=== PATIENT | male | born 1965 | race American Indian/Alaskan Native ===

== ENCOUNTER → 2023-07-25 | Outpatient (CLI) | payer OTHER ==
[2023-07-25 09:41] LABS: African American GFR (CKD) >90 (>60 ml/min/1.73 sqM); Blood Urea Nitrogen 12 mg/dL (9-20); Non-African American GFR(CKD) >90 (>60 ml/min/1.73 sqM)
--- NOTE | 2023-07-25 12:22 | CT ---
EXAMINATION TYPE: CT angio without and with chest DATE OF EXAM: 07/25/2023 COMPARISON: 02/12/2023 and 09/01/2022 HISTORY: 57-year-old male I 71.20, Follow up for thoracic aortic aneurysm. TECHNIQUE: Contiguous axial scanning of the chest before and after the administration of 100ml mL of Isovue 370. Coronal/sagittal MIP reconstructions performed. 3-D reconstructions generated on a [employer] independent workstation. CT DLP: 784mGycm. Automatic exposure control utilized for a dose reduction. FINDINGS: The heart is normal size without pericardial effusion. LAD and RCA coronary calcifications are presen t. Moderate aortic valvular calcifications. Aortic root mildly aneurysmal 4.1 cm versus 3.9 cm 09/01/2022. Ascending aorta aneurysmal at 5.0 cm, unchanged. Bovine configuration to the aortic arch. Normal caliber descending thoracic aorta. Unchanged prominent right hilar lymph node at 9 mm. 1.0 cm on the left. Otherwise, no thoracic lymph adenopathy by CT size criteria. Diffuse bronchial wall thickening. Hazy dependent atelectasis noted. Some patchy groundglass perihila r bronchovascular and peripherally in the right upper lobe. Calcified granuloma anterior left upper lobe is unchanged. No consolidation or pleural effusion seen. ABDOMEN: Visualized upper abdomen shows a tiny calcified granuloma in the spleen. Bones: Mild to moderate degenerative disc disease midthoracic spine. Normal variant sternal foramen. IMPRESSION: 1. Mild aneurysm aortic root at 4.1 cm versus 3.9 cm, previously. Moderate aortic valvular calcificat ions are redemonstrated. 2. Aneurysm ascending aorta 5.0 cm is unchanged. 3. COPD with mild emphysema. 4. Patchy groundglass throughout the right upper lobe appears fairly similar compared to 02/12/2023. C orrelate to exclude any residual or recurrent infectious/inflammatory infiltrates including the possi bility of COVID pneumonia or PHYSICAL GEOGRAPHER.
== END | disposition home or self-care (01) ==
LOC: RADCTMAIN 08:55
PROVIDERS: ATTEND Thoracic Surgery (Cardiothoracic Vascular Surgery)
DX: I71.20 Thoracic aortic aneurysm, without rupture, unspecified (principal); J44.9 Chronic obstructive pulmonary disease, unspecified; J43.9 Emphysema, unspecified; R91.8 Other nonspecific abnormal finding of lung field
CPT/HCPCS: 82565; 84520; 71275; 36415; Q9967

== ENCOUNTER → 2023-08-13 | Outpatient (CLI) | payer OTHER ==
[2023-08-14 02:00] LABS: HCT 47.6 % (39.6-50.0); HGB 16.1 g/dL (13.0-17.0); MCH 31.8 pg (27.0-32.0); MCHC 33.8 g/dL (32.0-37.0); MCV 93.9 FL (80.0-97.0); Mean Platelet Volume 10.3 FL (9.5-12.2); NRBC Per 100 WBC 0 X 10*3/uL (0.00-0.01); Platelet Count 145 X 10*3/uL (140-440); RBC 5.07 X 10*6/uL (4.40-5.60); RDW 12.4 % (11.5-14.5); WBC 8.18 X 10*3/uL (4.50-10.00)
[2023-08-14 02:37] LABS: Blood Urea Nitrogen 11.6 mg/dL (9.0-27.0); Carbon Dioxide 24.8 mmol/L (21.6-31.8); Chloride 104 mmol/L (96-109); Potassium 4.5 mmol/L (3.5-5.5); Sodium 139 mmol/L (135-145)
== END | disposition home or self-care (01) ==
LOC: LABPAT 12:07
PROVIDERS: ATTEND Internal Medicine
DX: Z01.812 Encounter for preprocedural laboratory examination (principal); R07.9 Chest pain, unspecified; R06.02 Shortness of breath
CPT/HCPCS: 36415; 80051; 82565; 84520; 85027

== ENCOUNTER 2023-08-31 10:15 | Day surgery (SDC) | payer OTHER ==
[~2023-08-31 10:15] MED LIST: ALPRAZolam 0.25 MG TAB PO PRN; ALPRAZolam 0.5 MG TAB PO PRN; ASPIRIN 325 MG TAB PO STA; HEPARIN SODIUM,PORCINE (1 ML) 2,500 UNIT in SODIUM CHLORIDE 0.9% 250 ML IRRIGATION PRN; HEPARIN SODIUM,PORCINE 10,000 UNIT in SODIUM CHLORIDE 0.9% 1,000 ML IRRIGATION PRN; NITROGLYCERIN SL TABS 0.4 MG TAB SUBLINGUAL PRN; SODIUM CHLORIDE 0.9% 1,000 ML in EMPTY BAG 1 BAG IV SCH
[2023-08-31] MEDS ORDERED: SODIUM CHLORIDE 0.9% 1,000 ML IV ONE (10:25)
[2023-08-31 11:20] VITALS: RESP 16; TEMP 97.9
[2023-08-31] MEDS ORDERED: HEPARIN SODIUM 1,000 UN/ML (10ML VL) ONE (11:29)
[2023-08-31] MEDS ORDERED: VERAPAMIL 2.5 MG/ML 2 ML AMP ONE (11:29)
[2023-08-31] MEDS ORDERED: LIDOCAINE 1% INJ 10MG/ML (20 ML MDV) ONE (11:29)
[2023-08-31] MEDS ORDERED: fentaNYL (PF) 50 MCG/ML 2 ML AMP ONE (11:43)
[2023-08-31] MEDS ORDERED: MIDAZOLAM 2 MG/2 ML VIAL IVP ONE (12:06)
[2023-08-31] MEDS ORDERED: LIDOCAINE 1% INJ 10MG/ML (20 ML MDV) SQ ONE (12:08)
[2023-08-31] MEDS ORDERED: fentaNYL (PF) 50 MCG/ML 2 ML AMP IVP ONE (12:08)
[2023-08-31] MEDS ORDERED: VERAPAMIL SYRINGE (5 MG/10 ML) INTRAARTER ONE (12:11)
[2023-08-31] MEDS ORDERED: HEPARIN SODIUM 1,000 UN/ML (10ML VL) IVP ONE ×2 (12:15→12:38)
[2023-08-31] MEDS ORDERED: IOPAMIDOL-370 100ML BTL IVP ONE ×2 (12:32→12:49)
--- NOTE | 2023-08-31 13:27 | P.CARDCATH ---
Description of Procedure: PROCEDURES PERFORMED: Left heart catheterization, bilateral coronary angiography, ultrasound guided arterial access, iFR of the LAD and circumflex INDICATION: Aortic stenosis, aortic root aneurysm CONSENT:I have discussed the risks, benefits and alternative therapies for the above-mentioned procedure and for both sedation/analgesia as well as necessary blood product administration, if indicated, as they pertain to this patient. The patient has indicated understanding and acceptance of the risks and procedures discussed. PROCEDURE: After the risks, benefits and alternatives of the above mentioned procedure explained in detail with the patient, informed consent was obtained. Patient was taken to the catheterization lab and prepped and draped in usual fashion. Ultrasound guidance was used to assess for arterial access. 1% lidocaine was used to anesthetize the right radial artery. A 6-Swedish sheath was placed in the right radial artery using modified Seldinger technique and ultrasound guidance. Left coronary angiography was performed with a 5-Swedish JL 5.0 catheter and right coronary angiography was performed with a 6-Swedish AR2 catheter in various views with some difficulty engaging the AR-2 secondary to aortic root dilation. The decision was made to perform iFR of the LAD and circumflex and heparin was given. A 0.014 pressure wire was advanced into the left main and normalized and then was placed 1 cm distal to the LAD and circumflex lesion. Additionally attempted to place iFR wire down the RCA uriahcristina malhotra had significant issues attempting to keep catheter engaged while exchanging for the 0.014 wire and therefore iFR not performed of the RCA. The right radial sheath was removed and a TR band was placed with hemostasis achieved. The patient tolerated the procedure well. Patient was transported back to the post catheterization holding area in stable condition. Conscious Sedation: Patient was monitored under the direct supervision of myself for conscious sedation using Versed and fentanyl for a total duration of 38 minutes HEMODYNAMICS: Aortic: 139/72 SELECTIVE CORONARY ARTERIOGRAPHY: LEFT MAIN: The left main is a large caliber vessel which bifurcates into the LAD and circumflex. There is no significant stenosis. LEFT ANTERIOR DESCENDING CORONARY ARTERY: LAD is a large caliber vessel which wraps around to the apex. There is a "high diagonal branch "without significant disease. Additionally there is a mid LAD 40-50% stenosis and otherwise mild luminal irregularities. LEFT CIRCUMFLEX CORONARY ARTERY: Left circumflex is a moderate caliber vessel. The circumflex gives off a moderate caliber OM1 branch with a mid OM1 60% stenosis. RIGHT CORONARY ARTERY: The right coronary artery is a large caliber vessel which gives off a PDA and PLV branch and is the dominant vessel. There is a mid RCA 60 to 70% stenosis and a distal RCA 70% stenosis. FINAL IMPRESSION: 1. CAD as described above including mid LAD 40 to 50%, OM1 60%, mid RCA 60 to 70%, distal RCA 70% stenosis 2. iFR normal of LAD and OM1 PLAN: 1. Aggressive risk factor modification per most recent ACC/AHA guidelines. 2. Follow-up with Dr. Beach for further aortic valvular, aortic aneurysm management
[2023-08-31 19:15] VITALS: BP 142/78; PULSE 61
== END 2023-08-31 16:41 | disposition home or self-care (01) ==
LOC: CATHCVL 10:15
PROVIDERS: ATTEND Internal Medicine
DX: I25.10 Atherosclerotic heart disease of native coronary artery without angina pectoris (principal); I10 Essential (primary) hypertension; Z87.891 Personal history of nicotine dependence; Z79.82 Long term (current) use of aspirin; Z79.899 Other long term (current) drug therapy
CPT/HCPCS: 93454; 93799; 76937; 99152; 99153; C1769 ×2; C1894; J2250; J2001; J3010; J1644; Q9967

== ENCOUNTER → 2023-09-10 | Outpatient (CLI) | payer OTHER ==
[2023-09-10 15:42] LABS: ALT 24 U/L (10-49); AST 27 U/L (14-35); Chol/HDL Ratio 4.54 Ratio; LDL Cholesterol,Calculated 95.9 mg/dL (0.0-131.0)
== END | disposition home or self-care (01) ==
LOC: LABWHC1 10:59
PROVIDERS: ATTEND Internal Medicine
DX: E78.2 Mixed hyperlipidemia (principal)
CPT/HCPCS: 36415; 80061; 84450; 84460

== ENCOUNTER → 2023-09-20 | Outpatient (CLI) | payer OTHER ==
[2023-09-20 10:22] LABS: Partial Thromboplastin Time 26.5 sec (22.0-30.0); Prothrombin Time 11.1 sec (10.0-12.5)
--- NOTE | 2023-09-20 11:38 | US ---
EXAMINATION TYPE: US arterial LE single level DATE OF EXAM: 09/20/2023 10:15 AM CLINICAL INDICATION: Male, 58 years old with history of OPEN HEART; Doppler Waveforms: Right: Monophasic Left: Multiphasic Right Brachial Pressure: 106 Left Brachial Pressure: 113 Ankle-Brachial Indices: Right: 0.85 Left: 1.09 IMPRESSION: Ankle-brachial indices with moderate right peripheral vascular disease and normal left ankle-brachial index.
--- NOTE | 2023-09-20 12:42 | XR ---
EXAMINATION TYPE: XR chest 2V DATE OF EXAM: 09/20/2023 COMPARISON: None HISTORY: 58-year-old male preop open heart TECHNIQUE: Frontal and lateral views FINDINGS: Heart is upper limits of normal in size. Aorta and pulmonary vasculature within normal limits. Mild i nterstitial prominence is chronic. High-density nodularity left mid lung probably a calcified granulo ma. IMPRESSION: Borderline heart size. Evidence of prior granulomatous disease. Chronic appearing changes. No definit e acute process.
--- NOTE | 2023-09-20 13:15 | US ---
EXAMINATION TYPE: US carotid duplex BILAT DATE OF EXAM: 09/20/2023 COMPARISON: NONE CLINICAL INDICATION: Male, 58 years old with history of OPEN HEART; open heart TECHNIQUE: Carotid duplex ultrasound examination. Indirect Doppler criteria was utilized. FINDINGS: EXAM MEASUREMENTS: RIGHT: Peak Systolic Velocity (PSV) cm/sec ----- Right CCA: 88.1 ----- Right ICA: 104 ----- Right ECA: 115.7 ICA/CCA ratio: 1.2 RIGHT: End Diastole cm/sec ----- Right CCA: 24.1 ----- Right ICA: 41.6 ----- Right ECA: 24.1 LEFT: Peak Systolic Velocity (PSV) cm/sec ----- Left CCA: 88.1 ----- Left ICA: 105.5 ----- Left ECA: 137.5 ICA/CCA ratio: 1.2 LEFT: End Diastole cm/sec ----- Left CCA: 28.5 ----- Left ICA: 37.2 ----- Left ECA: 24.1 VERTEBRALS (direction of flow): Right Vertebral: Antegrade Left Vertebral: Antegrade Rhythm: Normal ORCHID WORKER NOTES: No significant stenosis seen IMPRESSION: Less than 50% stenosis of the bilateral carotid bifurcations. Criteria for Assigning % of Stenosis / Diameter reduction (Estimation based on the indirect measurements of the internal carotid artery velocities (ICA PSV). 1. Normal (no stenosis)=ICA PSV < 125 cm/s: ratio < 2.0: ICA EDV<40 cm/s. 2. Less than 50% stenosis=ICA PSV < 125 cm/s: ratio < 2.0: ICA EDV<40 cm/s. 3. 50 to 69% stenosis=ICA PSV of 125 to 230 cm/s: ration 2.0 ? 4.0: ICA EDV 40-100 cm/s. 4. Greater than 70% stenosis to near occlusion= ICA PSV > 230 cm/s: ratio > 4.0: ICA EDV > 100 cm/s. 5. Near occlusion= ICA PSV velocities may be low or undetectable: variable ratio and ICA EDV. 6. Total occlusion=unable to detect flow.
--- NOTE | 2023-09-20 13:20 | US ---
EXAMINATION TYPE: Pre-Operative Non-Invasive Evaluation of the hand for Potential Radial Artery Anita gomez, Measurements only DATE OF EXAM: 09/20/2023 10:40 AM CLINICAL INDICATION: Male, 58 years old with history of OPEN HEART; open heart SIDE PERFORMED: Bilateral TECHNIQUE: Radial artery is measured utilizing real time linear array sonography. Dominant hand: Right Duplex Findings: Radial Artery: Color flow seen Measurements in mm, transverse view: Right Radial Proximal: 5.7 x 5.4 mm Mid: 3.4 x 3.5 mm Distal: 3.7 x 3.2 mm Left Radial Proximal: 4.0 x 3.4 mm Mid: 3.4 x 2.9 mm Distal: 3.5 x 2.6 mm IMPRESSION: 1. Bilateral radial measurements listed above. 2. Performing surgeon to determine viability as conduit.
--- NOTE | 2023-09-20 13:20 | US ---
EXAMINATION TYPE: US vein mapping BILAT DATE OF EXAM: 09/20/2023 10:52 AM COMPARISON: NONE CLINICAL INDICATION: Male, 58 years old with history of OPEN HEART; open heart SIDE PERFORMED: Bilateral TECHNIQUE: Lower extremity saphenous vein is examined and measured utilizing real time linear array sonography. Patient History: DUPLEX FINDINGS: Greater Saphenous: Color flow seen Lesser Saphenous: Color flow seen Measurements in mm: Right Greater Saphenous: Groin: 7.4 x 3.9 mm High Thigh: 5.7 x 4.6 mm Mid Thigh: 3.2 x 3.6 mm Above Knee: 3.5 x 3.1 mm Knee: 3.2 x 3.1 mm Below Knee: 3.1 x 2.9 mm Mid Calf: 2.7 x 2.0 mm At Ankle: 3.2 x 1.7 mm Left Greater Saphenous: Groin: 5.3 x 5.0 mm High Thigh: 3.5 x 3.5 mm Mid Thigh: 3.9 x 2.9 mm Above Knee: 3.9 x 3.8 mm Knee: 4.5 x 3.2 mm Below Knee: 3.2 x 3.2 mm Mid Calf: 3.3 x 2.9 mm At Ankle: 3.4 x 2.3 mm IMPRESSION: 1. Bilateral GSV measurements listed above. 2. Performing surgeon to determine viability as conduit.
[2023-09-20 15:31] LABS: Appearance,Urine Clear (Clear); Bilirubin,Urine Negative (Negative); Blood,Urine Negative (Negative); Color,Urine Yellow (Yellow); HGB 15.8 g/dL (13.0-17.0); Ketones,Urine Negative (Negative); MCH 31.3 pg (27.0-32.0); MCHC 32.9 g/dL (32.0-37.0); Mean Platelet Volume 10.9 FL (9.5-12.2); NRBC Per 100 WBC 0 X 10*3/uL (0.00-0.01); Nitrite,Urine Negative (Negative); PH, Urine 6.5; Platelet Count 136 X 10*3/uL (140-440); RBC 5.05 X 10*6/uL (4.40-5.60); RDW 12.6 % (11.5-14.5); Specific Gravity,Urine 1.015 (1.001-1.030); WBC 9.59 X 10*3/uL (4.50-10.00)
[2023-09-20 15:42] LABS: Bacteria,Urine None Seen (None Seen)
[2023-09-20 15:56] LABS: Hepatitis C IgG Antibody Reactive (Non-Reactive)
[2023-09-20 16:01] LABS: Hepatitis A Antibody IgM Nonreactive; Hepatitis B Core IgM Nonreactive; Hepatitis B Surface Antigen Nonreactive
[2023-09-20 16:02] LABS: ALT 21 U/L (10-49); AST 27 U/L (14-35); Albumin/Globulin Ratio 1.38 Ratio (1.60-3.17); Alkaline Phosphatase 100 U/L (41-126); Blood Urea Nitrogen 11.5 mg/dL (9.0-27.0); Calcium 10.3 mg/dL (8.7-10.3); Carbon Dioxide 28.9 mmol/L (21.6-31.8); Chloride 103 mmol/L (96-109); Chol/HDL Ratio 3.71 Ratio; Globulin 2.9 g/dL (1.6-3.3); Glucose 90 mg/dL (70-110); LDL Cholesterol,Calculated 70.3 mg/dL (0.0-131.0); Magnesium 1.7 mg/dL (1.5-2.4); Potassium 4.8 mmol/L (3.5-5.5); Sodium 141 mmol/L (135-145); Total Bilirubin 0.4 mg/dL (0.3-1.2); Total Protein 6.9 g/dL (6.2-8.2)
== END | disposition home or self-care (01) ==
LOC: LABWHC1 08:37
PROVIDERS: ATTEND Thoracic Surgery (Cardiothoracic Vascular Surgery)
DX: Z01.818 Encounter for other preprocedural examination (principal); I73.9 Peripheral vascular disease, unspecified; I35.1 Nonrheumatic aortic (valve) insufficiency; I25.10 Atherosclerotic heart disease of native coronary artery without angina pectoris; I65.23 Occlusion and stenosis of bilateral carotid arteries; R91.8 Other nonspecific abnormal finding of lung field
CPT/HCPCS: 36415; 71046; 80053; 80061; 80074; 81001; 83036; 83735; 84443; 85027; 85610; 85730; 86850; 86900; 86901; 86920; 87070; 87086; 93880; 93922; 93930; 93970; 94150

== ENCOUNTER 2023-09-27 05:44 | Inpatient (IN) | payer OTHER ==
--- NOTE | 2023-09-22 12:13 | P.PN ---
Progress Note - Text Progress Note Date: 09/20/23 5 meter walk test completed: #1 3.68 sec #2 4.0 sec #3 3.65 sec STS risk score calculated and discussed with the patient
[~2023-09-27 05:44] MED LIST changes: -ALPRAZolam 0.25 MG TAB PO PRN; -ALPRAZolam 0.5 MG TAB PO PRN; -ASPIRIN 325 MG TAB PO STA; +CHLORHEXIDINE GLUCONATE 15 ML CUP MUCOUS MEM ONE; +CLEVIDIPINE BUTYRATE 25 MG in EMPTY BAG 1 BAG IV ONE; +HEPARIN SODIUM 1,000 UN/ML (10ML VL) IV ONE; -HEPARIN SODIUM,PORCINE (1 ML) 2,500 UNIT in SODIUM CHLORIDE 0.9% 250 ML IRRIGATION PRN; -HEPARIN SODIUM,PORCINE 10,000 UNIT in SODIUM CHLORIDE 0.9% 1,000 ML IRRIGATION PRN; +MANNITOL 25% 12.5 GM/50 ML VIAL IV ONE; +NITROGLYCERIN SL TABS 0.4 MG TAB SUBLINGUAL ONE; -NITROGLYCERIN SL TABS 0.4 MG TAB SUBLINGUAL PRN; +NITROGLYCERIN-D5W PMX 25 MG/250 ML BTL IV ONE; +PHENYLEPHRINE 10 MG/ML VIAL IV ONE; +PROTAMINE SULFATE 10 MG/ML 25 ML VIAL IV ONE; +SODIUM BICARB 8.4% 50 ML SYR (1 MEQ/ML) IV ONE; -SODIUM CHLORIDE 0.9% 1,000 ML in EMPTY BAG 1 BAG IV SCH
[2023-09-27] MEDS: LACTATED RINGERS 1,000 ML IV ONE (05:57)
[2023-09-27 06:26] LABS: Glucose,Whole Blood 99 mg/dL (70-110)
[2023-09-27] MEDS: ATORVASTATIN 10 MG TAB PO ONE (06:42)
[2023-09-27] MEDS: METOPROLOL TARTRATE 12.5 MG TAB PO ONE (06:43)
[2023-09-27] MEDS ORDERED: CALCIUM CHLORIDE 100 MG/ML 10 ML SYRINGE ONE (07:47)
[2023-09-27] MEDS ORDERED: VECURONIUM 10 MG VIAL IV ONE (07:47)
[2023-09-27] MEDS ORDERED: MIDAZOLAM HCL 10 MG/10 ML VIAL ONE (07:47)
[2023-09-27] MEDS ORDERED: PROTAMINE SULFATE 10 MG/ML 25 ML VIAL IV ONE (07:47)
[2023-09-27] MEDS ORDERED: PHENYLEPHRINE-0.9% NACL SYG 1,000 MCG/10 ML SYRINGE ONE (07:47)
[2023-09-27] MEDS ORDERED: GLYCOPYRROLATE 0.2 MG/ML 2 ML VIAL ONE (07:47)
[2023-09-27] MEDS ORDERED: PROPOFOL 10 MG/ML 20 ML VIAL IV ONE (07:47)
[2023-09-27] MEDS ORDERED: TRANEXAMIC 1,000 MG/100ML-NACL PREMIX BAG ONE (07:47)
[2023-09-27] MEDS ORDERED: HEPARIN SODIUM,PORCINE 10,000 UNIT/ML 1 ML VIAL ONE (07:47)
[2023-09-27] MEDS ORDERED: fentaNYL (PF) 50 MCG/ML 50 ML VIAL ONE (07:47)
[2023-09-27] MEDS: HEPARIN SODIUM,PORCINE (1 ML) 5,000 UNIT in SODIUM CHLORIDE 0.9% 500 ML 500 ML IV ONE (09:13)
[2023-09-27] MEDS: PAPAVERINE 360 MG in SODIUM CHLORIDE 0.9% 90 ML IV ONE (09:13)
[2023-09-27] MEDS: ceFAZolin 1,000 MG in SODIUM CHLORIDE 0.9% IRRIGATIO 1,000 ML IRRIGATION ONE (09:14)
--- NOTE | 2023-09-27 09:29 | P.ANPRN ---
Procedure Note - Anesthesia - Invasive Line Right Central Line Time Out Performed: Yes (0712) Date of Procedure: 09/27/23 Time of Procedure: 07:27 Location of Patient: Phase I Preparation: Sterile Prep, Sterile Dressing Central Line Location: Internal Jugular (right IJ cordis) Ultrasound Used: Yes Purpose - Visualization and Identification of Vasculature: Yes Needle Guage: 18-gauge Angiocath Narrative: Central line placement per sterile protocol utilized. Anesthesia note Procedure: Right internal jugular central venous catheter insertion: 8.5-Yi Cordis Sterile protocol followed. Right neck prepped. Ultrasound used. Lidocaine 1% used. Using ultrasound local anesthetic was instilled site over right Internal Jugular vein. Angiocath was used to gain access via ultrasound. Once free flow non-pulsatile blood flow was confirmed, 12 inch extension tubing was then placed on Angiocath. Once central venous pressure was confirmed, J-wire was then placed through Angiocath. Angiocath was then withdrawn. Local was instilled at J-wire site. Small skin tegan was then made with provided sterile scalpel. 8.5- Yi Cordis was then inserted over the wire while maintaining control of wire at all times. Uneventful insertion with dilation. Free flow nonpulsatile blood flow through Cordis. Hooked up to IV tubing. Secured with suture. Dressings applied. Drapes Removed. Attempts x1.
--- NOTE | 2023-09-27 09:30 | P.ANPRN ---
Procedure Note - Anesthesia - Invasive Line Right [place] Time Out Performed: Yes (0712) Date of Procedure: 09/27/23 Time of Procedure: 07:43 Location of Patient: PreOp Preparation: Sterile Prep, Sterile Dressing Arterial Line Location: Radial [place] Line Location: Internal Jugular (right) Ultrasound Used: No Purpose - Visualization and Identification of Vasculature: No Image Stored and Saved: No Narrative: Central line placement per sterile protocol utilized. Anesthesia note Procedure right [place] catheter placed through right internal jugular central venous catheter Sterile protocol maintained from previous procedure. [place] catheter sterilely placed in sheath and flushed prior to insertion. After advancing 15 cm [place] catheter was then slowly inserted with balloon up. Advanced through CVP, RV to PA waveform. [place] catheter wedged around 52 cm. Balloon down. Catheter withdrawn 5 cm. . No wedge. Proximal and distal sites locked on sheath. Attempts x1. Sterile drapes removed and dressings applied.
--- NOTE | 2023-09-27 09:32 | P.ANPRN ---
Procedure Note - Anesthesia - WM Intraop Pre Bypass WM Intraop - Anesthesia Indication: Ascending aortic aneurysm, Aortic stenosis Date of Procedure: 09/27/23 Pre-operative Diagnosis: Ascending aortic aneurysm, Aortic stenosis Post-operative Diagnosis: Ascending aortic aneurysm, Aortic stenosis Surgeon: Rodri Beach Left Ventricle: wnl Ejection Fraction: Normal Regional Wall Motion Abnormalities: None Left Ventricle Hypertrophy: No Right Ventricle: wnl R. Ventricle Function: Normal Aortic Valve: Bicuspid valve. LVOT 2 cm calculated aortic valve area 0.6 cm measured aortic valve area 1 cm functionally bicuspid valve fusion of the right and noncoronary cusp Anatomy: Other ('s) Aortic Stenosis: Severe Aortic Regurgitation: None Mitral Stenosis: None Mitral Regurgitation: None Tricuspid Stenosis: None Tricuspid Regurgitation: None Pulmonic Stenosis: None Pulmonic Regurgitation: None R. Atrial Dilation: No R. Atrial PFO: No L. Atrial Dilation: No Aortic Dissection: No Aortic Calcification: None Plural Effusion: None
[2023-09-27 10:24] LABS: ABG HCO3 26 mmol/L (21-25); ABG Oxygen Saturation 99.8 % (94-97); ABG PCO2 44 mmHg (35-45); ABG PH 7.38 (7.35-7.45); ABG PO2 264 mmHg (83-108); ABG TCO2 27 mmol/L (19-24); Allen Test Performed? Yes
[2023-09-27 10:37] LABS: Glucose,Whole Blood 108 mg/dL (70-110)
[2023-09-27 11:02] LABS: ABG Base Excess 1.7 mmol/L; ABG HCO3 26 mmol/L (21-25); ABG PCO2 36 mmHg (35-45); ABG PH 7.46 (7.35-7.45); ABG PO2 >400 mmHg (83-108); ABG TCO2 27 mmol/L (19-24); Allen Test Performed? Yes
[2023-09-27 11:09] LABS: Glucose,Whole Blood 97 mg/dL (70-110)
[2023-09-27 11:37] LABS: Glucose,Whole Blood 113 mg/dL (70-110)
[2023-09-27 12:13] LABS: Glucose,Whole Blood 123 mg/dL (70-110)
[2023-09-27 13:23] LABS: ABG Base Excess -0.8 mmol/L; ABG HCO3 24 mmol/L (21-25); ABG Oxygen Saturation 99.8 % (94-97); ABG PCO2 36 mmHg (35-45); ABG PH 7.43 (7.35-7.45); ABG PO2 230 mmHg (83-108); ABG TCO2 25 mmol/L (19-24); Allen Test Performed? Yes
[2023-09-27 13:29] LABS: Glucose,Whole Blood 116 mg/dL (70-110)
--- NOTE | 2023-09-27 13:35 | P.ANPRN ---
Procedure Note - Anesthesia - WM Intraop Post Bypass WM Intraop Post Bypass Procedure Performed: aortic valve replacement, aortic tube graft, CABG Left Ventricle: unchanged Ejection Fraction: Normal Regional Wall Motion Abnormalities: None R. Ventricle Function: Normal Aortic Valve: valve opens well. No regurg. Residual gradient 3.4cm. Tube graft measured 2.9cm. Original aneurysm measured 4.9cm. Mitral Valve: Unchanged Tricuspid: Unchanged Pulmonic: Unchanged Aortic Dissection: No
[2023-09-27] MEDS ORDERED: IPRATROPIUM-ALBUTEROL 3 ML NEB INHALATION PRN (13:57)
[2023-09-27] MEDS ORDERED: AMIODARONE 360 MG in DEXTROSE 5% IN WATER 200 ML IV PRN (13:57)
[2023-09-27] MEDS ORDERED: ONDANSETRON 4 MG/2 ML VIAL IVP PRN (13:57)
[2023-09-27] MEDS ORDERED: DEXTROSE 50% SYRINGE 50 ML IVP PRN ×2 (13:57)
[2023-09-27] MEDS ORDERED: Potassium Replacement Protocol 1 EACH MISC MISCELLANE PRN (13:57)
[2023-09-27] MEDS ORDERED: BENZOCAINE/MENTHOL LOZENG 1 EACH LOZENGE MUCOUS MEM PRN (13:57)
[2023-09-27] MEDS ORDERED: Magnesium Replacement Protocol 1 EACH MISC MISCELLANE PRN (13:57)
[2023-09-27] MEDS ORDERED: AMIODARONE 450 MG in DEXTROSE 5% IN WATER 250 ML IV PRN (13:57)
[2023-09-27] MEDS ORDERED: CALCIUM GLUCONATE IN NACL 2 GM in SALINE 1 100ML.BAG IVPB PRN (13:57)
[2023-09-27] MEDS ORDERED: INSULIN REGULAR 100 UNIT in SODIUM CHLORIDE 0.9% 100 ML IV SCH (13:57)
--- NOTE | 2023-09-27 14:41 | P.OP ---
Date of Procedure: 09/27/23 Preoperative Diagnosis: Congenital bicuspid calcific aortic stenosis, ascending aortic aneurysm, coronary artery disease. Postoperative Diagnosis: Same Procedure(s) Performed: Aortic valve replacement with 27 mm Inspra's bovine pericardial prosthesis, repl acement of ascending aorta with 32 mm tube graft, CABG x 1 with saphenous vein graft to posterior descending coronary artery, endovascular vein harvest, ligation of the left atrial appendage with 40 mm AtriCure clip Implants: 27 mm Inspiris bovine pericardial valve, 32 mm dacryon tube graft, 40 mm AtriCure clip Anesthesia: GETA Surgeon: Rodri Beach Chemical Test Engineer #1: Jhonatan Ascencio Estimated Blood Loss (ml): 450 IV fluids (ml): 1,500 Urine output (ml): 400 Pathology: other (Ascending aorta, aortic valve) Condition: critical Disposition: ICU Indications for Procedure: 58-year-old male with symptomatic aortic stenosis secondary to congenital bicuspid aortic valve also marked ascending aortic dilatation, moderate coronary artery disease with significant RCA lesion. Operative Findings: Ascending aorta was markedly dilated. There was a good neck distally and the sinotubular junction was relatively normal in size. The aortic valve was bicuspid and heavily calcified. There was fusion of the left and right cusp. Annular calcification extended onto the anterior leaflet of the mitral valve. Postop WM demonstrated no evidence of aortic valvular insufficiency or leak. PDA target was very small and diffusely diseased. Saphenous vein was likely small but appropriate for size of the target. Description of Procedure: Patient was brought to the operating room and placed supine on the operating table. General anesthesia was induced. Monitoring lines have been placed in the preop holding area. The anterior torso and bilateral lower extremities were sterilely prepped and draped in standard fashion. Greater saphenous vein was harvested from the left lower extremity from the knee to the ankle. It was good quality vein. Simultaneous sternotomy was performed. Midline pericardiotomy was made. The ascending aorta was dissected out. Once the vein was harvested, the patient was systemically heparinized. Patient was cannulated for cardiopulmonary bypass with a 7 mm soft flow cannula in the proximal arch of the aorta and a two-stage venous cannula through the right atrium into the inferior vena cava. Antegrade and retrograde cardioplegia lines were placed in standard fashion. Patient was placed on cardiopulmonary bypass and stabilized. 40 mm AtriCure clip was placed at the base of the left atrial appendage. Pursestring suture of 4-0 Prolene was placed in the right superior pulmonary vein. The aorta was crossclamped and the very distal ascending aorta and the heart arrested with cold crystalloid antegrade and retrograde cardioplegia. Left atrial vent was placed through the right superior pulmonary vein. The PDA was explored and a soft spot identified fairly proximally where it could be grafted. Was opened here and accepted a 1 mm probe distally. Saphenous vein was anastomosed in end-to-side fashion with running 7-0 Prolene suture. Next the aorta was transected about a centimeter and a half proximal to the cross-clamp at the base of the neck of the aneurysm. The aorta was then transected proximally just above the sinotubular junction. Specimen was passed off the field. Aortic valve was evaluated and excised. The annulus was decalcified. The calcification was continued to decalcified the anterior leaflet of the rosalinda l valve. Circumferential valve sutures of 2-0 Tycron were placed with pledgets on the ventricular side to allow supra annular implantation. Annulus was sized and a 27 mm Inspira's valve was chosen and brought up onto the field. Valve sutures were placed through the sewing ring of the valve and it was seated without difficulty. Sutures were tied and cut and the valve was noted to seat well. Coronary ostia were free. 32 mm dacryon graft was brought onto the field. Proximal anastomosis was constructed with running 4-0 Prolene suture. Strips of Maximiliano felt were used externally to reinforce the anastomosis. On completion of the proximal anastomosis we proceeded to the distal anastomosis after trimming the graft appropriately. This anastomosis was again constructed with 4-0 Prolene suture reinforced with Maximiliano felt. On completion of the distal anastomosis, a 4 mm hole was created in the graft with a eye cautery. Proximal anastomosis was constructed with a running 6-0 Prolene suture. On completion of this anastomosis the bulldog clamp was placed on the vein graft the patient was placed in Trendelenburg and the cross-clamp was removed. The left atrial vent had been turned off and was removed and the pursestring suture tied. After she assuring good hemostasis at the aortic sites, retrograde cardioplegia line was removed and atrial and ventricular pacing wires were placed and the patient was paced. Underlying rhythm was slow sinus bradycardia in the 40s. Heart was de-aired under WM guidance through the apex of the ventricle with an 18-gauge needle. The ascending aorta graft was also de-aired with 18-gauge needle. Meticulous hemostasis was assured and after appropriate period of reperfusion the patient was weaned from cardiopulmonary bypass without the use of inotropic support. Heparin was reversed with protamine and no additional sutures were required. Good hemostasis was obtained. Patient was decannulated in standard fashion and the pump return to the patient. No blood transfusions were required and no inotropic support was required. Patient was hemodynamically stable although still in sinus bradycardia. Atrial pacing was initiated. After assuring good hemostasis, the mediastinum was irrigated with antibiotic solution. The left pleural space was drained with a 32 Azeri chest tube. Mediastinum was drained with 236 Azeri chest tubes. Sternum was closed with 8 sternal wires. Fascia was closed with 0 Ethibond. Subcutaneous and subcuticular layers of the leg and chest were closed with layers of Vicryl suture. Patient was transferred to the ICU in stable condition.
[2023-09-27] MEDS: NITROGLYCERIN-D5W PMX 50 MG in DEXTROSE/WATER 1 250ML.BAG IV SCH (14:48)
[2023-09-27 15:00] LABS: Glucose,Whole Blood 107 mg/dL (70-110)
[2023-09-27 15:10] LABS: Basophils % (A) 0 %; Eosinophils # (A) 0.1 k/uL (0-0.7); Eosinophils % (A) 1 %; HCT 40.6 % (39.0-53.0); HGB 13.7 gm/dL (13.0-17.5); Lymphocytes # (A) 2.3 k/uL (1.0-4.8); Lymphocytes % (A) 19 %; MCH 32.4 pg (25.0-35.0); MCHC 33.8 g/dL (31.0-37.0); MCV 95.8 fL (80.0-100.0); Mean Platelet Volume 8.2; Monocytes # (A) 0.6 k/uL (0-1.0); Monocytes % (A) 5 %; Neutrophils % (A) 74 %; RBC 4.24 m/uL (4.30-5.90); RDW 12.8 % (11.5-15.5); WBC 12.2 k/uL (3.8-10.6)
--- NOTE | 2023-09-27 15:11 | P.CNPUL ---
History of Present Illness Consult date: 09/27/23 Requesting physician: Rodri Beach Reason for consult: other Chief complaint: Status post aortic valve replacement, and single-vessel bypass grafting. History of present illness: Pulmonary/critical care consult dated September 27, 2023. 58-year-old male seen in the ICU today, postop day #0,S/P aortic valve replacement with a bovine pericardial prosthesis, replacement of ascending aorta with 32 mm tube graft, bypass grafting x 1, with saphenous vein graft to the posterior descending coronary artery, and ligation of left atrial appendage. The surgeon was Dr. Beach. The patient is seen in the intensive care unit, room 263. Ventilator settings include volume assist-control, rate 12, tidal volume 550, FiO2 100%, PEEP of 5. Blood gases while in the operating room, show pO2 of 230, pCO2 of 35, pH is 7.42. That was on 60%. Blood gases in the ICU have not yet been done. The patient is currently on nitroglycerin at 5 mcg/min, and propofol at 30 mcg/kg/min. The patient is seen in the intensive care unit, having just got back from the operating room. The patient has a history of a congenital bicuspid calcific aortic valve, with aortic valve stenosis. No new laboratory data as yet. Chest x-ray is pending. ABGs, and hemodynamics are pending. In addition to the congenital bicuspid aortic valve, the patient has a history of hyperlipidemia, coronary disease, and hypertension. Outpatient medications include trazodone, Zestril, metoprolol, Lexapro, vitamin D3, Lipitor, and baby aspirin. Review of Systems REVIEW OF SYSTEMS: CONSTITUTIONAL: [Negative.] NEUROLOGIC: [ Negative.] HEENT: [ Negative.] CARDIAC: Anginal symptoms. PULMONARY: Shortness of breath on exertion. GI: [Negative.] : [Negative.] RHEUMATOLOGIC: [ Negative.] IMMUNOLOGIC: [ Negative.] ENDOCRINE: [Negative. ] DERMATOLOGIC: [Negative.] Past Medical History Past Medical History: Chest Pain / Angina, COPD, Hearing Disorder / Deafness, Hypertension Additional Past Medical History / Comment(s): Hirschsprung's disease, constipation, aortic valve stenosis, SOB, vertigo, ascending aortic aneurysm, bacteremia 3 yrs. ago, hepatitis C-successful treatment, born w/one kidney, deaf right ear, neck, shoulders & back pain, neuropathy feet, blood infection 2019 History of Any Multi-Drug Resistant Organisms: None Reported Past Surgical History: Bowel Resection, Ear Surgery, Heart Catheterization, Orthopedic Surgery Additional Past Surgical History / Comment(s): WM, right inner ear surg/graft,ORIF left ankle, multiple surgeries for Hirschsprung's as a baby Past Anesthesia/Blood Transfusion Reactions: No Reported Reaction Smoking Status: Former smoker - Past Family History Father Family Medical History: Coronary Artery Disease (CAD) Mother Family Medical History: Cancer Medications and Allergies Home Medications Medication Instructions Recorded Confirmed Type Aspirin [Adult Low Dose Aspirin EC] 81 mg PO HS 08/27/23 09/27/23 History Cholecalciferol [Vitamin D3 (125 50,000 units PO Q30D 08/27/23 09/27/23 History Mcg = 5000 Iu)] Escitalopram [Lexapro] 10 mg PO HS 08/27/23 09/27/23 History lisinopriL [Zestril] 5 mg PO HS 08/27/23 09/27/23 History traZODone HCL 100 mg PO HS 08/27/23 09/27/23 History Atorvastatin [Lipitor] 40 mg PO HS 09/20/23 09/27/23 History Metoprolol Succinate (ER) [Toprol 25 mg PO HS 09/20/23 09/27/23 History Xl] Allergies Allergy/AdvReac Type Severity Reaction Status Date / Time No Known Allergies Allergy Verified 09/27/23 06:38 Physical Exam Osteopathic Statement: *. No significant issues noted on an osteopathic structural exam other than those noted in the History and Physical/Consult. Vitals: Vital Signs Temp Pulse Resp BP BP Pulse Ox FiO2 09/27/23 14:50 100 09/27/23 06:00 98 F 76 16 124/66 124/76 100 Intake and Output 09/27/23 09/27/23 09/27/23 06:59 14:59 22:59 Intake Total 100 53 Output Total 850 Balance 100 -797 Intake: IV 100 53 Output: Urine 400 Estimated Blood Loss 450 Other: Weight 92.6 kg No acute distress, sedated on propofol, with an orally placed endotracheal tube. HEENT examination is grossly unremarkable. Mucous membranes are moist. No oral lesions. Neck supple. Full range of motion. No adenopathy thyromegaly or neck vein distention. Cardiovascular examination reveals regular rhythm rate. S1-S2 normal. No S3 or S4. No discernible murmur noted. Heart rate 80 bpm. Heart sounds are distant. Lungs reveal clear breath sounds. Breath sounds are equal bilaterally. No adventitious lung sounds including wheezes rhonchi or crackles. Abdomen soft bowel sounds are heard. No masses or tenderness. Extremities are intact. No cyanosis clubbing or edema. Skin is without rash or lesion. Neurologic examination cannot be assessed as the patient is sedated. Results - Laboratory Findings Abnormal lab findings: Abnormal Labs 09/20/23 09/27/23 09/27/23 08:58 11:36 12:11 POC Glucose (mg/dL) 113 H 123 H Crossmatch See Detail 09/27/23 13:29 POC Glucose (mg/dL) 116 H Crossmatch - Diagnostic Findings Chest x-ray: image reviewed Assessment and Plan Assessment: Postop day #0, status post aortic valve replacement, single-vessel bypass grafting (SVG to PDA), left atrial appendage ligation, and replacement of ascending aorta with 32 mm tube graft. Routine postoperative ventilator management. Congenital calcific bicuspid aortic valve. Coronary artery disease. History of hypertension. History of hyperlipidemia. Plan: Plan dated September 27, 2023. The patient is seen in the intensive care unit. He just arrived out of the operating room. Blood gases, chest x-ray pending. The patient was placed on volume assist-control, rate 12, tidal volume 550, 100% FiO2, PEEP of 5. The patient is on nitroglycerin, at 5 mcg/min, propofol at 30 mcg/kg/min. Blood ga ses done in the operating room show pO2 of 230, pCO2 35, pH is 7.42. That was on 60%. Labs, x-rays, and hemodynamics are pending. We will continue to follow, and make recommendations were appropriate. Time with Patient: Greater than 30
[2023-09-27 15:13] LABS: Ionized Calcium 5.3 mg/dL (4.5-5.3)
[2023-09-27 15:14] LABS: ABG Base Excess -1.6 mmol/L; ABG HCO3 25 mmol/L (21-25); ABG PCO2 49 mmHg (35-45); ABG PH 7.31 (7.35-7.45); ABG PO2 >400 mmHg (83-108); ABG TCO2 26 mmol/L (19-24); Allen Test Performed? Yes
[2023-09-27 15:21] LABS: ALT 18 U/L (4-49); AST 59 U/L (17-59); African American GFR (CKD) >90 (>60 ml/min/1.73 sqM); Albumin 2.9 g/dL (3.5-5.0); Alkaline Phosphatase 71 U/L (38-126); Anion Gap 1 mmol/L; Blood Urea Nitrogen 18 mg/dL (9-20); Calcium 8.7 mg/dL (8.4-10.2); Carbon Dioxide 22 mmol/L (22-30); Chloride 114 mmol/L (98-107); Glucose 107 mg/dL (74-99); Magnesium 3.5 mg/dL (1.6-2.3); Non-African American GFR(CKD) >90 (>60 ml/min/1.73 sqM); Potassium 4.1 mmol/L (3.5-5.1); Sodium 137 mmol/L (137-145); Total Protein 5.3 g/dL (6.3-8.2)
[2023-09-27] MEDS: IPRATROPIUM-ALBUTEROL 3 ML NEB INHALATION SCH ×2 (15:22→19:54)
[2023-09-27 15:23] LABS: INR 1.1 (<1.2); Partial Thromboplastin Time 30.1 sec (22.0-30.0); Prothrombin Time 12.3 sec (10.0-12.5)
--- NOTE | 2023-09-27 15:36 | XR ---
EXAMINATION TYPE: XR chest 1V portable DATE OF EXAM: 09/27/2023 COMPARISON: 09/20/2023 HISTORY: Postop TECHNIQUE: Single frontal view of the chest is obtained. FINDINGS: ET tube approximately 3.8 cm above shantelle. Diffuse interstitial pattern correlate for mild venous congestion with small left effusion and basilar atelectasis. NG tube appears in good position . Mediastinal tube, Lapel-Smitha catheter and left-sided chest tube in good position. Postmedian sternot aydee and post aortic valve replacement surgery with epicardial lead. Tiny granuloma left upper lobe. IMPRESSION: 1. Postoperative change with mild venous congestion and small left pleural effusion.
[2023-09-27] MEDS: ALBUMIN HUMAN 5% 250 ML in EMPTY BAG 1 BAG IVPB PRN (15:42)
[2023-09-27] MEDS: hydrALAZINE HCL 20 MG/ML 1 ML VIAL IVP PRN (15:42)
[2023-09-27] MEDS: LACTATED RINGERS 1,000 ML IV SCH (15:43)
[2023-09-27] MEDS: CALCIUM CHLORIDE 100 MG/ML 10 ML SYRINGE IV ONE (15:46)
[2023-09-27] MEDS: ALBUMIN HUMAN 25% 50 ML IV ONE (15:46)
[2023-09-27] MEDS: ASPIRIN 325 MG TAB PO ONE (15:46)
[2023-09-27] MEDS: ALBUMIN HUMAN 5% 500 ML IVPB ONE (15:46)
[2023-09-27] MEDS: CARDIOPLEGIC SOLN (K+ 16 MEQ/L 1,000 ML with SODIUM BICARB (1 MEQ/ML) 20 ML, LIDOCAINE ... PERFUSION ONE (15:47)
[2023-09-27 15:55] LABS: Large Platelets Present; Platelet Count 97 k/uL (150-450)
[2023-09-27 16:04] LABS: Glucose,Whole Blood 117 mg/dL (70-110)
[2023-09-27] MEDS: HEPARIN SODIUM,PORCINE 5,000 UNIT/ML 1 ML VIAL SQ SCH (16:11)
[2023-09-27] MEDS: DILTIAZEM 125 MG in SODIUM CHLORIDE 0.9% 100 ML IV ONE (16:38)
[2023-09-27] MEDS: MAGNESIUM SULFATE 16.24 MEQ in EMPTY SYRINGE 1 SYR IV ONE (16:38)
[2023-09-27] MEDS: INSULIN REGULAR 100 UNIT in SODIUM CHLORIDE 0.9% 100 ML IV ONE (16:38)
[2023-09-27] MEDS: PROTAMINE SULFATE 250 MG in EMPTY BAG 1 BAG IV ONE (16:39)
[2023-09-27] MEDS: propofoL 1,000 MG/100 ML VIAL IV ONE (16:39)
[2023-09-27] MEDS: PHENYLEPHRINE 40 MG in SODIUM CHLORIDE 0.9% 250 ML IV ONE (16:39)
[2023-09-27] MEDS: NITROGLYCERIN-D5W PMX 50 MG in DEXTROSE/WATER 1 250ML.BAG IV ONE (16:39)
[2023-09-27] MEDS: NOREPINEPHRINE 4 MG in SODIUM CHLORIDE 0.9% 250 ML IV ONE (16:39)
[2023-09-27] MEDS: SODIUM CHLORIDE 0.9% 1,000 ML IV ONE (16:40)
[2023-09-27] MEDS: TRANEXAMIC ACID 2,000 MG in SODIUM CHLORIDE 0.9% 80 ML IV ONE (16:40)
[2023-09-27 17:03] LABS: ABG Base Excess -2.8 mmol/L; ABG HCO3 23 mmol/L (21-25); ABG Oxygen Saturation 99.4 % (94-97); ABG PCO2 44 mmHg (35-45); ABG PH 7.33 (7.35-7.45); ABG PO2 156 mmHg (83-108); ABG TCO2 25 mmol/L (19-24); Allen Test Performed? Yes
[2023-09-27 17:03] LABS: Glucose,Whole Blood 132 mg/dL (70-110)
[2023-09-27] MEDS: ACETAMINOPHEN IV (For NPO) 1,000 MG in EMPTY BAG 1 BAG IVPB SCH (17:15)
[2023-09-27 17:16] LABS: Basophils # (A) 0.1 k/uL (0-0.2); Basophils % (A) 1 %; Eosinophils # (A) 0.1 k/uL (0-0.7); Eosinophils % (A) 0 %; HCT 37.8 % (39.0-53.0); HGB 12.9 gm/dL (13.0-17.5); Lymphocytes # (A) 3.9 k/uL (1.0-4.8); Lymphocytes % (A) 22 %; MCH 32.6 pg (25.0-35.0); MCV 95.9 fL (80.0-100.0); Mean Platelet Volume 8.3; Monocytes # (A) 0.8 k/uL (0-1.0); Monocytes % (A) 5 %; Neutrophils # (A) 13.1 k/uL (1.3-7.7); Neutrophils % (A) 72 %; Platelet Count 109 k/uL (150-450); RBC 3.95 m/uL (4.30-5.90); RDW 12.7 % (11.5-15.5); WBC 18.2 k/uL (3.8-10.6)
[2023-09-27] MEDS: INSULIN REGULAR 100 UNIT in SODIUM CHLORIDE 0.9% 100 ML IV SCH (17:22)
[2023-09-27 17:44] LABS: African American GFR (CKD) >90 (>60 ml/min/1.73 sqM); Anion Gap 5 mmol/L; Blood Urea Nitrogen 18 mg/dL (9-20); Calcium 8.5 mg/dL (8.4-10.2); Carbon Dioxide 21 mmol/L (22-30); Chloride 112 mmol/L (98-107); Glucose 124 mg/dL (74-99); Magnesium 2.9 mg/dL (1.6-2.3); Non-African American GFR(CKD) >90 (>60 ml/min/1.73 sqM); Potassium 4.4 mmol/L (3.5-5.1); Sodium 138 mmol/L (137-145)
[2023-09-27] MEDS: AMIODARONE 360 MG in DEXTROSE 5% IN WATER 200 ML IV ONE (18:19)
[2023-09-27] MEDS: CLEVIDIPINE BUTYRATE 25 MG in EMPTY BAG 1 BAG IV SCH (18:20)
[2023-09-27 18:24] LABS: Glucose,Whole Blood 123 mg/dL (70-110)
[2023-09-27] MEDS ORDERED: MUPIROCIN 2% OINT 22 GM TUBE NASAL ONE (18:45)
[2023-09-27 19:01] LABS: Glucose,Whole Blood 125 mg/dL (70-110)
[2023-09-27 20:14] LABS: Glucose,Whole Blood 127 mg/dL (70-110)
[2023-09-27 20:45] LABS: Basophils % (A) 0 %; Eosinophils % (A) 0 %; HCT 34.7 % (39.0-53.0); HGB 11.8 gm/dL (13.0-17.5); Lymphocytes # (A) 1.5 k/uL (1.0-4.8); Lymphocytes % (A) 9 %; MCH 32.1 pg (25.0-35.0); MCV 94.5 fL (80.0-100.0); Mean Platelet Volume 8.9; Monocytes # (A) 0.9 k/uL (0-1.0); Monocytes % (A) 5 %; Neutrophils # (A) 14.5 k/uL (1.3-7.7); Neutrophils % (A) 85 %; Platelet Count 104 k/uL (150-450); RBC 3.67 m/uL (4.30-5.90); RDW 13.4 % (11.5-15.5); WBC 17.1 k/uL (3.8-10.6)
[2023-09-27 21:00] LABS: Glucose,Whole Blood 128 mg/dL (70-110)
[2023-09-27] MEDS ORDERED: ESCITALOPRAM 10 MG TAB PO SCH (21:00)
[2023-09-27] MEDS: AMIODARONE 450 MG in DEXTROSE 5% IN WATER 250 ML IV SCH (21:35)
[2023-09-27] MEDS: SENNOSIDES-DOCUSATE SODIUM 1 EACH TAB PO SCH (21:41)
[2023-09-27] MEDS: ATORVASTATIN 40 MG TAB PO SCH (21:41)
[2023-09-27 22:08] LABS: Glucose,Whole Blood 132 mg/dL (70-110)
[2023-09-27 23:13] LABS: Glucose,Whole Blood 147 mg/dL (70-110)
[2023-09-28 00:01] LABS: Glucose,Whole Blood 135 mg/dL (70-110)
[2023-09-28] MEDS: DEXMEDETOMIDINE/0.9% NACL(PMX) 400 MCG in EMPTY BAG 1 BAG IV SCH (00:53)
[2023-09-28 01:05] LABS: Glucose,Whole Blood 135 mg/dL (70-110)
[2023-09-28 02:11] LABS: Glucose,Whole Blood 123 mg/dL (70-110)
[2023-09-28 03:12] LABS: Glucose,Whole Blood 127 mg/dL (70-110)
[2023-09-28 04:10] LABS: Glucose,Whole Blood 126 mg/dL (70-110)
[2023-09-28 04:29] LABS: Basophils # (A) 0.1 k/uL (0-0.2); Basophils % (A) 0 %; Eosinophils % (A) 0 %; HCT 32.5 % (39.0-53.0); HGB 11.1 gm/dL (13.0-17.5); Lymphocytes # (A) 3.2 k/uL (1.0-4.8); Lymphocytes % (A) 19 %; MCH 32.4 pg (25.0-35.0); MCHC 34.2 g/dL (31.0-37.0); MCV 94.5 fL (80.0-100.0); Mean Platelet Volume 9.8; Monocytes # (A) 1.1 k/uL (0-1.0); Monocytes % (A) 7 %; Neutrophils # (A) 12.2 k/uL (1.3-7.7); Neutrophils % (A) 72 %; RBC 3.44 m/uL (4.30-5.90); RDW 13.4 % (11.5-15.5); WBC 16.9 k/uL (3.8-10.6)
[2023-09-28 04:52] LABS: Ionized Calcium 4.7 mg/dL (4.5-5.3)
[2023-09-28 05:01] LABS: Glucose,Whole Blood 129 mg/dL (70-110)
[2023-09-28 05:01] LABS: ALT 18 U/L (4-49); AST 78 U/L (17-59); African American GFR (CKD) >90 (>60 ml/min/1.73 sqM); Albumin 3.2 g/dL (3.5-5.0); Alkaline Phosphatase 56 U/L (38-126); Anion Gap 6 mmol/L; Blood Urea Nitrogen 19 mg/dL (9-20); Calcium 8.2 mg/dL (8.4-10.2); Carbon Dioxide 23 mmol/L (22-30); Chloride 109 mmol/L (98-107); Glucose 123 mg/dL (74-99); Magnesium 2.3 mg/dL (1.6-2.3); Non-African American GFR(CKD) >90 (>60 ml/min/1.73 sqM); Potassium 4.3 mmol/L (3.5-5.1); Sodium 138 mmol/L (137-145); Total Bilirubin 0.7 mg/dL (0.2-1.3); Total Protein 5.4 g/dL (6.3-8.2)
[2023-09-28 05:15] LABS: Platelet Count 93 k/uL (150-450)
[2023-09-28 06:04] LABS: Glucose,Whole Blood 130 mg/dL (70-110)
[2023-09-28 06:20] LABS: ABG HCO3 25 mmol/L (21-25); ABG Oxygen Saturation 99.5 % (94-97); ABG PCO2 43 mmHg (35-45); ABG PH 7.37 (7.35-7.45); ABG PO2 154 mmHg (83-108); ABG TCO2 27 mmol/L (19-24); Allen Test Performed? Yes
[2023-09-28 06:58] LABS: Glucose,Whole Blood 130 mg/dL (70-110)
--- NOTE | 2023-09-28 07:16 | P.PN ---
Subjective Progress Note Date: 09/28/23 Principal diagnosis: Congenital bicuspid calcific aortic stenosis, ascending aortic aneurysm, coronary artery disease. Previous medical history of hypertension, hyperlipidemia, previous bacteremia, previous tobacco dependence, remote history of pneumonia, Hirschsprung's disease, hepatitis C, anxiety/depression/bipolar/PTSD, previous heroin use, and family history of premature coronary artery disease POD#1 Aortic valve replacement with 27 mm Inspiris bovine pericardial prost hesis, replacement of ascending aorta with 32 mm tube graft, CABG x 1 with saphenous vein graft to posterior descending coronary artery, endovascular vein harvest, ligation of the left atrial appendage with 40 mm AtriCure clip Postoperative acute blood loss anemia and thrombocytopenia, expected given hemodilution and cardiopulmonary bypass pump The patient was seen and examined laying in bed in the intensive care unit in no acute distress. He remains sedated and intubated due to increased output in his chest mediastinal chest tubes last night which has tapered off this morning. Remains atrially paced at 80 bpm with underlying rhythm sinus in the 60s. Labs, chest x-ray reviewed. Currently on IV amiodarone, propofol, insulin. Right internal jugular North/Cordis, right radial arterial line, mediastinal/left pleural chest tubes all remain. No other new concerns. Objective - Vital Signs Vital signs: Vital Signs Temp 100.0 F H 09/28/23 04:00 Pulse 85 09/28/23 06:00 Resp 20 09/28/23 06:00 BP 95/61 09/28/23 02:00 Pulse Ox 97 09/28/23 06:00 FiO2 40 09/28/23 06:23 Intake & Output 09/27/23 09/27/23 09/28/23 06:59 18:59 06:59 Intake Total 100 1280.260 590.154 Output Total 1505 1258 Balance 100 -224.740 -667.846 Weight 92.6 kg Intake: IV 100 279 278 co/ci 190 170 pressure bag 36 108 Intake, IV Titration 1001.260 312.154 Amount ACETAMINOPHEN IV (For NPO 100 ) 1,000 mg In Empty Bag 1 bag @ 400 mls/hr IVPB Q6HR FATIMAH Rx#:[id number] Albumin Human 5% 250 ml 750 In Empty Bag 1 bag @ 250 mls/hr IVPB Q1HR PRN Rx#: [id number] Dexmedetomidine/0.9% NaCl 2.431 (Pmx) 400 mcg In Empty Bag 1 bag @ Titrate IV . Q0M FATIMAH Rx#:[id number] Lactated Ringers 1,000 ml 200 50 @ 50 mls/hr IV .Q20H FATIMAH Rx#:[id number] Nitroglycerin-D5w Pmx 50 9.775 0 mg In Dextrose/Water 1 250ml.bag @ 5 MCG/MIN 1.5 mls/hr IV .Q24H FATIMAH Rx#: [id number] ceFAZolin 2 gm In Sodium 50 Chloride 0.9% 50 ml @ 100 mls/hr IVPB Q8HR FATIMAH Rx# :[id number] propofoL 1,000 mg In 41.485 109.723 Empty Bag 1 bag @ Titrate IV .Q0M FATIMAH Rx#: [id number] Output: Chest Tube Drainage 485 563 Chest Tube Mediastinal 480 525 Pleural Catheter Left 5 38 Drainage 20 Left Calf 20 Urine 570 675 Estimated Blood Loss 450 Other: Voiding Method Indwelling Catheter Indwelling Catheter ABP, PAP, CO, CI - Last Documented Arterial Blood Pressure 115/65 Pulmonary Artery Pressure 22/14 Cardiac Output 5.7 Cardiac Index 2.7 - Exam CONSTITUTIONAL: Appears comfortable, cooperative, no acute distress, sedated on mechanical ventilation RESPIRATORY: Lungs sounds diminished bilaterally. Respirations even, nonlabored. Currently on assist-control mode, FiO2 40%, PEEP 10, tidal volume 550, respiratory rate 16. 9.0 ET tube present, 23 at the lip CARDIOVASCULAR: S1, S2 present. Regular rate and rhythm, atrially paced on telemetry. Sternum stable. Palpable peripheral pulses bilaterally. No edema present. No calf pain or tenderness noted. Heart hugger in place with patient demonstrating appropriate use. Antiembolism stockings, SCDs present. GASTROINTESTINAL: Abdomen soft, nontender, nondistended. Hypoactive bowel sounds present 4 quadrants. OG tube present with minimal drainage GENITOURINARY: Alvarado present draining clear, yellow urine. Output overnight 60 -80 mL per hour INTEGUMENTARY: Skin is warm and dry with evidence of good perfusion. Anterior chest incision well approximated and covered with dry intact dressing. Left lower extremity EVH site well approximated without redness, GASTON drain present with minimal drainage NEUROLOGIC: Cranial nerves II through XII intact MUSKULOSKELETAL: Currently sedated on mechanical ventilation, does move all ex tremities when sedation lightened INVASIVE LINES AND TUBES: Mediastinal/left pleural chest tubes present and connected to wall suction, no air leaks present. Mediastinal tube with 205 mL serosanguineous drainage overnight, 1020 mL since surgery. Left pleural chest tube with 30 mL serosanguineous drainage since surgery. A/V epicardial pacemaker wires present, connected to generator, AAI mode at 80 bpm. Right internal jugular North/Cordis, right radial arterial line present. Last CO/CI 5.7/2.7, PA , CVP 9. - Allied health notes Allied health notes reviewed: nursing - Labs CBC & Chem 7: 09/28/23 04:18 09/28/23 04:18 Labs: Abnormal Lab Results - Last 24 Hours (Table) 09/20/23 09/27/23 09/27/23 Range/Units 08:58 08:45 08:45 WBC (3.8-10.6) k/uL RBC (4.30-5.90) m/uL Hgb (13.0-17.5) gm/dL Hct (39.0-53.0) % Plt Count (150-450) k/uL Neutrophils # (1.3-7.7) k/uL Monocytes # (0-1.0) k/uL APTT (22.0-30.0) sec ABG pH 7.46 H (7.35-7.45) ABG pCO2 (35-45) mmHg ABG pO2 264 H >400 H (83-108) mmHg ABG HCO3 26 H 26 H (21-25) mmol/L ABG Total CO2 27 H 27 H (19-24) mmol/L ABG O2 Saturation 99.8 H 100.0 H (94-97) % Chloride (98-107) mmol/L Carbon Dioxide (22-30) mmol/L Glucose (74-99) mg/dL POC Glucose (mg/dL) (70-110) mg/dL Calcium (8.4-10.2) mg/dL Magnesium (1.6-2.3) mg/dL AST (17-59) U/L Total Protein (6.3-8.2) g/dL Albumin (3.5-5.0) g/dL Crossmatch See Detail 09/27/23 09/27/23 09/27/23 Range/Units 08:45 11:36 12:11 WBC (3.8-10.6) k/uL RBC (4.30-5.90) m/uL Hgb (13.0-17.5) gm/dL Hct (39.0-53.0) % Plt Count (150-450) k/uL Neutrophils # (1.3-7.7) k/uL Monocytes # (0-1.0) k/uL APTT (22.0-30.0) sec ABG pH (7.35-7.45) ABG pCO2 (35-45) mmHg ABG pO2 230 H (83-108) mmHg ABG HCO3 (21-25) mmol/L ABG Total CO2 25 H (19-24) mmol/L ABG O2 Saturation 99.8 H (94-97) % Chloride (98-107) mmol/L Carbon Dioxide (22-30) mmol/L Glucose (74-99) mg/dL POC Glucose (mg/dL) 113 H 123 H (70-110) mg/dL Calcium (8.4-10.2) mg/dL Magnesium (1.6-2.3) mg/dL AST (17-59) U/L Total Protein (6.3-8.2) g/dL Albumin (3.5-5.0) g/dL Crossmatch 09/27/23 09/27/23 09/27/23 Range/Units 13:29 13:57 13:57 WBC 12.2 H (3.8-10.6) k/uL RBC 4.24 L (4.30-5.90) m/uL Hgb (13.0-17.5) gm/dL Hct (39.0-53.0) % Plt Count 97 L (150-450) k/uL Neutrophils # 9.0 H (1.3-7.7) k/uL Monocytes # (0-1.0) k/uL APTT 30.1 H (22.0-30.0) sec ABG pH (7.35-7.45) ABG pCO2 (35-45) mmHg ABG pO2 (83-108) mmHg ABG HCO3 (21-25) mmol/L ABG Total CO2 (19-24) mmol/L ABG O2 Saturation (94-97) % Chloride (98-107) mmol/L Carbon Dioxide (22-30) mmol/L Glucose (74-99) mg/dL POC Glucose (mg/dL) 116 H (70-110) mg/dL Calcium (8.4-10.2) mg/dL Magnesium (1.6-2.3) mg/dL AST (17-59) U/L Total Protein (6.3-8.2) g/dL Albumin (3.5-5.0) g/dL Crossmatch 09/27/23 09/27/23 09/27/23 Range/Units 13:57 15:12 16:03 WBC (3.8-10.6) k/uL RBC (4.30-5.90) m/uL Hgb (13.0-17.5) gm/dL Hct (39.0-53.0) % Plt Count (150-450) k/uL Neutrophils # (1.3-7.7) k/uL Monocytes # (0-1.0) k/uL APTT (22.0-30.0) sec ABG pH 7.31 L (7.35-7.45) ABG pCO2 49 H (35-45) mmHg ABG pO2 >400 H (83-108) mmHg ABG HCO3 (21-25) mmol/L ABG Total CO2 26 H (19-24) mmol/L ABG O2 Saturation 100.0 H (94-97) % Chloride 114 H (98-107) mmol/L Carbon Dioxide (22-30) mmol/L Glucose 107 H (74-99) mg/dL POC Glucose (mg/dL) 117 H (70-110) mg/dL Calcium (8.4-10.2) mg/dL Magnesium 3.5 H (1.6-2.3) mg/dL AST (17-59) U/L Total Protein 5.3 L (6.3-8.2) g/dL Albumin 2.9 L (3.5-5.0) g/dL Crossmatch 09/27/23 09/27/23 09/27/23 Range/Units 17:01 17:02 17:02 WBC 18.2 H (3.8-10.6) k/uL RBC 3.95 L (4.30-5.90) m/uL Hgb 12.9 L (13.0-17.5) gm/dL Hct 37.8 L (39.0-53.0) % Plt Count 109 L (150-450) k/uL Neutrophils # 13.1 H (1.3-7.7) k/uL Monocytes # (0-1.0) k/uL APTT (22.0-30.0) sec ABG pH 7.33 L (7.35-7.45) ABG pCO2 (35-45) mmHg ABG pO2 156 H (83-108) mmHg ABG HCO3 (21-25) mmol/L ABG Total CO2 25 H (19-24) mmol/L ABG O2 Saturation 99.4 H (94-97) % Chloride 112 H (98-107) mmol/L Carbon Dioxide 21 L (22-30) mmol/L Glucose 124 H (74-99) mg/dL POC Glucose (mg/dL) (70-110) mg/dL Calcium (8.4-10.2) mg/dL Magnesium 2.9 H (1.6-2.3) mg/dL AST (17-59) U/L Total Protein (6.3-8.2) g/dL Albumin (3.5-5.0) g/dL Crossmatch 09/27/23 09/27/23 09/27/23 Range/Units 17:02 18:22 18:59 WBC (3.8-10.6) k/uL RBC (4.30-5.90) m/uL Hgb (13.0-17.5) gm/dL Hct (39.0-53.0) % Plt Count (150-450) k/uL Neutrophils # (1.3-7.7) k/uL Monocytes # (0-1.0) k/uL APTT (22.0-30.0) sec ABG pH (7.35-7.45) ABG pCO2 (35-45) mmHg ABG pO2 (83-108) mmHg ABG HCO3 (21-25) mmol/L ABG Total CO2 (19-24) mmol/L ABG O2 Saturation (94-97) % Chloride (98-107) mmol/L Carbon Dioxide (22-30) mmol/L Glucose (74-99) mg/dL POC Glucose (mg/dL) 132 H 123 H 125 H (70-110) mg/dL Calcium (8.4-10.2) mg/dL Magnesium (1.6-2.3) mg/dL AST (17-59) U/L Total Protein (6.3-8.2) g/dL Albumin (3.5-5.0) g/dL Crossmatch 09/27/23 09/27/23 09/27/23 Range/Units 20:05 20:15 20:58 WBC 17.1 H (3.8-10.6) k/uL RBC 3.67 L (4.30-5.90) m/uL Hgb 11.8 L (13.0-17.5) gm/dL Hct 34.7 L (39.0-53.0) % Plt Count 104 L (150-450) k/uL Neutrophils # 14.5 H (1.3-7.7) k/uL Monocytes # (0-1.0) k/uL APTT (22.0-30.0) sec ABG pH (7.35-7.45) ABG pCO2 (35-45) mmHg ABG pO2 (83-108) mmHg ABG HCO3 (21-25) mmol/L ABG Total CO2 (19-24) mmol/L ABG O2 Saturation (94-97) % Chloride (98-107) mmol/L Carbon Dioxide (22-30) mmol/L Glucose (74-99) mg/dL POC Glucose (mg/dL) 127 H 128 H (70-110) mg/dL Calcium (8.4-10.2) mg/dL Magnesium (1.6-2.3) mg/dL AST (17-59) U/L Total Protein (6.3-8.2) g/dL Albumin (3.5-5.0) g/dL Crossmatch 09/27/23 09/27/23 09/27/23 Range/Units 22:07 23:10 23:59 WBC (3.8-10.6) k/uL RBC (4.30-5.90) m/uL Hgb (13.0-17.5) gm/dL Hct (39.0-53.0) % Plt Count (150-450) k/uL Neutrophils # (1.3-7.7) k/uL Monocytes # (0-1.0) k/uL APTT (22.0-30.0) sec ABG pH (7.35-7.45) ABG pCO2 (35-45) mmHg ABG pO2 (83-108) mmHg ABG HCO3 (21-25) mmol/L ABG Total CO2 (19-24) mmol/L ABG O2 Saturation (94-97) % Chloride (98-107) mmol/L Carbon Dioxide (22-30) mmol/L Glucose (74-99) mg/dL POC Glucose (mg/dL) 132 H 147 H 135 H (70-110) mg/dL Calcium (8.4-10.2) mg/dL Magnesium (1.6-2.3) mg/dL AST (17-59) U/L Total Protein (6.3-8.2) g/dL Albumin (3.5-5.0) g/dL Crossmatch 09/28/23 09/28/23 09/28/23 Range/Units 01:03 02:08 03:09 WBC (3.8-10.6) k/uL RBC (4.30-5.90) m/uL Hgb (13.0-17.5) gm/dL Hct (39.0-53.0) % Plt Count (150-450) k/uL Neutrophils # (1.3-7.7) k/uL Monocytes # (0-1.0) k/uL APTT (22.0-30.0) sec ABG pH (7.35-7.45) ABG pCO2 (35-45) mmHg ABG pO2 (83-108) mmHg ABG HCO3 (21-25) mmol/L ABG Total CO2 (19-24) mmol/L ABG O2 Saturation (94-97) % Chloride (98-107) mmol/L Carbon Dioxide (22-30) mmol/L Glucose (74-99) mg/dL POC Glucose (mg/dL) 135 H 123 H 127 H (70-110) mg/dL Calcium (8.4-10.2) mg/dL Magnesium (1.6-2.3) mg/dL AST (17-59) U/L Total Protein (6.3-8.2) g/dL Albumin (3.5-5.0) g/dL Crossmatch 09/28/23 09/28/23 09/28/23 Range/Units 04:09 04:18 04:18 WBC 16.9 H (3.8-10.6) k/uL RBC 3.44 L (4.30-5.90) m/uL Hgb 11.1 L (13.0-17.5) gm/dL Hct 32.5 L (39.0-53.0) % Plt Count 93 L (150-450) k/uL Neutrophils # 12.2 H (1.3-7.7) k/uL Monocytes # 1.1 H (0-1.0) k/uL APTT (22.0-30.0) sec ABG pH (7.35-7.45) ABG pCO2 (35-45) mmHg ABG pO2 (83-108) mmHg ABG HCO3 (21-25) mmol/L ABG Total CO2 (19-24) mmol/L ABG O2 Saturation (94-97) % Chloride 109 H (98-107) mmol/L Carbon Dioxide (22-30) mmol/L Glucose 123 H (74-99) mg/dL POC Glucose (mg/dL) 126 H (70-110) mg/dL Calcium 8.2 L (8.4-10.2) mg/dL Magnesium (1.6-2.3) mg/dL AST 78 H (17-59) U/L Total Protein 5.4 L (6.3-8.2) g/dL Albumin 3.2 L (3.5-5.0) g/dL Crossmatch 09/28/23 09/28/23 09/28/23 Range/Units 04:59 06:04 06:18 WBC (3.8-10.6) k/uL RBC (4.30-5.90) m/uL Hgb (13.0-17.5) gm/dL Hct (39.0-53.0) % Plt Count (150-450) k/uL Neutrophils # (1.3-7.7) k/uL Monocytes # (0-1.0) k/uL APTT (22.0-30.0) sec ABG pH (7.35-7.45) ABG pCO2 (35-45) mmHg ABG pO2 154 H (83-108) mmHg ABG HCO3 (21-25) mmol/L ABG Total CO2 27 H (19-24) mmol/L ABG O2 Saturation 99.5 H (94-97) % Chloride (98-107) mmol/L Carbon Dioxide (22-30) mmol/L Glucose (74-99) mg/dL POC Glucose (mg/dL) 129 H 130 H (70-110) mg/dL Calcium (8.4-10.2) mg/dL Magnesium (1.6-2.3) mg/dL AST (17-59) U/L Total Protein (6.3-8.2) g/dL Albumin (3.5-5.0) g/dL Crossmatch - Imaging and Cardiology Chest x-ray: image reviewed Assessment and Plan Assessment: Congenital bicuspid calcific aortic stenosis, status post bioprosthetic aortic valve replacement Ascending aortic aneurysm, status post replacement of ascending aorta Coronary artery disease, status post single-vessel CABG Hypertension Hyperlipidemia, treated, cholesterol 140, LDL 70 Previous bacteremia 3 years ago Previous tobacco dependence, quit 5 years ago, preoperative FEV1 88% of pr edicted Remote history of pneumonia Hirschsprung's disease Hepatitis C, treated Anxiety/depression/bipolar/PTSD Previous heroin use, last use 10 years ago Family history of premature coronary artery disease Postoperative acute blood loss anemia and thrombocytopenia, expected Plan: Continue to maximize medical therapy with low dose aspirin, statin, Plavix. Will hold beta-subhash until patient is extubated to determine if underlying rhythm will tolerate Continue amiodarone for A-fib/PVC prophylaxis, will transition to oral. Patient has not had any afib at this point Wean from mechanical ventilation as tolerated, management per pulmonology Once extubated encourage incentive spirometry use 10 times every hour while awake Once extubated will increase activity as tolerated, PT/OT/cardiac rehab consulted Will monitor daily labs and x-rays. Electrolyte replacement per protocol GI/DVT prophylaxis Pain control per current medication regimen Insulin management per internal medicine. Patient should remain on IV insulin for 48 hours, then may transition to subcutaneous. Patient is not diabetic with A1c 5.4%, but does need tight blood sugar control to prevent infection and promote healing Will discontinue North today. Connect Cordis to continuous CVP monitoring Continue chest tubes, monitor for output Continue Alvarado catheter for another 24 hours, continue to record strict accurate intake and output Daily weights Encourage continued smoking and heroin cessation Will discontinue GASTON drain More recommendations to follow as patient progresses
[2023-09-28 08:10] LABS: Glucose,Whole Blood 131 mg/dL (70-110)
--- NOTE | 2023-09-28 08:48 | XR ---
EXAMINATION TYPE: XR chest 1V portable DATE OF EXAM: 09/28/2023 Comparison: 09/27/2023 Clinical History: 58-year-old male Post Operative Cardiac Surgery Findings: ET tube tip at the level of the medial clavicular heads. NG tube is in place. Right IJ Paulding-Smitha cath eter tip in the main pulmonary outflow tract. Mediastinal drains are noted. Left sided chest tube. No appreciable pneumothorax. Median sternotomy wires and prosthetic aortic valve. Heart borderline in s ize with interstitial prominence. No pleural effusion. Impression: Median sternotomy with prosthetic aortic valve. Left-sided chest tube without pneumothorax. Similar m ild pulmonary vascular congestion.
[2023-09-28] MEDS: AMIODARONE 200 MG TAB PO SCH (08:57)
[2023-09-28] MEDS: ASPIRIN 81 MG PO SCH (08:57)
[2023-09-28] MEDS: CLOPIDOGREL 75 MG TAB PO SCH (08:57)
[2023-09-28] MEDS ORDERED: ASPIRIN 325 MG TAB PO SCH (09:00)
--- NOTE | 2023-09-28 09:00 | P.CRDCN ---
History of Present Illness Consult date: 09/28/23 History of present illness: The patient is a 58-year-old male who follows in the office with Dr. Ham who is currently admitted to the hospital after undergoing aortic valve replacement, replacement of ascending aorta, and CABG x 1 with saphenous vein graft to posterior descending coronary artery. No complications intraoperatively. Patient remains intubated in the ICU as he had increased output from his chest tubes. At the time of my examination the patient was resting comfortably, sedated on the ventilator. He is currently off of all vasopressors. REVIEW OF SYSTEMS: Unable to obtain PHYSICAL EXAMINATION: This is a 58-year-old male in no apparent distress at the time of my examination. Currently sedated on ventilator. HEENT: Head is atraumatic, normocephalic. Pupils are equal, round. There is no jugular venous distention. No carotid bruit is heard. CHEST EXAMINATION: Lungs are clear to auscultation. No chest wall tenderness is noted on palpation or with deep breathing. HEART EXAMINATION: Heart regular rate and rhythm. S1, S2 heard. No murmurs, gallops or rub. ABDOMEN: Soft, nontender. Bowel sounds are heard. No organomegaly noted. EXTREMITIES: 2+ peripheral pulses with no evidence of peripheral edema and no calf tenderness noted. NEUROLOGIC EXAMINATION: Patient is responsive to physical stimuli. TELEMETRY: Atrial paced rhythm. Underlying rhythm sinus in the 60s. LAB DATA: WBC 16.9, hemoglobin 11.9, hematocrit 32.5, platelet 93, sodium 138, potassium 4.3, BUN 19, creatinine 0.90, calcium 8.2 magnesium 2.3 AST 18, ALT 56 FINAL ASSESSMENT AND PLAN: Congenital bicuspid calcific aortic stenosis, status post bioprosthetic aortic valve replacement Ascending aortic aneurysm, status post replacement Coronary artery disease, status post single-vessel CABG Hypertension Hyperlipidemia PLAN: Continue supportive treatment Aggressive pulmonary hygiene once extubated Further recommendations to be based upon clinical course I am dictating on behalf of Dr Aiden Ross's history/physical and assessment/plan. Past Medical History Past Medical History: Chest Pain / Angina, COPD, Hearing Disorder / Deafness, Hypertension Additional Past Medical History / Comment(s): Hirschsprung's disease, constipation, aortic valve stenosis, SOB, vertigo, ascending aortic aneurysm, bacteremia 3 yrs. ago, hepatitis C-successful treatment, born w/one kidney, deaf right ear, neck, shoulders & back pain, neuropathy feet, blood infection 2019 History of Any Multi-Drug Resistant Organisms: None Reported Past Surgical History: Bowel Resection, Ear Surgery, Heart Catheterization, Orthopedic Surgery Additional Past Surgical History / Comment(s): WM, right inner ear surg/graft,ORIF left ankle, multiple surgeries for Hirschsprung's as a baby Past Anesthesia/Blood Transfusion Reactions: No Reported Reaction Smoking Status: Former smoker - Past Family History Father Family Medical History: Coronary Artery Disease (CAD) Mother Family Medical History: Cancer Medications and Allergies Home Medications Medication Instructions Recorded Confirmed Type Aspirin [Adult Low Dose Aspirin EC] 81 mg PO HS 08/27/23 09/27/23 History Cholecalciferol [Vitamin D3 (125 50,000 units PO Q30D 08/27/23 09/27/23 History Mcg = 5000 Iu)] Escitalopram [Lexapro] 10 mg PO HS 08/27/23 09/27/23 History lisinopriL [Zestril] 5 mg PO HS 08/27/23 09/27/23 History traZODone HCL 100 mg PO HS 08/27/23 09/27/23 History Atorvastatin [Lipitor] 40 mg PO HS 09/20/23 09/27/23 History Metoprolol Succinate (ER) [Toprol 25 mg PO HS 09/20/23 09/27/23 History Xl] Allergies Allergy/AdvReac Type Severity Reaction Status Date / Time No Known Allergies Allergy Verified 09/27/23 06:38 Physical Exam Vitals: Vital Signs Temp Pulse Resp BP Pulse Ox FiO2 09/28/23 08:30 80 29 H 98 09/28/23 08:15 80 24 95 09/28/23 08:05 80 09/28/23 08:00 100.6 F H 80 16 96 09/28/23 07:53 80 09/28/23 07:47 40 09/28/23 07:45 80 17 97 09/28/23 07:30 80 18 96 09/28/23 07:15 80 19 96 09/28/23 07:00 80 16 96 40 09/28/23 06:45 80 19 96 09/28/23 06:30 80 17 97 09/28/23 06:23 40 09/28/23 06:15 85 18 96 09/28/23 06:00 85 20 97 50 02 05:45 85 18 97 02 05:30 85 17 97 02 05:15 85 17 97 09/28/23 05:00 85 20 97 02 04:45 85 17 97 09/28/23 04:30 85 19 97 02 04:15 85 20 98 02 04:00 100.0 F H 85 18 98 50 09/28/23 03:45 85 17 97 02 03:32 50 09/28/23 03:30 85 18 97 02 03:15 85 17 97 09/28/23 03:00 85 18 98 50 09/28/23 02:45 85 18 98 09/28/23 02:30 85 16 98 02 02:15 85 18 98 09/28/23 02:00 85 17 98 50 09/28/23 01:45 85 17 95/61 97 09/28/23 01:30 85 20 98 09/28/23 01:15 85 17 98 09/28/23 01:00 85 18 98 09/28/23 00:45 85 17 97 09/28/23 00:30 19 97 09/28/23 00:15 85 17 98 09/28/23 00:08 85 17 98 02 00:00 100.0 F H 89 17 98 50 09/27/23 23:45 85 18 98 0224 23:30 85 19 98 0224 23:28 50 0224 23:15 85 17 98 0224 23:14 50 0224 23:10 50 0224 23:00 85 18 98 0224 22:45 86 18 98 0222/24 22:30 85 19 98 0222/24 22:15 85 16 98 02/24 22:00 85 19 98 0222/24 21:45 85 18 98 0222/24 21:30 84 19 98 02/24 21:15 85 16 98 0222/24 21:00 87 17 98 0222/24 20:45 85 18 98 0222/24 20:30 85 17 98 0222/24 20:15 85 16 98 02/22/24 20:02 85 09/27/23 20:00 100.4 F H 93 16 99 50 09/27/23 19:57 50 09/27/23 19:56 86 09/27/23 19:45 85 17 98 09/27/23 19:30 85 17 97 09/27/23 19:15 85 17 97 09/27/23 19:00 99.9 F H 85 16 98 50 09/27/23 18:45 85 17 97 50 09/27/23 18:30 85 17 97 50 09/27/23 18:15 85 17 97 50 09/27/23 18:00 99.7 F H 86 16 97 50 09/27/23 17:45 85 16 98 50 09/27/23 17:30 85 17 99 50 09/27/23 17:15 79 18 99 50 09/27/23 17:00 77 18 99 50 09/27/23 16:45 80 16 100 50 09/27/23 16:30 80 18 99 50 09/27/23 16:15 82 19 99 50 09/27/23 16:00 81 18 99 50 09/27/23 15:53 50 09/27/23 15:45 70 17 99 50 09/27/23 15:40 73 09/27/23 15:30 68 16 99 50 09/27/23 15:26 50 09/27/23 15:23 76 09/27/23 15:15 84 12 99 100 09/27/23 15:00 97.7 F 59 L 12 100 100 09/27/23 14:50 97.5 F L 80 12 99 100 Intake and Output 09/27/23 09/28/23 09/28/23 22:59 06:59 14:59 Intake Total 1451.775 374.639 119.792 Output Total 1202 801 85 Balance 249.775 -426.361 34.792 Intake: IV 342 171 49 Lactated Ringers 1,000 ml 40 @ 20 mls/hr IV .Q24H [facility] Rx#:[id number] co/ci 270 90 pressure bag 72 81 9 Intake, IV Titration 1109.775 203.639 70.792 Amount ACETAMINOPHEN IV (For NPO 100 ) 1,000 mg In Empty Bag 1 bag @ 400 mls/hr IVPB Q6HR [facility] Rx#:[id number] Albumin Human 5% 250 ml 750 In Empty Bag 1 bag @ 250 mls/hr IVPB Q1HR PRN Rx#: [id number] Dexmedetomidine/0.9% NaCl 2.431 (Pmx) 400 mcg In Empty Bag 1 bag @ Titrate IV . Q0M [facility] Rx#:[id number] Lactated Ringers 1,000 ml 250 @ 20 mls/hr IV .Q24H [facility] Rx#:[id number] Nitroglycerin-D5w Pmx 50 9.775 mg In Dextrose/Water 1 250ml.bag @ 5 MCG/MIN 1.5 mls/hr IV .Q24H [facility] Rx#: [id number] ceFAZolin 2 gm In Sodium 50 Chloride 0.9% 50 ml @ 100 mls/hr IVPB Q8HR [facility] Rx# :[id number] propofoL 1,000 mg In 100.000 51.208 70.792 Empty Bag 1 bag @ Titrate IV .Q0M [facility] Rx#: [id number] Output: Chest Tube Drainage 812 261 25 Chest Tube Mediastinal 800 230 20 Pleural Catheter Left 12 31 5 Drainage 20 10 Left Calf 20 10 Urine 390 520 50 Other: Voiding Method Indwelling Catheter Indwelling Catheter Weight 95.1 kg 92.6 kg ABP, PAP, CO, CI - Last 8 Hours Arterial Blood Pressure 120/58 Arterial Blood Pressure 125/59 Arterial Blood Pressure 114/59 Arterial Blood Pressure 104/53 Arterial Blood Pressure 108/55 Arterial Blood Pressure 113/59 Arterial Blood Pressure 116/60 Arterial Blood Pressure 118/61 Arterial Blood Pressure 116/58 Arterial Blood Pressure 110/74 Arterial Blood Pressure 115/65 Arterial Blood Pressure 122/61 Arterial Blood Pressure 115/56 Arterial Blood Pressure 104/54 Arterial Blood Pressure 121/61 Arterial Blood Pressure 123/60 Arterial Blood Pressure 112/54 Arterial Blood Pressure 127/63 Arterial Blood Pressure 120/61 Arterial Blood Pressure 111/57 Arterial Blood Pressure 111/59 Arterial Blood Pressure 104/55 Arterial Blood Pressure 116/59 Arterial Blood Pressure 122/63 Arterial Blood Pressure 116/60 Arterial Blood Pressure 108/58 Arterial Blood Pressure 98/55 Arterial Blood Pressure 95/57 Arterial Blood Pressure 111/60 Arterial Blood Pressure 96/56 Arterial Blood Pressure 97/54 Pulmonary Artery Pressure 26/14 Pulmonary Artery Pressure 31/16 Pulmonary Artery Pressure 33/11 Pulmonary Artery Pressure 28/18 Pulmonary Artery Pressure 28/18 Pulmonary Artery Pressure 27/17 Pulmonary Artery Pressure 27/17 Pulmonary Artery Pressure 26/17 Pulmonary Artery Pressure 27/18 Pulmonary Artery Pressure 23/14 Pulmonary Artery Pressure 22/14 Pulmonary Artery Pressure 25/15 Pulmonary Artery Pressure 23/14 Pulmonary Artery Pressure 23/14 Pulmonary Artery Pressure 25/15 Pulmonary Artery Pressure 24/15 Pulmonary Artery Pressure 24/15 Pulmonary Artery Pressure 26/15 Pulmonary Artery Pressure 25/16 Pulmonary Artery Pressure 25/15 Pulmonary Artery Pressure 24/14 Pulmonary Artery Pressure 22/15 Pulmonary Artery Pressure 25/16 Pulmonary Artery Pressure 26/18 Pulmonary Artery Pressure 26/18 Pulmonary Artery Pressure 27/18 Pulmonary Artery Pressure 24/16 Pulmonary Artery Pressure 23/15 Pulmonary Artery Pressure 29/16 Pulmonary Artery Pressure 24/15 Pulmonary Artery Pressure 23/15 Cardiac Output 5.5 Cardiac Output 5.7 Cardiac Output 5.7 Cardiac Output 5.7 Cardiac Output 5.7 Cardiac Output 5.7 Cardiac Output 5.7 Cardiac Output 5.5 Cardiac Output 4.4 Cardiac Index 2.6 Cardiac Index 2.7 Cardiac Index 2.7 Cardiac Index 2.7 Cardiac Index 2.7 Cardiac Index 2.7 Cardiac Index 2.7 Cardiac Index 2.7 Cardiac Index 2.6 Cardiac Index 2.1 Results 09/28/23 04:18 09/28/23 04:18 Cardiac Enzymes 09/27/23 09/28/23 Range/Units 13:57 04:18 AST 59 78 H (17-59) U/L Coagulation 09/27/23 Range/Units 13:57 PT 12.3 (10.0-12.5) sec APTT 30.1 H (22.0-30.0) sec CBC 09/27/23 09/27/23 09/27/23 Range/Units 13:57 17:02 20:15 WBC 12.2 H 18.2 H 17.1 H (3.8-10.6) k/uL RBC 4.24 L 3.95 L 3.67 L (4.30-5.90) m/uL Hgb 13.7 12.9 L 11.8 L (13.0-17.5) gm/dL Hct 40.6 37.8 L 34.7 L (39.0-53.0) % Plt Count 97 L 109 L 104 L (150-450) k/uL 09/28/23 Range/Units 04:18 WBC 16.9 H (3.8-10.6) k/uL RBC 3.44 L (4.30-5.90) m/uL Hgb 11.1 L (13.0-17.5) gm/dL Hct 32.5 L (39.0-53.0) % Plt Count 93 L (150-450) k/uL Comprehensive Metabolic Panel 09/27/23 09/27/23 09/28/23 Range/Units 13:57 17:02 04:18 Sodium 137 138 138 (137-145) mmol/L Potassium 4.1 4.4 4.3 (3.5-5.1) mmol/L Chloride 114 H 112 H 109 H (98-107) mmol/L Carbon Dioxide 22 21 L 23 (22-30) mmol/L BUN 18 18 19 (9-20) mg/dL Creatinine 0.82 0.88 0.90 (0.66-1.25) mg/dL Glucose 107 H 124 H 123 H (74-99) mg/dL Calcium 8.7 8.5 8.2 L (8.4-10.2) mg/dL AST 59 78 H (17-59) U/L ALT 18 18 (4-49) U/L Alkaline Phosphatase 71 56 (38-126) U/L Total Protein 5.3 L 5.4 L (6.3-8.2) g/dL Albumin 2.9 L 3.2 L (3.5-5.0) g/dL Current Medications Generic Name Dose Route Start Last Admin Trade Name Freq PRN Reason Stop Dose Admin Acetaminophen 650 mg 09/28/23 08:31 Acetaminophen Tab 325 Mg Tab PO Q4HR PRN Fever and/ or Pain Albuterol/Ipratropium 3 ml 09/27/23 13:57 Ipratropium-Albuterol 3 Ml Neb INHALATION RT-Q2H PRN Shortness Of Breath Or Wheezing Albuterol/Ipratropium 3 ml 09/27/23 20:00 09/28/23 07:47 Ipratropium-Albuterol 3 Ml Neb INHALATION 3 ml RT-QID [facility] Administration Amiodarone HCl 400 mg 09/28/23 09:00 Amiodarone 200 Mg Tab PO BID [facility] Aspirin 81 mg 09/28/23 09:00 Aspirin 81 Mg PO DAILY [facility] Atorvastatin Calcium 40 mg 09/27/23 21:00 09/27/23 21:41 Atorvastatin 40 Mg Tab PO 40 mg HS [facility] Administration Benzocaine/Menthol 1 each 09/27/23 13:57 Benzocaine/Menthol Lozeng 1 Each Lozenge MUCOUS MEM Q2H PRN Sore Throat Bisacodyl 10 mg 09/28/23 09:00 Bisacodyl 10 Mg Supp RECTAL DAILY PRN Constipation Clopidogrel Bisulfate 75 mg 09/28/23 09:00 Clopidogrel 75 Mg Tab PO DAILY [facility] Dextrose/Water 25 ml 09/27/23 13:57 Dextrose 50% Syringe 50 Ml IVP PER PROTOCOL PRN Hypoglycemia Protocol Dextrose/Water 50 ml 09/27/23 13:57 Dextrose 50% Syringe 50 Ml IVP PER PROTOCOL PRN Hypoglycemia Protocol Ergocalciferol 1,250 mcg 10/22/23 09:00 Ergocalciferol 1,250 Mcg (50,000 Iu) Capsule PO Q30D [facility] Heparin Sodium (Porcine) 5,000 unit 09/29/23 08:00 Heparin Sodium,Porcine 5,000 Unit/Ml 1 Ml Vial SQ Q8HR [facility] Hydralazine HCl 10 mg 09/27/23 13:57 09/27/23 15:42 Hydralazine Hcl 20 Mg/Ml 1 Ml Vial IVP 10 mg Q1H PRN Administration Blood Pressure - High Clevidipine 25 mg/ IV Solution 50 mls @ 2 mls/hr 09/27/23 13:57 09/27/23 18:20 IV Not Given .Q24H [facility] Protocol 1 MG/HR Amiodarone HCl 150 mg/ 103 mls @ 618 mls/hr 09/27/23 13:57 Dextrose/Water IV .Q10M PRN A.FIB/FLUTTER Protocol Albumin Human 250 ml/ IV 250 mls @ 250 mls/hr 09/27/23 13:57 09/28/23 01:41 Solution IVPB 09/29/23 13:58 250 mls/hr Q1HR PRN Administration For Volume Protocol Lactated Ringer's 1,000 mls @ 20 mls/hr 09/27/23 13:57 09/27/23 15:43 Lactated Ringers IV 50 mls/hr .Q24H [facility] Administration Calcium Gluconate/Sodium 100 mls @ 100 mls/hr 09/27/23 13:57 Chloride 2 gm/ IV Solution IVPB 10/04/23 13:58 ONCE PRN Ionized Calcium less than 4.4 Propofol 1,000 mg/ IV Solution 100 mls @ 0 mls/hr 09/27/23 13:57 09/28/23 08:30 IV 20 mcg/kg/min .Q0M [facility] 11.112 mls/hr Titration Protocol Titrate Amiodarone HCl 450 mg/ 250 mls @ 16.667 mls/hr 09/27/23 21:15 09/27/23 21:35 Dextrose/Water IV 09/28/23 15:14 Not Given .Q15H [facility] Protocol 0.5 MG/MIN Insulin Human Regular 100 unit 101 mls @ 0 mls/hr 09/27/23 17:15 09/27/23 17:22 / Sodium Chloride IV 1 unit/hr .Q0M [facility] 1.01 mls/hr Administration Protocol Per Protocol Ketorolac Tromethamine 15 mg 09/28/23 12:00 Ketorolac 15 Mg/Ml 1 Ml Vial IVP 10/03/23 08:31 Q6HR [facility] Magnesium Hydroxide 2,400 mg 09/28/23 09:00 Magnesium Hydroxide 2,400 Mg/30 Ml Cup PO BID PRN Constipation Metoclopramide HCl 10 mg 09/27/23 13:57 Metoclopramide 5 Mg/Ml 2 Ml Vial IVP Q4H PRN Nausea And Vomiting Metoprolol Tartrate 12.5 mg 09/28/23 09:00 Metoprolol Tartrate 12.5 Mg Tab PO BID [facility] Miscellaneous Information 1 each 09/27/23 13:57 Magnesium Replacement Protocol 1 Each Misc MISCELLANE DAILY PRN Per Protocol Protocol Miscellaneous Information 1 each 09/27/23 13:57 Potassium Replacement Protocol 1 Each Misc MISCELLANE DAILY PRN Per Protocol Protocol Ondansetron HCl 4 mg 09/27/23 13:57 Ondansetron 4 Mg/2 Ml Vial IVP Q6HR PRN Nausea And Vomiting Oxycodone HCl 10 mg 09/27/23 13:57 09/28/23 02:58 Oxycodone Hcl 5 Mg Tab PO 10 mg Q4HR PRN Administration Severe Pain (Scale 7 to 10) Oxycodone HCl 5 mg 09/27/23 13:57 Oxycodone Hcl 5 Mg Tab PO Q4HR PRN Moderate Pain (Scale 4 to 6) Pantoprazole Sodium 40 mg 09/28/23 09:00 Pantoprazole 40 Mg/10 Ml Vial IVP DAILY [facility] Senna/Docusate Sodium 2 each 09/27/23 21:00 09/27/23 21:41 Sennosides-Docusate Sodium 1 Each Tab PO 2 each HS [facility] Administration Sodium Chloride 10 ml 09/27/23 21:00 09/27/23 21:41 Sodium Chloride 0.9% Flush 10 Ml Syringe IV 10 ml BID [facility] Administration Intake and Output 09/27/23 09/28/23 09/28/23 22:59 06:59 14:59 Intake Total 1451.775 374.639 119.792 Output Total 1202 801 85 Balance 249.775 -426.361 34.792 Intake: IV 342 171 49 Lactated Ringers 1,000 ml 40 @ 20 mls/hr IV .Q24H [facility] Rx#:[id number] co/ci 270 90 pressure bag 72 81 9 Intake, IV Titration 1109.775 203.639 70.792 Amount ACETAMINOPHEN IV (For NPO 100 ) 1,000 mg In Empty Bag 1 bag @ 400 mls/hr IVPB Q6HR [facility] Rx#:[id number] Albumin Human 5% 250 ml 750 In Empty Bag 1 bag @ 250 mls/hr IVPB Q1HR PRN Rx#: [id number] Dexmedetomidine/0.9% NaCl 2.431 (Pmx) 400 mcg In Empty Bag 1 bag @ Titrate IV . Q0M [facility] Rx#:[id number] Lactated Ringers 1,000 ml 250 @ 20 mls/hr IV .Q24H [facility] Rx#:[id number] Nitroglycerin-D5w Pmx 50 9.775 mg In Dextrose/Water 1 250ml.bag @ 5 MCG/MIN 1.5 mls/hr IV .Q24H [facility] Rx#: [id number] ceFAZolin 2 gm In Sodium 50 Chloride 0.9% 50 ml @ 100 mls/hr IVPB Q8HR [facility] Rx# :[id number] propofoL 1,000 mg In 100.000 51.208 70.792 Empty Bag 1 bag @ Titrate IV .Q0M [facility] Rx#: [id number] Output: Chest Tube Drainage 812 261 25 Chest Tube Mediastinal 800 230 20 Pleural Catheter Left 12 31 5 Drainage 20 10 Left Calf 20 10 Urine 390 520 50 Other: Voiding Method Indwelling Catheter Indwelling Catheter Weight 95.1 kg 92.6 kg Patient Weight 09/29/23 06:59 Weight 92.6 kg 09/28/23 04:18 09/28/23 04:18
[2023-09-28] MEDS: PANTOPRAZOLE 40 MG/10 ML VIAL IVP SCH (09:09)
[2023-09-28 09:27] LABS: ABG Base Excess -0.3 mmol/L; ABG HCO3 25 mmol/L (21-25); ABG Oxygen Saturation 99.4 % (94-97); ABG PCO2 41 mmHg (35-45); ABG PH 7.39 (7.35-7.45); ABG PO2 137 mmHg (83-108); ABG TCO2 26 mmol/L (19-24); Allen Test Performed? Yes
[2023-09-28 09:28] LABS: Glucose,Whole Blood 141 mg/dL (70-110)
[2023-09-28] MEDS: KETOROLAC 15 MG/ML 1 ML VIAL IVP SCH (10:05)
[2023-09-28 10:16] LABS: Glucose,Whole Blood 134 mg/dL (70-110)
--- NOTE | 2023-09-28 10:51 | P.PN ---
Subjective Progress Note Date: 09/28/23 Principal diagnosis: Status post single-vessel bypass, and aortic valve replacement. Pulmonary/critical care consult dated September 27, 2023. 58-year-old male seen in the ICU today, postop day #0,S/P aortic valve replacement with a bovine pericardial prosthesis, replacement of ascending aorta with 32 mm tube graft, bypass grafting x 1, with saphenous vein graft to the posterior descending coronary artery, and ligation of left atrial appendage. The surgeon was Dr. Beach. The patient is seen in the intensive care unit, room 263. Ventilator settings include volume assist-control, rate 12, tidal volume 550, FiO2 100%, PEEP of 5. Blood gases while in the operating room, show pO2 of 230, pCO2 of 35, pH is 7.42. That was on 60%. Blood gases in the ICU have not yet been done. The patient is currently on nitroglycerin at 5 mcg/min, and propofol at 30 mcg/kg/min. The patient is seen in the intensive care unit, having just got back from the operating room. The patient has a history of a congenital bicuspid calcific aortic valve, with aortic valve stenosis. No new laboratory data as yet. Chest x-ray is pending. ABGs, and hemodynamics are pending. In addition to the congenital bicuspid aortic valve, the patient has a history of hyperlipidemia, coronary disease, and hypertension. Outpatient medications include trazodone, Zestril, metoprolol, Lexapro, vitamin D3, Lipitor, and baby aspirin. Progress note dated September 28, 2023. The patient is seen today, room 263. The patient is switched over to pressure support and CPAP, at 5 cm of water each. His ventilator settings include volume assist-control, rate 16, tidal volume 550, 40%, PEEP of 10. Blood gases showed a pO2 154, pCO2 of 43, and pH of 7.37. The patient is on amiodarone at 0.5 mg/min, insulin at 1 unit an hour, lactated Ringer's at 50 cc an hour. Today is postoperative day #1. Labs today include a white count of 16.9, hemoglobin 11.1, hematocrit 32.5, and a platelet count of 93,000. Sodium 138, potassium 4.3, chlorides 109, CO2 23, BUN 19, creatinine 0.9. Calcium is 8.2. Albumin 3.2. Chest x-ray shows some postoperative changes. Left-sided chest tube without pneumothorax. Objective - Vital Signs Vital signs: Vital Signs Temp 100.6 F H 09/28/23 08:00 Pulse 80 09/28/23 10:15 Resp 39 H 09/28/23 10:15 BP 138/77 09/28/23 10:15 Pulse Ox 97 09/28/23 10:15 FiO2 40 09/28/23 09:09 Intake & Output 09/27/23 09/28/23 09/28/23 18:59 06:59 18:59 Intake Total 1280.260 599.154 238.018 Output Total 1505 1348 275 Balance -224.740 -748.846 -36.982 Weight 95.1 kg 92.6 kg Intake: IV 279 287 147 Lactated Ringers 1,000 ml 120 @ 20 mls/hr IV .Q24H FATIM[facility] Rx#:[id number] co/ci 190 170 pressure bag 36 117 27 Intake, IV Titration 1001.260 312.154 91.018 Amount ACETAMINOPHEN IV (For NPO 100 ) 1,000 mg In Empty Bag 1 bag @ 400 mls/hr IVPB Q6HR FATIMAH Rx#:[id number] Albumin Human 5% 250 ml 750 In Empty Bag 1 bag @ 250 mls/hr IVPB Q1HR PRN Rx#: [id number] Dexmedetomidine/0.9% NaCl 2.431 (Pmx) 400 mcg In Empty Bag 1 bag @ Titrate IV . Q0M FATIMAH Rx#:[id number] Insulin Regular 100 unit 17.448 In Sodium Chloride 0.9% 100 ml @ Per Protocol IV .Q0M FATIMAH Rx#:[id number] Lactated Ringers 1,000 ml 200 50 @ 20 mls/hr IV .Q24H [facility]IMAH Rx#:[id number] Nitroglycerin-D5w Pmx 50 9.775 0 mg In Dextrose/Water 1 250ml.bag @ 5 MCG/MIN 1.5 mls/hr IV .Q24H FATIM[facility] Rx#: [id number] ceFAZolin 2 gm In Sodium 50 Chloride 0.9% 50 ml @ 100 mls/hr IVPB Q8HR FATIM[facility] Rx# :[id number] propofoL 1,000 mg In 41.485 109.723 73.570 Empty Bag 1 bag @ Titrate IV .Q0M [facility] Rx#: [id number] Output: Chest Tube Drainage 485 588 70 Chest Tube Mediastinal 480 550 60 Pleural Catheter Left 5 38 10 Drainage 20 10 Left Calf 20 10 Urine 570 740 195 Estimated Blood Loss 450 Other: Voiding Method Indwelling Catheter Indwelling Catheter Indwelling Catheter ABP, PAP, CO, CI - Last Documented Arterial Blood Pressure 209/114 Pulmonary Artery Pressure 28/13 Cardiac Output 5.2 Cardiac Index 2.4 - Exam No acute distress, off of propofol, for a spontaneous breathing trial, with an orally placed endotracheal tube. HEENT examination is grossly unremarkable. Mucous membranes are moist. No oral lesions. Neck supple. Full range of motion. No adenopathy thyromegaly or neck vein distention. Cardiovascular examination reveals regular rhythm rate. S1-S2 normal. No S3 or S4. No discernible murmur noted. Heart rate 80 bpm. Heart sounds are distant. Lungs reveal clear breath sounds. Breath sounds are equal bilaterally. No adventitious lung sounds including wheezes rhonchi or crackles. Saturations are 97%. Abdomen is soft without bowel sounds. No masses or tenderness. Extremities are intact. No cyanosis clubbing or edema. Skin is without rash or lesion. Neurologic examination is brief but nonfocal. - Labs CBC & Chem 7: 09/28/23 04:18 09/28/23 04:18 Labs: Abnormal Lab Results - Last 24 Hours (Table) 09/20/23 09/27/23 09/27/23 Range/Units 08:58 08:45 08:45 WBC (3.8-10.6) k/uL RBC (4.30-5.90) m/uL Hgb (13.0-17.5) gm/dL Hct (39.0-53.0) % Plt Count (150-450) k/uL Neutrophils # (1.3-7.7) k/uL Monocytes # (0-1.0) k/uL APTT (22.0-30.0) sec ABG pH 7.46 H (7.35-7.45) ABG pCO2 (35-45) mmHg ABG pO2 264 H >400 H (83-108) mmHg ABG HCO3 26 H 26 H (21-25) mmol/L ABG Total CO2 27 H 27 H (19-24) mmol/L ABG O2 Saturation 99.8 H 100.0 H (94-97) % Chloride (98-107) mmol/L Carbon Dioxide (22-30) mmol/L Glucose (74-99) mg/dL POC Glucose (mg/dL) (70-110) mg/dL Calcium (8.4-10.2) mg/dL Magnesium (1.6-2.3) mg/dL AST (17-59) U/L Total Protein (6.3-8.2) g/dL Albumin (3.5-5.0) g/dL Crossmatch See Detail 09/27/23 09/27/23 09/27/23 Range/Units 08:45 11:36 12:11 WBC (3.8-10.6) k/uL RBC (4.30-5.90) m/uL Hgb (13.0-17.5) gm/dL Hct (39.0-53.0) % Plt Count (150-450) k/uL Neutrophils # (1.3-7.7) k/uL Monocytes # (0-1.0) k/uL APTT (22.0-30.0) sec ABG pH (7.35-7.45) ABG pCO2 (35-45) mmHg ABG pO2 230 H (83-108) mmHg ABG HCO3 (21-25) mmol/L ABG Total CO2 25 H (19-24) mmol/L ABG O2 Saturation 99.8 H (94-97) % Chloride (98-107) mmol/L Carbon Dioxide (22-30) mmol/L Glucose (74-99) mg/dL POC Glucose (mg/dL) 113 H 123 H (70-110) mg/dL Calcium (8.4-10.2) mg/dL Magnesium (1.6-2.3) mg/dL AST (17-59) U/L Total Protein (6.3-8.2) g/dL Albumin (3.5-5.0) g/dL Crossmatch 09/27/23 09/27/23 09/27/23 Range/Units 13:29 13:57 13:57 WBC 12.2 H (3.8-10.6) k/uL RBC 4.24 L (4.30-5.90) m/uL Hgb (13.0-17.5) gm/dL Hct (39.0-53.0) % Plt Count 97 L (150-450) k/uL Neutrophils # 9.0 H (1.3-7.7) k/uL Monocytes # (0-1.0) k/uL APTT 30.1 H (22.0-30.0) sec ABG pH (7.35-7.45) ABG pCO2 (35-45) mmHg ABG pO2 (83-108) mmHg ABG HCO3 (21-25) mmol/L ABG Total CO2 (19-24) mmol/L ABG O2 Saturation (94-97) % Chloride (98-107) mmol/L Carbon Dioxide (22-30) mmol/L Glucose (74-99) mg/dL POC Glucose (mg/dL) 116 H (70-110) mg/dL Calcium (8.4-10.2) mg/dL Magnesium (1.6-2.3) mg/dL AST (17-59) U/L Total Protein (6.3-8.2) g/dL Albumin (3.5-5.0) g/dL Crossmatch 09/27/23 09/27/23 09/27/23 Range/Units 13:57 15:12 16:03 WBC (3.8-10.6) k/uL RBC (4.30-5.90) m/uL Hgb (13.0-17.5) gm/dL Hct (39.0-53.0) % Plt Count (150-450) k/uL Neutrophils # (1.3-7.7) k/uL Monocytes # (0-1.0) k/uL APTT (22.0-30.0) sec ABG pH 7.31 L (7.35-7.45) ABG pCO2 49 H (35-45) mmHg ABG pO2 >400 H (83-108) mmHg ABG HCO3 (21-25) mmol/L ABG Total CO2 26 H (19-24) mmol/L ABG O2 Saturation 100.0 H (94-97) % Chloride 114 H (98-107) mmol/L Carbon Dioxide (22-30) mmol/L Glucose 107 H (74-99) mg/dL POC Glucose (mg/dL) 117 H (70-110) mg/dL Calcium (8.4-10.2) mg/dL Magnesium 3.5 H (1.6-2.3) mg/dL AST (17-59) U/L Total Protein 5.3 L (6.3-8.2) g/dL Albumin 2.9 L (3.5-5.0) g/dL Crossmatch 09/27/23 09/27/23 09/27/23 Range/Units 17:01 17:02 17:02 WBC 18.2 H (3.8-10.6) k/uL RBC 3.95 L (4.30-5.90) m/uL Hgb 12.9 L (13.0-17.5) gm/dL Hct 37.8 L (39.0-53.0) % Plt Count 109 L (150-450) k/uL Neutrophils # 13.1 H (1.3-7.7) k/uL Monocytes # (0-1.0) k/uL APTT (22.0-30.0) sec ABG pH 7.33 L (7.35-7.45) ABG pCO2 (35-45) mmHg ABG pO2 156 H (83-108) mmHg ABG HCO3 (21-25) mmol/L ABG Total CO2 25 H (19-24) mmol/L ABG O2 Saturation 99.4 H (94-97) % Chloride 112 H (98-107) mmol/L Carbon Dioxide 21 L (22-30) mmol/L Glucose 124 H (74-99) mg/dL POC Glucose (mg/dL) (70-110) mg/dL Calcium (8.4-10.2) mg/dL Magnesium 2.9 H (1.6-2.3) mg/dL AST (17-59) U/L Total Protein (6.3-8.2) g/dL Albumin (3.5-5.0) g/dL Crossmatch 09/27/23 09/27/23 09/27/23 Range/Units 17:02 18:22 18:59 WBC (3.8-10.6) k/uL RBC (4.30-5.90) m/uL Hgb (13.0-17.5) gm/dL Hct (39.0-53.0) % Plt Count (150-450) k/uL Neutrophils # (1.3-7.7) k/uL Monocytes # (0-1.0) k/uL APTT (22.0-30.0) sec ABG pH (7.35-7.45) ABG pCO2 (35-45) mmHg ABG pO2 (83-108) mmHg ABG HCO3 (21-25) mmol/L ABG Total CO2 (19-24) mmol/L ABG O2 Saturation (94-97) % Chloride (98-107) mmol/L Carbon Dioxide (22-30) mmol/L Glucose (74-99) mg/dL POC Glucose (mg/dL) 132 H 123 H 125 H (70-110) mg/dL Calcium (8.4-10.2) mg/dL Magnesium (1.6-2.3) mg/dL AST (17-59) U/L Total Protein (6.3-8.2) g/dL Albumin (3.5-5.0) g/dL Crossmatch 09/27/23 09/27/23 09/27/23 Range/Units 20:05 20:15 20:58 WBC 17.1 H (3.8-10.6) k/uL RBC 3.67 L (4.30-5.90) m/uL Hgb 11.8 L (13.0-17.5) gm/dL Hct 34.7 L (39.0-53.0) % Plt Count 104 L (150-450) k/uL Neutrophils # 14.5 H (1.3-7.7) k/uL Monocytes # (0-1.0) k/uL APTT (22.0-30.0) sec ABG pH (7.35-7.45) ABG pCO2 (35-45) mmHg ABG pO2 (83-108) mmHg ABG HCO3 (21-25) mmol/L ABG Total CO2 (19-24) mmol/L ABG O2 Saturation (94-97) % Chloride (98-107) mmol/L Carbon Dioxide (22-30) mmol/L Glucose (74-99) mg/dL POC Glucose (mg/dL) 127 H 128 H (70-110) mg/dL Calcium (8.4-10.2) mg/dL Magnesium (1.6-2.3) mg/dL AST (17-59) U/L Total Protein (6.3-8.2) g/dL Albumin (3.5-5.0) g/dL Crossmatch 09/27/23 09/27/23 09/27/23 Range/Units 22:07 23:10 23:59 WBC (3.8-10.6) k/uL RBC (4.30-5.90) m/uL Hgb (13.0-17.5) gm/dL Hct (39.0-53.0) % Plt Count (150-450) k/uL Neutrophils # (1.3-7.7) k/uL Monocytes # (0-1.0) k/uL APTT (22.0-30.0) sec ABG pH (7.35-7.45) ABG pCO2 (35-45) mmHg ABG pO2 (83-108) mmHg ABG HCO3 (21-25) mmol/L ABG Total CO2 (19-24) mmol/L ABG O2 Saturation (94-97) % Chloride (98-107) mmol/L Carbon Dioxide (22-30) mmol/L Glucose (74-99) mg/dL POC Glucose (mg/dL) 132 H 147 H 135 H (70-110) mg/dL Calcium (8.4-10.2) mg/dL Magnesium (1.6-2.3) mg/dL AST (17-59) U/L Total Protein (6.3-8.2) g/dL Albumin (3.5-5.0) g/dL Crossmatch 09/28/23 09/28/23 09/28/23 Range/Units 01:03 02:08 03:09 WBC (3.8-10.6) k/uL RBC (4.30-5.90) m/uL Hgb (13.0-17.5) gm/dL Hct (39.0-53.0) % Plt Count (150-450) k/uL Neutrophils # (1.3-7.7) k/uL Monocytes # (0-1.0) k/uL APTT (22.0-30.0) sec ABG pH (7.35-7.45) ABG pCO2 (35-45) mmHg ABG pO2 (83-108) mmHg ABG HCO3 (21-25) mmol/L ABG Total CO2 (19-24) mmol/L ABG O2 Saturation (94-97) % Chloride (98-107) mmol/L Carbon Dioxide (22-30) mmol/L Glucose (74-99) mg/dL POC Glucose (mg/dL) 135 H 123 H 127 H (70-110) mg/dL Calcium (8.4-10.2) mg/dL Magnesium (1.6-2.3) mg/dL AST (17-59) U/L Total Protein (6.3-8.2) g/dL Albumin (3.5-5.0) g/dL Crossmatch 09/28/23 09/28/23 09/28/23 Range/Units 04:09 04:18 04:18 WBC 16.9 H (3.8-10.6) k/uL RBC 3.44 L (4.30-5.90) m/uL Hgb 11.1 L (13.0-17.5) gm/dL Hct 32.5 L (39.0-53.0) % Plt Count 93 L (150-450) k/uL Neutrophils # 12.2 H (1.3-7.7) k/uL Monocytes # 1.1 H (0-1.0) k/uL APTT (22.0-30.0) sec ABG pH (7.35-7.45) ABG pCO2 (35-45) mmHg ABG pO2 (83-108) mmHg ABG HCO3 (21-25) mmol/L ABG Total CO2 (19-24) mmol/L ABG O2 Saturation (94-97) % Chloride 109 H (98-107) mmol/L Carbon Dioxide (22-30) mmol/L Glucose 123 H (74-99) mg/dL POC Glucose (mg/dL) 126 H (70-110) mg/dL Calcium 8.2 L (8.4-10.2) mg/dL Magnesium (1.6-2.3) mg/dL AST 78 H (17-59) U/L Total Protein 5.4 L (6.3-8.2) g/dL Albumin 3.2 L (3.5-5.0) g/dL Crossmatch 09/28/23 09/28/23 09/28/23 Range/Units 04:59 06:04 06:18 WBC (3.8-10.6) k/uL RBC (4.30-5.90) m/uL Hgb (13.0-17.5) gm/dL Hct (39.0-53.0) % Plt Count (150-450) k/uL Neutrophils # (1.3-7.7) k/uL Monocytes # (0-1.0) k/uL APTT (22.0-30.0) sec ABG pH (7.35-7.45) ABG pCO2 (35-45) mmHg ABG pO2 154 H (83-108) mmHg ABG HCO3 (21-25) mmol/L ABG Total CO2 27 H (19-24) mmol/L ABG O2 Saturation 99.5 H (94-97) % Chloride (98-107) mmol/L Carbon Dioxide (22-30) mmol/L Glucose (74-99) mg/dL POC Glucose (mg/dL) 129 H 130 H (70-110) mg/dL Calcium (8.4-10.2) mg/dL Magnesium (1.6-2.3) mg/dL AST (17-59) U/L Total Protein (6.3-8.2) g/dL Albumin (3.5-5.0) g/dL Crossmatch 09/28/23 09/28/23 09/28/23 Range/Units 06:56 08:07 09:23 WBC (3.8-10.6) k/uL RBC (4.30-5.90) m/uL Hgb (13.0-17.5) gm/dL Hct (39.0-53.0) % Plt Count (150-450) k/uL Neutrophils # (1.3-7.7) k/uL Monocytes # (0-1.0) k/uL APTT (22.0-30.0) sec ABG pH (7.35-7.45) ABG pCO2 (35-45) mmHg ABG pO2 137 H (83-108) mmHg ABG HCO3 (21-25) mmol/L ABG Total CO2 26 H (19-24) mmol/L ABG O2 Saturation 99.4 H (94-97) % Chloride (98-107) mmol/L Carbon Dioxide (22-30) mmol/L Glucose (74-99) mg/dL POC Glucose (mg/dL) 130 H 131 H (70-110) mg/dL Calcium (8.4-10.2) mg/dL Magnesium (1.6-2.3) mg/dL AST (17-59) U/L Total Protein (6.3-8.2) g/dL Albumin (3.5-5.0) g/dL Crossmatch 09/28/23 09/28/23 Range/Units 09:26 10:14 WBC (3.8-10.6) k/uL RBC (4.30-5.90) m/uL Hgb (13.0-17.5) gm/dL Hct (39.0-53.0) % Plt Count (150-450) k/uL Neutrophils # (1.3-7.7) k/uL Monocytes # (0-1.0) k/uL APTT (22.0-30.0) sec ABG pH (7.35-7.45) ABG pCO2 (35-45) mmHg ABG pO2 (83-108) mmHg ABG HCO3 (21-25) mmol/L ABG Total CO2 (19-24) mmol/L ABG O2 Saturation (94-97) % Chloride (98-107) mmol/L Carbon Dioxide (22-30) mmol/L Glucose (74-99) mg/dL POC Glucose (mg/dL) 141 H 134 H (70-110) mg/dL Calcium (8.4-10.2) mg/dL Magnesium (1.6-2.3) mg/dL AST (17-59) U/L Total Protein (6.3-8.2) g/dL Albumin (3.5-5.0) g/dL Crossmatch Assessment and Plan Assessment: Postop day #1, status post aortic valve replacement, single-vessel bypass grafting (SVG to PDA), left atrial appendage ligation, and replacement of ascending aorta with 32 mm tube graft. Routine postoperative ventilator management, S/P extubation, September 28, 2023. Congenital calcific bicuspid aortic valve. Coronary artery disease. History of hypertension. History of hyperlipidemia. Plan: Plan dated September 27, 2023. The patient is seen in the intensive care unit. He just arrived out of the operating room. Blood gases, chest x-ray pending. The patient was placed on volume assist-control, rate 12, tidal volume 550, 100% FiO2, PEEP of 5. The patient is on nitroglycerin, at 5 mcg/min, propofol at 30 mcg/kg/min. Blood gases done in the operating room show pO2 of 230, pCO2 35, pH is 7.42. That was on 60%. Labs, x-rays, and hemodynamics are pending. We will continue to follow, and make recommendations were appropriate. Plan dated September 28, 2023. The patient had some excess bleeding last night, and for that reason, the PEEP was increased from 5 to 10. The surgeon did not want the patient extubated yesterday, but today, his weaning parameters are excellent, his gas exchange is excellent, and his chest x-ray looks pretty stable. For that reason, we will proceed with weaning trial, with pressure support of 5 and CPAP of 5. Labs, x- rays, medications are all reviewed. The patient continues on amiodarone 0.5 mg/min, and insulin at 1 unit an hour. The patient is getting lactated Ringer's at 50 cc an hour. Today is postoperative day #1. Gas exchange is excellent. Time with Patient: Greater than 30
[2023-09-28 11:08] LABS: Glucose,Whole Blood 137 mg/dL (70-110)
[2023-09-28 12:07] LABS: Glucose,Whole Blood 160 mg/dL (70-110)
[2023-09-28 13:07] LABS: Glucose,Whole Blood 265 mg/dL (70-110)
[2023-09-28 14:11] LABS: Glucose,Whole Blood 180 mg/dL (70-110)
[2023-09-28 14:16] LABS: ABG PCO2 46 mmHg (35-45); ABG PH 7.37 (7.35-7.45); ABG PO2 344 mmHg (83-108); Allen Test Performed? Yes
[2023-09-28 14:17] LABS: ABG Base Excess 1.1 mmol/L; ABG Glucose Whole Blood 102 mg/dL (75-99); ABG HCO3 27 mmol/L (21-25); ABG Lactic Acid Whole Blood 0.6 mmol/L (0.5-1.6); ABG Oxygen Saturation 99.4 % (94-97); ABG Potassium Whole Blood 3.9 mmol/L (3.4-4.5); ABG Sodium Whole Blood 141 mmol/L (135-146)
[2023-09-28 14:18] LABS: ABG Hematocrit 43 % (34.0-46.0); ABG Ionized Calcium 4.9 mg/dL (4.5-5.3)
[2023-09-28 14:20] LABS: Allen Test Performed? Yes
[2023-09-28 14:21] LABS: ABG HCO3 26 mmol/L (21-25); ABG PCO2 44 mmHg (35-45); ABG PH 7.38 (7.35-7.45); ABG PO2 264 mmHg (83-108); ABG TCO2 27 mmol/L (19-24)
[2023-09-28 14:22] LABS: ABG Hematocrit 44 % (34.0-46.0); ABG Ionized Calcium 4.8 mg/dL (4.5-5.3); ABG Oxygen Saturation 99.8 % (94-97)
[2023-09-28 14:24] LABS: Allen Test Performed? Yes
[2023-09-28 14:24] LABS: Allen Test Performed? Yes
[2023-09-28 14:26] LABS: ABG Base Excess 1.7 mmol/L; ABG HCO3 26 mmol/L (21-25); ABG Hematocrit 38 % (34.0-46.0); ABG PCO2 36 mmHg (35-45); ABG PH 7.46 (7.35-7.45); ABG PO2 >400 mmHg (83-108); ABG TCO2 27 mmol/L (19-24)
[2023-09-28 14:27] LABS: Allen Test Performed? Yes
[2023-09-28 14:27] LABS: ABG Ionized Calcium 4.4 mg/dL (4.5-5.3)
[2023-09-28 14:27] LABS: Allen Test Performed? Yes
[2023-09-28 14:28] LABS: ABG Base Excess 1.6 mmol/L; ABG HCO3 25 mmol/L (21-25); ABG PCO2 37 mmHg (35-45); ABG PH 7.45 (7.35-7.45); ABG PO2 >420 mmHg (83-108); ABG TCO2 23 mmol/L (19-24)
[2023-09-28 14:29] LABS: ABG Hematocrit 37 % (34.0-46.0); ABG Ionized Calcium 4.6 mg/dL (4.5-5.3); ABG Oxygen Saturation 99.4 % (94-97)
[2023-09-28 14:31] LABS: ABG HCO3 24 mmol/L (21-25); ABG PCO2 41 mmHg (35-45); ABG PH 7.38 (7.35-7.45); ABG PO2 >420 mmHg (83-108)
[2023-09-28 14:32] LABS: ABG Base Excess -0.8 mmol/L; ABG Hematocrit 40 % (34.0-46.0); ABG Oxygen Saturation 99.4 % (94-97)
[2023-09-28 14:33] LABS: ABG Ionized Calcium 4.6 mg/dL (4.5-5.3)
[2023-09-28 14:34] LABS: ABG Base Excess -0.8 mmol/L; ABG HCO3 24 mmol/L (21-25); ABG Hematocrit 40 % (34.0-46.0); ABG Ionized Calcium 4.9 mg/dL (4.5-5.3); ABG Oxygen Saturation 99.8 % (94-97); ABG PCO2 36 mmHg (35-45); ABG PH 7.43 (7.35-7.45); ABG PO2 230 mmHg (83-108); ABG TCO2 25 mmol/L (19-24)
[2023-09-28 15:26] LABS: Glucose,Whole Blood 105 mg/dL (70-110)
[2023-09-28] MEDS: METOPROLOL TARTRATE 12.5 MG TAB PO SCH (16:04)
[2023-09-28] MEDS: fentaNYL (PF) 50 MCG/ML 2 ML AMP IVP ONE (16:04)
[2023-09-28 16:12] LABS: Glucose,Whole Blood 121 mg/dL (70-110)
[2023-09-28 17:10] LABS: Glucose,Whole Blood 40 mg/dL (70-110)
[2023-09-28 17:10] LABS: Glucose,Whole Blood 148 mg/dL (70-110)
[2023-09-28 18:11] LABS: Glucose,Whole Blood 190 mg/dL (70-110)
[2023-09-28 19:06] LABS: Glucose,Whole Blood 162 mg/dL (70-110)
[2023-09-28 19:59] LABS: Glucose,Whole Blood 123 mg/dL (70-110)
--- NOTE | 2023-09-28 20:46 | CONS ---
CONSULTATION CHIEF COMPLAINT: Bicuspid aortic valve with ascending aortic aneurysm with a history of hypertension and COPD. HISTORY OF PRESENT ILLNESS: This gentleman is in for an elective cardiac surgery procedure involving aortic valve replacement and ascending aortic resection. He has had cardiac issues in the past. He has had other issues with plantar pain in the feet, right hip pain, and apparently has a history of bipolar depression and PTSD. REVIEW OF SYSTEMS: Not obtainable at this time. Past medical history, family history, personal and social histories reveal he is not allergic to any medication. MEDICATIONS: He has been on, 1. Vitamin D3. 2. Lexapro. 3. Trazodone. 4. Lisinopril. 5. Aspirin. He does not smoke at this time. PHYSICAL EXAMINATION: VITAL SIGNS: Blood pressure 132/86, pulse 76 and regular, respirations 16, and he is afebrile. GENERAL: He appeared to be well developed and in no acute distress. SKIN: Color is normal and skin is warm and dry. LYMPHATICS: Lymph nodes are not enlarged. HEENT: Head, ears, eyes, nose, mouth and throat were normal. Neck veins not distended. CHEST: Clear. CARDIAC: Demonstrated an aortic stenosis murmur at the right sternal border. ABDOMEN: Soft, nontender. EXTREMITIES: Normal. NEUROLOGICAL: He is intact. DIAGNOSES: He is admitted to the hospital with diagnoses: 1. Bicuspid aortic valve. 2. Ascending aortic dilatation. 3. History of hypertension. 4. History of bipolar depression. 5. PTSD. Our recommendation none at this time. MMODL / IJN: [id number] /
[2023-09-28] MEDS: ACETAMINOPHEN TAB 325 MG TAB PO PRN (21:38)
[2023-09-28 21:46] LABS: Glucose,Whole Blood 128 mg/dL (70-110)
[2023-09-28 23:54] LABS: Glucose,Whole Blood 121 mg/dL (70-110)
[2023-09-29 00:44] LABS: African American GFR (CKD) 85 (>60 ml/min/1.73 sqM); Anion Gap 3 mmol/L; Blood Urea Nitrogen 20 mg/dL (9-20); Calcium 8.1 mg/dL (8.4-10.2); Carbon Dioxide 24 mmol/L (22-30); Chloride 101 mmol/L (98-107); Glucose 109 mg/dL (74-99); Non-African American GFR(CKD) 73 (>60 ml/min/1.73 sqM); Potassium 4.2 mmol/L (3.5-5.1); Sodium 128 mmol/L (137-145)
[2023-09-29] MEDS: DEXTROSE 5% IN WATER 100 ML with AMIODARONE 150 MG IV PRN (01:32)
[2023-09-29] MEDS: AMIODARONE 360 MG in DEXTROSE 5% IN WATER 200 ML IV ONE (01:32)
[2023-09-29 01:54] LABS: Glucose,Whole Blood 141 mg/dL (70-110)
--- NOTE | 2023-09-29 02:39 | PN ---
PROGRESS NOTE DATE OF SERVICE: 09/28/2023 CHIEF COMPLAINT: Status post aortic valve replacement, resection of ascending aortic aneurysm. HISTORY OF PRESENT ILLNESS: This gentleman is currently being attended to by the nursing staff. He is intubated. Vital signs are normal at this time. Breath sounds are heard bilaterally. IMPRESSION: Status post aortic valve replacement with resection of ascending aorta and management of posterior descending coronary artery. PLAN: Continue at this time to follow with Cardiology, Pulmonology, and Cardiac Surgery. MMODL / IJN: [id number] /
[2023-09-29 04:19] LABS: Glucose,Whole Blood 125 mg/dL (70-110)
[2023-09-29 04:32] LABS: Basophils # (A) 0.1 k/uL (0-0.2); Basophils % (A) 0 %; Eosinophils % (A) 0 %; HCT 28.9 % (39.0-53.0); HGB 10.2 gm/dL (13.0-17.5); Lymphocytes # (A) 4.5 k/uL (1.0-4.8); Lymphocytes % (A) 27 %; MCH 33.1 pg (25.0-35.0); MCHC 35.4 g/dL (31.0-37.0); MCV 93.4 fL (80.0-100.0); Mean Platelet Volume 10.3; Monocytes % (A) 6 %; Neutrophils # (A) 10.7 k/uL (1.3-7.7); Neutrophils % (A) 64 %; RBC 3.09 m/uL (4.30-5.90); RDW 13.3 % (11.5-15.5); WBC 16.6 k/uL (3.8-10.6)
[2023-09-29 04:37] LABS: Platelet Count 68 k/uL (150-450)
[2023-09-29 04:38] LABS: Ionized Calcium 4.7 mg/dL (4.5-5.3)
[2023-09-29 04:49] LABS: ALT 18 U/L (4-49); AST 77 U/L (17-59); African American GFR (CKD) 83 (>60 ml/min/1.73 sqM); Alkaline Phosphatase 56 U/L (38-126); Anion Gap 3 mmol/L; Blood Urea Nitrogen 20 mg/dL (9-20); Calcium 8.3 mg/dL (8.4-10.2); Carbon Dioxide 23 mmol/L (22-30); Chloride 103 mmol/L (98-107); Glucose 112 mg/dL (74-99); Non-African American GFR(CKD) 72 (>60 ml/min/1.73 sqM); Potassium 4.5 mmol/L (3.5-5.1); Sodium 129 mmol/L (137-145); Total Bilirubin 1.5 mg/dL (0.2-1.3); Total Protein 5.3 g/dL (6.3-8.2)
[2023-09-29 06:00] LABS: Glucose,Whole Blood 136 mg/dL (70-110)
--- NOTE | 2023-09-29 06:36 | XR ---
EXAM: XR chest 1V portable CLINICAL INDICATION:Male, 58 years old with history of Post Operative Cardiac Surgery; [facility] COMPARISON: 09/28/2023 and before TECHNIQUE: Chest single view. FINDINGS: Lines/tubes/devices: Mediastinal drain remains in place on the right, a previous left-sided drain jeanette ears removed. Unchanged tube seen with its tip projected over the left heart inferomedially, could be mediastinal drain or within the pleural space. Left chest tube terminates in stable position towards the left lung apex. The previous NG tube and ET tube appear removed. The right IJ [place] catheter has been removed wit h vascular sheath remaining at the base of the right neck. Left atrial occlusion device, prosthetic heart valve likely aortic, multiple sternotomy wires again n oted. Multiple EKG leads over the field of view, can interfere with interpretation. Cardiomediastinum: CM silhouette appears enlarged. At least mild cardiomegaly appears present. Vasculature: Increased pulmonary vascular congestion and interstitial opacities compared to prior. Lungs/pleura: Increased basilar pleural/parenchymal opacities. No visualized sizable pneumothorax. Lung volumes sli ghtly diminished from prior. Bones/soft tissues: Osseous structures appear grossly stable. Regional soft tissues appear unremarkable. IMPRESSION: 1. Postop cardiac surgery with multiple lines and tubes in place, as described above. 2. Lung volumes are slightly diminished. Increased bibasilar pleural/parenchymal opacities suggestin g small effusions with atelectasis or airspace disease. 3. Slightly increased pulmonary vascular congestion and interstitial prominence compared to prior.
[2023-09-29] MEDS: PANTOPRAZOLE 40 MG TABLET PO SCH (06:50)
[2023-09-29] MEDS: AMIODARONE 450 MG in DEXTROSE 5% IN WATER 250 ML IV SCH (07:04)
[2023-09-29] MEDS: fentaNYL (PF) 50 MCG/ML 2 ML AMP IVP PRN (07:07)
--- NOTE | 2023-09-29 07:14 | P.PN ---
Subjective Progress Note Date: 09/29/23 Principal diagnosis: Congenital bicuspid calcific aortic stenosis, ascending aortic aneurysm, coronary artery disease. Previous medical history of hypertension, hyperlipidemia, previous bacteremia, previous tobacco dependence, remote history of pneumonia, Hirschsprung's disease, hepatitis C, anxiety/depression/bipolar/PTSD, previous heroin use, and family history of premature coronary artery disease POD#2 Aortic valve replacement with 27 mm Inspiris bovine pericardial prost hesis, replacement of ascending aorta with 32 mm tube graft, CABG x 1 with saphenous vein graft to posterior descending coronary artery, endovascular vein harvest, ligation of the left atrial appendage with 40 mm AtriCure clip Postoperative acute blood loss anemia and thrombocytopenia, expected given hemodilution and cardiopulmonary bypass pump Paroxysmal atrial fibrillation, a known common occurrence after open heart surgery and not a complication, treated with amiodarone, currently sinus The patient was seen and examined this morning sitting up in recliner in the intensive care unit in no significant distress although he does complain of postsurgical pain with deep inspiration and coughing. He was successfully extubated yesterday at 9:35. Currently in sinus rhythm and hemodynamically stable although blood pressure is a little soft. He did have rapid atrial fibrillation last night, IV amiodarone was restarted by Dr. Ascencio. Currently on 2 L nasal cannula with oxygen saturation in the mid 90s. Chest x-ray, labs reviewed. Patient does have some atelectasis and vascular congestion on chest x-ray which is normal postoperative. Platelet count 68,000, heparin and Toradol stopped, HIT panel ordered. Right internal jugular Cordis, right radial arterial line, mediastinal/left pleural chest tubes all remain. Patient did ambulate in the hallway yesterday with staff, tolerated well. No other new concerns. Objective - Vital Signs Vital signs: Vital Signs Temp 98.0 F 09/29/23 04:00 Pulse 81 09/29/23 06:00 Resp 20 09/29/23 06:00 BP 105/78 09/29/23 06:00 Pulse Ox 92 L 09/29/23 06:00 FiO2 40 09/28/23 09:09 Intake & Output 09/28/23 09/29/23 09/29/23 18:59 06:59 18:59 Intake Total 626.926 715.288 Output Total 730 944 Balance -103.074 -228.712 Weight 92.6 kg 94.7 kg Intake: IV 515 442 Lactated Ringers 1,000 ml 440 370 @ 20 mls/hr IV .Q24H FATMIAH Rx#:[id number] pressure bag 75 72 Intake, IV Titration 111.926 23.288 Amount Insulin Regular 100 unit 38.356 23.288 In Sodium Chloride 0.9% 100 ml @ Per Protocol IV .Q0M FATIMAH Rx#:[id number] propofoL 1,000 mg In 73.570 Empty Bag 1 bag @ Titrate IV .Q0M FATIMAH Rx#: [id number] Oral 250 Output: Chest Tube Drainage 235 349 Chest Tube Mediastinal 130 180 Pleural Catheter Left 105 169 Drainage 10 Left Calf 10 Urine 485 595 Other: Voiding Method Indwelling Catheter Indwelling Catheter ABP, PAP, CO, CI - Last Documented Arterial Blood Pressure 114/58 Pulmonary Artery Pressure 22/11 Cardiac Output 5.2 Cardiac Index 2.4 - Exam CONSTITUTIONAL: Appears somewhat comfortable, cooperative, no acute distress RESPIRATORY: Lungs sounds diminished bilaterally. Respirations even, nonlabored. Currently on 2 L nasal cannula with oxygen saturation 95%. Able to achieve 750 mL on incentive spirometry. Weak cough. CARDIOVASCULAR: S1, S2 present. Regular rate and rhythm, sinus rhythm on telemetry. Sternum stable. Palpable peripheral pulses bilaterally. Trace bilateral lower extremity edema present. No calf pain or tenderness noted. Heart hugger in place with patient demonstrating appropriate use. Antiembolism stockings, SCDs present. GASTROINTESTINAL: Abdomen soft, nontender, nondistended. Hypoactive bowel sounds present 4 quadrants. Tolerating clear liquids. Denies flatus GENITOURINARY: Alvarado present draining clear, yellow urine. Output overnight 40-75 mL per hour, 1080 mL in the last 24 hours INTEGUMENTARY: Skin is warm and dry with evidence of good perfusion. Anterior chest incision well approximated and covered with dry intact dressing. Left lower extremity EVH site well approximated without redness or drainage. NEUROLOGIC: Cranial nerves II through XII intact MUSKULOSKELETAL: Able to move all extremities, strength equal bilaterally, gait normal PSYCHIATRIC: Alert and oriented to person place and time, appropriate affect, intact judgment and insight INVASIVE LINES AND TUBES: Mediastinal/left pleural chest tubes present and connected to wall suction, no air leaks present. Mediastinal tube with 110 mL serosanguineous drainage overnight, 300 mL in the last 24 hours. Left pleural chest tube with 110 mL serosanguineous drainage overnight, 350 mL in the last 24 hours. A/V epicardial pacemaker wires present, grounded. Right internal jugular cordis, right radial arterial line present. Last CVP 13. - Allied health notes Allied health notes reviewed: nursing - Labs CBC & Chem 7: 09/29/23 04:15 09/29/23 04:15 Labs: Abnormal Lab Results - Last 24 Hours (Table) 09/27/23 09/27/23 09/27/23 Range/Units 08:40 10:24 11:02 WBC (3.8-10.6) k/uL RBC (4.30-5.90) m/uL Hgb (13.0-17.5) gm/dL Hct (39.0-53.0) % Plt Count (150-450) k/uL Neutrophils # (1.3-7.7) k/uL ABG pH 7.46 H (7.35-7.45) ABG pCO2 46 H (35-45) mmHg ABG pO2 344 H 264 H >400 H (83-108) mmHg ABG HCO3 27 H 26 H 26 H (21-25) mmol/L ABG Total CO2 27 H 27 H (19-24) mmol/L ABG O2 Saturation 99.4 H 99.8 H 100.0 H (94-97) % ABG Ionized Calcium 4.4 L (4.5-5.3) mg/dL ABG Glucose 102 H (75-99) mg/dL Hemoglobin 12.4 L (13.0-17.5) gm/dL Sodium (137-145) mmol/L Glucose (74-99) mg/dL POC Glucose (mg/dL) (70-110) mg/dL Calcium (8.4-10.2) mg/dL Total Bilirubin (0.2-1.3) mg/dL AST (17-59) U/L Total Protein (6.3-8.2) g/dL Albumin (3.5-5.0) g/dL Arterial Blood Glucose 102 H (75-99) mg/dL 09/27/23 09/27/23 09/27/23 Range/Units 11:30 12:11 13:23 WBC (3.8-10.6) k/uL RBC (4.30-5.90) m/uL Hgb (13.0-17.5) gm/dL Hct (39.0-53.0) % Plt Count (150-450) k/uL Neutrophils # (1.3-7.7) k/uL ABG pH (7.35-7.45) ABG pCO2 (35-45) mmHg ABG pO2 >420 H >420 H 230 H (83-108) mmHg ABG HCO3 (21-25) mmol/L ABG Total CO2 25 H (19-24) mmol/L ABG O2 Saturation 99.4 H 99.4 H 99.8 H (94-97) % ABG Ionized Calcium (4.5-5.3) mg/dL ABG Glucose (75-99) mg/dL Hemoglobin 12.2 L (13.0-17.5) gm/dL Sodium (137-145) mmol/L Glucose (74-99) mg/dL POC Glucose (mg/dL) (70-110) mg/dL Calcium (8.4-10.2) mg/dL Total Bilirubin (0.2-1.3) mg/dL AST (17-59) U/L Total Protein (6.3-8.2) g/dL Albumin (3.5-5.0) g/dL Arterial Blood Glucose (75-99) mg/dL 09/28/23 09/28/23 09/28/23 Range/Units 08:07 09:23 09:26 WBC (3.8-10.6) k/uL RBC (4.30-5.90) m/uL Hgb (13.0-17.5) gm/dL Hct (39.0-53.0) % Plt Count (150-450) k/uL Neutrophils # (1.3-7.7) k/uL ABG pH (7.35-7.45) ABG pCO2 (35-45) mmHg ABG pO2 137 H (83-108) mmHg ABG HCO3 (21-25) mmol/L ABG Total CO2 26 H (19-24) mmol/L ABG O2 Saturation 99.4 H (94-97) % ABG Ionized Calcium (4.5-5.3) mg/dL ABG Glucose (75-99) mg/dL Hemoglobin (13.0-17.5) gm/dL Sodium (137-145) mmol/L Glucose (74-99) mg/dL POC Glucose (mg/dL) 131 H 141 H (70-110) mg/dL Calcium (8.4-10.2) mg/dL Total Bilirubin (0.2-1.3) mg/dL AST (17-59) U/L Total Protein (6.3-8.2) g/dL Albumin (3.5-5.0) g/dL Arterial Blood Glucose (75-99) mg/dL 09/28/23 09/28/23 09/28/23 Range/Units 10:14 11:06 12:05 WBC (3.8-10.6) k/uL RBC (4.30-5.90) m/uL Hgb (13.0-17.5) gm/dL Hct (39.0-53.0) % Plt Count (150-450) k/uL Neutrophils # (1.3-7.7) k/uL ABG pH (7.35-7.45) ABG pCO2 (35-45) mmHg ABG pO2 (83-108) mmHg ABG HCO3 (21-25) mmol/L ABG Total CO2 (19-24) mmol/L ABG O2 Saturation (94-97) % ABG Ionized Calcium (4.5-5.3) mg/dL ABG Glucose (75-99) mg/dL Hemoglobin (13.0-17.5) gm/dL Sodium (137-145) mmol/L Glucose (74-99) mg/dL POC Glucose (mg/dL) 134 H 137 H 160 H (70-110) mg/dL Calcium (8.4-10.2) mg/dL Total Bilirubin (0.2-1.3) mg/dL AST (17-59) U/L Total Protein (6.3-8.2) g/dL Albumin (3.5-5.0) g/dL Arterial Blood Glucose (75-99) mg/dL 09/28/23 09/28/23 09/28/23 Range/Units 13:06 14:09 16:11 WBC (3.8-10.6) k/uL RBC (4.30-5.90) m/uL Hgb (13.0-17.5) gm/dL Hct (39.0-53.0) % Plt Count (150-450) k/uL Neutrophils # (1.3-7.7) k/uL ABG pH (7.35-7.45) ABG pCO2 (35-45) mmHg ABG pO2 (83-108) mmHg ABG HCO3 (21-25) mmol/L ABG Total CO2 (19-24) mmol/L ABG O2 Saturation (94-97) % ABG Ionized Calcium (4.5-5.3) mg/dL ABG Glucose (75-99) mg/dL Hemoglobin (13.0-17.5) gm/dL Sodium (137-145) mmol/L Glucose (74-99) mg/dL POC Glucose (mg/dL) 265 H 180 H 121 H (70-110) mg/dL Calcium (8.4-10.2) mg/dL Total Bilirubin (0.2-1.3) mg/dL AST (17-59) U/L Total Protein (6.3-8.2) g/dL Albumin (3.5-5.0) g/dL Arterial Blood Glucose (75-99) mg/dL 09/28/23 09/28/23 09/28/23 Range/Units 17:06 17:08 18:09 WBC (3.8-10.6) k/uL RBC (4.30-5.90) m/uL Hgb (13.0-17.5) gm/dL Hct (39.0-53.0) % Plt Count (150-450) k/uL Neutrophils # (1.3-7.7) k/uL ABG pH (7.35-7.45) ABG pCO2 (35-45) mmHg ABG pO2 (83-108) mmHg ABG HCO3 (21-25) mmol/L ABG Total CO2 (19-24) mmol/L ABG O2 Saturation (94-97) % ABG Ionized Calcium (4.5-5.3) mg/dL ABG Glucose (75-99) mg/dL Hemoglobin (13.0-17.5) gm/dL Sodium (137-145) mmol/L Glucose (74-99) mg/dL POC Glucose (mg/dL) 40 L 148 H 190 H (70-110) mg/dL Calcium (8.4-10.2) mg/dL Total Bilirubin (0.2-1.3) mg/dL AST (17-59) U/L Total Protein (6.3-8.2) g/dL Albumin (3.5-5.0) g/dL Arterial Blood Glucose (75-99) mg/dL 09/28/23 09/28/23 09/28/23 Range/Units 19:05 19:57 21:45 WBC (3.8-10.6) k/uL RBC (4.30-5.90) m/uL Hgb (13.0-17.5) gm/dL Hct (39.0-53.0) % Plt Count (150-450) k/uL Neutrophils # (1.3-7.7) k/uL ABG pH (7.35-7.45) ABG pCO2 (35-45) mmHg ABG pO2 (83-108) mmHg ABG HCO3 (21-25) mmol/L ABG Total CO2 (19-24) mmol/L ABG O2 Saturation (94-97) % ABG Ionized Calcium (4.5-5.3) mg/dL ABG Glucose (75-99) mg/dL Hemoglobin (13.0-17.5) gm/dL Sodium (137-145) mmol/L Glucose (74-99) mg/dL POC Glucose (mg/dL) 162 H 123 H 128 H (70-110) mg/dL Calcium (8.4-10.2) mg/dL Total Bilirubin (0.2-1.3) mg/dL AST (17-59) U/L Total Protein (6.3-8.2) g/dL Albumin (3.5-5.0) g/dL Arterial Blood Glucose (75-99) mg/dL 09/28/23 09/29/23 09/29/23 Range/Units 23:51 00:25 01:53 WBC (3.8-10.6) k/uL RBC (4.30-5.90) m/uL Hgb (13.0-17.5) gm/dL Hct (39.0-53.0) % Plt Count (150-450) k/uL Neutrophils # (1.3-7.7) k/uL ABG pH (7.35-7.45) ABG pCO2 (35-45) mmHg ABG pO2 (83-108) mmHg ABG HCO3 (21-25) mmol/L ABG Total CO2 (19-24) mmol/L ABG O2 Saturation (94-97) % ABG Ionized Calcium (4.5-5.3) mg/dL ABG Glucose (75-99) mg/dL Hemoglobin (13.0-17.5) gm/dL Sodium 128 L (137-145) mmol/L Glucose 109 H (74-99) mg/dL POC Glucose (mg/dL) 121 H 141 H (70-110) mg/dL Calcium 8.1 L (8.4-10.2) mg/dL Total Bilirubin (0.2-1.3) mg/dL AST (17-59) U/L Total Protein (6.3-8.2) g/dL Albumin (3.5-5.0) g/dL Arterial Blood Glucose (75-99) mg/dL 09/29/23 09/29/23 09/29/23 Range/Units 04:15 04:15 04:18 WBC 16.6 H (3.8-10.6) k/uL RBC 3.09 L (4.30-5.90) m/uL Hgb 10.2 L (13.0-17.5) gm/dL Hct 28.9 L (39.0-53.0) % Plt Count 68 L (150-450) k/uL Neutrophils # 10.7 H (1.3-7.7) k/uL ABG pH (7.35-7.45) ABG pCO2 (35-45) mmHg ABG pO2 (83-108) mmHg ABG HCO3 (21-25) mmol/L ABG Total CO2 (19-24) mmol/L ABG O2 Saturation (94-97) % ABG Ionized Calcium (4.5-5.3) mg/dL ABG Glucose (75-99) mg/dL Hemoglobin (13.0-17.5) gm/dL Sodium 129 L (137-145) mmol/L Glucose 112 H (74-99) mg/dL POC Glucose (mg/dL) 125 H (70-110) mg/dL Calcium 8.3 L (8.4-10.2) mg/dL Total Bilirubin 1.5 H (0.2-1.3) mg/dL AST 77 H (17-59) U/L Total Protein 5.3 L (6.3-8.2) g/dL Albumin 3.0 L (3.5-5.0) g/dL Arterial Blood Glucose (75-99) mg/dL 09/29/23 Range/Units 05:58 WBC (3.8-10.6) k/uL RBC (4.30-5.90) m/uL Hgb (13.0-17.5) gm/dL Hct (39.0-53.0) % Plt Count (150-450) k/uL Neutrophils # (1.3-7.7) k/uL ABG pH (7.35-7.45) ABG pCO2 (35-45) mmHg ABG pO2 (83-108) mmHg ABG HCO3 (21-25) mmol/L ABG Total CO2 (19-24) mmol/L ABG O2 Saturation (94-97) % ABG Ionized Calcium (4.5-5.3) mg/dL ABG Glucose (75-99) mg/dL Hemoglobin (13.0-17.5) gm/dL Sodium (137-145) mmol/L Glucose (74-99) mg/dL POC Glucose (mg/dL) 136 H (70-110) mg/dL Calcium (8.4-10.2) mg/dL Total Bilirubin (0.2-1.3) mg/dL AST (17-59) U/L Total Protein (6.3-8.2) g/dL Albumin (3.5-5.0) g/dL Arterial Blood Glucose (75-99) mg/dL - Imaging and Cardiology Chest x-ray: report reviewed, image reviewed Assessment and Plan Assessment: Congenital bicuspid calcific aortic stenosis, status post bioprosthetic aortic valve replacement Ascending aortic aneurysm, status post replacement of ascending aorta Coronary artery disease, status post single-vessel CABG Hypertension Hyperlipidemia, treated, cholesterol 140, LDL 70 Previous bacteremia 3 years ago Previous tobacco dependence, quit 5 years ago, preoperative FEV1 88% of predic meena Remote history of pneumonia Hirschsprung's disease Hepatitis C, treated Anxiety/depression/bipolar/PTSD Previous heroin use, last use 10 years ago Family history of premature coronary artery disease Postoperative acute blood loss anemia and thrombocytopenia, expected Paroxysmal atrial fibrillation, status post ligation of the left atrial appendage, currently sinus Plan: Continue to maximize medical therapy with low dose aspirin, statin, Plavix, beta-subhash. Will increase beta-subhash therapy as tolerated IV amiodarone restarted, continue for A-fib/PVC prophylaxis, will transition back to oral tomorrow Wean O2 as tolerated. Encourage incentive spirometry use 10 times every hour while awake, bronchodilators per pulmonology Increase activity as tolerated, PT/OT/cardiac rehab consulted Will monitor daily labs and x-rays. Electrolyte replacement per protocol. HIT panel sent GI/DVT prophylaxis, subcutaneous heparin discontinued, Arixtra ordered Pain control per current medication regimen. Toradol stopped. IV fentanyl added for breakthrough pain Insulin management per internal medicine. Patient is not diabetic with A1c 5.4%, but does need tight blood sugar control to prevent infection and promote healing Continue Cordis to continuous CVP monitoring Continue chest tubes, monitor for output Continue Alvarado catheter for another 24 hours, continue to record strict accurate intake and output Daily weights Encourage continued smoking and heroin cessation More recommendations to follow as patient progresses
[2023-09-29] MEDS ORDERED: HEPARIN SODIUM,PORCINE 5,000 UNIT/ML 1 ML VIAL SQ SCH (08:00)
[2023-09-29 08:15] LABS: Glucose,Whole Blood 171 mg/dL (70-110)
[2023-09-29] MEDS: MAGNESIUM HYDROXIDE 2,400 MG/30 ML CUP PO PRN (08:24)
[2023-09-29] MEDS: METOPROLOL TARTRATE 25 MG TAB PO SCH (08:25)
[2023-09-29] MEDS: FONDAPARINUX 2.5 MG/0.5 ML SYRINGE SQ SCH (08:27)
[2023-09-29 10:20] LABS: Glucose,Whole Blood 164 mg/dL (70-110)
--- NOTE | 2023-09-29 10:51 | P.PN ---
Subjective Progress Note Date: 09/29/23 Principal diagnosis: Status post single-vessel bypass, and aortic valve replacement. Pulmonary/critical care consult dated September 27, 2023. 58-year-old male seen in the ICU today, postop day #0,S/P aortic valve replacement with a bovine pericardial prosthesis, replacement of ascending aorta with 32 mm tube graft, bypass grafting x 1, with saphenous vein graft to the posterior descending coronary artery, and ligation of left atrial appendage. The surgeon was Dr. Beach. The patient is seen in the intensive care unit, room 263. Ventilator settings include volume assist-control, rate 12, tidal volume 550, FiO2 100%, PEEP of 5. Blood gases while in the operating room, show pO2 of 230, pCO2 of 35, pH is 7.42. That was on 60%. Blood gases in the ICU have not yet been done. The patient is currently on nitroglycerin at 5 mcg/min, and propofol at 30 mcg/kg/min. The patient is seen in the intensive care unit, having just got back from the operating room. The patient has a history of a congenital bicuspid calcific aortic valve, with aortic valve stenosis. No new laboratory data as yet. Chest x-ray is pending. ABGs, and hemodynamics are pending. In addition to the congenital bicuspid aortic valve, the patient has a history of hyperlipidemia, coronary disease, and hypertension. Outpatient medications include trazodone, Zestril, metoprolol, Lexapro, vitamin D3, Lipitor, and baby aspirin. Progress note dated September 28, 2023. The patient is seen today, room 263. The patient is switched over to pressure support and CPAP, at 5 cm of water each. His ventilator settings include volume assist-control, rate 16, tidal volume 550, 40%, PEEP of 10. Blood gases showed a pO2 154, pCO2 of 43, and pH of 7.37. The patient is on amiodarone at 0.5 mg/min, insulin at 1 unit an hour, lactated Ringer's at 50 cc an hour. Today is postoperative day #1. Labs today include a white count of 16.9, hemoglobin 11.1, hematocrit 32.5, and a platelet count of 93,000. Sodium 138, potassium 4.3, chlorides 109, CO2 23, BUN 19, creatinine 0.9. Calcium is 8.2. Albumin 3.2. Chest x-ray shows some postoperative changes. Left-sided chest tube without pneumothorax. Progress note dated September 29, 2023. The patient is postop day #1. He is doing well. He is seen today in room 263. He is on 2 L of oxygen by nasal cannula. He is getting insulin at 3 units an hour and lactated Ringer's at 30 cc an hour. He is also getting amiodarone at 0.5 mg/min. White count of 16.6, hemoglobin 10.2, hematocrit 28.9, platelet count was 68,000. Sodium 129, potassium 4.5, chlorides 103, CO2 23, BUN 20, creatinine 1.12. Albumin is 3. Chest x-ray shows slightly diminished lung volumes, with some basilar atelectasis. Objective - Vital Signs Vital signs: Vital Signs Temp 98.0 F 09/29/23 04:00 Pulse 76 09/29/23 08:24 Resp 26 H 09/29/23 07:15 BP 122/67 09/29/23 07:00 Pulse Ox 97 09/29/23 08:11 FiO2 40 09/28/23 09:09 Intake & Output 09/28/23 09/29/23 09/29/23 18:59 06:59 18:59 Intake Total 626.926 715.288 43.878 Output Total 730 944 30 Balance -103.074 -228.712 13.878 Weight 92.6 kg 94.7 kg Intake: IV 515 442 36 Lactated Ringers 1,000 ml 440 370 30 @ 20 mls/hr IV .Q24H FATIMAH Rx#:[id number] pressure bag 75 72 6 Intake, IV Titration 111.926 23.288 7.878 Amount Insulin Regular 100 unit 38.356 23.288 7.878 In Sodium Chloride 0.9% 100 ml @ Per Protocol IV .Q0M FATIMAH Rx#:[id number] propofoL 1,000 mg In 73.570 Empty Bag 1 bag @ Titrate IV .Q0M FATIMAH Rx#: [id number] Oral 250 Output: Chest Tube Drainage 235 349 Chest Tube Mediastinal 130 180 Pleural Catheter Left 105 169 Drainage 10 Left Calf 10 Urine 485 595 30 Other: Voiding Method Indwelling Catheter Indwelling Catheter ABP, PAP, CO, CI - Last Documented Arterial Blood Pressure 105/62 Pulmonary Artery Pressure 22/11 Cardiac Output 5.2 Cardiac Index 2.4 - Exam No acute distress, extubated, currently on nasal O2 at 2 L. HEENT examination is grossly unremarkable. Mucous membranes are moist. No oral lesions. Neck supple. Full range of motion. No adenopathy thyromegaly or neck vein distention. Cardiovascular examination reveals regular rhythm rate. S1-S2 normal. No S3 or S4. No discernible murmur noted. Heart rate 76 bpm. Heart sounds are distant. Lungs reveal clear breath sounds. Breath sounds are equal bilaterally. No adventitious lung sounds including wheezes rhonchi or crackles. Saturations are 97%. Abdomen is soft without bowel sounds. No masses or tenderness. Extremities are intact. No cyanosis clubbing or edema. Skin is without rash or lesion. Neurologic examination is brief but nonfocal. - Labs CBC & Chem 7: 09/29/23 04:15 09/29/23 04:15 Labs: Abnormal Lab Results - Last 24 Hours (Table) 09/27/23 09/27/23 09/27/23 Range/Units 08:40 10:24 11:02 WBC (3.8-10.6) k/uL RBC (4.30-5.90) m/uL Hgb (13.0-17.5) gm/dL Hct (39.0-53.0) % Plt Count (150-450) k/uL Neutrophils # (1.3-7.7) k/uL ABG pH 7.46 H (7.35-7.45) ABG pCO2 46 H (35-45) mmHg ABG pO2 344 H 264 H >400 H (83-108) mmHg ABG HCO3 27 H 26 H 26 H (21-25) mmol/L ABG Total CO2 27 H 27 H (19-24) mmol/L ABG O2 Saturation 99.4 H 99.8 H 100.0 H (94-97) % ABG Ionized Calcium 4.4 L (4.5-5.3) mg/dL ABG Glucose 102 H (75-99) mg/dL Hemoglobin 12.4 L (13.0-17.5) gm/dL Sodium (137-145) mmol/L Glucose (74-99) mg/dL POC Glucose (mg/dL) (70-110) mg/dL Calcium (8.4-10.2) mg/dL Total Bilirubin (0.2-1.3) mg/dL AST (17-59) U/L Total Protein (6.3-8.2) g/dL Albumin (3.5-5.0) g/dL Arterial Blood Glucose 102 H (75-99) mg/dL 09/27/23 09/27/23 09/27/23 Range/Units 11:30 12:11 13:23 WBC (3.8-10.6) k/uL RBC (4.30-5.90) m/uL Hgb (13.0-17.5) gm/dL Hct (39.0-53.0) % Plt Count (150-450) k/uL Neutrophils # (1.3-7.7) k/uL ABG pH (7.35-7.45) ABG pCO2 (35-45) mmHg ABG pO2 >420 H >420 H 230 H (83-108) mmHg ABG HCO3 (21-25) mmol/L ABG Total CO2 25 H (19-24) mmol/L ABG O2 Saturation 99.4 H 99.4 H 99.8 H (94-97) % ABG Ionized Calcium (4.5-5.3) mg/dL ABG Glucose (75-99) mg/dL Hemoglobin 12.2 L (13.0-17.5) gm/dL Sodium (137-145) mmol/L Glucose (74-99) mg/dL POC Glucose (mg/dL) (70-110) mg/dL Calcium (8.4-10.2) mg/dL Total Bilirubin (0.2-1.3) mg/dL AST (17-59) U/L Total Protein (6.3-8.2) g/dL Albumin (3.5-5.0) g/dL Arterial Blood Glucose (75-99) mg/dL 09/28/23 09/28/23 09/28/23 Range/Units 11:06 12:05 13:06 WBC (3.8-10.6) k/uL RBC (4.30-5.90) m/uL Hgb (13.0-17.5) gm/dL Hct (39.0-53.0) % Plt Count (150-450) k/uL Neutrophils # (1.3-7.7) k/uL ABG pH (7.35-7.45) ABG pCO2 (35-45) mmHg ABG pO2 (83-108) mmHg ABG HCO3 (21-25) mmol/L ABG Total CO2 (19-24) mmol/L ABG O2 Saturation (94-97) % ABG Ionized Calcium (4.5-5.3) mg/dL ABG Glucose (75-99) mg/dL Hemoglobin (13.0-17.5) gm/dL Sodium (137-145) mmol/L Glucose (74-99) mg/dL POC Glucose (mg/dL) 137 H 160 H 265 H (70-110) mg/dL Calcium (8.4-10.2) mg/dL Total Bilirubin (0.2-1.3) mg/dL AST (17-59) U/L Total Protein (6.3-8.2) g/dL Albumin (3.5-5.0) g/dL Arterial Blood Glucose (75-99) mg/dL 09/28/23 09/28/23 09/28/23 Range/Units 14:09 16:11 17:06 WBC (3.8-10.6) k/uL RBC (4.30-5.90) m/uL Hgb (13.0-17.5) gm/dL Hct (39.0-53.0) % Plt Count (150-450) k/uL Neutrophils # (1.3-7.7) k/uL ABG pH (7.35-7.45) ABG pCO2 (35-45) mmHg ABG pO2 (83-108) mmHg ABG HCO3 (21-25) mmol/L ABG Total CO2 (19-24) mmol/L ABG O2 Saturation (94-97) % ABG Ionized Calcium (4.5-5.3) mg/dL ABG Glucose (75-99) mg/dL Hemoglobin (13.0-17.5) gm/dL Sodium (137-145) mmol/L Glucose (74-99) mg/dL POC Glucose (mg/dL) 180 H 121 H 40 L (70-110) mg/dL Calcium (8.4-10.2) mg/dL Total Bilirubin (0.2-1.3) mg/dL AST (17-59) U/L Total Protein (6.3-8.2) g/dL Albumin (3.5-5.0) g/dL Arterial Blood Glucose (75-99) mg/dL 09/28/23 09/28/23 09/28/23 Range/Units 17:08 18:09 19:05 WBC (3.8-10.6) k/uL RBC (4.30-5.90) m/uL Hgb (13.0-17.5) gm/dL Hct (39.0-53.0) % Plt Count (150-450) k/uL Neutrophils # (1.3-7.7) k/uL ABG pH (7.35-7.45) ABG pCO2 (35-45) mmHg ABG pO2 (83-108) mmHg ABG HCO3 (21-25) mmol/L ABG Total CO2 (19-24) mmol/L ABG O2 Saturation (94-97) % ABG Ionized Calcium (4.5-5.3) mg/dL ABG Glucose (75-99) mg/dL Hemoglobin (13.0-17.5) gm/dL Sodium (137-145) mmol/L Glucose (74-99) mg/dL POC Glucose (mg/dL) 148 H 190 H 162 H (70-110) mg/dL Calcium (8.4-10.2) mg/dL Total Bilirubin (0.2-1.3) mg/dL AST (17-59) U/L Total Protein (6.3-8.2) g/dL Albumin (3.5-5.0) g/dL Arterial Blood Glucose (75-99) mg/dL 09/28/23 09/28/23 09/28/23 Range/Units 19:57 21:45 23:51 WBC (3.8-10.6) k/uL RBC (4.30-5.90) m/uL Hgb (13.0-17.5) gm/dL Hct (39.0-53.0) % Plt Count (150-450) k/uL Neutrophils # (1.3-7.7) k/uL ABG pH (7.35-7.45) ABG pCO2 (35-45) mmHg ABG pO2 (83-108) mmHg ABG HCO3 (21-25) mmol/L ABG Total CO2 (19-24) mmol/L ABG O2 Saturation (94-97) % ABG Ionized Calcium (4.5-5.3) mg/dL ABG Glucose (75-99) mg/dL Hemoglobin (13.0-17.5) gm/dL Sodium (137-145) mmol/L Glucose (74-99) mg/dL POC Glucose (mg/dL) 123 H 128 H 121 H (70-110) mg/dL Calcium (8.4-10.2) mg/dL Total Bilirubin (0.2-1.3) mg/dL AST (17-59) U/L Total Protein (6.3-8.2) g/dL Albumin (3.5-5.0) g/dL Arterial Blood Glucose (75-99) mg/dL 09/29/23 09/29/23 09/29/23 Range/Units 00:25 01:53 04:15 WBC 16.6 H (3.8-10.6) k/uL RBC 3.09 L (4.30-5.90) m/uL Hgb 10.2 L (13.0-17.5) gm/dL Hct 28.9 L (39.0-53.0) % Plt Count 68 L (150-450) k/uL Neutrophils # 10.7 H (1.3-7.7) k/uL ABG pH (7.35-7.45) ABG pCO2 (35-45) mmHg ABG pO2 (83-108) mmHg ABG HCO3 (21-25) mmol/L ABG Total CO2 (19-24) mmol/L ABG O2 Saturation (94-97) % ABG Ionized Calcium (4.5-5.3) mg/dL ABG Glucose (75-99) mg/dL Hemoglobin (13.0-17.5) gm/dL Sodium 128 L (137-145) mmol/L Glucose 109 H (74-99) mg/dL POC Glucose (mg/dL) 141 H (70-110) mg/dL Calcium 8.1 L (8.4-10.2) mg/dL Total Bilirubin (0.2-1.3) mg/dL AST (17-59) U/L Total Protein (6.3-8.2) g/dL Albumin (3.5-5.0) g/dL Arterial Blood Glucose (75-99) mg/dL 09/29/23 09/29/23 09/29/23 Range/Units 04:15 04:18 05:58 WBC (3.8-10.6) k/uL RBC (4.30-5.90) m/uL Hgb (13.0-17.5) gm/dL Hct (39.0-53.0) % Plt Count (150-450) k/uL Neutrophils # (1.3-7.7) k/uL ABG pH (7.35-7.45) ABG pCO2 (35-45) mmHg ABG pO2 (83-108) mmHg ABG HCO3 (21-25) mmol/L ABG Total CO2 (19-24) mmol/L ABG O2 Saturation (94-97) % ABG Ionized Calcium (4.5-5.3) mg/dL ABG Glucose (75-99) mg/dL Hemoglobin (13.0-17.5) gm/dL Sodium 129 L (137-145) mmol/L Glucose 112 H (74-99) mg/dL POC Glucose (mg/dL) 125 H 136 H (70-110) mg/dL Calcium 8.3 L (8.4-10.2) mg/dL Total Bilirubin 1.5 H (0.2-1.3) mg/dL AST 77 H (17-59) U/L Total Protein 5.3 L (6.3-8.2) g/dL Albumin 3.0 L (3.5-5.0) g/dL Arterial Blood Glucose (75-99) mg/dL 09/29/23 09/29/23 Range/Units 08:14 10:19 WBC (3.8-10.6) k/uL RBC (4.30-5.90) m/uL Hgb (13.0-17.5) gm/dL Hct (39.0-53.0) % Plt Count (150-450) k/uL Neutrophils # (1.3-7.7) k/uL ABG pH (7.35-7.45) ABG pCO2 (35-45) mmHg ABG pO2 (83-108) mmHg ABG HCO3 (21-25) mmol/L ABG Total CO2 (19-24) mmol/L ABG O2 Saturation (94-97) % ABG Ionized Calcium (4.5-5.3) mg/dL ABG Glucose (75-99) mg/dL Hemoglobin (13.0-17.5) gm/dL Sodium (137-145) mmol/L Glucose (74-99) mg/dL POC Glucose (mg/dL) 171 H 164 H (70-110) mg/dL Calcium (8.4-10.2) mg/dL Total Bilirubin (0.2-1.3) mg/dL AST (17-59) U/L Total Protein (6.3-8.2) g/dL Albumin (3.5-5.0) g/dL Arterial Blood Glucose (75-99) mg/dL Assessment and Plan Assessment: Postop day #2, status post aortic valve replacement, single-vessel bypass grafting (SVG to PDA), left atrial appendage ligation, and replacement of ascending aorta with 32 mm tube graft. Routine postoperative ventilator management, S/P extubation, September 28, 2023. Postoperative atrial fibrillation, currently on amiodarone. Congenital calcific bicuspid aortic valve. Coronary artery disease. History of hypertension. History of hyperlipidemia. Plan: Plan dated September 27, 2023. The patient is seen in the intensive care unit. He just arrived out of the operating room. Blood gases, chest x-ray pending. The patient was placed on volume assist-control, rate 12, tidal volume 550, 100% FiO2, PEEP of 5. The patient is on nitroglycerin, at 5 mcg/min, propofol at 30 mcg/kg/min. Blood gases done in the operating room show pO2 of 230, pCO2 35, pH is 7.42. That was on 60%. Labs, x-rays, and hemodynamics are pending. We will continue to follow, and make recommendations were appropriate. Plan dated September 28, 2023. The patient had some excess bleeding last night, and for that reason, the PEEP was increased from 5 to 10. The surgeon did not want the patient extubated yesterday, but today, his weaning parameters are excellent, his gas exchange is excellent, and his chest x-ray looks pretty stable. For that reason, we will proceed with weaning trial, with pressure support of 5 and CPAP of 5. Labs, x- rays, medications are all reviewed. The patient continues on amiodarone 0.5 mg/min, and insulin at 1 unit an hour. The patient is getting lactated Ringer's at 50 cc an hour. Today is postoperative day #1. Gas exchange is excellent. Plan dated September 29, 2023. The patient appears to be doing relatively well. The patient is on 2 L. He continues on amiodarone for atrial fibrillation. He is also on insulin drip at 3 units an hour. Today is postop day #2. The patient is currently on 2 L. Saturations are excellent. Labs, x-rays, and medications reviewed. Will continue to follow the patient, make recommendations along the way. Prognosis is guarded. Time with Patient: Greater than 30
[2023-09-29 11:51] LABS: Glucose,Whole Blood 148 mg/dL (70-110)
[2023-09-29] MEDS: INSULIN ASPART (NovoLOG) 100 UNIT/ML VIAL SQ SCH (11:55)
--- NOTE | 2023-09-29 12:51 | PN ---
PROGRESS NOTE DATE OF SERVICE: 09/29/2023 CHIEF COMPLAINT: Status post aortic valve replacement and resection of ascending aortic aneurysm. HISTORY OF PRESENT ILLNESS: This gentleman doing well. He is off the ventilator. He is awake, alert, and oriented. He is having some discomfort, but no shortness of breath. PHYSICAL EXAMINATION: VITAL SIGNS: Normal and he is in sinus rhythm. LUNGS: Breath sounds are heard bilaterally. He still has tubes in place. IMPRESSION: Status post aortic valve resection and replacement for bicuspid valve as well as a section of dilated ascending aorta. PLAN: No change in his management from my perspective except that he will be moved over to sliding scale of insulin. MMODL / IJN: [id number] /
--- NOTE | 2023-09-29 13:11 | P.PN ---
Subjective Progress Note Date: 09/29/23 The patient is a 58-year-old male who follows in the office with Dr. Ham. He underwent aortic valve replacement, replacement of ascending aorta and CABG x 1 with SVG to posterior descending coronary artery. The patient was successfully extubated yesterday and is currently on nasal cannula. He did d evelop A-fib with RVR overnight and was started on amiodarone. He did convert back to sinus mechanism. Patient was interviewed and examined sitting comfortably in the recliner chair. He states he did have 5 out of 10 pain when ambulating. He denies any current chest discomfort or difficulty breathing. GENERAL: Well-appearing, well-nourished and in no acute distress. NECK: Supple without JVD or thyromegaly. LUNGS: Breath sounds diminished to auscultation bilaterally. Respiration equal and unlabored. No wheezes, rales or rhonchi. HEART: Regular rate and rhythm without murmurs, rubs or gallops. S1 and S2 heard. Sternal dressing clean dry and intact. EXTREMITIES: Normal range of motion, no edema. No clubbing or cyanosis. No right lower extremity peripheral pulse. +2 on the left. TELEMETRY: A-fib with RVR overnight. Currently in sinus rhythm with heart rate in 70s LABS: WBC 16.6, hemoglobin 10.2, hematocrit 28.9, platelet 68, sodium 129, potassium 4.5, BUN 20, creatinine 1.12, magnesium 2.3, AST 77, ALT 18 IMPRESSION: Congenital bicuspid calcific aortic stenosis, status post bioprosthetic aortic valve replacement Ascending aortic aneurysm, status post replacement Coronary artery disease, status post single-vessel CABG Hypertension Hyperlipidemia PLAN: Continue supportive treatment Maximize beta-subhash as tolerated Further recommendations to be based upon clinical course I am dictating on behalf of Dr Aiden Ross's history/physical and assessment/plan. Objective - Vital Signs Vital signs: Vital Signs Temp 98.1 F 09/29/23 12:00 Pulse 75 09/29/23 12:12 Resp 36 H 09/29/23 12:00 BP 104/61 09/29/23 11:45 Pulse Ox 93 L 09/29/23 12:00 FiO2 40 09/29/23 12:00 Intake & Output 09/28/23 09/29/23 09/29/23 18:59 06:59 18:59 Intake Total 626.926 715.288 223.878 Output Total 730 944 315 Balance -103.074 -228.712 -91.122 Weight 92.6 kg 94.7 kg Intake: IV 515 442 216 Lactated Ringers 1,000 ml 440 370 180 @ 20 mls/hr IV .Q24H FATIMAH Rx#:[id number] pressure bag 75 72 36 Intake, IV Titration 111.926 23.288 7.878 Amount Insulin Regular 100 unit 38.356 23.288 7.878 In Sodium Chloride 0.9% 100 ml @ Per Protocol IV .Q0M FATIM[facility] Rx#:[id number] propofoL 1,000 mg In 73.570 Empty Bag 1 bag @ Titrate IV .Q0M FATIMAH Rx#: [id number] Oral 250 Output: Chest Tube Drainage 235 349 Chest Tube Mediastinal 130 180 Pleural Catheter Left 105 169 Drainage 10 Left Calf 10 Urine 485 595 315 Other: Voiding Method Indwelling Catheter Indwelling Catheter Indwelling Catheter ABP, PAP, CO, CI - Last Documented Arterial Blood Pressure 81/68 Pulmonary Artery Pressure 22 Cardiac Output 5.2 Cardiac Index 2.4 - Labs CBC & Chem 7: 09/29/23 04:15 09/29/23 04:15 Labs: Abnormal Lab Results - Last 24 Hours (Table) 09/27/23 09/27/23 09/27/23 Range/Units 08:40 10:24 11:02 WBC (3.8-10.6) k/uL RBC (4.30-5.90) m/uL Hgb (13.0-17.5) gm/dL Hct (39.0-53.0) % Plt Count (150-450) k/uL Neutrophils # (1.3-7.7) k/uL ABG pH 7.46 H (7.35-7.45) ABG pCO2 46 H (35-45) mmHg ABG pO2 344 H 264 H >400 H (83-108) mmHg ABG HCO3 27 H 26 H 26 H (21-25) mmol/L ABG Total CO2 27 H 27 H (19-24) mmol/L ABG O2 Saturation 99.4 H 99.8 H 100.0 H (94-97) % ABG Ionized Calcium 4.4 L (4.5-5.3) mg/dL ABG Glucose 102 H (75-99) mg/dL Hemoglobin 12.4 L (13.0-17.5) gm/dL Sodium (137-145) mmol/L Glucose (74-99) mg/dL POC Glucose (mg/dL) (70-110) mg/dL Calcium (8.4-10.2) mg/dL Total Bilirubin (0.2-1.3) mg/dL AST (17-59) U/L Total Protein (6.3-8.2) g/dL Albumin (3.5-5.0) g/dL Arterial Blood Glucose 102 H (75-99) mg/dL 09/27/23 09/27/23 09/27/23 Range/Units 11:30 12:11 13:23 WBC (3.8-10.6) k/uL RBC (4.30-5.90) m/uL Hgb (13.0-17.5) gm/dL Hct (39.0-53.0) % Plt Count (150-450) k/uL Neutrophils # (1.3-7.7) k/uL ABG pH (7.35-7.45) ABG pCO2 (35-45) mmHg ABG pO2 >420 H >420 H 230 H (83-108) mmHg ABG HCO3 (21-25) mmol/L ABG Total CO2 25 H (19-24) mmol/L ABG O2 Saturation 99.4 H 99.4 H 99.8 H (94-97) % ABG Ionized Calcium (4.5-5.3) mg/dL ABG Glucose (75-99) mg/dL Hemoglobin 12.2 L (13.0-17.5) gm/dL Sodium (137-145) mmol/L Glucose (74-99) mg/dL POC Glucose (mg/dL) (70-110) mg/dL Calcium (8.4-10.2) mg/dL Total Bilirubin (0.2-1.3) mg/dL AST (17-59) U/L Total Protein (6.3-8.2) g/dL Albumin (3.5-5.0) g/dL Arterial Blood Glucose (75-99) mg/dL 09/28/23 09/28/23 09/28/23 Range/Units 13:06 14:09 16:11 WBC (3.8-10.6) k/uL RBC (4.30-5.90) m/uL Hgb (13.0-17.5) gm/dL Hct (39.0-53.0) % Plt Count (150-450) k/uL Neutrophils # (1.3-7.7) k/uL ABG pH (7.35-7.45) ABG pCO2 (35-45) mmHg ABG pO2 (83-108) mmHg ABG HCO3 (21-25) mmol/L ABG Total CO2 (19-24) mmol/L ABG O2 Saturation (94-97) % ABG Ionized Calcium (4.5-5.3) mg/dL ABG Glucose (75-99) mg/dL Hemoglobin (13.0-17.5) gm/dL Sodium (137-145) mmol/L Glucose (74-99) mg/dL POC Glucose (mg/dL) 265 H 180 H 121 H (70-110) mg/dL Calcium (8.4-10.2) mg/dL Total Bilirubin (0.2-1.3) mg/dL AST (17-59) U/L Total Protein (6.3-8.2) g/dL Albumin (3.5-5.0) g/dL Arterial Blood Glucose (75-99) mg/dL 09/28/23 09/28/23 09/28/23 Range/Units 17:06 17:08 18:09 WBC (3.8-10.6) k/uL RBC (4.30-5.90) m/uL Hgb (13.0-17.5) gm/dL Hct (39.0-53.0) % Plt Count (150-450) k/uL Neutrophils # (1.3-7.7) k/uL ABG pH (7.35-7.45) ABG pCO2 (35-45) mmHg ABG pO2 (83-108) mmHg ABG HCO3 (21-25) mmol/L ABG Total CO2 (19-24) mmol/L ABG O2 Saturation (94-97) % ABG Ionized Calcium (4.5-5.3) mg/dL ABG Glucose (75-99) mg/dL Hemoglobin (13.0-17.5) gm/dL Sodium (137-145) mmol/L Glucose (74-99) mg/dL POC Glucose (mg/dL) 40 L 148 H 190 H (70-110) mg/dL Calcium (8.4-10.2) mg/dL Total Bilirubin (0.2-1.3) mg/dL AST (17-59) U/L Total Protein (6.3-8.2) g/dL Albumin (3.5-5.0) g/dL Arterial Blood Glucose (75-99) mg/dL 09/28/23 09/28/23 09/28/23 Range/Units 19:05 19:57 21:45 WBC (3.8-10.6) k/uL RBC (4.30-5.90) m/uL Hgb (13.0-17.5) gm/dL Hct (39.0-53.0) % Plt Count (150-450) k/uL Neutrophils # (1.3-7.7) k/uL ABG pH (7.35-7.45) ABG pCO2 (35-45) mmHg ABG pO2 (83-108) mmHg ABG HCO3 (21-25) mmol/L ABG Total CO2 (19-24) mmol/L ABG O2 Saturation (94-97) % ABG Ionized Calcium (4.5-5.3) mg/dL ABG Glucose (75-99) mg/dL Hemoglobin (13.0-17.5) gm/dL Sodium (137-145) mmol/L Glucose (74-99) mg/dL POC Glucose (mg/dL) 162 H 123 H 128 H (70-110) mg/dL Calcium (8.4-10.2) mg/dL Total Bilirubin (0.2-1.3) mg/dL AST (17-59) U/L Total Protein (6.3-8.2) g/dL Albumin (3.5-5.0) g/dL Arterial Blood Glucose (75-99) mg/dL 09/28/23 09/29/23 09/29/23 Range/Units 23:51 00:25 01:53 WBC (3.8-10.6) k/uL RBC (4.30-5.90) m/uL Hgb (13.0-17.5) gm/dL Hct (39.0-53.0) % Plt Count (150-450) k/uL Neutrophils # (1.3-7.7) k/uL ABG pH (7.35-7.45) ABG pCO2 (35-45) mmHg ABG pO2 (83-108) mmHg ABG HCO3 (21-25) mmol/L ABG Total CO2 (19-24) mmol/L ABG O2 Saturation (94-97) % ABG Ionized Calcium (4.5-5.3) mg/dL ABG Glucose (75-99) mg/dL Hemoglobin (13.0-17.5) gm/dL Sodium 128 L (137-145) mmol/L Glucose 109 H (74-99) mg/dL POC Glucose (mg/dL) 121 H 141 H (70-110) mg/dL Calcium 8.1 L (8.4-10.2) mg/dL Total Bilirubin (0.2-1.3) mg/dL AST (17-59) U/L Total Protein (6.3-8.2) g/dL Albumin (3.5-5.0) g/dL Arterial Blood Glucose (75-99) mg/dL 09/29/23 09/29/23 09/29/23 Range/Units 04:15 04:15 04:18 WBC 16.6 H (3.8-10.6) k/uL RBC 3.09 L (4.30-5.90) m/uL Hgb 10.2 L (13.0-17.5) gm/dL Hct 28.9 L (39.0-53.0) % Plt Count 68 L (150-450) k/uL Neutrophils # 10.7 H (1.3-7.7) k/uL ABG pH (7.35-7.45) ABG pCO2 (35-45) mmHg ABG pO2 (83-108) mmHg ABG HCO3 (21-25) mmol/L ABG Total CO2 (19-24) mmol/L ABG O2 Saturation (94-97) % ABG Ionized Calcium (4.5-5.3) mg/dL ABG Glucose (75-99) mg/dL Hemoglobin (13.0-17.5) gm/dL Sodium 129 L (137-145) mmol/L Glucose 112 H (74-99) mg/dL POC Glucose (mg/dL) 125 H (70-110) mg/dL Calcium 8.3 L (8.4-10.2) mg/dL Total Bilirubin 1.5 H (0.2-1.3) mg/dL AST 77 H (17-59) U/L Total Protein 5.3 L (6.3-8.2) g/dL Albumin 3.0 L (3.5-5.0) g/dL Arterial Blood Glucose (75-99) mg/dL 09/29/23 09/29/23 09/29/23 Range/Units 05:58 08:14 10:19 WBC (3.8-10.6) k/uL RBC (4.30-5.90) m/uL Hgb (13.0-17.5) gm/dL Hct (39.0-53.0) % Plt Count (150-450) k/uL Neutrophils # (1.3-7.7) k/uL ABG pH (7.35-7.45) ABG pCO2 (35-45) mmHg ABG pO2 (83-108) mmHg ABG HCO3 (21-25) mmol/L ABG Total CO2 (19-24) mmol/L ABG O2 Saturation (94-97) % ABG Ionized Calcium (4.5-5.3) mg/dL ABG Glucose (75-99) mg/dL Hemoglobin (13.0-17.5) gm/dL Sodium (137-145) mmol/L Glucose (74-99) mg/dL POC Glucose (mg/dL) 136 H 171 H 164 H (70-110) mg/dL Calcium (8.4-10.2) mg/dL Total Bilirubin (0.2-1.3) mg/dL AST (17-59) U/L Total Protein (6.3-8.2) g/dL Albumin (3.5-5.0) g/dL Arterial Blood Glucose (75-99) mg/dL 09/29/23 Range/Units 11:50 WBC (3.8-10.6) k/uL RBC (4.30-5.90) m/uL Hgb (13.0-17.5) gm/dL Hct (39.0-53.0) % Plt Count (150-450) k/uL Neutrophils # (1.3-7.7) k/uL ABG pH (7.35-7.45) ABG pCO2 (35-45) mmHg ABG pO2 (83-108) mmHg ABG HCO3 (21-25) mmol/L ABG Total CO2 (19-24) mmol/L ABG O2 Saturation (94-97) % ABG Ionized Calcium (4.5-5.3) mg/dL ABG Glucose (75-99) mg/dL Hemoglobin (13.0-17.5) gm/dL Sodium (137-145) mmol/L Glucose (74-99) mg/dL POC Glucose (mg/dL) 148 H (70-110) mg/dL Calcium (8.4-10.2) mg/dL Total Bilirubin (0.2-1.3) mg/dL AST (17-59) U/L Total Protein (6.3-8.2) g/dL Albumin (3.5-5.0) g/dL Arterial Blood Glucose (75-99) mg/dL
[2023-09-29] MEDS: bisacodyL 10 MG SUPP RECTAL PRN (14:22)
[2023-09-29 17:35] LABS: Glucose,Whole Blood 144 mg/dL (70-110)
--- NOTE | 2023-09-29 19:30 | XR ---
EXAMINATION TYPE: XR chest 1V portable DATE OF EXAM: 09/29/2023 7:09 PM CLINICAL INDICATION:Male, 58 years old with history of chest tube; COMPARISON: Chest radiographs from 09/29/2023 TECHNIQUE: XR chest 1V portable Frontal view of the chest. FINDINGS: Lungs/Pleura: Low lung volumes are present. There is no evidence of pleural effusion, focal consolida tion, or pneumothorax. Pulmonary vascularity: Pulmonary vascular congestion. Heart/mediastinum: Cardiomediastinal silhouette is enlarged and stable. Left atrial appendage occlusi on device is present. Musculoskeletal: No acute osseous pathology. Midline sternotomy wires are noted. Other findings: None Lines/Tubes: Bilateral thoracotomy tubes are present without evidence of pneumothorax. Drainage tubes with tips projecting over the mediastinum. There is a [place] catheter sheath remains. IMPRESSION: Postsurgical changes with cardiomegaly and mild pulmonary vascular congestion versus low lung volumes and atelectasis.
[2023-09-29 20:40] LABS: Glucose,Whole Blood 160 mg/dL (70-110)
[2023-09-30] MEDS: METOCLOPRAMIDE 5 MG/ML 2 ML VIAL IVP PRN (02:47)
[2023-09-30 05:21] LABS: Basophils % (A) 0 %; Eosinophils # (A) 0.1 k/uL (0-0.7); Eosinophils % (A) 1 %; HCT 31.4 % (39.0-53.0); HGB 10.4 gm/dL (13.0-17.5); Lymphocytes # (A) 1.5 k/uL (1.0-4.8); Lymphocytes % (A) 7 %; MCH 31.8 pg (25.0-35.0); MCHC 33.2 g/dL (31.0-37.0); MCV 95.6 fL (80.0-100.0); Mean Platelet Volume 9.1; Monocytes # (A) 1.1 k/uL (0-1.0); Monocytes % (A) 5 %; Neutrophils # (A) 19.6 k/uL (1.3-7.7); Neutrophils % (A) 86 %; RBC 3.28 m/uL (4.30-5.90); RDW 13.2 % (11.5-15.5); WBC 22.7 k/uL (3.8-10.6)
[2023-09-30 05:24] LABS: Platelet Count 141 k/uL (150-450)
[2023-09-30 05:28] LABS: ALT 29 U/L (4-49); AST 97 U/L (17-59); African American GFR (CKD) 44 (>60 ml/min/1.73 sqM); Albumin 3.5 g/dL (3.5-5.0); Alkaline Phosphatase 64 U/L (38-126); Anion Gap 11 mmol/L; Blood Urea Nitrogen 39 mg/dL (9-20); Calcium 8.2 mg/dL (8.4-10.2); Carbon Dioxide 19 mmol/L (22-30); Chloride 96 mmol/L (98-107); Glucose 164 mg/dL (74-99); Magnesium 2.5 mg/dL (1.6-2.3); Non-African American GFR(CKD) 38 (>60 ml/min/1.73 sqM); Sodium 126 mmol/L (137-145); Total Bilirubin 1.3 mg/dL (0.2-1.3)
[2023-09-30 06:15] LABS: Glucose,Whole Blood 173 mg/dL (70-110)
--- NOTE | 2023-09-30 06:58 | XR ---
EXAM: XR chest 1V portable CLINICAL INDICATION:Male, 58 years old with history of post cardiac surgery; [facility] COMPARISON: 09/29/2023 7:01 PM and before TECHNIQUE: Chest single view. FINDINGS: Lines/tubes/devices: Stable right IJ vascular sheath, right mediastinal drain, tube with its tip at t he inferomedial aspect of the left lung which could be mediastinal or pleural drain, and left thoraco stomy tube. EKG leads and other extrinsic structures overlie the chest. Prosthetic aortic valve and left atrial occlusion device again noted. Cardiomediastinum: Cardiac silhouette appears enlarged and stable. Stable mediastinal silhouette. Vasculature: Similar to slightly increased mild central vascular congestion. Lungs/pleura: Low lung volumes again noted with bibasilar opacities, slightly increased. Mild blunting of the costo phrenic angles. No sizable pneumothorax. Bones/soft tissues: Bony thorax appears grossly unchanged as seen. Regional soft tissues appear unremarkable. Sternotomy wires redemonstrated. Other: Similar gaseous distention of bowel in the left upper quadrant. IMPRESSION: 1. Cardiomegaly and postoperative changes, with multiple lines/tubes in place as above. 2. Mild pulmonary vascular congestion. 3. Low lung volumes with slightly increased bibasilar opacities, likely atelectasis with possible sm all pleural effusions especially on the right.
--- NOTE | 2023-09-30 07:18 | P.PN ---
Subjective Progress Note Date: 09/30/23 Principal diagnosis: Congenital bicuspid calcific aortic stenosis, ascending aortic aneurysm, coronary artery disease. Previous medical history of hypertension, hyperlipidemia, previous bacteremia, previous tobacco dependence, remote history of pneumonia, Hirschsprung's disease with chronic constipation, hepatitis C, anxiety/depression/bipolar/PTSD, previous heroin use, and family history of premature coronary artery disease POD#3 Aortic valve replacement with 27 mm Inspiris bovine pericardial prosthesis, replacement of ascending aorta with 32 mm tube graft, CABG x 1 with saphenous vein graft to posterior descending coronary artery, endovascular vein harvest, ligation of the left atrial appendage with 40 mm AtriCure clip Postoperative acute blood loss anemia and thrombocytopenia, expected given hemodilution and cardiopulmonary bypass pump Paroxysmal atrial fibrillation, a known common occurrence after open heart surgery and not a complication, treated with amiodarone, currently sinus ZHEN, likely due to toradol and borderline blood pressures Leukocytosis, likely reactive The patient was seen and examined this morning sitting up in recliner in the intensive care unit in no significant distress although he does complain of postsurgical pain with deep inspiration and coughing. Still constipated, states he normally has a bowel movement every 3-5 days, last bowel movement was 3 days before surgery. Currently in sinus rhythm and hemodynamically stable. Currently on 2 L nasal cannula with oxygen saturation in the mid 90s. Chest x-ray, labs reviewed. WBC elevated, likely reactive but will obtain procalcitonin. Kidney function worse today, likely from toradol (which was stopped yesterday) and reglan as well as borderline blood pressures yesterday. Right internal jugular Cordis, mediastinal/left pleural chest tubes remain. Patient did ambulate in the hallway yesterday 3 times with staff, tolerated well. No other new concerns. Objective - Vital Signs Vital signs: Vital Signs Temp 98 F 09/30/23 04:00 Pulse 75 09/30/23 07:00 Resp 35 H 09/30/23 07:00 BP 98/57 09/30/23 07:00 Pulse Ox 93 L 09/30/23 07:00 FiO2 40 09/28/23 09:09 Intake & Output 09/29/23 09/30/23 09/30/23 18:59 06:59 18:59 Intake Total 1619.878 562.838 Output Total 525 505 Balance 1094.878 57.838 Weight 93.3 kg Intake: IV 432 322 Lactated Ringers 1,000 ml 360 250 @ 20 mls/hr IV .Q24H [facility] Rx#:[id number] pressure bag 72 72 Intake, IV Titration 7.878 240.838 Amount Amiodarone 450 mg In 240.838 Dextrose 5% in Water 250 ml @ 0.5 MG/MIN 16.667 mls/hr IV .Q15H [facility] Rx#: [id number] Insulin Regular 100 unit 7.878 In Sodium Chloride 0.9% 100 ml @ Per Protocol IV .Q0M [facility] Rx#:[id number] Oral 1180 Output: Chest Tube Drainage 160 Chest Tube Mediastinal 40 Pleural Catheter Left 120 Urine 525 345 Other: Voiding Method Indwelling Catheter Indwelling Catheter ABP, PAP, CO, CI - Last Documented Arterial Blood Pressure 78/53 Pulmonary Artery Pressure 22/11 Cardiac Output 5.2 Cardiac Index 2.4 - Exam CONSTITUTIONAL: Appears somewhat comfortable, cooperative, no acute distress RESPIRATORY: Lungs sounds diminished bilaterally. Respirations even, nonlabored. Currently on 2 L nasal cannula with oxygen saturation 93%. Able to achieve 750 mL on incentive spirometry. Weak cough. CARDIOVASCULAR: S1, S2 present. Regular rate and rhythm, sinus rhythm on telemetry. Sternum stable. Palpable peripheral pulses bilaterally. Trace bilateral lower extremity edema present. No calf pain or tenderness noted. Heart hugger in place with patient demonstrating appropriate use. Antiembolism stockings, SCDs present. GASTROINTESTINAL: Abdomen soft, slightly tender to palpation, nondistended. Hypoactive bowel sounds present 4 quadrants. Tolerating clear liquids. Denies flatus GENITOURINARY: Alvarado present draining clear, yellow urine. Output overnight 15-50 mL per hour, 870 mL in the last 24 hours INTEGUMENTARY: Skin is warm and dry with evidence of good perfusion. Anterior chest incision well approximated and covered with dry intact dressing. Left lower extremity EVH site well approximated without redness or drainage. NEUROLOGIC: Cranial nerves II through XII intact MUSKULOSKELETAL: Able to move all extremities, strength equal bilaterally, gait normal PSYCHIATRIC: Alert and oriented to person place and time, appropriate affect, intact judgment and insight INVASIVE LINES AND TUBES: Mediastinal/left pleural chest tubes present and connected to wall suction, no air leaks present. Mediastinal tube with 40 mL serosanguineous drainage overnight, 150 mL in the last 24 hours. Left pleural chest tube with 120 mL serosanguineous drainage overnight, 350 mL in the last 24 hours. A/V epicardial pacemaker wires present, grounded. Right internal jugular cordis, right radial arterial line present. Last CVP 17. - Allied health notes Allied health notes reviewed: nursing - Labs CBC & Chem 7: 09/30/23 05:07 09/30/23 05:07 Labs: Abnormal Lab Results - Last 24 Hours (Table) 09/29/23 09/29/23 09/29/23 Range/Units 08:14 10:19 11:50 WBC (3.8-10.6) k/uL RBC (4.30-5.90) m/uL Hgb (13.0-17.5) gm/dL Hct (39.0-53.0) % Plt Count (150-450) k/uL Neutrophils # (1.3-7.7) k/uL Monocytes # (0-1.0) k/uL Sodium (137-145) mmol/L Chloride (98-107) mmol/L Carbon Dioxide (22-30) mmol/L BUN (9-20) mg/dL Creatinine (0.66-1.25) mg/dL Glucose (74-99) mg/dL POC Glucose (mg/dL) 171 H 164 H 148 H (70-110) mg/dL Calcium (8.4-10.2) mg/dL Magnesium (1.6-2.3) mg/dL AST (17-59) U/L Total Protein (6.3-8.2) g/dL 09/29/23 09/29/23 09/30/23 Range/Units 17:34 20:38 05:07 WBC 22.7 H (3.8-10.6) k/uL RBC 3.28 L (4.30-5.90) m/uL Hgb 10.4 L (13.0-17.5) gm/dL Hct 31.4 L (39.0-53.0) % Plt Count 141 L D (150-450) k/uL Neutrophils # 19.6 H (1.3-7.7) k/uL Monocytes # 1.1 H (0-1.0) k/uL Sodium (137-145) mmol/L Chloride (98-107) mmol/L Carbon Dioxide (22-30) mmol/L BUN (9-20) mg/dL Creatinine (0.66-1.25) mg/dL Glucose (74-99) mg/dL POC Glucose (mg/dL) 144 H 160 H (70-110) mg/dL Calcium (8.4-10.2) mg/dL Magnesium (1.6-2.3) mg/dL AST (17-59) U/L Total Protein (6.3-8.2) g/dL 09/30/23 09/30/23 Range/Units 05:07 06:14 WBC (3.8-10.6) k/uL RBC (4.30-5.90) m/uL Hgb (13.0-17.5) gm/dL Hct (39.0-53.0) % Plt Count (150-450) k/uL Neutrophils # (1.3-7.7) k/uL Monocytes # (0-1.0) k/uL Sodium 126 L (137-145) mmol/L Chloride 96 L (98-107) mmol/L Carbon Dioxide 19 L (22-30) mmol/L BUN 39 H (9-20) mg/dL Creatinine 1.90 H (0.66-1.25) mg/dL Glucose 164 H (74-99) mg/dL POC Glucose (mg/dL) 173 H (70-110) mg/dL Calcium 8.2 L (8.4-10.2) mg/dL Magnesium 2.5 H (1.6-2.3) mg/dL AST 97 H (17-59) U/L Total Protein 6.0 L (6.3-8.2) g/dL - Imaging and Cardiology Chest x-ray: report reviewed, image reviewed Assessment and Plan Assessment: Congenital bicuspid calcific aortic stenosis, status post bioprosthetic aortic valve replacement Ascending aortic aneurysm, status post replacement of ascending aorta Coronary artery disease, status post single-vessel CABG Hypertension Hyperlipidemia, treated, cholesterol 140, LDL 70 Previous bacteremia 3 years ago Previous tobacco dependence, quit 5 years ago, preoperative FEV1 88% of predicted Remote history of pneumonia Hirschsprung's disease with chronic constipation Hepatitis C, treated Anxiety/depression/bipolar/PTSD Previous heroin use, last use 10 years ago Family history of premature coronary artery disease Postoperative acute blood loss anemia and thrombocytopenia, expected Paroxysmal atrial fibrillation, status post ligation of the left atrial appendage, currently sinus HZEN Leukocytosis Plan: Continue to maximize medical therapy with low dose aspirin, statin, Plavix, beta-subhash. Will increase beta-subhash therapy as tolerated Continue amiodarone for A-fib prophylaxis, will transition back to oral today Wean O2 as tolerated. Encourage incentive spirometry use 10 times every hour while awake, bronchodilators per pulmonology Increase activity as tolerated, PT/OT/cardiac rehab consulted Will monitor daily labs and x-rays. Electrolyte replacement per protocol. HIT panel sent, procalcitonin ordered GI/DVT prophylaxis, subcutaneous heparin discontinued, Arixtra ordered Pain control per current medication regimen. Toradol stopped. IV fentanyl added for breakthrough pain Insulin management per internal medicine. Patient is not diabetic with A1c 5.4%, but does need tight blood sugar control to prevent infection and promote healing Discontinue Cordis Will discontinue epicardial pacer wires, patient to remain on bedrest for 1 hour post wire removal Will discontinue mediastinal chest tube, continue left pleural chest tube for another 24 hours, monitor for output Discontinue Alvarado catheter, may bladder scan and straight cath for >300 mL residual Continue to record strict accurate intake and output Daily weights Will obtain flat plate of the abdomen Daily suppositories until bowel movement, will give enema if no flatus by noon Probiotics ordered Diet changed back to clear liquids Encourage continued smoking and heroin cessation More recommendations to follow as patient progresses
[2023-09-30] MEDS: AMIODARONE 200 MG TAB PO SCH (08:01)
[2023-09-30] MEDS: SENNOSIDES-DOCUSATE SODIUM 1 EACH TAB PO SCH (08:01)
[2023-09-30] MEDS: LACTOBACILLUS ACIDOPHILUS/PECT 1 EACH CAPSULE PO SCH (08:01)
[2023-09-30] MEDS: bisacodyL 10 MG SUPP RECTAL SCH (08:02)
--- NOTE | 2023-09-30 09:15 | XR ---
EXAMINATION TYPE: XR KUB portable DATE OF EXAM: 09/30/2023 8:38 AM CLINICAL INDICATION:Male, 58 years old with history of flat plate; abnormal x-ray COMPARISON: Chest x-ray 09/30/2023 5:12 AM and before TECHNIQUE: Supine radiographic view/s of the abdomen/pelvis obtained. FINDINGS: Partially seen large-bore catheters extending up into the chest, likely thoracostomy tubes. Additiona l tube seen extending from the right upper quadrant towards the medial left lung base, could be media stinal drain or additional chest tube. Sternotomy wires. Monitor leads and other extraneous densities over the field of view. Catheter over the low central pelvis likely relates to Alvarado. Bibasilar pleural/parenchymal opacities partially redemonstrated in the chest. There is a moderate to large amount of stool seen in the colon, mostly on the right and distally on t he left extending to the rectal level. Moderately gas distended viscus extending towards the left upp er quadrant, likely colon. Otherwise no gas distended small bowel loops are seen. No evidence of pneu moperitoneum on this limited supine study. No acute osseous pathology evident. Mild degenerative changes with mild levocurvature of the lumbar s pine. No pathologic calcifications can be seen. IMPRESSION: Nonspecific bowel gas pattern, likely related to constipation and fecal stasis. If concern persists, consider follow-up radiographs and/or CT.
--- NOTE | 2023-09-30 10:39 | P.PN ---
Subjective Progress Note Date: 09/30/23 Principal diagnosis: Status post single-vessel bypass, and aortic valve replacement. Pulmonary/critical care consult dated September 27, 2023. 58-year-old male seen in the ICU today, postop day #0,S/P aortic valve replacement with a bovine pericardial prosthesis, replacement of ascending aorta with 32 mm tube graft, bypass grafting x 1, with saphenous vein graft to the posterior descending coronary artery, and ligation of left atrial appendage. The surgeon was Dr. Beach. The patient is seen in the intensive care unit, room 263. Ventilator settings include volume assist-control, rate 12, tidal volume 550, FiO2 100%, PEEP of 5. Blood gases while in the operating room, show pO2 of 230, pCO2 of 35, pH is 7.42. That was on 60%. Blood gases in the ICU have not yet been done. The patient is currently on nitroglycerin at 5 mcg/min, and propofol at 30 mcg/kg/min. The patient is seen in the intensive care unit, having just got back from the operating room. The patient has a history of a congenital bicuspid calcific aortic valve, with aortic valve stenosis. No new laboratory data as yet. Chest x-ray is pending. ABGs, and hemodynamics are pending. In addition to the congenital bicuspid aortic valve, the patient has a history of hyperlipidemia, coronary disease, and hypertension. Outpatient medications include trazodone, Zestril, metoprolol, Lexapro, vitamin D3, Lipitor, and baby aspirin. Progress note dated September 28, 2023. The patient is seen today, room 263. The patient is switched over to pressure support and CPAP, at 5 cm of water each. His ventilator settings include volume assist-control, rate 16, tidal volume 550, 40%, PEEP of 10. Blood gases showed a pO2 154, pCO2 of 43, and pH of 7.37. The patient is on amiodarone at 0.5 mg/min, insulin at 1 unit an hour, lactated Ringer's at 50 cc an hour. Today is postoperative day #1. Labs today include a white count of 16.9, hemoglobin 11.1, hematocrit 32.5, and a platelet count of 93,000. Sodium 138, potassium 4.3, chlorides 109, CO2 23, BUN 19, creatinine 0.9. Calcium is 8.2. Albumin 3.2. Chest x-ray shows some postoperative changes. Left-sided chest tube without pneumothorax. Progress note dated September 29, 2023. The patient is postop day #1. He is doing well. He is seen today in room 263. He is on 2 L of oxygen by nasal cannula. He is getting insulin at 3 units an hour and lactated Ringer's at 30 cc an hour. He is also getting amiodarone at 0.5 mg/min. White count of 16.6, hemoglobin 10.2, hematocrit 28.9, platelet count was 68,000. Sodium 129, potassium 4.5, chlorides 103, CO2 23, BUN 20, creatinine 1.12. Albumin is 3. Chest x-ray shows slightly diminished lung volumes, with some basilar atelectasis. Progress note dated September 30, 2023. 58-year-old patient who is postop day #3, status post bypass surgery, and aortic valve replacement. Currently, the patient is doing relatively well. He is on 3 L. No IV fluids. Current labs include a white count 22.7, hemoglobin 10.4, hematocrit 31.4, and a platelet count of 141,000. Sodium 126, potassium 5, chloride 76, CO2 19, anion gap 11, BUN 39, creatinine 1.90. Calcium is 8.2. Magnesium 2.5. Glucose 173. Chest x-ray is consistent with mild pulmonary vascular congestion. Objective - Vital Signs Vital signs: Vital Signs Temp 98 F 09/30/23 04:00 Pulse 74 09/30/23 08:13 Resp 35 H 09/30/23 07:00 BP 98/57 09/30/23 07:00 Pulse Ox 94 L 09/30/23 08:04 FiO2 40 09/28/23 09:09 Intake & Output 09/29/23 09/30/23 09/30/23 18:59 06:59 18:59 Intake Total 1619.878 562.838 Output Total 525 505 Balance 1094.878 57.838 Weight 93.3 kg Intake: IV 432 322 Lactated Ringers 1,000 ml 360 250 @ 20 mls/hr IV .Q24H [facility] Rx#:[id number] pressure bag 72 72 Intake, IV Titration 7.878 240.838 Amount Amiodarone 450 mg In 240.838 Dextrose 5% in Water 250 ml @ 0.5 MG/MIN 16.667 mls/hr IV .Q15H [facility] Rx#: [id number] Insulin Regular 100 unit 7.878 In Sodium Chloride 0.9% 100 ml @ Per Protocol IV .Q0M [facility] Rx#:[id number] Oral 1180 Output: Chest Tube Drainage 160 Chest Tube Mediastinal 40 Pleural Catheter Left 120 Urine 525 345 Other: Voiding Method Indwelling Catheter Indwelling Catheter ABP, PAP, CO, CI - Last Documented Arterial Blood Pressure 78/53 Pulmonary Artery Pressure 22/11 Cardiac Output 5.2 Cardiac Index 2.4 - Exam No acute distress, extubated, currently on nasal O2 at 3 L. HEENT examination is grossly unremarkable. Mucous membranes are moist. No oral lesions. Neck supple. Full range of motion. No adenopathy thyromegaly or neck vein d istention. Cardiovascular examination reveals regular rhythm rate. S1-S2 normal. No S3 or S4. No discernible murmur noted. Heart rate 74 bpm. Heart sounds are distant. Lungs reveal clear breath sounds. Breath sounds are equal bilaterally. No adventitious lung sounds including wheezes rhonchi or crackles. Saturations are 94 %. Abdomen is soft without bowel sounds. No masses or tenderness. Extremities are intact. No cyanosis clubbing or edema. Skin is without rash or lesion. Neurologic examination is brief but nonfocal. - Labs CBC & Chem 7: 09/30/23 05:07 09/30/23 05:07 Labs: Abnormal Lab Results - Last 24 Hours (Table) 09/29/23 09/29/23 09/29/23 Range/Units 11:50 17:34 20:38 WBC (3.8-10.6) k/uL RBC (4.30-5.90) m/uL Hgb (13.0-17.5) gm/dL Hct (39.0-53.0) % Plt Count (150-450) k/uL Neutrophils # (1.3-7.7) k/uL Monocytes # (0-1.0) k/uL Sodium (137-145) mmol/L Chloride (98-107) mmol/L Carbon Dioxide (22-30) mmol/L BUN (9-20) mg/dL Creatinine (0.66-1.25) mg/dL Glucose (74-99) mg/dL POC Glucose (mg/dL) 148 H 144 H 160 H (70-110) mg/dL Calcium (8.4-10.2) mg/dL Magnesium (1.6-2.3) mg/dL AST (17-59) U/L Total Protein (6.3-8.2) g/dL 09/30/23 09/30/23 09/30/23 Range/Units 05:07 05:07 06:14 WBC 22.7 H (3.8-10.6) k/uL RBC 3.28 L (4.30-5.90) m/uL Hgb 10.4 L (13.0-17.5) gm/dL Hct 31.4 L (39.0-53.0) % Plt Count 141 L D (150-450) k/uL Neutrophils # 19.6 H (1.3-7.7) k/uL Monocytes # 1.1 H (0-1.0) k/uL Sodium 126 L (137-145) mmol/L Chloride 96 L (98-107) mmol/L Carbon Dioxide 19 L (22-30) mmol/L BUN 39 H (9-20) mg/dL Creatinine 1.90 H (0.66-1.25) mg/dL Glucose 164 H (74-99) mg/dL POC Glucose (mg/dL) 173 H (70-110) mg/dL Calcium 8.2 L (8.4-10.2) mg/dL Magnesium 2.5 H (1.6-2.3) mg/dL AST 97 H (17-59) U/L Total Protein 6.0 L (6.3-8.2) g/dL Assessment and Plan Assessment: Postop day #3, status post aortic valve replacement, single-vessel bypass grafting (SVG to PDA), left atrial appendage ligation, and replacement of ascending aorta with 32 mm tube graft. Routine postoperative ventilator management, S/P extubation, September 28, 2023. Postoperative atrial fibrillation, currently on amiodarone. Congenital calcific bicuspid aortic valve. Coronary artery disease. History of hypertension. History of hyperlipidemia. Plan: Plan dated September 27, 2023. The patient is seen in the intensive care unit. He just arrived out of the operating room. Blood gases, chest x-ray pending. The patient was placed on volume assist-control, rate 12, tidal volume 550, 100% FiO2, PEEP of 5. The patient is on nitroglycerin, at 5 mcg/min, propofol at 30 mcg/kg/min. Blood gases done in the operating room show pO2 of 230, pCO2 35, pH is 7.42. That was on 60%. Labs, x-rays, and hemodynamics are pending. We will continue to follow, and make recommendations were appropriate. Plan dated September 28, 2023. The patient had some excess bleeding last night, and for that reason, the PEEP was increased from 5 to 10. The surgeon did not want the patient extubated yesterday, but today, his weaning parameters are excellent, his gas exchange is excellent, and his chest x-ray looks pretty stable. For that reason, we will proceed with weaning trial, with pressure support of 5 and CPAP of 5. Labs, x- rays, medications are all reviewed. The patient continues on amiodarone 0.5 mg/min, and insulin at 1 unit an hour. The patient is getting lactated Ringer's at 50 cc an hour. Today is postoperative day #1. Gas exchange is excellent. Plan dated September 29, 2023. The patient appears to be doing relatively well. The patient is on 2 L. He continues on amiodarone for atrial fibrillation. He is also on insulin drip at 3 units an hour. Today is postop day #2. The patient is currently on 2 L. Saturations are excellent. Labs, x-rays, and medications reviewed. Will continue to follow the patient, make recommendations along the way. Prognosis is guarded. Plan dated September 30, 2023. The patient appears to be doing relatively well. The patient is on 3 L of oxygen. The patient's not receiving any IV fluids. Today's postop day #3. The patient is having some mild abdominal discomfort. Labs, x-rays, and medications are reviewed. The patient's overall prognosis remains guarded. We encourage him to continue with the incentive spirometer, every hour while awake. We also recommend deep breathing, coughing, and clearing of secretions. Additional recommendations and suggestions are forthcoming. Time with Patient: Less than 30
[2023-09-30 11:29] LABS: Glucose,Whole Blood 125 mg/dL (70-110)
--- NOTE | 2023-09-30 11:41 | CT ---
EXAMINATION TYPE: CT abdomen pelvis wo con CT DLP: 1709.1 mGycm, Automated exposure control for dose reduction was used. DATE OF EXAM: 09/30/2023 11:10 AM COMPARISON: 07/25/2023 CLINICAL INDICATION:Male, 58 years old with history of fecal impaction vs bowel obstruction; R/O Low bowel obstruction. Rectal contrast given. 60cc Isovue 300 mixed with 1500cc water, full 1500cc admini stered and drained. TECHNIQUE: Axial CT abdomen pelvis wo con;Sagittal and coronal reformats were created on a separate workstation. Contrast used: mL of , (none if empty) Oral contrast used: without Oral Contrast (none if empty) FINDINGS: LOWER CHEST: Left thoracotomy tube with trace left pneumothorax. Left atrial appendage occlusion sonali ce present. Aortic valve leaflet changes. Small right and trace left pleural effusions. Heart is mild ly enlarged for size. Airspace opacities in left lung base are present with bronchovascular crowding. ABDOMEN LIVER: Unremarkable GALLBLADDER AND BILE DUCTS: Unremarkable. PANCREAS: Unremarkable. SPLEEN: Unremarkable. ADRENAL GLANDS: Unremarkable. KIDNEYS AND URETERS: The right kidney is not visualized may be surgically absent.. No evidence of hyd ronephrosis or renal calculus. The ureters are unremarkable. PELVIS BLADDER: Alvarado catheter in place. REPRODUCTIVE: Unremarkable. ABDOMEN & PELVIS STOMACH AND BOWEL: Rectal catheter in place with higher density extending fluid surrounding some scat tered feces. Large amount stool in the right colon present.. No evidence of bowel obstruction. PERITONEUM/RETROPERITONEUM: No evidence of pneumoperitoneum or free fluid. VASCULATURE: No evidence of aortic aneurysm. MUSCULOSKELETAL: No acute osseous abnormalities LYMPH NODES: No gross evidence for lymphadenopathy. SOFT TISSUE/ABDOMINAL WALL: Unremarkable IMPRESSION: 1. Rectal catheter in place with fluid extending throughout the left colon. Scattered feces identifi ed within this fluid. Large stool burden within the right colon. 2. Left thoracotomy tube with trace pneumothorax. 3. Small right and trace left pleural effusions consolidation changes in the left lung base could re present superimposed infection versus atelectasis.
--- NOTE | 2023-09-30 12:09 | P.PN ---
Subjective Progress Note Date: 09/30/23 The patient is a 58-year-old male who follows in the office with Dr. Ham. He underwent aortic valve replacement, replacement of ascending aorta and CABG x 1 with SVG to posterior descending coronary artery. Postoperatively the patient did have episodes of A-fib with RVR and converted back to sinus mechanism with amiodarone. He has transitioned off of all IV medications and has been up ambulating to the recliner chair. The patient has developed some abdominal discomfort. Patient was interviewed and examined sitting comfortably in bed. Mildly labored breathing. He denies any current chest discomfort or difficulty breathing. GENERAL: Well-appearing, well-nourished and in no acute distress. Shallow breathing NECK: Supple without JVD or thyromegaly. LUNGS: Breath sounds diminished to auscultation bilaterally. Respiration equal and mildly labored. No wheezes, rales or rhonchi. HEART: Regular rate and rhythm without murmurs, rubs or gallops. S1 and S2 heard. Sternal dressing clean dry and intact. EXTREMITIES: Normal range of motion, no edema. No clubbing or cyanosis. No right lower extremity peripheral pulse. +2 on the left. TELEMETRY: Sinus mechanism in the 70s IMPRESSION: Congenital bicuspid calcific aortic stenosis, status post bioprosthetic aortic valve replacement Ascending aortic aneurysm, status post replacement Coronary artery disease, status post single-vessel CABG Hypertension Hyperlipidemia Acute kidney injury, creat 1.9 Worsening hyponatremia PLAN: Continue supportive treatment Further recommendations to be based upon clinical course I am dictating on behalf of Dr Aiden Ross's history/physical and assessment/plan. Objective - Vital Signs Vital signs: Vital Signs Temp 98.0 F 09/30/23 08:00 Pulse 71 09/30/23 11:33 Resp 18 09/30/23 11:00 BP 98/62 09/30/23 11:00 Pulse Ox 93 L 09/30/23 11:00 FiO2 40 09/28/23 09:09 Intake & Output 09/29/23 09/30/23 09/30/23 18:59 06:59 18:59 Intake Total 1619.878 562.838 173 Output Total 525 505 160 Balance 1094.878 57.838 13 Weight 93.3 kg Intake: IV 432 322 23 Lactated Ringers 1,000 ml 360 250 20 @ 20 mls/hr IV .Q24H [facility] Rx#:[id number] pressure bag 72 72 3 Intake, IV Titration 7.878 240.838 Amount Amiodarone 450 mg In 240.838 Dextrose 5% in Water 250 ml @ 0.5 MG/MIN 16.667 mls/hr IV .Q15H [facility] Rx#: [id number] Insulin Regular 100 unit 7.878 In Sodium Chloride 0.9% 100 ml @ Per Protocol IV .Q0M [facility] Rx#:[id number] Oral 1180 150 Output: Chest Tube Drainage 160 50 Chest Tube Mediastinal 40 Pleural Catheter Left 120 50 Urine 525 345 110 Other: Voiding Method Indwelling Catheter Indwelling Catheter ABP, PAP, CO, CI - Last Documented Arterial Blood Pressure 78/53 Pulmonary Artery Pressure 22/11 Cardiac Output 5.2 Cardiac Index 2.4 - Labs CBC & Chem 7: 09/30/23 05:07 09/30/23 05:07 Labs: Abnormal Lab Results - Last 24 Hours (Table) 09/29/23 09/29/23 09/30/23 Range/Units 17:34 20:38 05:07 WBC 22.7 H (3.8-10.6) k/uL RBC 3.28 L (4.30-5.90) m/uL Hgb 10.4 L (13.0-17.5) gm/dL Hct 31.4 L (39.0-53.0) % Plt Count 141 L D (150-450) k/uL Neutrophils # 19.6 H (1.3-7.7) k/uL Monocytes # 1.1 H (0-1.0) k/uL Sodium (137-145) mmol/L Chloride (98-107) mmol/L Carbon Dioxide (22-30) mmol/L BUN (9-20) mg/dL Creatinine (0.66-1.25) mg/dL Glucose (74-99) mg/dL POC Glucose (mg/dL) 144 H 160 H (70-110) mg/dL Calcium (8.4-10.2) mg/dL Magnesium (1.6-2.3) mg/dL AST (17-59) U/L Total Protein (6.3-8.2) g/dL 09/30/23 09/30/23 09/30/23 Range/Units 05:07 06:14 11:28 WBC (3.8-10.6) k/uL RBC (4.30-5.90) m/uL Hgb (13.0-17.5) gm/dL Hct (39.0-53.0) % Plt Count (150-450) k/uL Neutrophils # (1.3-7.7) k/uL Monocytes # (0-1.0) k/uL Sodium 126 L (137-145) mmol/L Chloride 96 L (98-107) mmol/L Carbon Dioxide 19 L (22-30) mmol/L BUN 39 H (9-20) mg/dL Creatinine 1.90 H (0.66-1.25) mg/dL Glucose 164 H (74-99) mg/dL POC Glucose (mg/dL) 173 H 125 H (70-110) mg/dL Calcium 8.2 L (8.4-10.2) mg/dL Magnesium 2.5 H (1.6-2.3) mg/dL AST 97 H (17-59) U/L Total Protein 6.0 L (6.3-8.2) g/dL
[2023-09-30] MEDS: SODIUM CHLORIDE 0.9% 500 ML 500 ML IV ONE (12:53)
[2023-09-30] MEDS: HYDROcodone/APAP 10-325MG 1 EACH TAB PO PRN (12:53)
--- NOTE | 2023-09-30 13:50 | P.GSCN ---
History of Present Illness Consult date: 09/30/23 History of present illness: Patient is status post arctic valvular replacement. He has baseline history of Hirschsprung's disease. When he gets constipated he will do his own saline enemas. Reports taking laxatives to address his intermittent Hirschsprung's disease. Recommend soapsuds enemas or saline enemas which ever is available. Additionally recommend bowel regimen with lactulose. Concurrent cathartics including enemas advised to treat overall stool and fecal retention. Care plan reviewed with patient who agreed with management. CT of the abdomen pelvis reviewed confirming moderate stool retention. Past Medical History Past Medical History: Chest Pain / Angina, COPD, Hearing Disorder / Deafness, Hypertension Additional Past Medical History / Comment(s): Hirschsprung's disease, const ipation, aortic valve stenosis, SOB, vertigo, ascending aortic aneurysm, bacteremia 3 yrs. ago, hepatitis C-successful treatment, born w/one kidney, deaf right ear, neck, shoulders & back pain, neuropathy feet, blood infection 2019 History of Any Multi-Drug Resistant Organisms: None Reported Past Surgical History: Bowel Resection, Ear Surgery, Heart Catheterization, Orthopedic Surgery Additional Past Surgical History / Comment(s): WM, right inner ear surg/graft,ORIF left ankle, multiple surgeries for Hirschsprung's as a baby Past Anesthesia/Blood Transfusion Reactions: No Reported Reaction Smoking Status: Former smoker - Past Family History Father Family Medical History: Coronary Artery Disease (CAD) Mother Family Medical History: Cancer Medications and Allergies Home Medications Medication Instructions Recorded Confirmed Type Aspirin [Adult Low Dose Aspirin EC] 81 mg PO HS 08/27/23 09/27/23 History Cholecalciferol [Vitamin D3 (125 50,000 units PO Q30D 08/27/23 09/27/23 History Mcg = 5000 Iu)] Escitalopram [Lexapro] 10 mg PO HS 08/27/23 09/27/23 History lisinopriL [Zestril] 5 mg PO HS 08/27/23 09/27/23 History traZODone HCL 100 mg PO HS 08/27/23 09/27/23 History Atorvastatin [Lipitor] 40 mg PO HS 09/20/23 09/27/23 History Metoprolol Succinate (ER) [Toprol 25 mg PO HS 09/20/23 09/27/23 History Xl] Allergies Allergy/AdvReac Type Severity Reaction Status Date / Time No Known Allergies Allergy Verified 09/27/23 06:38 Surgical - Exam Vital Signs Temp Pulse Resp BP Pulse Ox 98 F 76 16 124/76 100 09/27/23 06:00 09/27/23 06:00 09/27/23 06:00 09/27/23 06:00 09/27/23 06:00 Results - Labs 09/30/23 05:07 09/30/23 05:07 Abnormal Lab Results - Last 24 Hours (Table) 09/29/23 09/29/23 09/30/23 Range/Units 17:34 20:38 05:07 WBC 22.7 H (3.8-10.6) k/uL RBC 3.28 L (4.30-5.90) m/uL Hgb 10.4 L (13.0-17.5) gm/dL Hct 31.4 L (39.0-53.0) % Plt Count 141 L D (150-450) k/uL Neutrophils # 19.6 H (1.3-7.7) k/uL Monocytes # 1.1 H (0-1.0) k/uL Sodium (137-145) mmol/L Chloride (98-107) mmol/L Carbon Dioxide (22-30) mmol/L BUN (9-20) mg/dL Creatinine (0.66-1.25) mg/dL Glucose (74-99) mg/dL POC Glucose (mg/dL) 144 H 160 H (70-110) mg/dL Plasma Lactic Acid Kelby (0.7-2.0) mmol/L Calcium (8.4-10.2) mg/dL Magnesium (1.6-2.3) mg/dL AST (17-59) U/L Total Protein (6.3-8.2) g/dL Procalcitonin (0.02-0.09) ng/mL 09/30/23 09/30/23 09/30/23 Range/Units 05:07 05:07 06:14 WBC (3.8-10.6) k/uL RBC (4.30-5.90) m/uL Hgb (13.0-17.5) gm/dL Hct (39.0-53.0) % Plt Count (150-450) k/uL Neutrophils # (1.3-7.7) k/uL Monocytes # (0-1.0) k/uL Sodium 126 L (137-145) mmol/L Chloride 96 L (98-107) mmol/L Carbon Dioxide 19 L (22-30) mmol/L BUN 39 H (9-20) mg/dL Creatinine 1.90 H (0.66-1.25) mg/dL Glucose 164 H (74-99) mg/dL POC Glucose (mg/dL) 173 H (70-110) mg/dL Plasma Lactic Acid Kelby (0.7-2.0) mmol/L Calcium 8.2 L (8.4-10.2) mg/dL Magnesium 2.5 H (1.6-2.3) mg/dL AST 97 H (17-59) U/L Total Protein 6.0 L (6.3-8.2) g/dL Procalcitonin 2.18 H (0.02-0.09) ng/mL 09/30/23 09/30/23 Range/Units 11:28 11:43 WBC (3.8-10.6) k/uL RBC (4.30-5.90) m/uL Hgb (13.0-17.5) gm/dL Hct (39.0-53.0) % Plt Count (150-450) k/uL Neutrophils # (1.3-7.7) k/uL Monocytes # (0-1.0) k/uL Sodium (137-145) mmol/L Chloride (98-107) mmol/L Carbon Dioxide (22-30) mmol/L BUN (9-20) mg/dL Creatinine (0.66-1.25) mg/dL Glucose (74-99) mg/dL POC Glucose (mg/dL) 125 H (70-110) mg/dL Plasma Lactic Acid Kelby 2.8 H* (0.7-2.0) mmol/L Calcium (8.4-10.2) mg/dL Magnesium (1.6-2.3) mg/dL AST (17-59) U/L Total Protein (6.3-8.2) g/dL Procalcitonin (0.02-0.09) ng/mL Diabetes panel 09/30/23 Range/Units 05:07 Sodium 126 L (137-145) mmol/L Potassium 5.0 (3.5-5.1) mmol/L Chloride 96 L (98-107) mmol/L Carbon Dioxide 19 L (22-30) mmol/L BUN 39 H (9-20) mg/dL Creatinine 1.90 H (0.66-1.25) mg/dL Glucose 164 H (74-99) mg/dL Calcium 8.2 L (8.4-10.2) mg/dL AST 97 H (17-59) U/L ALT 29 (4-49) U/L Alkaline Phosphatase 64 (38-126) U/L Total Protein 6.0 L (6.3-8.2) g/dL Albumin 3.5 (3.5-5.0) g/dL Calcium panel 09/30/23 Range/Units 05:07 Calcium 8.2 L (8.4-10.2) mg/dL Albumin 3.5 (3.5-5.0) g/dL Pituitary panel 09/30/23 Range/Units 05:07 Sodium 126 L (137-145) mmol/L Potassium 5.0 (3.5-5.1) mmol/L Chloride 96 L (98-107) mmol/L Carbon Dioxide 19 L (22-30) mmol/L BUN 39 H (9-20) mg/dL Creatinine 1.90 H (0.66-1.25) mg/dL Glucose 164 H (74-99) mg/dL Calcium 8.2 L (8.4-10.2) mg/dL Adrenal panel 09/30/23 Range/Units 05:07 Sodium 126 L (137-145) mmol/L Potassium 5.0 (3.5-5.1) mmol/L Chloride 96 L (98-107) mmol/L Carbon Dioxide 19 L (22-30) mmol/L BUN 39 H (9-20) mg/dL Creatinine 1.90 H (0.66-1.25) mg/dL Glucose 164 H (74-99) mg/dL Calcium 8.2 L (8.4-10.2) mg/dL Total Bilirubin 1.3 (0.2-1.3) mg/dL AST 97 H (17-59) U/L ALT 29 (4-49) U/L Alkaline Phosphatase 64 (38-126) U/L Total Protein 6.0 L (6.3-8.2) g/dL Albumin 3.5 (3.5-5.0) g/dL
[2023-09-30] MEDS: LACTULOSE 20 GM/30 ML CUP PO SCH (16:02)
[2023-09-30 16:09] LABS: Glucose,Whole Blood 172 mg/dL (70-110)
[2023-09-30 17:51] LABS: Basophils % (A) 0 %; Eosinophils % (A) 0 %; HCT 28.4 % (39.0-53.0); HGB 9.7 gm/dL (13.0-17.5); Lymphocytes # (A) 1.6 k/uL (1.0-4.8); Lymphocytes % (A) 9 %; MCH 32.5 pg (25.0-35.0); MCHC 34.3 g/dL (31.0-37.0); MCV 94.6 fL (80.0-100.0); Mean Platelet Volume 9.5; Monocytes # (A) 1.1 k/uL (0-1.0); Monocytes % (A) 6 %; Neutrophils # (A) 14.9 k/uL (1.3-7.7); Neutrophils % (A) 83 %; Platelet Count 122 k/uL (150-450); RDW 13.7 % (11.5-15.5)
[2023-09-30] MEDS: D5-0.45% NACL WITH KCL 20MEQ/L 1,000 ML IV SCH (17:54)
[2023-09-30 20:46] LABS: Glucose,Whole Blood 131 mg/dL (70-110)
[2023-10-01 02:22] LABS: HCT 29.1 % (39.0-53.0); HGB 9.9 gm/dL (13.0-17.5); MCH 32.3 pg (25.0-35.0); MCV 95.1 fL (80.0-100.0); Mean Platelet Volume 9.5; Platelet Count 134 k/uL (150-450); RBC 3.06 m/uL (4.30-5.90); RDW 13.3 % (11.5-15.5); WBC 22.5 k/uL (3.8-10.6)
[2023-10-01 02:30] LABS: ALT 34 U/L (4-49); AST 89 U/L (17-59); African American GFR (CKD) 31 (>60 ml/min/1.73 sqM); Albumin 3.1 g/dL (3.5-5.0); Alkaline Phosphatase 70 U/L (38-126); Anion Gap 10 mmol/L; Blood Urea Nitrogen 57 mg/dL (9-20); Calcium 8.3 mg/dL (8.4-10.2); Carbon Dioxide 19 mmol/L (22-30); Chloride 95 mmol/L (98-107); Glucose 141 mg/dL (74-99); Magnesium 3.1 mg/dL (1.6-2.3); Non-African American GFR(CKD) 27 (>60 ml/min/1.73 sqM); Potassium 4.6 mmol/L (3.5-5.1); Sodium 124 mmol/L (137-145); Total Bilirubin 1.4 mg/dL (0.2-1.3); Total Protein 5.6 g/dL (6.3-8.2)
[2023-10-01 07:04] LABS: Glucose,Whole Blood 153 mg/dL (70-110)
[2023-10-01] MEDS: SODIUM CHLORIDE 0.9% 1,000 ML IV SCH (07:07)
--- NOTE | 2023-10-01 07:10 | P.PN ---
Subjective Progress Note Date: 10/01/23 Principal diagnosis: Congenital bicuspid calcific aortic stenosis, ascending aortic aneurysm, coronary artery disease. Previous medical history of hypertension, hyperlipidemia, previous bacteremia, previous tobacco dependence, remote history of pneumonia, Hirschsprung's disease with chronic constipation, hepatitis C, anxiety/depression/bipolar/PTSD, previous heroin use, and family history of premature coronary artery disease POD#4 Aortic valve replacement with 27 mm Inspiris bovine pericardial prosthesis, replacement of ascending aorta with 32 mm tube graft, CABG x 1 with saphenous vein graft to posterior descending coronary artery, endovascular vein harvest, ligation of the left atrial appendage with 40 mm AtriCure clip Postoperative acute blood loss anemia and thrombocytopenia, expected given hemodilution and cardiopulmonary bypass pump Paroxysmal atrial fibrillation, a known common occurrence after open heart surgery and not a complication, treated with amiodarone, currently sinus ZHEN, hyponatremia, lactic acidosis Leukocytosis, likely reactive The patient was seen and examined this morning sitting up in recliner in the intensive care unit. Complains of postsurgical pain, denies shortness of breath although not taking deep breaths due to pain. Still constipated, states he normally has a bowel movement every 3-5 days. Patient had a flatplate of the abdomen followed by an abdominal CT yesterday demonstrating large stool burden in the right colon without evidence of bowel obstruction. He was seen by general surgery who recommended lactulose, continue with daily suppositories. As of this morning the patient has had some liquid stool and positive flatus. Currently in sinus rhythm and hemodynamically stable. Currently on 4 L nasal cannula with oxygen saturation in the mid 90s. Chest x-ray, labs reviewed. WBC elevated, procalcitonin elevated, lactic acid elevated although trending down with initiation of IV fluids. Kidney function worse today, hyponatremia present, will obtain nephrology consult, switch IV fluids to 0.9 normal saline. Left pleural chest tubes remain. Patient has ambulated in the hallway with staff. No other new concerns. Objective - Vital Signs Vital signs: Vital Signs Temp 98.1 F 10/01/23 04:00 Pulse 84 10/01/23 06:00 Resp 36 H 10/01/23 06:00 BP 128/69 10/01/23 06:00 Pulse Ox 96 10/01/23 06:00 FiO2 40 09/28/23 09:09 Intake & Output 09/30/23 09/30/23 10/01/23 06:59 18:59 06:59 Intake Total 562.838 898 825 Output Total 505 520 595 Balance 57.838 378 230 Weight 93.3 kg Intake: IV 322 598 825 D5-0.45% NaCl with KCl 75 825 20Meq/l 1,000 ml @ 75 mls /hr IV .[id number] [facility] Rx#: [id number] Lactated Ringers 1,000 ml 250 20 @ 20 mls/hr IV .Q24H [facility] Rx#:[id number] Sodium Chloride 0.9% 500 500 ml 500 ml @ 999 mls/hr IV .Q31M [facility] Rx#:[id number] pressure bag 72 3 Intake, IV Titration 240.838 Amount Amiodarone 450 mg In 240.838 Dextrose 5% in Water 250 ml @ 0.5 MG/MIN 16.667 mls/hr IV .Q15H [facility] Rx#: [id number] Oral 300 Output: Chest Tube Drainage 160 50 110 Chest Tube Mediastinal 40 Pleural Catheter Left 120 50 110 Urine 345 470 485 Other: Voiding Method Indwelling Catheter Indwelling Catheter Indwelling Catheter # Bowel Movements 1 1 ABP, PAP, CO, CI - Last Documented Arterial Blood Pressure 78/53 Pulmonary Artery Pressure 22/11 Cardiac Output 5.2 Cardiac Index 2.4 - Exam CONSTITUTIONAL: Appears somewhat comfortable, cooperative, no acute distress RESPIRATORY: Lungs sounds diminished bilaterally. Respirations even, nonlabored. Currently on 4 L nasal cannula with oxygen saturation 96%. Able to achieve 750 mL on incentive spirometry. Weak cough. CARDIOVASCULAR: S1, S2 present. Regular rate and rhythm, sinus rhythm on telemetry. Sternum stable. Palpable peripheral pulses bilaterally. Trace bilateral lower extremity edema present. No calf pain or tenderness noted. Heart hugger in place with patient demonstrating appropriate use. Antiembolism stockings, SCDs present. GASTROINTESTINAL: Abdomen soft, slightly tender to palpation, nondistended. Hypoactive bowel sounds present 4 quadrants. N.p.o. but tolerating ice chips. Positive flatus, positive loose stool GENITOURINARY: Alvarado present draining clear, yellow urine. Output overnight 20-40 mL per hour, 955 mL in the last 24 hours INTEGUMENTARY: Skin is warm and dry with evidence of good perfusion. Anterior chest incision well approximated and covered with dry intact dressing. Left lower extremity EVH site well approximated without redness or drainage. NEUROLOGIC: Cranial nerves II through XII intact MUSKULOSKELETAL: Able to move all extremities, strength equal bilaterally, gait normal PSYCHIATRIC: Alert and oriented to person place and time, appropriate affect, intact judgment and insight INVASIVE LINES AND TUBES: Left pleural chest tube present and connected to wall suction, no air leaks present, 60 mL serosanguineous drainage overnight, 200 mL in the last 24 hours - Allied health notes Allied health notes reviewed: nursing - Labs CBC & Chem 7: 10/01/23 02:04 10/01/23 02:04 Labs: Abnormal Lab Results - Last 24 Hours (Table) 09/30/23 09/30/23 09/30/23 Range/Units 05:07 11:28 11:43 WBC (3.8-10.6) k/uL RBC (4.30-5.90) m/uL Hgb (13.0-17.5) gm/dL Hct (39.0-53.0) % Plt Count (150-450) k/uL Neutrophils # (1.3-7.7) k/uL Monocytes # (0-1.0) k/uL Sodium (137-145) mmol/L Chloride (98-107) mmol/L Carbon Dioxide (22-30) mmol/L BUN (9-20) mg/dL Creatinine (0.66-1.25) mg/dL Glucose (74-99) mg/dL POC Glucose (mg/dL) 125 H (70-110) mg/dL Plasma Lactic Acid Kelby 2.8 H* (0.7-2.0) mmol/L Calcium (8.4-10.2) mg/dL Magnesium (1.6-2.3) mg/dL Total Bilirubin (0.2-1.3) mg/dL AST (17-59) U/L Total Protein (6.3-8.2) g/dL Albumin (3.5-5.0) g/dL Procalcitonin 2.18 H (0.02-0.09) ng/mL 09/30/23 09/30/23 09/30/23 Range/Units 15:54 16:06 17:10 WBC 18.0 H (3.8-10.6) k/uL RBC 3.00 L (4.30-5.90) m/uL Hgb 9.7 L (13.0-17.5) gm/dL Hct 28.4 L (39.0-53.0) % Plt Count 122 L (150-450) k/uL Neutrophils # 14.9 H (1.3-7.7) k/uL Monocytes # 1.1 H (0-1.0) k/uL Sodium (137-145) mmol/L Chloride (98-107) mmol/L Carbon Dioxide (22-30) mmol/L BUN (9-20) mg/dL Creatinine (0.66-1.25) mg/dL Glucose (74-99) mg/dL POC Glucose (mg/dL) 172 H (70-110) mg/dL Plasma Lactic Acid Kelby 4.0 H* (0.7-2.0) mmol/L Calcium (8.4-10.2) mg/dL Magnesium (1.6-2.3) mg/dL Total Bilirubin (0.2-1.3) mg/dL AST (17-59) U/L Total Protein (6.3-8.2) g/dL Albumin (3.5-5.0) g/dL Procalcitonin (0.02-0.09) ng/mL 09/30/23 09/30/23 10/01/23 Range/Units 18:27 20:45 02:04 WBC 22.5 H (3.8-10.6) k/uL RBC 3.06 L (4.30-5.90) m/uL Hgb 9.9 L (13.0-17.5) gm/dL Hct 29.1 L (39.0-53.0) % Plt Count 134 L (150-450) k/uL Neutrophils # (1.3-7.7) k/uL Monocytes # (0-1.0) k/uL Sodium (137-145) mmol/L Chloride (98-107) mmol/L Carbon Dioxide (22-30) mmol/L BUN (9-20) mg/dL Creatinine (0.66-1.25) mg/dL Glucose (74-99) mg/dL POC Glucose (mg/dL) 131 H (70-110) mg/dL Plasma Lactic Acid Kelby 5.0 H* (0.7-2.0) mmol/L Calcium (8.4-10.2) mg/dL Magnesium (1.6-2.3) mg/dL Total Bilirubin (0.2-1.3) mg/dL AST (17-59) U/L Total Protein (6.3-8.2) g/dL Albumin (3.5-5.0) g/dL Procalcitonin (0.02-0.09) ng/mL 10/01/23 10/01/23 Range/Units 02:04 02:04 WBC (3.8-10.6) k/uL RBC (4.30-5.90) m/uL Hgb (13.0-17.5) gm/dL Hct (39.0-53.0) % Plt Count (150-450) k/uL Neutrophils # (1.3-7.7) k/uL Monocytes # (0-1.0) k/uL Sodium 124 L (137-145) mmol/L Chloride 95 L (98-107) mmol/L Carbon Dioxide 19 L (22-30) mmol/L BUN 57 H (9-20) mg/dL Creatinine 2.53 H (0.66-1.25) mg/dL Glucose 141 H (74-99) mg/dL POC Glucose (mg/dL) (70-110) mg/dL Plasma Lactic Acid Kelby 2.8 H* (0.7-2.0) mmol/L Calcium 8.3 L (8.4-10.2) mg/dL Magnesium 3.1 H (1.6-2.3) mg/dL Total Bilirubin 1.4 H (0.2-1.3) mg/dL AST 89 H (17-59) U/L Total Protein 5.6 L (6.3-8.2) g/dL Albumin 3.1 L (3.5-5.0) g/dL Procalcitonin (0.02-0.09) ng/mL - Imaging and Cardiology Chest x-ray: image reviewed Assessment and Plan Assessment: Congenital bicuspid calcific aortic stenosis, status post bioprosthetic aortic valve replacement Ascending aortic aneurysm, status post replacement of ascending aorta Coronary artery disease, status post single-vessel CABG Hypertension Hyperlipidemia, treated, cholesterol 140, LDL 70 Previous bacteremia 3 years ago Previous tobacco dependence, quit 5 years ago, preoperative FEV1 88% of predicted Remote history of pneumonia Hirschsprung's disease with chronic constipation Hepatitis C, treated Anxiety/depression/bipolar/PTSD Previous heroin use, last use 10 years ago Family history of premature coronary artery disease Postoperative acute blood loss anemia and thrombocytopenia, expected Paroxysmal atrial fibrillation, status post ligation of the left atrial appendage, currently sinus ZHEN, hyponatremia, lactic acidosis Leukocytosis Plan: Continue to maximize medical therapy with low dose aspirin, statin, Plavix, beta-subhash. Will increase beta-subhash therapy as tolerated Continue amiodarone for A-fib prophylaxis, will taper weekly Wean O2 as tolerated. Encourage incentive spirometry use 10 times every hour while awake, bronchodilators per pulmonology Increase activity as tolerated, PT/OT/cardiac rehab consulted Will monitor daily labs and x-rays. Electrolyte replacement per protocol GI/DVT prophylaxis Pain control per current medication regimen. Toradol stopped Insulin management per internal medicine. Patient is not diabetic with A1c 5.4%, but does need tight blood sugar control to prevent infection and promote healing Will discontinue left pleural chest tube Continue to record strict accurate intake and output Daily weights Daily suppositories, lactulose per general surgery. Obtain stool sample for C. difficile Will consult nephrology Encourage continued smoking and heroin cessation More recommendations to follow as patient progresses
--- NOTE | 2023-10-01 07:50 | P.PN ---
Subjective Progress Note Date: 10/01/23 Principal diagnosis: Valvular heart disease The patient is a 58-year-old gentleman who underwent an aortic valve replacement using a bioprosthetic valve along with aortic root replacement and also single- vessel bypass with SVG to PDA. Also he does have hypertension and dyslipidemia and chronic kidney disease and also solitary kidney. October [id number] The patient was seen and evaluated this morning. Hemodynamically he is stable. He has been maintaining normal sinus mechanism. He is on oral anticoagulation. He underwent left atrial appendage ligation during the surgery. His creatinine has gone. He is not hypotensive. He is not on any nephrotoxic medications jeanette arently nephrology consult was placed for further clarification and evaluated the etiology of the renal failure. Beside that he is on beta subhash and he is also on aspirin and Plavix and statin. He does have chronic gastrointestinal disease/on disease. Currently surgeries on the case. The examination is remarkable for regular rhythm with diminished breathing sounds bilaterally and no edema was noted. Assessment Status post open heart surgery as described above 1 the patient atrial fibrillation currently he is maintaining normal sinus mechanism Acute renal failure of unknown etiology History of colon disease Plan Continue the current medical regimen Avoid any hypotension Continue tapering down the dose of amiodarone Follow-up with a nephrology consult Follow-up with the patient Objective - Vital Signs Vital signs: Vital Signs Temp 98.1 F 10/01/23 04:00 Pulse 80 10/01/23 07:00 Resp 13 10/01/23 07:00 BP 120/64 10/01/23 07:00 Pulse Ox 97 10/01/23 07:00 FiO2 40 09/28/23 09:09 Intake & Output 09/30/23 10/01/23 10/01/23 18:59 06:59 18:59 Intake Total 898 900 75 Output Total 520 695 100 Balance 378 205 -25 Weight 98.2 kg Intake: IV 598 900 75 D5-0.45% NaCl with KCl 75 900 75 20Meq/l 1,000 ml @ 75 mls /hr IV .[id number] [facility] Rx#: [id number] Lactated Ringers 1,000 ml 20 @ 20 mls/hr IV .Q24H [facility] Rx#:[id number] Sodium Chloride 0.9% 500 500 ml 500 ml @ 999 mls/hr IV .Q31M [facility] Rx#:[id number] pressure bag 3 Oral 300 Output: Chest Tube Drainage 50 110 Pleural Catheter Left 50 110 Urine 470 585 100 Other: Voiding Method Indwelling Catheter Indwelling Catheter # Bowel Movements 1 1 1 ABP, PAP, CO, CI - Last Documented Arterial Blood Pressure 78/53 Pulmonary Artery Pressure 22/11 Cardiac Output 5.2 Cardiac Index 2.4 - Labs CBC & Chem 7: 10/01/23 02:04 10/01/23 02:04 Labs: Abnormal Lab Results - Last 24 Hours (Table) 09/30/23 09/30/23 09/30/23 Range/Units 05:07 11:28 11:43 WBC (3.8-10.6) k/uL RBC (4.30-5.90) m/uL Hgb (13.0-17.5) gm/dL Hct (39.0-53.0) % Plt Count (150-450) k/uL Neutrophils # (1.3-7.7) k/uL Monocytes # (0-1.0) k/uL Sodium (137-145) mmol/L Chloride (98-107) mmol/L Carbon Dioxide (22-30) mmol/L BUN (9-20) mg/dL Creatinine (0.66-1.25) mg/dL Glucose (74-99) mg/dL POC Glucose (mg/dL) 125 H (70-110) mg/dL Plasma Lactic Acid Kelby 2.8 H* (0.7-2.0) mmol/L Calcium (8.4-10.2) mg/dL Magnesium (1.6-2.3) mg/dL Total Bilirubin (0.2-1.3) mg/dL AST (17-59) U/L Total Protein (6.3-8.2) g/dL Albumin (3.5-5.0) g/dL Procalcitonin 2.18 H (0.02-0.09) ng/mL 09/30/23 09/30/23 09/30/23 Range/Units 15:54 16:06 17:10 WBC 18.0 H (3.8-10.6) k/uL RBC 3.00 L (4.30-5.90) m/uL Hgb 9.7 L (13.0-17.5) gm/dL Hct 28.4 L (39.0-53.0) % Plt Count 122 L (150-450) k/uL Neutrophils # 14.9 H (1.3-7.7) k/uL Monocytes # 1.1 H (0-1.0) k/uL Sodium (137-145) mmol/L Chloride (98-107) mmol/L Carbon Dioxide (22-30) mmol/L BUN (9-20) mg/dL Creatinine (0.66-1.25) mg/dL Glucose (74-99) mg/dL POC Glucose (mg/dL) 172 H (70-110) mg/dL Plasma Lactic Acid Kelby 4.0 H* (0.7-2.0) mmol/L Calcium (8.4-10.2) mg/dL Magnesium (1.6-2.3) mg/dL Total Bilirubin (0.2-1.3) mg/dL AST (17-59) U/L Total Protein (6.3-8.2) g/dL Albumin (3.5-5.0) g/dL Procalcitonin (0.02-0.09) ng/mL 09/30/23 09/30/23 10/01/23 Range/Units 18:27 20:45 02:04 WBC 22.5 H (3.8-10.6) k/uL RBC 3.06 L (4.30-5.90) m/uL Hgb 9.9 L (13.0-17.5) gm/dL Hct 29.1 L (39.0-53.0) % Plt Count 134 L (150-450) k/uL Neutrophils # (1.3-7.7) k/uL Monocytes # (0-1.0) k/uL Sodium (137-145) mmol/L Chloride (98-107) mmol/L Carbon Dioxide (22-30) mmol/L BUN (9-20) mg/dL Creatinine (0.66-1.25) mg/dL Glucose (74-99) mg/dL POC Glucose (mg/dL) 131 H (70-110) mg/dL Plasma Lactic Acid Kelby 5.0 H* (0.7-2.0) mmol/L Calcium (8.4-10.2) mg/dL Magnesium (1.6-2.3) mg/dL Total Bilirubin (0.2-1.3) mg/dL AST (17-59) U/L Total Protein (6.3-8.2) g/dL Albumin (3.5-5.0) g/dL Procalcitonin (0.02-0.09) ng/mL 10/01/23 10/01/23 10/01/23 Range/Units 02:04 02:04 07:03 WBC (3.8-10.6) k/uL RBC (4.30-5.90) m/uL Hgb (13.0-17.5) gm/dL Hct (39.0-53.0) % Plt Count (150-450) k/uL Neutrophils # (1.3-7.7) k/uL Monocytes # (0-1.0) k/uL Sodium 124 L (137-145) mmol/L Chloride 95 L (98-107) mmol/L Carbon Dioxide 19 L (22-30) mmol/L BUN 57 H (9-20) mg/dL Creatinine 2.53 H (0.66-1.25) mg/dL Glucose 141 H (74-99) mg/dL POC Glucose (mg/dL) 153 H (70-110) mg/dL Plasma Lactic Acid Kelby 2.8 H* (0.7-2.0) mmol/L Calcium 8.3 L (8.4-10.2) mg/dL Magnesium 3.1 H (1.6-2.3) mg/dL Total Bilirubin 1.4 H (0.2-1.3) mg/dL AST 89 H (17-59) U/L Total Protein 5.6 L (6.3-8.2) g/dL Albumin 3.1 L (3.5-5.0) g/dL Procalcitonin (0.02-0.09) ng/mL
--- NOTE | 2023-10-01 08:10 | PN ---
PROGRESS NOTE DATE OF SERVICE: 09/30/2023 CHIEF COMPLAINT: Status post aortic valve replacement. HISTORY OF PRESENT ILLNESS: This gentleman is doing well. He is awake and alert. He has no shortness of breath, chills, fever, or cognitive issues. PHYSICAL EXAMINATION: LUNGS: Breath sounds are heard bilaterally. CARDIAC: Normal. IMPRESSION: Status post aortic valve replacement with resection of the ascending aorta. PLAN: No change in program from my perspective. MMODL / IJN: [id number] /
--- NOTE | 2023-10-01 08:29 | XR ---
EXAMINATION TYPE: XR chest 1V portable DATE OF EXAM: 10/01/2023 COMPARISON: 09/30/2023 INDICATION: Postcardiac surgery TECHNIQUE: Single frontal view of the chest is obtained. FINDINGS: The heart size is borderline in size, stable. Sternotomy wires from cardiac valve surgery are evident .. The pulmonary vasculature is normal. There is a left-sided chest tube. No pneumothorax is evident. Mild infiltrate is at the left base. Correlate for atelectasis or pneumonia. IMPRESSION: 1. Mild increasing left basilar infiltrate. Correlate for atelectasis or pneumonia. 2. Left-sided chest tube. No pneumothorax evident.
--- NOTE | 2023-10-01 09:29 | P.PN ---
Subjective Progress Note Date: 10/01/23 58-year-old male seen in the ICU today, postop day #0,S/P aortic valve replacement with a bovine pericardial prosthesis, replacement of ascending aorta with 32 mm tube graft, bypass grafting x 1, with saphenous vein graft to the posterior descending coronary artery, and ligation of left atrial appendage. The surgeon was Dr. Beach. The patient is seen in the intensive care unit, room 263. Ventilator settings include volume assist-control, rate 12, tidal volume 550, FiO2 100%, PEEP of 5. Blood gases while in the operating room, show pO2 of 230, pCO2 of 35, pH is 7.42. That was on 60%. Blood gases in the ICU have not yet been done. The patient is currently on nitroglycerin at 5 mcg/min, and propofol at 30 mcg/kg/min. The patient is seen in the intensive care unit, having just got back from the operating room. The patient has a history of a congenital bicuspid calcific aortic valve, with aortic valve stenosis. No new laboratory data as yet. Chest x-ray is pending. ABGs, and hemodynamics are pending. In addition to the congenital bicuspid aortic valve, the patient has a history of hyperlipidemia, coronary disease, and hypertension. Outpatient medications include trazodone, Zestril, metoprolol, Lexapro, vitamin D3, Lipitor, and baby aspirin. Progress note dated September 28, 2023. The patient is seen today, room 263. The patient is switched over to pressure support and CPAP, at 5 cm of water each. His ventilator settings include volume assist-control, rate 16, tidal volume 550, 40%, PEEP of 10. Blood gases showed a pO2 154, pCO2 of 43, and pH of 7.37. The patient is on amiodarone at 0.5 mg/min, insulin at 1 unit an hour, lactated Ringer's at 50 cc an hour. Today is postoperative day #1. Labs today include a white count of 16.9, hemoglobin 11.1, hematocrit 32.5, and a platelet count of 93,000. Sodium 138, potassium 4.3, chlorides 109, CO2 23, BUN 19, creatinine 0.9. Calcium is 8.2. Albumin 3.2. Chest x-ray shows some postoperative changes. Left-sided chest tube without pneumothorax. Progress note dated September 29, 2023. The patient is postop day #1. He is doing well. He is seen today in room 263. He is on 2 L of oxygen by nasal cannula. He is getting insulin at 3 units an hour and lactated Ringer's at 30 cc an hour. He is also getting amiodarone at 0.5 mg/min. White count of 16.6, hemoglobin 10.2, hematocrit 28.9, platelet count was 68,000. Sodium 129, potassium 4.5, chlorides 103, CO2 23, BUN 20, creatinine 1.12. Albumin is 3. Chest x-ray shows slightly diminished lung volumes, with some basilar atelectasis. Progress note dated September 30, 2023. 58-year-old patient who is postop day #3, status post bypass surgery, and aortic valve replacement. Currently, the patient is doing relatively well. He is on 3 L. No IV fluids. Current labs include a white count 22.7, hemoglobin 10.4, hematocrit 31.4, and a platelet count of 141,000. Sodium 126, potassium 5, chloride 76, CO2 19, anion gap 11, BUN 39, creatinine 1.90. Calcium is 8.2. Magnesium 2.5. Glucose 173. Chest x-ray is consistent with mild pulmonary vascular congestion. On today's evaluation of 10/01/2023, the patient is postop day #4. The patient underwent a replacement of the ascending aorta with bypass x 1 and aortic valve replacement. He was successfully weaned off the mechanical ventilator and he was extubated. One of his chest tubes are currently out. He did however develop an acute kidney injury. His creatinine is currently up to 2.53 with a BUN of 57 and sodium levels of 124. Nephrology has been involved in his case. Potassium level is at 4.6. Most recent white cell count is at 22.5 with a hemoglobin of 9.9. Chest x-ray from today shows a left-sided chest tube which was not removed. There is also gastric distention and some bowel distention and the patient is known to have Hirschsprung's disease. The patient otherwise is awake and alert. Is currently on oxygen at 2 L with a pulse ox of 97%. He is using the incentive spirometer. Neurologically awake and alert and there is no focal neurological deficit at this point in time. In terms of his A-fib, the patient continues to be on amiodarone. He has been maintained in normal sinus rhythm. He is also on oral anticoagulation. He is also on beta-blockers and the patient is on metoprolol 25 mg twice a day and amiodarone 400 mg twice a day. He is also on Lipitor 40 mg p.o. daily. He remains on aspirin and Plavix. The nonsteroidal anti-inflammatory medications has been discontinued. His surgical wound is dry and clean and intact at this point Objective - Vital Signs Vital signs: Vital Signs Temp 98.1 F 10/01/23 04:00 Pulse 81 10/01/23 09:00 Resp 21 10/01/23 09:00 BP 119/69 10/01/23 09:00 Pulse Ox 98 10/01/23 09:00 FiO2 40 09/28/23 09:09 Intake & Output 09/30/23 10/01/23 10/01/23 18:59 06:59 18:59 Intake Total 898 900 225 Output Total 520 695 140 Balance 378 205 85 Weight 98.2 kg Intake: IV 598 900 75 D5-0.45% NaCl with KCl 75 900 75 20Meq/l 1,000 ml @ 75 mls /hr IV .[id number] [facility] Rx#: [id number] Lactated Ringers 1,000 ml 20 @ 20 mls/hr IV .Q24H [facility] Rx#:[id number] Sodium Chloride 0.9% 500 500 ml 500 ml @ 999 mls/hr IV .Q31M [facility] Rx#:[id number] pressure bag 3 Intake, IV Titration 150 Amount Sodium Chloride 0.9% 1, 150 000 ml @ 75 mls/hr IV . [id number] [facility] Rx#:[id number] Oral 300 Output: Chest Tube Drainage 50 110 Pleural Catheter Left 50 110 Urine 470 585 140 Other: Voiding Method Indwelling Catheter Indwelling Catheter # Bowel Movements 1 1 1 ABP, PAP, CO, CI - Last Documented Arterial Blood Pressure 78/53 Pulmonary Artery Pressure 22/11 Cardiac Output 5.2 Cardiac Index 2.4 - Exam CONSTITUTIONAL: Appears somewhat comfortable, cooperative, no acute distress RESPIRATORY: Lungs sounds diminished bilaterally. Respirations even, nonlabored. Currently on 4 L nasal cannula with oxygen saturation 96%. Able to achieve 750 mL on incentive spirometry. Weak cough. CARDIOVASCULAR: S1, S2 present. Regular rate and rhythm, sinus rhythm on telemetry. Sternum stable. Palpable peripheral pulses bilaterally. Trace bilateral lower extremity edema present. No calf pain or tenderness noted. Heart hugger in place with patient demonstrating appropriate use. Antiembolism stockings, SCDs present. GASTROINTESTINAL: Abdomen soft, slightly tender to palpation, nondistended. Hypoactive bowel sounds present 4 quadrants. N.p.o. but tolerating ice chips. Positive flatus, positive loose stool GENITOURINARY: Alvarado present draining clear, yellow urine. Output overnight 20-40 mL per hour, 955 mL in the last 24 hours INTEGUMENTARY: Skin is warm and dry with evidence of good perfusion. Anterior chest incision well approximated and covered with dry intact dressing. Left lower extremity EVH site well approximated without redness or drainage. NEUROLOGIC: Cranial nerves II through XII intact MUSKULOSKELETAL: Able to move all extremities, strength equal bilaterally, gait normal PSYCHIATRIC: Alert and oriented to person place and time, appropriate affect, intact judgment and insight INVASIVE LINES AND TUBES: Left pleural chest tube present and connected to wall suction, no air leaks present, 60 mL serosanguineous drainage overnight, 200 mL in the last 24 hours - Labs CBC & Chem 7: 10/01/23 02:04 10/01/23 02:04 Labs: Abnormal Lab Results - Last 24 Hours (Table) 09/30/23 09/30/23 09/30/23 Range/Units 05:07 11:28 11:43 WBC (3.8-10.6) k/uL RBC (4.30-5.90) m/uL Hgb (13.0-17.5) gm/dL Hct (39.0-53.0) % Plt Count (150-450) k/uL Neutrophils # (1.3-7.7) k/uL Monocytes # (0-1.0) k/uL Sodium (137-145) mmol/L Chloride (98-107) mmol/L Carbon Dioxide (22-30) mmol/L BUN (9-20) mg/dL Creatinine (0.66-1.25) mg/dL Glucose (74-99) mg/dL POC Glucose (mg/dL) 125 H (70-110) mg/dL Plasma Lactic Acid Kelby 2.8 H* (0.7-2.0) mmol/L Calcium (8.4-10.2) mg/dL Magnesium (1.6-2.3) mg/dL Total Bilirubin (0.2-1.3) mg/dL AST (17-59) U/L Total Protein (6.3-8.2) g/dL Albumin (3.5-5.0) g/dL Procalcitonin 2.18 H (0.02-0.09) ng/mL 09/30/23 09/30/23 09/30/23 Range/Units 15:54 16:06 17:10 WBC 18.0 H (3.8-10.6) k/uL RBC 3.00 L (4.30-5.90) m/uL Hgb 9.7 L (13.0-17.5) gm/dL Hct 28.4 L (39.0-53.0) % Plt Count 122 L (150-450) k/uL Neutrophils # 14.9 H (1.3-7.7) k/uL Monocytes # 1.1 H (0-1.0) k/uL Sodium (137-145) mmol/L Chloride (98-107) mmol/L Carbon Dioxide (22-30) mmol/L BUN (9-20) mg/dL Creatinine (0.66-1.25) mg/dL Glucose (74-99) mg/dL POC Glucose (mg/dL) 172 H (70-110) mg/dL Plasma Lactic Acid Kelby 4.0 H* (0.7-2.0) mmol/L Calcium (8.4-10.2) mg/dL Magnesium (1.6-2.3) mg/dL Total Bilirubin (0.2-1.3) mg/dL AST (17-59) U/L Total Protein (6.3-8.2) g/dL Albumin (3.5-5.0) g/dL Procalcitonin (0.02-0.09) ng/mL 09/30/23 09/30/23 10/01/23 Range/Units 18:27 20:45 02:04 WBC 22.5 H (3.8-10.6) k/uL RBC 3.06 L (4.30-5.90) m/uL Hgb 9.9 L (13.0-17.5) gm/dL Hct 29.1 L (39.0-53.0) % Plt Count 134 L (150-450) k/uL Neutrophils # (1.3-7.7) k/uL Monocytes # (0-1.0) k/uL Sodium (137-145) mmol/L Chloride (98-107) mmol/L Carbon Dioxide (22-30) mmol/L BUN (9-20) mg/dL Creatinine (0.66-1.25) mg/dL Glucose (74-99) mg/dL POC Glucose (mg/dL) 131 H (70-110) mg/dL Plasma Lactic Acid Kelby 5.0 H* (0.7-2.0) mmol/L Calcium (8.4-10.2) mg/dL Magnesium (1.6-2.3) mg/dL Total Bilirubin (0.2-1.3) mg/dL AST (17-59) U/L Total Protein (6.3-8.2) g/dL Albumin (3.5-5.0) g/dL Procalcitonin (0.02-0.09) ng/mL 10/01/23 10/01/23 10/01/23 Range/Units 02:04 02:04 07:03 WBC (3.8-10.6) k/uL RBC (4.30-5.90) m/uL Hgb (13.0-17.5) gm/dL Hct (39.0-53.0) % Plt Count (150-450) k/uL Neutrophils # (1.3-7.7) k/uL Monocytes # (0-1.0) k/uL Sodium 124 L (137-145) mmol/L Chloride 95 L (98-107) mmol/L Carbon Dioxide 19 L (22-30) mmol/L BUN 57 H (9-20) mg/dL Creatinine 2.53 H (0.66-1.25) mg/dL Glucose 141 H (74-99) mg/dL POC Glucose (mg/dL) 153 H (70-110) mg/dL Plasma Lactic Acid Kelby 2.8 H* (0.7-2.0) mmol/L Calcium 8.3 L (8.4-10.2) mg/dL Magnesium 3.1 H (1.6-2.3) mg/dL Total Bilirubin 1.4 H (0.2-1.3) mg/dL AST 89 H (17-59) U/L Total Protein 5.6 L (6.3-8.2) g/dL Albumin 3.1 L (3.5-5.0) g/dL Procalcitonin (0.02-0.09) ng/mL Assessment and Plan Plan: Postop day #4, status post aortic valve replacement, single-vessel bypass grafting (SVG to PDA), left atrial appendage ligation, and replacement of ascending aorta with 32 mm tube graft. The patient is hemodynamically stable and all of the chest tubes have been removed and the patient is ambulating and using the incentive spirometer. Routine postoperative ventilator management, S/P extubation, September 28, 2023. Patient is currently on 2 L of oxygen by nasal cannula. Postoperative atrial fibrillation, currently on amiodarone. The current rhythm is sinus and the patient is currently on oral amiodarone and beta-blockers. He is also on anticoagulation. He is currently on amiodarone 400 mg p.o. twice a day, metoprolol 25 mg twice a day and the patient is also on Arixtra 2.5 mg p.o. daily. He now that he Acute kidney injury, creatinine is on the rise and nephrology on the case Acute hyponatremia Acute leukocytosis History of Hirschsprung's disease with ongoing issues with constipation and bowel dysfunction. CAT scan of the abdomen and pelvis that was done on 09/30/2023 showed rectal catheter in place extending to the left colon. Scattered fecal material within the fluid in the ascending left colon. Large stool burden in the right colon. Congenital calcific bicuspid aortic valve. Coronary artery disease. History of hypertension. History of hyperlipidemia. Postoperative anemia, expected outcome of surgery. Plan Overall pulmonary status is stable. The patient is currently on 2 L of oxygen by nasal cannula All of the chest was ever removed Cardiac rhythm is sinus and the patient will be kept on a combination of amiodarone 400 mg twice a day and metoprolol and the patient is also on Arixtra 2.5 mg p.o. daily Continue Plavix and aspirin Monitor renal function and avoid any nephrotoxic agents including nonsteroidal anti-inflammatory medication and the patient was taken off the Toradol Monitor renal function and keep the Alvarado catheter in place Quality Assurance Supervisor on the case and will apply some fluid restriction regarding his hyponatremia In terms of his bowel movement activity, the patient is on Senokot and lactulose 30 g 3 times daily Continue Lipitor Increase mobility and ambulation Will continue to follow
--- NOTE | 2023-10-01 09:47 | P.NPCON ---
History of Present Illness - Reason for Consult acute renal failure - History of Present Illness Reason for consultation: Acute kidney injury History of present illness: Patient is a 58-year-old male seen in renal consultation for acute kidney injury. Patient's creatinine on admission on September 27, 2023 was 0.82 and is up to 2.53 today. Sodium level was 137 on admission and is down to 124 today. Patient has history of congenital bicuspid calcific aortic stenosis and underwent CABG x 1 with aortic valve replacement on September 27, 2023. Patient was receiving Toradol for pain which has now been discontinued. He has been receiving half-normal saline for maintenance fluids. Patient's magnesium level is also been high and up to 3.1 this morning. He has been receiving milk of magnesia for constipation. Patient denies history of diabetes. Denies history of hematuria or dysuria. Denies history of prior coronary stents. Currently has a Alvarado catheter. He did go into A-fib with RVR after surgery and received amiodarone bolus. Currently on oral amiodarone. Denies chest pain or shortness of breath. Hemodynamically stable. On nasal cannula. 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 Patient also has congenital solitary kidney. Vital signs are stable. General: No acute distress. HEENT: Head exam is unremarkable. On nasal cannula. LUNGS: No audible rhonchi or wheezes. HEART: Rate and Rhythm are regular. ABDOMEN: Nontender. Distention noted. EXTREMITITES: Trace edema. Past Medical History Past Medical History: Chest Pain / Angina, COPD, Hearing Disorder / Deafness, Hypertension Additional Past Medical History / Comment(s): Hirschsprung's disease, constipation, aortic valve stenosis, SOB, vertigo, ascending aortic aneurysm, bacteremia 3 yrs. ago, hepatitis C-successful treatment, born w/one kidney, deaf right ear, neck, shoulders & back pain, neuropathy feet, blood infection 2019 History of Any Multi-Drug Resistant Organisms: None Reported Past Surgical History: Bowel Resection, Ear Surgery, Heart Catheterization, Orthopedic Surgery Additional Past Surgical History / Comment(s): WM, right inner ear surg/graft,ORIF left ankle, multiple surgeries for Hirschsprung's as a baby Past Anesthesia/Blood Transfusion Reactions: No Reported Reaction Smoking Status: Former smoker - Past Family History Father Family Medical History: Coronary Artery Disease (CAD) Mother Family Medical History: Cancer Medications and Allergies Home Medications Medication Instructions Recorded Confirmed Type Aspirin [Adult Low Dose Aspirin EC] 81 mg PO HS 08/27/23 09/27/23 History Cholecalciferol [Vitamin D3 (125 50,000 units PO Q30D 08/27/23 09/27/23 History Mcg = 5000 Iu)] Escitalopram [Lexapro] 10 mg PO HS 08/27/23 09/27/23 History lisinopriL [Zestril] 5 mg PO HS 08/27/23 09/27/23 History traZODone HCL 100 mg PO HS 08/27/23 09/27/23 History Atorvastatin [Lipitor] 40 mg PO HS 09/20/23 09/27/23 History Metoprolol Succinate (ER) [Toprol 25 mg PO HS 09/20/23 09/27/23 History Xl] Allergies Allergy/AdvReac Type Severity Reaction Status Date / Time No Known Allergies Allergy Verified 09/27/23 06:38 Physical Exam Vitals: Vital Signs Temp Pulse Resp BP Pulse Ox 10/01/23 09:00 81 21 119/69 98 10/01/23 08:31 80 10/01/23 08:20 80 97 10/01/23 08:00 79 22 110/56 96 10/01/23 07:00 80 13 120/64 97 10/01/23 06:00 84 36 H 128/69 96 10/01/23 05:00 78 26 H 120/64 97 10/01/23 04:00 98.1 F 80 35 H 116/61 96 10/01/23 03:00 77 18 123/71 94 L 10/01/23 02:00 72 21 103/69 74 L 10/01/23 01:00 77 20 107/71 98 10/01/23 00:00 98.4 F 92 26 H 112/64 94 L 09/30/23 23:00 86 30 H 123/63 93 L 09/30/23 22:00 83 16 127/66 97 09/30/23 21:00 82 29 H 129/72 99 09/30/23 20:00 80 25 H 122/63 97 09/30/23 19:00 73 19 103/54 97 09/30/23 18:00 75 27 H 95 09/30/23 17:00 72 22 101/57 86 L 09/30/23 16:00 77 20 94 L 09/30/23 15:00 82 16 113/54 95 09/30/23 14:00 80 28 H 115/59 94 L 09/30/23 13:00 77 25 H 124/60 94 L 09/30/23 12:00 98 F 80 22 111/67 94 L 09/30/23 11:33 71 09/30/23 11:26 71 09/30/23 11:00 71 18 98/62 93 L 09/30/23 10:00 74 20 98/62 94 L Intake and Output 09/30/23 10/01/23 10/01/23 22:59 06:59 14:59 Intake Total 375 600 225 Output Total 360 475 290 Balance 15 125 -65 Intake: IV 375 600 75 D5-0.45% NaCl with KCl 375 600 75 20Meq/l 1,000 ml @ 75 mls /hr IV .[id number] [facility] Rx#: [id number] Intake, IV Titration 150 Amount Sodium Chloride 0.9% 1, 150 000 ml @ 75 mls/hr IV . [id number] [facility] Rx#:[id number] Output: Chest Tube Drainage 50 60 Pleural Catheter Left 50 60 Urine 310 415 290 Other: Voiding Method Indwelling Catheter Indwelling Catheter # Bowel Movements 1 1 Weight 98.2 kg ABP, PAP, CO, CI - Last 8 Hours Cardiac Output 5.2 Cardiac Output 5.2 Cardiac Output 5.2 Cardiac Output 5.2 Cardiac Output 5.2 Cardiac Index 2.4 Cardiac Index 2.4 Cardiac Index 2.4 Cardiac Index 2.4 Cardiac Index 2.4 Results - Lab Results Most recent lab results ABG pH 7.39 (7.35-7.45) 09/28/23 09:23 ABG pCO2 41 mmHg (35-45) 09/28/23 09:23 ABG pO2 137 mmHg (83-108) H 09/28/23 09:23 ABG HCO3 25 mmol/L (21-25) 09/28/23 09:23 ABG O2 Saturation 99.4 % (94-97) H 09/28/23 09:23 Calcium 8.3 mg/dL (8.4-10.2) L 10/01/23 02:04 Magnesium 3.1 mg/dL (1.6-2.3) H 10/01/23 02:04 10/01/23 02:04 10/01/23 02:04 Assessment and Plan Plan: Assessment: 1. Acute kidney injury secondary to ATN secondary to NSAIDs, hemodynamic instability. Creatinine 2.53 today. Baseline creatinine 0.8-0.9. No hydronephrosis noted on CT scan. Right kidney not seen. 2. Status post CABG and aortic valve replacement on September 27, 2023. 3. Hyponatremia secondary to acute kidney injury and hypotonic fluid infusion. 4. Metabolic acidosis secondary to acute kidney injury, lactic acidosis and IV fluids. 5. Hypermagnesemia secondary to magnesium supplementation. 6. Congenital solitary left kidney. 7. History of Hirschsprung's disease. Plan: IV fluids changed from half-normal saline to normal saline. Maintain fluid restriction. Encouraged oral intake. Avoid nephrotoxins, including nonsteroidals. Continue to monitor renal function and urine output. Add oral bicarb. Thank you for the consultation. I will continue to follow the patient with you during his hospital stay.
[2023-10-01] MEDS: SODIUM BICARBONATE TAB 650 MG TAB PO SCH (10:38)
[2023-10-01 11:53] LABS: Glucose,Whole Blood 126 mg/dL (70-110)
--- NOTE | 2023-10-01 13:29 | P.PN ---
Subjective Progress Note Date: 10/01/23 CHIEF COMPLAINT: Status post aortic valve replacement HISTORY OF PRESENT ILLNESS: Surgical service is following in regards to patient's constipation. He did receive soapsuds enemas and lactulose yesterday. He has had bowel movement and flatus. He reports that he feels his abdomen is slightly softer. Denies any nausea or vomiting. Patient currently NPO. WBC 22.5 Hgb 9.9 platelets 134 sodium 124 creatinine 2.53 PHYSICAL EXAM: VITAL SIGNS: Reviewed GENERAL: Well-developed in no acute distress. HEENT: No sclera icterus. Extraocular movements grossly intact. Moist buccal mucosa. Head is atraumatic, normocephalic. Hears conversational speech. No nasal drainage. NECK: Supple without lymphadenopathy. CHEST: Non-labored respirations and equal bilateral excursions. CARDIOVASCULAR: Palpable 2+ radial pulses. ABDOMEN: Soft. Mildly distended. MUSCULOSKELETAL: No clubbing or cyanosis. NEUROLOGIC: No focal or lateralizing signs. Cranial nerves II through XII grossly intact. PSYCH: Appropriate affect. Alert and oriented to person, place and time. SKIN: Well perfused. Good skin turgor. ASSESSMENT: 1. Constipation 2. Aortic valve replacement 3. Hirschsprung's disease 4. Hyponatremia 5. Acute kidney injury PLAN: -Agree with follow-up abdominal x-ray -advance diet to clears -Continue lactulose -Repeat soap jerrica enema Physician Field Technical Support Consultant note has been reviewed by physician. Signing provider agrees with the documented findings, assessment, and plan of care. Objective - Vital Signs Vital signs: Vital Signs Temp 97.9 F 10/01/23 12:00 Pulse 75 10/01/23 12:00 Resp 26 H 10/01/23 12:00 BP 102/55 10/01/23 12:00 Pulse Ox 98 10/01/23 12:00 FiO2 40 09/28/23 09:09 Intake & Output 09/30/23 10/01/23 10/01/23 18:59 06:59 18:59 Intake Total 898 900 450 Output Total 520 695 615 Balance 378 205 -165 Weight 98.2 kg 98.2 kg Intake: IV 598 900 75 D5-0.45% NaCl with KCl 75 900 75 20Meq/l 1,000 ml @ 75 mls /hr IV .[id number] [facility] Rx#: [id number] Lactated Ringers 1,000 ml 20 @ 20 mls/hr IV .Q24H [facility] Rx#:[id number] Sodium Chloride 0.9% 500 500 ml 500 ml @ 999 mls/hr IV .Q31M ONE Rx#:[id number] pressure bag 3 Intake, IV Titration 375 Amount Sodium Chloride 0.9% 1, 375 000 ml @ 75 mls/hr IV . [id number] [facility] Rx#:[id number] Oral 300 Output: Chest Tube Drainage 50 110 Pleural Catheter Left 50 110 Urine 470 585 615 Other: Voiding Method Indwelling Catheter Indwelling Catheter # Bowel Movements 1 1 1 ABP, PAP, CO, CI - Last Documented Arterial Blood Pressure 78/53 Pulmonary Artery Pressure 22/11 Cardiac Output 5.2 Cardiac Index 2.4 - Labs CBC & Chem 7: 10/01/23 02:04 10/01/23 02:04 Labs: Abnormal Lab Results - Last 24 Hours (Table) 09/30/23 09/30/23 09/30/23 Range/Units 15:54 16:06 17:10 WBC 18.0 H (3.8-10.6) k/uL RBC 3.00 L (4.30-5.90) m/uL Hgb 9.7 L (13.0-17.5) gm/dL Hct 28.4 L (39.0-53.0) % Plt Count 122 L (150-450) k/uL Neutrophils # 14.9 H (1.3-7.7) k/uL Monocytes # 1.1 H (0-1.0) k/uL Sodium (137-145) mmol/L Chloride (98-107) mmol/L Carbon Dioxide (22-30) mmol/L BUN (9-20) mg/dL Creatinine (0.66-1.25) mg/dL Glucose (74-99) mg/dL POC Glucose (mg/dL) 172 H (70-110) mg/dL Plasma Lactic Acid Kelby 4.0 H* (0.7-2.0) mmol/L Calcium (8.4-10.2) mg/dL Magnesium (1.6-2.3) mg/dL Total Bilirubin (0.2-1.3) mg/dL AST (17-59) U/L Total Protein (6.3-8.2) g/dL Albumin (3.5-5.0) g/dL 09/30/23 09/30/23 10/01/23 Range/Units 18:27 20:45 02:04 WBC 22.5 H (3.8-10.6) k/uL RBC 3.06 L (4.30-5.90) m/uL Hgb 9.9 L (13.0-17.5) gm/dL Hct 29.1 L (39.0-53.0) % Plt Count 134 L (150-450) k/uL Neutrophils # (1.3-7.7) k/uL Monocytes # (0-1.0) k/uL Sodium (137-145) mmol/L Chloride (98-107) mmol/L Carbon Dioxide (22-30) mmol/L BUN (9-20) mg/dL Creatinine (0.66-1.25) mg/dL Glucose (74-99) mg/dL POC Glucose (mg/dL) 131 H (70-110) mg/dL Plasma Lactic Acid Kelby 5.0 H* (0.7-2.0) mmol/L Calcium (8.4-10.2) mg/dL Magnesium (1.6-2.3) mg/dL Total Bilirubin (0.2-1.3) mg/dL AST (17-59) U/L Total Protein (6.3-8.2) g/dL Albumin (3.5-5.0) g/dL 10/01/23 10/01/23 10/01/23 Range/Units 02:04 02:04 07:03 WBC (3.8-10.6) k/uL RBC (4.30-5.90) m/uL Hgb (13.0-17.5) gm/dL Hct (39.0-53.0) % Plt Count (150-450) k/uL Neutrophils # (1.3-7.7) k/uL Monocytes # (0-1.0) k/uL Sodium 124 L (137-145) mmol/L Chloride 95 L (98-107) mmol/L Carbon Dioxide 19 L (22-30) mmol/L BUN 57 H (9-20) mg/dL Creatinine 2.53 H (0.66-1.25) mg/dL Glucose 141 H (74-99) mg/dL POC Glucose (mg/dL) 153 H (70-110) mg/dL Plasma Lactic Acid Kelby 2.8 H* (0.7-2.0) mmol/L Calcium 8.3 L (8.4-10.2) mg/dL Magnesium 3.1 H (1.6-2.3) mg/dL Total Bilirubin 1.4 H (0.2-1.3) mg/dL AST 89 H (17-59) U/L Total Protein 5.6 L (6.3-8.2) g/dL Albumin 3.1 L (3.5-5.0) g/dL 10/01/23 Range/Units 11:52 WBC (3.8-10.6) k/uL RBC (4.30-5.90) m/uL Hgb (13.0-17.5) gm/dL Hct (39.0-53.0) % Plt Count (150-450) k/uL Neutrophils # (1.3-7.7) k/uL Monocytes # (0-1.0) k/uL Sodium (137-145) mmol/L Chloride (98-107) mmol/L Carbon Dioxide (22-30) mmol/L BUN (9-20) mg/dL Creatinine (0.66-1.25) mg/dL Glucose (74-99) mg/dL POC Glucose (mg/dL) 126 H (70-110) mg/dL Plasma Lactic Acid Kelby (0.7-2.0) mmol/L Calcium (8.4-10.2) mg/dL Magnesium (1.6-2.3) mg/dL Total Bilirubin (0.2-1.3) mg/dL AST (17-59) U/L Total Protein (6.3-8.2) g/dL Albumin (3.5-5.0) g/dL
[2023-10-01 17:22] LABS: Glucose,Whole Blood 135 mg/dL (70-110)
[2023-10-01 20:29] LABS: Glucose,Whole Blood 143 mg/dL (70-110)
[2023-10-01 21:13] LABS: Glucose,Whole Blood 130 mg/dL (70-110)
--- NOTE | 2023-10-01 23:50 | PN ---
PROGRESS NOTE CHIEF COMPLAINT: Status post aortic valve replacement and ascending aortic resection. HISTORY OF PRESENT ILLNESS: This gentleman seems to be doing well. He is slowly improving and tubes are being removed. His renal function is an issue and being watched. PHYSICAL EXAMINATION: CHEST: Clear. CARDIAC: Normal. ABDOMEN: Soft, nontender. IMPRESSION: 1. Status post aortic valve replacement with resection of ascending aorta. 2. CKD. PLAN: He will continue with his ICU management and will be seen by Nephrology. MMODL / IJN: [id number] /
[2023-10-02 04:31] LABS: Basophils % (A) 0 %; Eosinophils % (A) 0 %; HCT 28.1 % (39.0-53.0); HGB 9.6 gm/dL (13.0-17.5); Lymphocytes # (A) 0.7 k/uL (1.0-4.8); Lymphocytes % (A) 8 %; MCH 32.6 pg (25.0-35.0); MCHC 34.2 g/dL (31.0-37.0); MCV 95.1 fL (80.0-100.0); Mean Platelet Volume 8.7; Monocytes # (A) 0.7 k/uL (0-1.0); Monocytes % (A) 8 %; Neutrophils % (A) 81 %; Platelet Count 120 k/uL (150-450); RBC 2.96 m/uL (4.30-5.90); RDW 13.5 % (11.5-15.5); WBC 8.7 k/uL (3.8-10.6)
[2023-10-02 04:51] LABS: ALT 42 U/L (4-49); AST 85 U/L (17-59); African American GFR (CKD) 77 (>60 ml/min/1.73 sqM); Albumin 2.6 g/dL (3.5-5.0); Alkaline Phosphatase 99 U/L (38-126); Anion Gap 6 mmol/L; Blood Urea Nitrogen 40 mg/dL (9-20); Calcium 7.8 mg/dL (8.4-10.2); Carbon Dioxide 21 mmol/L (22-30); Chloride 102 mmol/L (98-107); Glucose 108 mg/dL (74-99); Magnesium 2.7 mg/dL (1.6-2.3); Non-African American GFR(CKD) 67 (>60 ml/min/1.73 sqM); Potassium 3.7 mmol/L (3.5-5.1); Sodium 129 mmol/L (137-145); Total Bilirubin 1.6 mg/dL (0.2-1.3); Total Protein 5.1 g/dL (6.3-8.2)
[2023-10-02] MEDS ORDERED: Potassium Replacement Protocol 1 EACH MISC MISCELLANE PRN (04:56)
[2023-10-02 06:42] LABS: Glucose,Whole Blood 125 mg/dL (70-110)
[2023-10-02] MEDS: POTASSIUM CHLORIDE ER 20 MEQ TAB.ER PO SCH (06:45)
--- NOTE | 2023-10-02 08:07 | P.PN ---
Subjective Progress Note Date: 10/02/23 Principal diagnosis: Valvular heart disease The patient is a 58-year-old gentleman who underwent an aortic valve replacement using a bioprosthetic valve along with aortic root replacement and also single- vessel bypass with SVG to PDA. Also he does have hypertension and dyslipidemia and chronic kidney disease and also solitary kidney. October 012023 The patient was seen and evaluated this morning. Hemodynamically he is stable. He has been maintaining normal sinus mechanism. He is on oral anticoagulation. He underwent left atrial appendage ligation during the surgery. His creatinine has gone. He is not hypotensive. He is not on any nephrotoxic medications jeanette arently nephrology consult was placed for further clarification and evaluated the etiology of the renal failure. Beside that he is on beta subhash and he is also on aspirin and Plavix and statin. He does have chronic gastrointestinal disease/on disease. Currently surgeries on the case. The examination is remarkable for regular rhythm with diminished breathing sounds bilaterally and no edema was noted. October 022023 The patient was seen and evaluated this morning. His kidney function has improved. His potassium is marginal. Hemodynamically he continues to be stable was mild sinus tachycardia likely secondary to abdominal discomfort. General surgery on the case and he might need to be disimpacted. Otherwise from the cardiovascular standpoint of view, he is stable. He is on maximize medical treatment. He continues to be on amiodarone which need to be tapered down and on the case. The examination is remarkable for regular rhythm with clear breathing sounds bilaterally and no edema was noted. Assessment Status post open heart surgery as described above One episode atrial fibrillation currently he is maintaining normal sinus mechanism Acute renal failure of unknown etiology History of colon disease Plan Continue the current medical regimen Avoid any hypotension Continue tapering down the dose of amiodarone Follow-up with a nephrology consult Follow-up with the patient Objective - Vital Signs Vital signs: Vital Signs Temp 98.0 F 10/02/23 04:00 Pulse 89 10/02/23 07:00 Resp 23 10/02/23 07:00 BP 109/70 10/02/23 07:00 Pulse Ox 97 10/02/23 07:00 FiO2 40 09/28/23 09:09 Intake & Output 10/01/23 10/02/23 10/02/23 18:59 06:59 18:59 Intake Total 1025 1100 75 Output Total 1390 885 50 Balance -365 215 25 Weight 98.2 kg 93.5 kg Intake: IV 75 D5-0.45% NaCl with KCl 75 20Meq/l 1,000 ml @ 75 mls /hr IV .[id number] [facility] Rx#: [id number] Intake, IV Titration 900 900 75 Amount Sodium Chloride 0.9% 1, 900 900 75 000 ml @ 75 mls/hr IV . [id number] [facility] Rx#:[id number] Oral 200 Tube Feeding 50 Output: Urine 1390 885 50 Other: Voiding Method Indwelling Catheter Indwelling Catheter # Bowel Movements 1 1 1 ABP, PAP, CO, CI - Last Documented Arterial Blood Pressure 78/53 Pulmonary Artery Pressure 22/11 Cardiac Output 5.2 Cardiac Index 2.4 - Labs CBC & Chem 7: 10/02/23 04:02 10/02/23 04:02 Labs: Abnormal Lab Results - Last 24 Hours (Table) 10/01/23 10/01/23 10/01/23 Range/Units 11:52 17:21 20:28 RBC (4.30-5.90) m/uL Hgb (13.0-17.5) gm/dL Hct (39.0-53.0) % Plt Count (150-450) k/uL Lymphocytes # (1.0-4.8) k/uL Sodium (137-145) mmol/L Carbon Dioxide (22-30) mmol/L BUN (9-20) mg/dL Glucose (74-99) mg/dL POC Glucose (mg/dL) 126 H 135 H 143 H (70-110) mg/dL Calcium (8.4-10.2) mg/dL Magnesium (1.6-2.3) mg/dL Total Bilirubin (0.2-1.3) mg/dL AST (17-59) U/L Total Protein (6.3-8.2) g/dL Albumin (3.5-5.0) g/dL 10/01/23 10/02/23 10/02/23 Range/Units 21:12 04:02 04:02 RBC 2.96 L (4.30-5.90) m/uL Hgb 9.6 L (13.0-17.5) gm/dL Hct 28.1 L (39.0-53.0) % Plt Count 120 L (150-450) k/uL Lymphocytes # 0.7 L (1.0-4.8) k/uL Sodium 129 L (137-145) mmol/L Carbon Dioxide 21 L (22-30) mmol/L BUN 40 H (9-20) mg/dL Glucose 108 H (74-99) mg/dL POC Glucose (mg/dL) 130 H (70-110) mg/dL Calcium 7.8 L (8.4-10.2) mg/dL Magnesium 2.7 H (1.6-2.3) mg/dL Total Bilirubin 1.6 H (0.2-1.3) mg/dL AST 85 H (17-59) U/L Total Protein 5.1 L (6.3-8.2) g/dL Albumin 2.6 L (3.5-5.0) g/dL 10/02/23 Range/Units 06:40 RBC (4.30-5.90) m/uL Hgb (13.0-17.5) gm/dL Hct (39.0-53.0) % Plt Count (150-450) k/uL Lymphocytes # (1.0-4.8) k/uL Sodium (137-145) mmol/L Carbon Dioxide (22-30) mmol/L BUN (9-20) mg/dL Glucose (74-99) mg/dL POC Glucose (mg/dL) 125 H (70-110) mg/dL Calcium (8.4-10.2) mg/dL Magnesium (1.6-2.3) mg/dL Total Bilirubin (0.2-1.3) mg/dL AST (17-59) U/L Total Protein (6.3-8.2) g/dL Albumin (3.5-5.0) g/dL
[2023-10-02] MEDS: METOPROLOL TARTRATE 25 MG TAB PO SCH (08:10)
--- NOTE | 2023-10-02 08:21 | P.PN ---
Subjective Progress Note Date: 10/02/23 Principal diagnosis: Congenital bicuspid calcific aortic stenosis, ascending aortic aneurysm, coronary artery disease. Past medical history significant for hypertension, hyperlipidemia, previous bacteremia, previous tobacco dependence, remote history of pneumonia, Hirschsprung's disease with chronic constipation, hepatitis C, anxiety/depression/bipolar/PTSD, previous heroin use, and family history of premature coronary artery disease. POD#5 Aortic valve replacement with 27 mm Inspiris bovine pericardial prosthesis, replacement of ascending aorta with 32 mm tube graft, CABG x 1 with saphenous vein graft to posterior descending coronary artery, endovascular vein harvest, ligation of the left atrial appendage with 40 mm AtriCure clip Postoperative acute blood loss anemia and thrombocytopenia, expected given hemodilution and cardiopulmonary bypass pump. Paroxysmal atrial fibrillation, a known common occurrence after open heart surgery and not a complication, treated with amiodarone, currently sinus. Acute kidney injury, hyponatremia, lactic acidosis Leukocytosis, likely reactive, resolved The patient was seen and examined in follow-up today October 02, 2023 at his bedside in the intensive care unit. Currently sitting up to the bedside chair, is awake, alert, oriented x 3 and is in no acute apparent distress. Denies any complaints of shortness of breath at this time, although is complaining of some abdominal distention and discomfort with occasional episodes of nausea. He denies any emesis. General surgery is following for large stool burden in the right colon without evidence of obstruction. He reports he had an enema yesterday, continues on lactulose, and according to the patient his significant other is bringing him some castor oil in today which he takes frequently at home. The patient reports he has been passing flatus and having liquid stools. 0.9% normal saline is infusing at 75 mL/h. Bedside telemetry is showing normal sinus rhythm heart rate 89 bpm, no further episodes of atrial fibrillation reported and he remains on amiodarone 400 mg PO twice daily. Oxygen saturations are 95% on room air and he is achieving 1000 mL on his incentive spirometry with encouragement. He has been up ambulating in the intensive care unit hallway and tolerating well with standby assistance from nursing and therapy staff. Chest x-ray and laboratory results reviewed. WBC count is down to 8.7, BUN 40 and creatinine 1.19. Alvarado catheter remains in place for accurate I's and O's. Objective - Vital Signs Vital signs: Vital Signs Temp 98.0 F 10/02/23 04:00 Pulse 89 10/02/23 07:00 Resp 23 10/02/23 07:00 BP 109/70 10/02/23 07:00 Pulse Ox 97 10/02/23 07:00 FiO2 40 09/28/23 09:09 Intake & Output 10/01/23 10/02/23 10/02/23 18:59 06:59 18:59 Intake Total 1025 1100 Output Total 1390 885 Balance -365 215 Weight 98.2 kg 93.5 kg Intake: IV 75 D5-0.45% NaCl with KCl 75 20Meq/l 1,000 ml @ 75 mls /hr IV .[id number] FATIMAH Rx#: [id number] Intake, IV Titration 900 900 Amount Sodium Chloride 0.9% 1, 900 900 000 ml @ 75 mls/hr IV . [id number] FATIMAH Rx#:[id number] Oral 200 Tube Feeding 50 Output: Urine 1390 885 Other: Voiding Method Indwelling Catheter Indwelling Catheter # Bowel Movements 1 1 ABP, PAP, CO, CI - Last Documented Arterial Blood Pressure 78/53 Pulmonary Artery Pressure 22/11 Cardiac Output 5.2 Cardiac Index 2.4 - Exam CONSTITUTIONAL: Sitting up to the bedside chair in the intensive care unit, cooperative, no apparent acute distress. HEENT: Neck is supple, no JVD, no lymphadenopathy. RESPIRATORY: Lungs sounds essentially clear throughout, diminished to his bilateral bases. Respirations are symmetrical and nonlabored. Currently on room air with oxygen saturations 95%. Able to achieve 1000 mL on his incentive spirometry. Strong cough. CARDIOVASCULAR: Regular rhythm and rate. S1 and S2 present, negative for S3, gallop or murmur. Sternum is stable. Palpable peripheral pulses bilaterally, +1 edema to his bilateral lower extremities. No calf pain or tenderness noted. Heart hugger in place with patient demonstrating appropriate use. Knee-high DEB hose and sequential compression devices in place to his bilateral lower extremities. GASTROINTESTINAL: Abdomen soft, tender, and distended. Active bowel sounds present 4 quadrants. Tolerating ice chips. Passing flatus, loose stools. GENITOURINARY: Alvarado present draining clear, yellow urine. Urine output 620 mL in the last 8 hours. INTEGUMENTARY: Skin is warm and dry with no evidence of clubbing or cyanosis. Midline sternal incision clean dry and well approximated, covered with dry intact dressing. Left lower extremity EVH sites well approximated without redness or drainage. Scattered ecchymosis to his left lower extremity, soft and nontender to palpate. NEUROLOGIC: Cranial nerves II through XII intact. No focal deficits. MUSKULOSKELETAL: Able to move all extremities, strength equal bilaterally. PSYCHIATRIC: Alert and oriented to person place and time, appropriate affect, intact judgment and insight. - Labs CBC & Chem 7: 10/02/23 04:02 10/02/23 04:02 Labs: Abnormal Lab Results - Last 24 Hours (Table) 10/01/23 10/01/23 10/01/23 Range/Units 11:52 17:21 20:28 RBC (4.30-5.90) m/uL Hgb (13.0-17.5) gm/dL Hct (39.0-53.0) % Plt Count (150-450) k/uL Lymphocytes # (1.0-4.8) k/uL Sodium (137-145) mmol/L Carbon Dioxide (22-30) mmol/L BUN (9-20) mg/dL Glucose (74-99) mg/dL POC Glucose (mg/dL) 126 H 135 H 143 H (70-110) mg/dL Calcium (8.4-10.2) mg/dL Magnesium (1.6-2.3) mg/dL Total Bilirubin (0.2-1.3) mg/dL AST (17-59) U/L Total Protein (6.3-8.2) g/dL Albumin (3.5-5.0) g/dL 10/01/23 10/02/23 10/02/23 Range/Units 21:12 04:02 04:02 RBC 2.96 L (4.30-5.90) m/uL Hgb 9.6 L (13.0-17.5) gm/dL Hct 28.1 L (39.0-53.0) % Plt Count 120 L (150-450) k/uL Lymphocytes # 0.7 L (1.0-4.8) k/uL Sodium 129 L (137-145) mmol/L Carbon Dioxide 21 L (22-30) mmol/L BUN 40 H (9-20) mg/dL Glucose 108 H (74-99) mg/dL POC Glucose (mg/dL) 130 H (70-110) mg/dL Calcium 7.8 L (8.4-10.2) mg/dL Magnesium 2.7 H (1.6-2.3) mg/dL Total Bilirubin 1.6 H (0.2-1.3) mg/dL AST 85 H (17-59) U/L Total Protein 5.1 L (6.3-8.2) g/dL Albumin 2.6 L (3.5-5.0) g/dL 10/02/23 Range/Units 06:40 RBC (4.30-5.90) m/uL Hgb (13.0-17.5) gm/dL Hct (39.0-53.0) % Plt Count (150-450) k/uL Lymphocytes # (1.0-4.8) k/uL Sodium (137-145) mmol/L Carbon Dioxide (22-30) mmol/L BUN (9-20) mg/dL Glucose (74-99) mg/dL POC Glucose (mg/dL) 125 H (70-110) mg/dL Calcium (8.4-10.2) mg/dL Magnesium (1.6-2.3) mg/dL Total Bilirubin (0.2-1.3) mg/dL AST (17-59) U/L Total Protein (6.3-8.2) g/dL Albumin (3.5-5.0) g/dL - Imaging and Cardiology Chest x-ray: report reviewed, image reviewed Assessment and Plan Assessment: Congenital bicuspid calcific aortic stenosis, status post bioprosthetic aortic valve replacement Ascending aortic aneurysm, status post replacement of ascending aorta Coronary artery disease, status post single-vessel CABG Hypertension Hyperlipidemia, treated, cholesterol 140, LDL 70 Previous bacteremia 3 years ago Previous tobacco dependence, quit 5 years ago, preoperative FEV1 88% of predicted Remote history of pneumonia Hirschsprung's disease with chronic constipation Hepatitis C, treated Anxiety/depression/bipolar/PTSD Previous heroin use, last use 10 years ago Family history of premature coronary artery disease Postoperative acute blood loss anemia and thrombocytopenia, expected Paroxysmal atrial fibrillation, status post ligation of the left atrial appendage, currently sinus Acute kidney injury, hyponatremia, lactic acidosis, BUN 40 and creatinine 1.19 today Leukocytosis, resolved Plan: Continue to maximize medical therapy with low dose aspirin, statin, Plavix, beta-subhash. Will increase metoprolol to tartrate to 25 mg p.o. 3 times daily. Continue amiodarone for A-fib prophylaxis, will taper weekly. Currently on amiodarone 400 mg p.o. twice daily. Encourage incentive spirometry use 10 times every hour while awake, bronchodilators per pulmonology. Increase activity as tolerated, PT/OT/cardiac rehab following. Will monitor daily labs and chest x-rays. Electrolyte replacement per protocol. GI/DVT prophylaxis. Pain control per current medication regimen. Insulin management per internal medicine. Patient is not diabetic with A1c 5.4%, but does need tight blood sugar control to prevent infection and promote healing. Avoid nephrotoxic agents. Continue to record strict accurate intake and output. Daily weights. Constipation management and recommendations per general surgery. Stool for C. difficile negative. Encourage continued smoking and heroin cessation. More recommendations to follow based on patient's clinical course. Time with Patient: Greater than 30
--- NOTE | 2023-10-02 08:51 | P.PN ---
Subjective Progress Note Date: 10/02/23 58-year-old male seen in the ICU today, postop day #0,S/P aortic valve replacement with a bovine pericardial prosthesis, replacement of ascending aorta with 32 mm tube graft, bypass grafting x 1, with saphenous vein graft to the posterior descending coronary artery, and ligation of left atrial appendage. The surgeon was Dr. Beach. The patient is seen in the intensive care unit, room 263. Ventilator settings include volume assist-control, rate 12, tidal volume 550, FiO2 100%, PEEP of 5. Blood gases while in the operating room, show pO2 of 230, pCO2 of 35, pH is 7.42. That was on 60%. Blood gases in the ICU have not yet been done. The patient is currently on nitroglycerin at 5 mcg/min, and propofol at 30 mcg/kg/min. The patient is seen in the intensive care unit, having just got back from the operating room. The patient has a history of a congenital bicuspid calcific aortic valve, with aortic valve stenosis. No new laboratory data as yet. Chest x-ray is pending. ABGs, and hemodynamics are pending. In addition to the congenital bicuspid aortic valve, the patient has a history of hyperlipidemia, coronary disease, and hypertension. Outpatient medications include trazodone, Zestril, metoprolol, Lexapro, vitamin D3, Lipitor, and baby aspirin. Progress note dated September 28, 2023. The patient is seen today, room 263. The patient is switched over to pressure support and CPAP, at 5 cm of water each. His ventilator settings include volume assist-control, rate 16, tidal volume 550, 40%, PEEP of 10. Blood gases showed a pO2 154, pCO2 of 43, and pH of 7.37. The patient is on amiodarone at 0.5 mg/min, insulin at 1 unit an hour, lactated Ringer's at 50 cc an hour. Today is postoperative day #1. Labs today include a white count of 16.9, hemoglobin 11.1, hematocrit 32.5, and a platelet count of 93,000. Sodium 138, potassium 4.3, chlorides 109, CO2 23, BUN 19, creatinine 0.9. Calcium is 8.2. Albumin 3.2. Chest x-ray shows some postoperative changes. Left-sided chest tube without pneumothorax. Progress note dated September 29, 2023. The patient is postop day #1. He is doing well. He is seen today in room 263. He is on 2 L of oxygen by nasal cannula. He is getting insulin at 3 units an hour and lactated Ringer's at 30 cc an hour. He is also getting amiodarone at 0.5 mg/min. White count of 16.6, hemoglobin 10.2, hematocrit 28.9, platelet count was 68,000. Sodium 129, potassium 4.5, chlorides 103, CO2 23, BUN 20, creatinine 1.12. Albumin is 3. Chest x-ray shows slightly diminished lung volumes, with some basilar atelectasis. Progress note dated September 30, 2023. 58-year-old patient who is postop day #3, status post bypass surgery, and aortic valve replacement. Currently, the patient is doing relatively well. He is on 3 L. No IV fluids. Current labs include a white count 22.7, hemoglobin 10.4, hematocrit 31.4, and a platelet count of 141,000. Sodium 126, potassium 5, chloride 76, CO2 19, anion gap 11, BUN 39, creatinine 1.90. Calcium is 8.2. Magnesium 2.5. Glucose 173. Chest x-ray is consistent with mild pulmonary vascular congestion. On today's evaluation of 10/01/2023, the patient is postop day #4. The patient underwent a replacement of the ascending aorta with bypass x 1 and aortic valve replacement. He was successfully weaned off the mechanical ventilator and he was extubated. One of his chest tubes are currently out. He did however develop an acute kidney injury. His creatinine is currently up to 2.53 with a BUN of 57 and sodium levels of 124. Nephrology has been involved in his case. Potassium level is at 4.6. Most recent white cell count is at 22.5 with a hemoglobin of 9.9. Chest x-ray from today shows a left-sided chest tube which was not removed. There is also gastric distention and some bowel distention and the patient is known to have Hirschsprung's disease. The patient otherwise is awake and alert. Is currently on oxygen at 2 L with a pulse ox of 97%. He is using the incentive spirometer. Neurologically awake and alert and there is no focal neurological deficit at this point in time. In terms of his A-fib, the patient continues to be on amiodarone. He has been maintained in normal sinus rhythm. He is also on oral anticoagulation. He is also on beta-blockers and the patient is on metoprolol 25 mg twice a day and amiodarone 400 mg twice a day. He is also on Lipitor 40 mg p.o. daily. He remains on aspirin and Plavix. The nonsteroidal anti-inflammatory medications has been discontinued. His surgical wound is dry and clean and intact at this point On 10/02/2023, the patient is postop day #5. The patient underwent replacement of the ascending aorta and aortic valve replacement. The active issue for now is ongoing abdominal distention and pain. He states that his distention and pain is less compared to yesterday. He had several episodes of liquidy small bowel movements yesterday. However, he feels that there is still stool within his colon which is causing abdominal distention. His lactic acid level is dropped significantly and the lactic acid level is currently down to 1.4. At the same time, no nausea. No emesis. No leukocytosis with a white cell count of 8.7. He has no fever. Hemoglobin is at 9.6 with a BUN of 40 and a creatinine of 1.1 and a sodium levels at 129. His cardiac rhythm is sinus. He is awake and alert and is also ambulating. In terms of his bowel issue, the patient receiving lactulose 30 g 3 times a day and is also taking Senokot and Ducosate and he also received soapsuds enema yesterday. The enema did not help him much. Note that he has chronic Hirschsprung's disease and the patient has undergone multiple bowel surgeries in the past. He has scars of previous abdominal surgery over the anterior abdominal wall. He remains on amiodarone 400 mg p.o. twice a day. He remains on metoprolol 25 mg 3 times daily and is also anticoagulated with Arixtra. He is using incentive spirometer. He is ambulating. Blood sugars under adequate control. He remains on aspirin and Plavix. All of the chest tubes have been removed. The chest x-ray from today shows a large gastric bubble along with some atelectatic change in the left lung base. The flat film of the abdomen also shows gastric and colonic distention. Objective - Vital Signs Vital signs: Vital Signs Temp 98.3 F 10/02/23 08:00 Pulse 89 10/02/23 08:34 Resp 29 H 10/02/23 08:00 BP 114/68 10/02/23 08:00 Pulse Ox 96 10/02/23 08:34 FiO2 40 09/28/23 09:09 Intake & Output 10/01/23 10/02/23 10/02/23 18:59 06:59 18:59 Intake Total 1025 1100 75 Output Total 1390 885 50 Balance -365 215 25 Weight 98.2 kg 93.5 kg Intake: IV 75 D5-0.45% NaCl with KCl 75 20Meq/l 1,000 ml @ 75 mls /hr IV .[id number] FATIMAH Rx#: [id number] Intake, IV Titration 900 900 75 Amount Sodium Chloride 0.9% 1, 900 900 75 000 ml @ 75 mls/hr IV . [id number] FATIMAH Rx#:[id number] Oral 200 Tube Feeding 50 Output: Urine 1390 885 50 Other: Voiding Method Indwelling Catheter Indwelling Catheter Indwelling Catheter # Bowel Movements 1 1 1 ABP, PAP, CO, CI - Last Documented Arterial Blood Pressure 78/53 Pulmonary Artery Pressure 22/11 Cardiac Output 5.2 Cardiac Index 2.4 - Exam CONSTITUTIONAL: Appears somewhat comfortable, cooperative, no acute distress, the patient is currently on room air oxygen RESPIRATORY: Lungs sounds diminished bilaterally. Respirations even, nonlabored. CARDIOVASCULAR: S1, S2 present. Regular rate and rhythm, sinus rhythm on telemetry. Sternum stable. Palpable peripheral pulses bilaterally. Trace bilateral lower extremity edema present. No calf pain or tenderness noted. Heart hugger in place with patient demonstrating appropriate use. Antiembolism stockings, SCDs present. GASTROINTESTINAL: Abdomen soft, slightly tender to palpation, nondistended. Hypoactive bowel sounds present 4 quadrants. . Positive flatus, positive loose stool GENITOURINARY: Alvarado present draining clear, yellow urine. Output overnight 20-40 mL per hour, 955 mL in the last 24 hours INTEGUMENTARY: Skin is warm and dry with evidence of good perfusion. Anterior chest incision well approximated and covered with dry intact dressing. Left lower extremity EVH site well approximated without redness or drainage. NEUROLOGIC: Cranial nerves II through XII intact MUSKULOSKELETAL: Able to move all extremities, strength equal bilaterally, gait normal PSYCHIATRIC: Alert and oriented to person place and time, appropriate affect, intact judgment and insight INVASIVE LINES AND TUBES: Chest tubes have been removed and the Alvarado catheter remains in place. - Labs CBC & Chem 7: 10/02/23 04:02 10/02/23 04:02 Labs: Abnormal Lab Results - Last 24 Hours (Table) 10/01/23 10/01/23 10/01/23 Range/Units 11:52 17:21 20:28 RBC (4.30-5.90) m/uL Hgb (13.0-17.5) gm/dL Hct (39.0-53.0) % Plt Count (150-450) k/uL Lymphocytes # (1.0-4.8) k/uL Sodium (137-145) mmol/L Carbon Dioxide (22-30) mmol/L BUN (9-20) mg/dL Glucose (74-99) mg/dL POC Glucose (mg/dL) 126 H 135 H 143 H (70-110) mg/dL Calcium (8.4-10.2) mg/dL Magnesium (1.6-2.3) mg/dL Total Bilirubin (0.2-1.3) mg/dL AST (17-59) U/L Total Protein (6.3-8.2) g/dL Albumin (3.5-5.0) g/dL 10/01/23 10/02/23 10/02/23 Range/Units 21:12 04:02 04:02 RBC 2.96 L (4.30-5.90) m/uL Hgb 9.6 L (13.0-17.5) gm/dL Hct 28.1 L (39.0-53.0) % Plt Count 120 L (150-450) k/uL Lymphocytes # 0.7 L (1.0-4.8) k/uL Sodium 129 L (137-145) mmol/L Carbon Dioxide 21 L (22-30) mmol/L BUN 40 H (9-20) mg/dL Glucose 108 H (74-99) mg/dL POC Glucose (mg/dL) 130 H (70-110) mg/dL Calcium 7.8 L (8.4-10.2) mg/dL Magnesium 2.7 H (1.6-2.3) mg/dL Total Bilirubin 1.6 H (0.2-1.3) mg/dL AST 85 H (17-59) U/L Total Protein 5.1 L (6.3-8.2) g/dL Albumin 2.6 L (3.5-5.0) g/dL 10/02/23 Range/Units 06:40 RBC (4.30-5.90) m/uL Hgb (13.0-17.5) gm/dL Hct (39.0-53.0) % Plt Count (150-450) k/uL Lymphocytes # (1.0-4.8) k/uL Sodium (137-145) mmol/L Carbon Dioxide (22-30) mmol/L BUN (9-20) mg/dL Glucose (74-99) mg/dL POC Glucose (mg/dL) 125 H (70-110) mg/dL Calcium (8.4-10.2) mg/dL Magnesium (1.6-2.3) mg/dL Total Bilirubin (0.2-1.3) mg/dL AST (17-59) U/L Total Protein (6.3-8.2) g/dL Albumin (3.5-5.0) g/dL Assessment and Plan Plan: Postop day #5, status post aortic valve replacement, single-vessel bypass grafting (SVG to PDA), left atrial appendage ligation, and replacement of ascending aorta with 32 mm tube graft. The patient is hemodynamically stable and all of the chest tubes have been removed and the patient is ambulating and using the incentive spirometer. Routine postoperative ventilator management, S/P extubation, September 28, 2023. Patient is currently on room air oxygen Postoperative atrial fibrillation, currently on amiodarone. The current rhythm is sinus and the patient is currently on oral amiodarone and beta-blockers. He is also on anticoagulation. He is currently on amiodarone 400 mg p.o. twice a day, metoprolol 25 mg twice a day and the patient is also on Arixtra 2.5 mg p.o. daily. He remains normal sinus rhythm Acute kidney injury, creatinine is on the rise and nephrology on the case, creatinine is improving and the patient's creatinine is currently down to 1.19 Acute hyponatremia, stable with a sodium level of 129, improved compared to yesterday Acute leukocytosis, stable and white cell count is also improved down to 8.7 Lactic acidosis, improving History of Hirschsprung's disease with ongoing issues with constipation and bowel dysfunction. CAT scan of the abdomen and pelvis that was done on showed rectal catheter in place extending to the left colon. Scattered fecal material within the fluid in the ascending left colon. Large stool burden in the right colon. The patient remains on lactulose and soapsuds enema was given yesterday and he remains on Senokot and diucosate Congenital calcific bicuspid aortic valve. Coronary artery disease. History of hypertension. History of hyperlipidemia. Postoperative anemia, expected outcome of surgery. Plan Overall pulmonary status is stable. The patient is currently on room air oxygen Chest tubes have been removed Cardiac rhythm is sinus and the patient will be kept on a combination of amiodarone 400 mg twice a day and metoprolol and the patient is also on Arixtra 2.5 mg p.o. daily Continue Plavix and aspirin Monitor renal function and avoid any nephrotoxic agents including nonsteroidal anti-inflammatory medication and the patient was taken off the Toradol, creatinine improving Lactic acid level improved White cell count improved Consider the addition of castor oil which has helped this patient's condition in the past Moderate abdominal pain and distention Continue lactulose General surgery is on the case Continue Lipitor Increase mobility and ambulation Will continue to follow
[2023-10-02] MEDS ORDERED: POTASSIUM CHLORIDE 10 MEQ in WATER FOR INJECTION 1 100ML.BAG IVPB SCH (09:00)
--- NOTE | 2023-10-02 10:43 | P.PN ---
Subjective Patient is seen in follow-up for acute kidney injury. Renal function better. Sodium level also improved. Having abdominal discomfort and loose bowel movements. Surgery consulted. Denies chest pain or shortness of breath. Vital signs are stable. General: No acute distress. HEENT: Head exam is unremarkable. LUNGS: No audible rhonchi or wheezes. HEART: Rate and Rhythm are regular. ABDOMEN: Distention noted. Tender to touch. EXTREMITITES: Trace edema. Objective - Vital Signs Vital signs: Vital Signs Temp 98.3 F 10/02/23 08:00 Pulse 84 10/02/23 10:00 Resp 29 H 10/02/23 10:00 BP 123/66 10/02/23 10:00 Pulse Ox 97 10/02/23 10:00 FiO2 40 09/28/23 09:09 Intake & Output 10/01/23 10/02/23 10/02/23 18:59 06:59 18:59 Intake Total 1025 1100 200 Output Total 1390 885 300 Balance -365 215 -100 Weight 98.2 kg 93.5 kg Intake: IV 75 50 D5-0.45% NaCl with KCl 75 20Meq/l 1,000 ml @ 75 mls /hr IV .[id number] [facility] Rx#: [id number] Sodium Chloride 0.9% 1, 50 000 ml @ 50 mls/hr IV . Q20H [facility] Rx#:[id number] Intake, IV Titration 900 900 150 Amount Sodium Chloride 0.9% 1, 900 900 150 000 ml @ 50 mls/hr IV . Q20H [facility] Rx#:[id number] Oral 200 Tube Feeding 50 Output: Urine 1390 885 300 Other: Voiding Method Indwelling Catheter Indwelling Catheter Indwelling Catheter # Bowel Movements 1 1 1 ABP, PAP, CO, CI - Last Documented Arterial Blood Pressure 78/53 Pulmonary Artery Pressure 22/11 Cardiac Output 5.2 Cardiac Index 2.4 - Labs CBC & Chem 7: 10/02/23 04:02 10/02/23 04:02 Labs: Abnormal Lab Results - Last 24 Hours (Table) 10/01/23 10/01/23 10/01/23 Range/Units 11:52 17:21 20:28 RBC (4.30-5.90) m/uL Hgb (13.0-17.5) gm/dL Hct (39.0-53.0) % Plt Count (150-450) k/uL Lymphocytes # (1.0-4.8) k/uL Sodium (137-145) mmol/L Carbon Dioxide (22-30) mmol/L BUN (9-20) mg/dL Glucose (74-99) mg/dL POC Glucose (mg/dL) 126 H 135 H 143 H (70-110) mg/dL Calcium (8.4-10.2) mg/dL Magnesium (1.6-2.3) mg/dL Total Bilirubin (0.2-1.3) mg/dL AST (17-59) U/L Total Protein (6.3-8.2) g/dL Albumin (3.5-5.0) g/dL 10/01/23 10/02/23 10/02/23 Range/Units 21:12 04:02 04:02 RBC 2.96 L (4.30-5.90) m/uL Hgb 9.6 L (13.0-17.5) gm/dL Hct 28.1 L (39.0-53.0) % Plt Count 120 L (150-450) k/uL Lymphocytes # 0.7 L (1.0-4.8) k/uL Sodium 129 L (137-145) mmol/L Carbon Dioxide 21 L (22-30) mmol/L BUN 40 H (9-20) mg/dL Glucose 108 H (74-99) mg/dL POC Glucose (mg/dL) 130 H (70-110) mg/dL Calcium 7.8 L (8.4-10.2) mg/dL Magnesium 2.7 H (1.6-2.3) mg/dL Total Bilirubin 1.6 H (0.2-1.3) mg/dL AST 85 H (17-59) U/L Total Protein 5.1 L (6.3-8.2) g/dL Albumin 2.6 L (3.5-5.0) g/dL 10/02/23 Range/Units 06:40 RBC (4.30-5.90) m/uL Hgb (13.0-17.5) gm/dL Hct (39.0-53.0) % Plt Count (150-450) k/uL Lymphocytes # (1.0-4.8) k/uL Sodium (137-145) mmol/L Carbon Dioxide (22-30) mmol/L BUN (9-20) mg/dL Glucose (74-99) mg/dL POC Glucose (mg/dL) 125 H (70-110) mg/dL Calcium (8.4-10.2) mg/dL Magnesium (1.6-2.3) mg/dL Total Bilirubin (0.2-1.3) mg/dL AST (17-59) U/L Total Protein (6.3-8.2) g/dL Albumin (3.5-5.0) g/dL Assessment and Plan Plan: Assessment: 1. Acute kidney injury secondary to ATN secondary to NSAIDs, hemodynamic instability. Creatinine peaked at 2.53 this admission and is 1.19 today. Baseline creatinine 0.8-0.9. No hydronephrosis noted on CT scan. Right kidney not seen. 2. Status post CABG and aortic valve replacement on September 27, 2023. 3. Hyponatremia secondary to acute kidney injury and hypotonic fluid infusion. Improved. 4. Metabolic acidosis secondary to acute kidney injury, lactic acidosis and IV fluids. Better. On oral bicarb. 5. Hypermagnesemia secondary to magnesium supplementation. Improving. 6. Congenital solitary left kidney. 7. History of Hirschsprung's disease. Plan: Decrease rate of normal saline to 50 cc an hour. Maintain fluid restriction. Encouraged oral intake. Avoid nephrotoxins, including nonsteroidals. Continue to monitor renal function and urine output. Await surgery recommendations. Check urinalysis.
--- NOTE | 2023-10-02 11:23 | XR ---
EXAMINATION TYPE: XR KUB portable DATE OF EXAM: 10/02/2023 6:05 AM CLINICAL INDICATION:Male, 58 years old with history of eval colon; COMPARISON: 09/30/2023 TECHNIQUE: One radiographic view of the abdomen was obtained. FINDINGS/IMPRESSION: Gaseous distended colon predominantly in the left upper quadrant. Findings similar to CT on 09/30/2023 . Correlate for ileus.
[2023-10-02 11:42] LABS: Glucose,Whole Blood 104 mg/dL (70-110)
[2023-10-02 12:38] LABS: Amorphous Sediment,Urine Rare /hpf; Appearance,Urine Clear (Clear); Bilirubin,Urine Negative (Negative); Blood,Urine Moderate (Negative); Color,Urine Yellow; Glucose,Urine (UA) Negative (Negative); Ketones,Urine Negative (Negative); Leukocyte Esterase,Urine Negative (Negative); Mucus,Urine Rare /hpf; Nitrite,Urine Negative (Negative); Protein,Urine 1+ (Negative); RBC,Urine 6 /hpf (0-5); Specific Gravity,Urine 1.024 (1.001-1.035); Squamous Epithelial Cell,Urine 1 /hpf (0-4); Urobilinogen,Urine <2.0 mg/dL (<2.0); WBC,Urine 8 /hpf (0-5)
--- NOTE | 2023-10-02 12:38 | XR ---
EXAMINATION TYPE: XR chest 1V portable DATE OF EXAM: 10/02/2023 Comparison: 10/01/2023 Clinical History: 58-year-old male post cardiac surgery Findings: Median sternotomy wires and prosthetic aortic valve. Removal left-sided chest tube. No appreciable pn eumothorax. Heart remains mildly enlarged. Diffuse interstitial and patchy left basilar opacity persi sts. Impression: Ongoing mild interstitial pulmonary edema and patchy left basilar opacity, likely postoperative atele ctasis. Removal of left-sided chest tube without appreciable pneumothorax.
[2023-10-02 13:12] LABS: Glucose,Whole Blood 107 mg/dL (70-110)
--- NOTE | 2023-10-02 13:14 | P.PN ---
Subjective Progress Note Date: 10/02/23 CHIEF COMPLAINT: Status post aortic valve replacement HISTORY OF PRESENT ILLNESS: Surgical service is following in regards to patient's constipation. Patient has had liquidy stools after the enemas. Abdo men remains distended and painful. No nausea or vomiting. KUB x-ray reveals gaseous distended colon predominate in the left upper quadrant. Findings similar to CT on 09/30/2023. Correlate for ileus. WBC 8.7 Hgb 9.6 platelets 120 sodium 129 PHYSICAL EXAM: VITAL SIGNS: Reviewed GENERAL: Well-developed in no acute distress. HEENT: No sclera icterus. Extraocular movements grossly intact. Moist buccal mucosa. Head is atraumatic, normocephalic. Hears conversational speech. No nasal drainage. NECK: Supple without lymphadenopathy. CHEST: Non-labored respirations and equal bilateral excursions. CARDIOVASCULAR: Palpable 2+ radial pulses. ABDOMEN: Distended. More firm. Diffuse tender notes with palpation. Rectal exam no stool noted in vault MUSCULOSKELETAL: No clubbing or cyanosis. NEUROLOGIC: No focal or lateralizing signs. Cranial nerves II through XII grossly intact. PSYCH: Appropriate affect. Alert and oriented to person, place and time. SKIN: Well perfused. Good skin turgor. ASSESSMENT: 1. Constipation 2. Ileus 3. Aortic valve replacement 4. Hirschsprung's disease 5. Hyponatremia 6. Acute kidney injury PLAN: -Continue lactulose -Agree with repeating soapsuds enemas -Agree with rectal tube -Continue to correct hyponatremia -Place patient n.p.o. except for ice chips and popsicles Physician Java Developer Consultant note has been reviewed by physician. Signing provider agrees with the documented findings, assessment, and plan of care. Objective - Vital Signs Vital signs: Vital Signs Temp 98.3 F 10/02/23 08:00 Pulse 87 10/02/23 11:00 Resp 29 H 10/02/23 11:00 BP 107/58 10/02/23 11:00 Pulse Ox 92 L 10/02/23 11:00 FiO2 40 09/28/23 09:09 Intake & Output 10/01/23 10/02/23 10/02/23 18:59 06:59 18:59 Intake Total 1025 1100 300 Output Total 1390 885 500 Balance -365 215 -200 Weight 98.2 kg 93.5 kg Intake: IV 75 150 D5-0.45% NaCl with KCl 75 20Meq/l 1,000 ml @ 75 mls /hr IV .[id number] [facility] Rx#: [id number] Sodium Chloride 0.9% 1, 150 000 ml @ 50 mls/hr IV . Q20H [facility] Rx#:[id number] Intake, IV Titration 900 900 150 Amount Sodium Chloride 0.9% 1, 900 900 150 000 ml @ 50 mls/hr IV . Q20H [facility] Rx#:[id number] Oral 200 Tube Feeding 50 Output: Urine 1390 885 500 Other: Voiding Method Indwelling Catheter Indwelling Catheter Indwelling Catheter # Bowel Movements 1 1 1 ABP, PAP, CO, CI - Last Documented Arterial Blood Pressure 78/53 Pulmonary Artery Pressure 22/11 Cardiac Output 5.2 Cardiac Index 2.4 - Labs CBC & Chem 7: 10/02/23 04:02 10/02/23 04:02 Labs: Abnormal Lab Results - Last 24 Hours (Table) 10/01/23 10/01/23 10/01/23 Range/Units 17:21 20:28 21:12 RBC (4.30-5.90) m/uL Hgb (13.0-17.5) gm/dL Hct (39.0-53.0) % Plt Count (150-450) k/uL Lymphocytes # (1.0-4.8) k/uL Sodium (137-145) mmol/L Carbon Dioxide (22-30) mmol/L BUN (9-20) mg/dL Glucose (74-99) mg/dL POC Glucose (mg/dL) 135 H 143 H 130 H (70-110) mg/dL Calcium (8.4-10.2) mg/dL Magnesium (1.6-2.3) mg/dL Total Bilirubin (0.2-1.3) mg/dL AST (17-59) U/L Total Protein (6.3-8.2) g/dL Albumin (3.5-5.0) g/dL Urine Protein (Negative) Urine Blood (Negative) Urine RBC (0-5) /hpf Urine WBC (0-5) /hpf Amorphous Sediment (None) /hpf Urine Mucus (None) /hpf 02/27/24 02/27/24 02/27/24 Range/Units 04:02 04:02 06:40 RBC 2.96 L (4.30-5.90) m/uL Hgb 9.6 L (13.0-17.5) gm/dL Hct 28.1 L (39.0-53.0) % Plt Count 120 L (150-450) k/uL Lymphocytes # 0.7 L (1.0-4.8) k/uL Sodium 129 L (137-145) mmol/L Carbon Dioxide 21 L (22-30) mmol/L BUN 40 H (9-20) mg/dL Glucose 108 H (74-99) mg/dL POC Glucose (mg/dL) 125 H (70-110) mg/dL Calcium 7.8 L (8.4-10.2) mg/dL Magnesium 2.7 H (1.6-2.3) mg/dL Total Bilirubin 1.6 H (0.2-1.3) mg/dL AST 85 H (17-59) U/L Total Protein 5.1 L (6.3-8.2) g/dL Albumin 2.6 L (3.5-5.0) g/dL Urine Protein (Negative) Urine Blood (Negative) Urine RBC (0-5) /hpf Urine WBC (0-5) /hpf Amorphous Sediment (None) /hpf Urine Mucus (None) /hpf 10/02/23 Range/Units 12:01 RBC (4.30-5.90) m/uL Hgb (13.0-17.5) gm/dL Hct (39.0-53.0) % Plt Count (150-450) k/uL Lymphocytes # (1.0-4.8) k/uL Sodium (137-145) mmol/L Carbon Dioxide (22-30) mmol/L BUN (9-20) mg/dL Glucose (74-99) mg/dL POC Glucose (mg/dL) (70-110) mg/dL Calcium (8.4-10.2) mg/dL Magnesium (1.6-2.3) mg/dL Total Bilirubin (0.2-1.3) mg/dL AST (17-59) U/L Total Protein (6.3-8.2) g/dL Albumin (3.5-5.0) g/dL Urine Protein 1+ H (Negative) Urine Blood Moderate H (Negative) Urine RBC 6 H (0-5) /hpf Urine WBC 8 H (0-5) /hpf Amorphous Sediment Rare H (None) /hpf Urine Mucus Rare H (None) /hpf
--- NOTE | 2023-10-02 15:20 | P.CONS ---
History of Present Illness - Reason for Consult Consult date: 10/02/23 Constipation, Hirschsprung's disease Requesting physician: Hebert Thorne - Chief Complaint Aortic stenosis, valvular disease - History of Present Illness This is a pleasant 58-year-old male with a past medical history including Hirschsprung's disease diagnosed at 6 weeks old who underwent colostomies, large intestine resection, herniated bowel surgery who suffers from chronic constipation who was found to have congenital bicuspid calcific aortic stenosis, ascending aortic aneurysm and coronary artery disease. He underwent aortic valve replacement, replacement of ascending aorta and CABG on 09/27/2023. Patient has been complaining of abdominal distention, bloating, and nausea without having any bowel movement for the last 8 days. States his normal bowel pattern is every 3 to 5 days. He states he has not had a bowel movement since 3 days prior to coming in for his surgery. He was having difficulty even passing gas. He initially had a rectal tube placed, he is having watery liquid stool however abdominal x-ray showing gaseous distention of colon predominantly left upper quadrant similar to CT on 09/30/2023. Correlate for ileus. CT abdomen pelvis on 09/30/2023 reported rectal catheter in place with fluid extending throughout the left colon. Scattered feces identified within this fluid. Large stool burden within the right colon. Gastroenterology consulted for constipation. Patient continues to have abdominal discomfort and cramping, he states he is feeling very bloated and gassy. Some nausea but no vomiting. He has been NPO. He had multiple watery stools up to 5 yesterday and 3 through the night, but no solid formed stool. He was seen by general surgery who had started him on lactulose 30 g 3 times daily, Dulcolax suppository was also added. Review of Systems REVIEW OF SYSTEMS: CARDIOPULMONARY: No chest pain or shortness of breath. Gastrointestinal: Abdominal pain and bloating. Nausea no vomiting. No hematemesis, coffee-ground emesis. No rectal bleeding, or melena. GENITOURINARY: No dysuria or hematuria. MUSCULOSKELETAL: Reports normal range of motion. SKIN: No rashes. No jaundice. ENDOCRINE: No chills, fevers. No excessive weight gain or loss. No polydipsia or polyuria. PSYCHIATRIC: Unremarkable. NEUROLOGY: No change in mental status. Denies dizziness, headache. ENT: Vision unremarkable. CONSTITUTIONAL: No recent weight loss. No fever, chills, night sweats.: I cannot Past Medical History Past Medical History: Chest Pain / Angina, COPD, Hearing Disorder / Deafness, Hypertension Additional Past Medical History / Comment(s): Hirschsprung's disease, constipation, aortic valve stenosis, SOB, vertigo, ascending aortic aneurysm, bacteremia 3 yrs. ago, hepatitis C-successful treatment, born w/one kidney, deaf right ear, neck, shoulders & back pain, neuropathy feet, blood infection 2019 History of Any Multi-Drug Resistant Organisms: None Reported Past Surgical History: Bowel Resection, Ear Surgery, Heart Catheterization, Orthopedic Surgery Additional Past Surgical History / Comment(s): WM, right inner ear surg/graft,ORIF left ankle, multiple surgeries for Hirschsprung's as a baby Past Anesthesia/Blood Transfusion Reactions: No Reported Reaction Smoking Status: Former smoker - Past Family History Father Family Medical History: Coronary Artery Disease (CAD) Mother Family Medical History: Cancer Medications and Allergies Home Medications Medication Instructions Recorded Confirmed Type Aspirin [Adult Low Dose Aspirin EC] 81 mg PO HS 08/27/23 09/27/23 History Cholecalciferol [Vitamin D3 (125 50,000 units PO Q30D 08/27/23 09/27/23 History Mcg = 5000 Iu)] Escitalopram [Lexapro] 10 mg PO HS 08/27/23 09/27/23 History lisinopriL [Zestril] 5 mg PO HS 08/27/23 09/27/23 History traZODone HCL 100 mg PO HS 08/27/23 09/27/23 History Atorvastatin [Lipitor] 40 mg PO HS 09/20/23 09/27/23 History Metoprolol Succinate (ER) [Toprol 25 mg PO HS 09/20/23 09/27/23 History Xl] Allergies Allergy/AdvReac Type Severity Reaction Status Date / Time No Known Allergies Allergy Verified 09/27/23 06:38 Physical Exam Vitals: Vital Signs Temp Pulse Resp BP Pulse Ox 10/02/23 09:00 90 30 H 123/61 94 L 10/02/23 08:41 87 10/02/23 08:34 89 96 10/02/23 08:00 98.3 F 87 29 H 114/68 95 10/02/23 07:00 89 23 109/70 97 10/02/23 06:07 92 19 109/70 98 10/02/23 05:00 81 20 109/75 100 10/02/23 04:00 98.0 F 84 22 109/70 100 10/02/23 03:00 89 24 105/70 10/02/23 02:00 87 21 102/62 93 L 10/02/23 01:00 86 24 108/67 94 L 10/02/23 00:00 97.9 F 88 22 115/73 95 10/01/23 23:00 86 25 H 102/73 95 10/01/23 22:27 90 23 102/73 10/01/23 22:00 85 26 H 104/73 98 10/01/23 21:00 89 22 112/81 99 10/01/23 20:00 98.0 F 92 25 H 107/74 97 10/01/23 19:00 88 21 107/74 98 10/01/23 18:00 85 21 140/72 100 10/01/23 17:00 90 27 H 140/72 98 10/01/23 16:00 86 19 124/71 98 10/01/23 15:27 86 25 H 98 10/01/23 15:19 84 10/01/23 15:04 81 10/01/23 14:00 86 27 H 115/65 97 10/01/23 13:00 80 21 102/55 97 10/01/23 12:00 97.9 F 75 26 H 102/55 98 10/01/23 11:00 79 25 H 108/59 98 10/01/23 10:10 88 26 H 110/56 Intake and Output 10/01/23 10/02/23 10/02/23 22:59 06:59 14:59 Intake Total 800 675 150 Output Total 940 620 250 Balance -140 55 -100 Intake: Intake, IV Titration 600 675 150 Amount Sodium Chloride 0.9% 1, 600 675 150 000 ml @ 50 mls/hr IV . Q20H [facility] Rx#:[id number] Oral 200 Output: Urine 940 620 250 Other: Voiding Method Indwelling Catheter Indwelling Catheter Indwelling Catheter # Bowel Movements 1 1 1 Weight 93.5 kg General appearance: The patient is alert, oriented, appears in no acute distress. HET: Head is normocephalic and atraumatic. Conjunctiva pink. Sclera anicteric. Neck: Supple without lymphadenopathy. Trachea midline. Heart: Regular. Chest: Dressing clean dry and intact. Lungs: Equal expansion, normal respiratory effort. Abdomen: Soft, tympanic, mildly distended, bowel sounds hypoactive. Skin: No rashes. No jaundice. Extremities: Normal skin color and turgor. No pedal edema. Neurological: No focal deficits. Alert and oriented x3. Results CBC & Chem 7: 10/02/23 04:02 10/02/23 04:02 Labs: Abnormal Lab Results - Last 24 Hours (Table) 10/01/23 10/01/23 10/01/23 Range/Units 11:52 17:21 20:28 RBC (4.30-5.90) m/uL Hgb (13.0-17.5) gm/dL Hct (39.0-53.0) % Plt Count (150-450) k/uL Lymphocytes # (1.0-4.8) k/uL Sodium (137-145) mmol/L Carbon Dioxide (22-30) mmol/L BUN (9-20) mg/dL Glucose (74-99) mg/dL POC Glucose (mg/dL) 126 H 135 H 143 H (70-110) mg/dL Calcium (8.4-10.2) mg/dL Magnesium (1.6-2.3) mg/dL Total Bilirubin (0.2-1.3) mg/dL AST (17-59) U/L Total Protein (6.3-8.2) g/dL Albumin (3.5-5.0) g/dL 10/01/23 10/02/23 10/02/23 Range/Units 21:12 04:02 04:02 RBC 2.96 L (4.30-5.90) m/uL Hgb 9.6 L (13.0-17.5) gm/dL Hct 28.1 L (39.0-53.0) % Plt Count 120 L (150-450) k/uL Lymphocytes # 0.7 L (1.0-4.8) k/uL Sodium 129 L (137-145) mmol/L Carbon Dioxide 21 L (22-30) mmol/L BUN 40 H (9-20) mg/dL Glucose 108 H (74-99) mg/dL POC Glucose (mg/dL) 130 H (70-110) mg/dL Calcium 7.8 L (8.4-10.2) mg/dL Magnesium 2.7 H (1.6-2.3) mg/dL Total Bilirubin 1.6 H (0.2-1.3) mg/dL AST 85 H (17-59) U/L Total Protein 5.1 L (6.3-8.2) g/dL Albumin 2.6 L (3.5-5.0) g/dL 10/02/23 Range/Units 06:40 RBC (4.30-5.90) m/uL Hgb (13.0-17.5) gm/dL Hct (39.0-53.0) % Plt Count (150-450) k/uL Lymphocytes # (1.0-4.8) k/uL Sodium (137-145) mmol/L Carbon Dioxide (22-30) mmol/L BUN (9-20) mg/dL Glucose (74-99) mg/dL POC Glucose (mg/dL) 125 H (70-110) mg/dL Calcium (8.4-10.2) mg/dL Magnesium (1.6-2.3) mg/dL Total Bilirubin (0.2-1.3) mg/dL AST (17-59) U/L Total Protein (6.3-8.2) g/dL Albumin (3.5-5.0) g/dL Comments: KUB x-ray reports gaseous distended colon predominantly in the left upper quadrant. Findings similar to CT on 09/30/2023. Correlate for ileus. CT abdomen and pelvis without contrast reports rectal catheter in place with fluid extending throughout the left colon. Scattered feces identified within this fluid. Large stool burden within the right colon. Left thoracotomy tube with trace pneumothorax. Small right trace left pleural effusion consolidation changes in the left lung base could represent superimposed infection versus atelectasis Assessment and Plan (1) Constipation Narrative/Plan: 58-year-old male with a history of Hirschsprung's with chronic constipation with a normal bowel pattern of every 3 to 5 days. Patient came in and underwent recent aortic valve replacement and CABG on 09/27/2023. No bowel movement in 8 d ays. Worsening constipation secondary to surgery. Concerns for stool impaction and ileus. Gastroenterology consulted, cardiothoracic surgery discussing possible decompression colonoscopy however would not recommend that at this point in time is that will be a temporary fix and there will be a reoccurrence. Would recommend continuing with laxatives and daily enemas. Current Visit: Yes Status: Acute Code(s): K59.00 - CONSTIPATION, UNSPECIFIED SNOMED Code(s): 65090762 (2) Hirschsprung's disease Current Visit: Yes Status: Acute Code(s): Q43.1 - HIRSCHSPRUNG'S DISEASE SNOMED Code(s): 631760181 (3) S/P CABG (coronary artery bypass graft) Current Visit: Yes Status: Acute Code(s): Z95.1 - PRESENCE OF AORTOCORONARY BYPASS GRAFT SNOMED Code(s): 086001533 (4) Aortic valve replaced Current Visit: Yes Status: Acute Code(s): Z95.2 - PRESENCE OF PROSTHETIC HEART VALVE SNOMED Code(s): 7790463767243 Plan: 1. Continue symptomatic and supportive care 2. Discontinue lactulose, add MiraLAX twice a day 3. Daily soapsuds enema 4. Agree with rectal tube placement 5. Patient may have clear liquid diet 6. Further recommendations forthcoming based on clinical course Thank you for this consultation, we will continue to follow. Dr. Thao Bush I agree with the dictator's note, documented as a scribe by Nolvia Hernandez.
[2023-10-02 17:01] LABS: Glucose,Whole Blood 116 mg/dL (70-110)
[2023-10-02 19:39] LABS: Glucose,Whole Blood 128 mg/dL (70-110)
[2023-10-02] MEDS: polyethylene glycoL 3350 17 GM POWD.PACK PO SCH (20:31)
[2023-10-03 04:35] LABS: HCT 31.4 % (39.0-53.0); HGB 10.7 gm/dL (13.0-17.5); MCH 32.8 pg (25.0-35.0); MCV 96.6 fL (80.0-100.0); Mean Platelet Volume 7.6; Platelet Count 139 k/uL (150-450); RBC 3.25 m/uL (4.30-5.90); RDW 13.9 % (11.5-15.5)
[2023-10-03 04:45] LABS: ALT 43 U/L (4-49); AST 70 U/L (17-59); African American GFR (CKD) >90 (>60 ml/min/1.73 sqM); Albumin 2.3 g/dL (3.5-5.0); Alkaline Phosphatase 122 U/L (38-126); Anion Gap 7 mmol/L; Blood Urea Nitrogen 23 mg/dL (9-20); Calcium 7.7 mg/dL (8.4-10.2); Carbon Dioxide 17 mmol/L (22-30); Chloride 105 mmol/L (98-107); Glucose 98 mg/dL (74-99); Magnesium 2.1 mg/dL (1.6-2.3); Non-African American GFR(CKD) >90 (>60 ml/min/1.73 sqM); Potassium 3.3 mmol/L (3.5-5.1); Sodium 129 mmol/L (137-145); Total Bilirubin 1.7 mg/dL (0.2-1.3)
[2023-10-03 06:09] LABS: Band Neutrophils % 3 %; Lymphocytes # (M) 1.37 k/uL (1.0-4.8); Monocytes # (M) 0.82 k/uL (0-1.0); Neutrophils % (M) 74 %; Nucleated Red Blood Cells 1 /100 WBC (0-0); Total Cells Counted 200; WBC 9.1 k/uL (3.8-10.6)
[2023-10-03 06:11] LABS: Anisocytosis (M) Present
[2023-10-03 06:12] LABS: Polychromasia Present
[2023-10-03] MEDS: POTASSIUM CHLORIDE 10 MEQ in WATER FOR INJECTION 1 100ML.BAG IVPB SCH (06:19)
[2023-10-03 06:43] LABS: Glucose,Whole Blood 108 mg/dL (70-110)
--- NOTE | 2023-10-03 07:13 | XR ---
EXAM: XR Chest, 1 View CLINICAL HISTORY: Postop cardiac surgery TECHNIQUE: Frontal view of the chest. COMPARISON: Chest October 02, 2023. IMPRESSION: Persistent mild appearance of pulmonary edema with more extensive atelectasis with or without infiltration in the lung base. No pleural fluid or pneumothorax.
--- NOTE | 2023-10-03 07:24 | XR ---
EXAM: XR Abdomen, 1 View CLINICAL HISTORY: Constipation, history of Hirschsprung's disease TECHNIQUE: Frontal supine view of the abdomen/pelvis. COMPARISON: October 02, 2023 FINDINGS: Gastrointestinal tract: Gaseous distention of the colon, particularly in the left upper quadrant. No evidence of small bowel obstruction. Bones/joints: No acute findings. IMPRESSION: Gaseous distention of the colon.
--- NOTE | 2023-10-03 07:42 | P.PN ---
Subjective Progress Note Date: 10/03/23 Principal diagnosis: Valvular heart disease The patient is a 58-year-old gentleman who underwent an aortic valve replacement using a bioprosthetic valve along with aortic root replacement and also single- vessel bypass with SVG to PDA. Also he does have hypertension and dyslipidemia and chronic kidney disease and also solitary kidney. October [id number] The patient was seen and evaluated this morning. Hemodynamically he is stable. He has been maintaining normal sinus mechanism. He is on oral anticoagulation. He underwent left atrial appendage ligation during the surgery. His creatinine has gone. He is not hypotensive. He is not on any nephrotoxic medications jeanette arently nephrology consult was placed for further clarification and evaluated the etiology of the renal failure. Beside that he is on beta subhash and he is also on aspirin and Plavix and statin. He does have chronic gastrointestinal disease/on disease. Currently surgeries on the case. The examination is remarkable for regular rhythm with diminished breathing sounds bilaterally and no edema was noted. October 022023 The patient was seen and evaluated this morning. His kidney function has improved. His potassium is marginal. Hemodynamically he continues to be stable was mild sinus tachycardia likely secondary to abdominal discomfort. General surgery on the case and he might need to be disimpacted. Otherwise from the cardiovascular standpoint of view, he is stable. He is on maximize medical treatment. He continues to be on amiodarone which need to be tapered down and on the case. The examination is remarkable for regular rhythm with clear breathing sounds bilaterally and no edema was noted. October [id number] The patient was seen and evaluated this morning. From a cardiovascular standpoint of view, he is a stable but unfortunately he continues to have severe abdominal distention and severe abdominal pain. Gastrointestinal service and surgical service is on the case. The patient would like to be transferred somewhere else. The patient is in full understanding and agreement. Otherwise his potassium has been low and that has been replaced. From a cardiovascular standpoint of view, we'll continue the current medical regimen. Continue workup to transfer the patient or possibly undergo endoscopy here. The examination is remarkable for distended abdomen. Assessment Status post open heart surgery as described above One episode atrial fibrillation currently he is maintaining normal sinus mechanism Acute renal failure of unknown etiology History of colon disease Abdominal discomfort Plan Continue the current medical regimen Workup and intervention regarding the abdominal distention/pain Follow-up with the patient Possible transfer Objective - Vital Signs Vital signs: Vital Signs Temp 97.7 F 10/03/23 04:00 Pulse 90 10/03/23 07:00 Resp 22 10/03/23 07:00 BP 130/71 10/03/23 07:00 Pulse Ox 93 L 10/03/23 07:00 FiO2 40 09/28/23 09:09 Intake & Output 10/02/23 10/03/23 10/03/23 18:59 06:59 18:59 Intake Total 650 750 50 Output Total 620 575 0 Balance 30 175 50 Weight 94.5 kg Intake: IV 500 550 50 Sodium Chloride 0.9% 1, 500 550 50 000 ml @ 50 mls/hr IV . Q20H FATIMAH Rx#:[id number] Intake, IV Titration 150 Amount Sodium Chloride 0.9% 1, 150 000 ml @ 50 mls/hr IV . Q20H FATIMAH Rx#:[id number] Oral 200 Output: Urine 620 575 0 Other: Voiding Method Indwelling Catheter # Bowel Movements 1 1 ABP, PAP, CO, CI - Last Documented Arterial Blood Pressure 78/53 Pulmonary Artery Pressure 22/11 Cardiac Output 5.2 Cardiac Index 2.4 - Labs CBC & Chem 7: 10/03/23 04:05 10/03/23 04:05 Labs: Abnormal Lab Results - Last 24 Hours (Table) 10/02/23 10/02/23 10/02/23 Range/Units 12:01 17:00 19:07 RBC (4.30-5.90) m/uL Hgb (13.0-17.5) gm/dL Hct (39.0-53.0) % Plt Count (150-450) k/uL Nucleated RBCs (0-0) /100 WBC Sodium (137-145) mmol/L Potassium 3.2 L (3.5-5.1) mmol/L Carbon Dioxide (22-30) mmol/L BUN (9-20) mg/dL POC Glucose (mg/dL) 116 H (70-110) mg/dL Calcium (8.4-10.2) mg/dL Total Bilirubin (0.2-1.3) mg/dL AST (17-59) U/L Total Protein (6.3-8.2) g/dL Albumin (3.5-5.0) g/dL Urine Protein 1+ H (Negative) Urine Blood Moderate H (Negative) Urine RBC 6 H (0-5) /hpf Urine WBC 8 H (0-5) /hpf Amorphous Sediment Rare H (None) /hpf Urine Mucus Rare H (None) /hpf 10/02/23 10/03/23 10/03/23 Range/Units 19:37 04:05 04:05 RBC 3.25 L (4.30-5.90) m/uL Hgb 10.7 L (13.0-17.5) gm/dL Hct 31.4 L (39.0-53.0) % Plt Count 139 L (150-450) k/uL Nucleated RBCs 1 H (0-0) /100 WBC Sodium 129 L (137-145) mmol/L Potassium 3.3 L (3.5-5.1) mmol/L Carbon Dioxide 17 L (22-30) mmol/L BUN 23 H (9-20) mg/dL POC Glucose (mg/dL) 128 H (70-110) mg/dL Calcium 7.7 L (8.4-10.2) mg/dL Total Bilirubin 1.7 H (0.2-1.3) mg/dL AST 70 H (17-59) U/L Total Protein 5.0 L (6.3-8.2) g/dL Albumin 2.3 L (3.5-5.0) g/dL Urine Protein (Negative) Urine Blood (Negative) Urine RBC (0-5) /hpf Urine WBC (0-5) /hpf Amorphous Sediment (None) /hpf Urine Mucus (None) /hpf
[2023-10-03] MEDS: fentaNYL (PF) 50 MCG/ML 2 ML AMP IVP PRN (07:52)
--- NOTE | 2023-10-03 07:58 | P.PN ---
Subjective Progress Note Date: 10/03/23 Principal diagnosis: Constipation, ileus This is a pleasant 58-year-old male with a past medical history including Hirschsprung's disease diagnosed at 6 weeks old who underwent colostomies, large intestine resection, herniated bowel surgery who suffers from chronic constipation who was found to have congenital bicuspid calcific aortic stenosis, ascending aortic aneurysm and coronary artery disease. He underwent aortic valve replacement, replacement of ascending aorta and CABG on 09/27/2023. Patient has been complaining of abdominal distention, bloating, and nausea without having any bowel movement for the last 8 days. States his normal bowel pattern is every 3 to 5 days. He states he has not had a bowel movement since 3 days prior to coming in for his surgery. He was having difficulty even passing gas. He initially had a rectal tube placed, he is having watery liquid stool however abdominal x-ray showing gaseous distention of colon predominantly left upper quadrant similar to CT on 09/30/2023. Correlate for ileus. CT abdomen pelvis on 09/30/2023 reported rectal catheter in place with fluid extending throughout the left colon. Scattered feces identified within this fluid. Large stool burden within the right colon. Gastroenterology consulted for constipation. Patient continues to have abdominal discomfort and cramping, he states he is feeling very bloated and gassy. Some nausea but no vomiting. He has been NPO. He had multiple watery stools up to 5 yesterday and 3 through the night, but no solid formed stool. He was seen by general surgery who had started him on lactulose 30 g 3 times daily, Dulcolax suppository was also added. 10/03/2023 Patient seen and examined as a follow-up. He remains in the ICU. Rectal tube had been removed sometime throughout the day or night last night. Throughout the night he had quite a bit of abdominal pain further distention. He had 2 enemas yesterday for which she just had liquids come out no formed stool. He states he has severe abdominal pain, no nausea or vomiting. He is afebrile. No leukocytosis. General surgery is on consult and was contacted through the night told to place rectal tube. He continues to have abdominal pain. Objective - Vital Signs Vital signs: Vital Signs Temp 97.7 F 10/03/23 04:00 Pulse 84 10/03/23 06:00 Resp 31 H 02/28/24 06:00 BP 137/82 10/03/23 06:00 Pulse Ox 94 L 10/03/23 06:00 FiO2 40 09/28/23 09:09 Intake & Output 10/02/23 10/03/23 10/03/23 18:59 06:59 18:59 Intake Total 650 750 50 Output Total 620 575 0 Balance 30 175 50 Weight 94.5 kg Intake: IV 500 550 50 Sodium Chloride 0.9% 1, 500 550 50 000 ml @ 50 mls/hr IV . Q20H FATIMAH Rx#:[id number] Intake, IV Titration 150 Amount Sodium Chloride 0.9% 1, 150 000 ml @ 50 mls/hr IV . Q20H FATIMAH Rx#:[id number] Oral 200 Output: Urine 620 575 0 Other: Voiding Method Indwelling Catheter # Bowel Movements 1 1 ABP, PAP, CO, CI - Last Documented Arterial Blood Pressure 78/53 Pulmonary Artery Pressure 22/11 Cardiac Output 5.2 Cardiac Index 2.4 - Exam General appearance: The patient is alert, oriented, appears in no acute distress. HET: Head is normocephalic and atraumatic. Conjunctiva pink. Sclera anicteric. Neck: Supple without lymphadenopathy. Abdomen: Distended, tender to palpation. Extremities: Normal skin color and turgor. No pedal edema Skin: No rashes, no jaundice Neurological: No focal deficits. Alert and oriented. - Labs CBC & Chem 7: 10/03/23 04:05 10/03/23 04:05 Labs: Abnormal Lab Results - Last 24 Hours (Table) 10/02/23 10/02/23 10/02/23 Range/Units 12:01 17:00 19:07 RBC (4.30-5.90) m/uL Hgb (13.0-17.5) gm/dL Hct (39.0-53.0) % Plt Count (150-450) k/uL Nucleated RBCs (0-0) /100 WBC Sodium (137-145) mmol/L Potassium 3.2 L (3.5-5.1) mmol/L Carbon Dioxide (22-30) mmol/L BUN (9-20) mg/dL POC Glucose (mg/dL) 116 H (70-110) mg/dL Calcium (8.4-10.2) mg/dL Total Bilirubin (0.2-1.3) mg/dL AST (17-59) U/L Total Protein (6.3-8.2) g/dL Albumin (3.5-5.0) g/dL Urine Protein 1+ H (Negative) Urine Blood Moderate H (Negative) Urine RBC 6 H (0-5) /hpf Urine WBC 8 H (0-5) /hpf Amorphous Sediment Rare H (None) /hpf Urine Mucus Rare H (None) /hpf 10/02/23 10/03/23 10/03/23 Range/Units 19:37 04:05 04:05 RBC 3.25 L (4.30-5.90) m/uL Hgb 10.7 L (13.0-17.5) gm/dL Hct 31.4 L (39.0-53.0) % Plt Count 139 L (150-450) k/uL Nucleated RBCs 1 H (0-0) /100 WBC Sodium 129 L (137-145) mmol/L Potassium 3.3 L (3.5-5.1) mmol/L Carbon Dioxide 17 L (22-30) mmol/L BUN 23 H (9-20) mg/dL POC Glucose (mg/dL) 128 H (70-110) mg/dL Calcium 7.7 L (8.4-10.2) mg/dL Total Bilirubin 1.7 H (0.2-1.3) mg/dL AST 70 H (17-59) U/L Total Protein 5.0 L (6.3-8.2) g/dL Albumin 2.3 L (3.5-5.0) g/dL Urine Protein (Negative) Urine Blood (Negative) Urine RBC (0-5) /hpf Urine WBC (0-5) /hpf Amorphous Sediment (None) /hpf Urine Mucus (None) /hpf Assessment and Plan (1) Constipation Narrative/Plan: 58-year-old male with a history of Hirschsprung's with chronic constipation with a normal bowel pattern of every 3 to 5 days. Patient came in and underwent recent aortic valve replacement and CABG on 09/27/2023. No bowel movement in 8 days. Worsening constipation secondary to surgery. Concerns for stool impaction and ileus. Gastroenterology consulted, cardiothoracic surgery discussing possible decompression colonoscopy however would not recommend that at this point in time is that will be a temporary fix and there will be a reoccurrence. Would recommend continuing with laxatives and daily enemas. Current Visit: Yes Status: Acute Code(s): K59.00 - CONSTIPATION, UNSPECIFIED SNOMED Code(s): 04695482 (2) Hirschsprung's disease Current Visit: Yes Status: Acute Code(s): Q43.1 - HIRSCHSPRUNG'S DISEASE SNOMED Code(s): 347316001 (3) Ileus Narrative/Plan: Patient continues to have significant abdominal pain, gaseous distention but no bowel obstruction noted. Will plan for colon decompression, and defer rest of management to general surgery. Current Visit: Yes Status: Acute Code(s): K56.7 - ILEUS, UNSPECIFIED SNOMED Code(s): 052591516 (4) S/P CABG (coronary artery bypass graft) Current Visit: Yes Status: Acute Code(s): Z95.1 - PRESENCE OF AORTOCORONARY BYPASS GRAFT SNOMED Code(s): 162995098 (5) Aortic valve replaced Current Visit: Yes Status: Acute Code(s): Z95.2 - PRESENCE OF PROSTHETIC HEART VALVE SNOMED Code(s): 4947030044484 Plan: 1. Continue symptomatic and supportive care 2. Keep n.p.o. 3. Keep rectal tube in place 4. Give soapsuds enema 5. Patient scheduled for left colon decompression 6. Defer further surgical management to general surgery 7. Defer medical management to primary team and cardiothoracic surgery 8. Patient may require transfer to tertiary center, will defer that to surgical team Thank you for this consultation, we will continue to follow. Dr. Thao Bush I agree with the dictator's note, documented as a scribe by Nolvia Hernandez.
--- NOTE | 2023-10-03 08:10 | P.PN ---
Subjective Progress Note Date: 10/03/23 Principal diagnosis: Congenital bicuspid calcific aortic stenosis, ascending aortic aneurysm, coronary artery disease. Previous medical history of hypertension, hyperlipidemia, congenital solitary kidney, previous bacteremia, previous tobacco dependence, remote history of pneumonia, Hirschsprung's disease with chronic constipation, hepatitis C, anxiety/depression/bipolar/PTSD, previous heroin use, and family history of premature coronary artery disease POD#6 Aortic valve replacement with 27 mm Inspiris bovine pericardial prosthesis, replacement of ascending aorta with 32 mm tube graft, CABG x 1 with saphenous vein graft to posterior descending coronary artery, endovascular vein harvest, ligation of the left atrial appendage with 40 mm AtriCure clip Postoperative acute blood loss anemia and thrombocytopenia, expected given hemodilution and cardiopulmonary bypass pump Paroxysmal atrial fibrillation, a known common occurrence after open heart surgery and not a complication, treated with amiodarone, currently sinus ZHEN, hyponatremia, lactic acidosis, resolving Leukocytosis, likely reactive, resolved The patient was seen and examined this morning sitting up in recliner in the intensive care unit. Complains of abdominal pain, denies shortness of breath although not taking deep breaths due to pain. Has had multiple bowel movements although liquid, still has significant gaseous distention on daily KUB. Seen in conjunction with Dr. Ascencio and Dr. Lindsey Bush, plan is to take patient to endoscopy for colonic decompression which may need serial decompressions. Currently in sinus rhythm and hemodynamically stable. Currently on room air with oxygen saturation in the mid 90s. Chest x-ray, labs reviewed. WBC/lactic acid returned to normal, kidney function improving. Patient has ambulated in the hallway with staff. Objective - Vital Signs Vital signs: Vital Signs Temp 97.7 F 10/03/23 04:00 Pulse 90 10/03/23 07:00 Resp 22 10/03/23 07:00 BP 130/71 10/03/23 07:00 Pulse Ox 93 L 10/03/23 07:00 FiO2 40 09/28/23 09:09 Intake & Output 10/02/23 10/03/23 10/03/23 18:59 06:59 18:59 Intake Total 650 750 50 Output Total 620 575 0 Balance 30 175 50 Weight 94.5 kg Intake: IV 500 550 50 Sodium Chloride 0.9% 1, 500 550 50 000 ml @ 50 mls/hr IV . Q20H FATIMAH Rx#:[id number] Intake, IV Titration 150 Amount Sodium Chloride 0.9% 1, 150 000 ml @ 50 mls/hr IV . Q20H FATIMAH Rx#:[id number] Oral 200 Output: Urine 620 575 0 Other: Voiding Method Indwelling Catheter # Bowel Movements 1 1 ABP, PAP, CO, CI - Last Documented Arterial Blood Pressure 78/53 Pulmonary Artery Pressure 22/11 Cardiac Output 5.2 Cardiac Index 2.4 - Exam CONSTITUTIONAL: Appears very uncomfortable and complaining of abdominal pain RESPIRATORY: Lungs sounds diminished bilaterally. Respirations even, nonlabored. Currently on room air with oxygen saturation 94%. Able to achieve 750 mL on incentive spirometry. Weak cough. CARDIOVASCULAR: S1, S2 present. Regular rate and rhythm, sinus rhythm on telemetry. Sternum stable. Palpable peripheral pulses bilaterally. Trace bilateral lower extremity edema present. No calf pain or tenderness noted. Heart hugger in place with patient demonstrating appropriate use. Antiembolism stockings, SCDs present. GASTROINTESTINAL: Abdomen mostly soft with some area of firmness to left side, tender to palpation, slightly distended, tympanic to percussion. Hypoactive bowel sounds present 4 quadrants. Currently NPO. Positive flatus, positive loose stool GENITOURINARY: Needed straight cath last night, not sure if he voided when up to commode for BM, 1195 mL in the last 24 hours INTEGUMENTARY: Skin is warm and dry with evidence of good perfusion. Anterior chest incision well approximated and covered with dry intact dressing. Left lower extremity EVH site well approximated without redness or drainage. NEUROLOGIC: Cranial nerves II through XII intact MUSKULOSKELETAL: Able to move all extremities, strength equal bilaterally, gait normal PSYCHIATRIC: Alert and oriented to person place and time, appropriate affect, intact judgment and insight - Allied health notes Allied health notes reviewed: nursing - Labs CBC & Chem 7: 10/03/23 04:05 10/03/23 04:05 Labs: Abnormal Lab Results - Last 24 Hours (Table) 10/02/23 10/02/23 10/02/23 Range/Units 12:01 17:00 19:07 RBC (4.30-5.90) m/uL Hgb (13.0-17.5) gm/dL Hct (39.0-53.0) % Plt Count (150-450) k/uL Nucleated RBCs (0-0) /100 WBC Sodium (137-145) mmol/L Potassium 3.2 L (3.5-5.1) mmol/L Carbon Dioxide (22-30) mmol/L BUN (9-20) mg/dL POC Glucose (mg/dL) 116 H (70-110) mg/dL Calcium (8.4-10.2) mg/dL Total Bilirubin (0.2-1.3) mg/dL AST (17-59) U/L Total Protein (6.3-8.2) g/dL Albumin (3.5-5.0) g/dL Urine Protein 1+ H (Negative) Urine Blood Moderate H (Negative) Urine RBC 6 H (0-5) /hpf Urine WBC 8 H (0-5) /hpf Amorphous Sediment Rare H (None) /hpf Urine Mucus Rare H (None) /hpf 10/02/23 10/03/23 10/03/23 Range/Units 19:37 04:05 04:05 RBC 3.25 L (4.30-5.90) m/uL Hgb 10.7 L (13.0-17.5) gm/dL Hct 31.4 L (39.0-53.0) % Plt Count 139 L (150-450) k/uL Nucleated RBCs 1 H (0-0) /100 WBC Sodium 129 L (137-145) mmol/L Potassium 3.3 L (3.5-5.1) mmol/L Carbon Dioxide 17 L (22-30) mmol/L BUN 23 H (9-20) mg/dL POC Glucose (mg/dL) 128 H (70-110) mg/dL Calcium 7.7 L (8.4-10.2) mg/dL Total Bilirubin 1.7 H (0.2-1.3) mg/dL AST 70 H (17-59) U/L Total Protein 5.0 L (6.3-8.2) g/dL Albumin 2.3 L (3.5-5.0) g/dL Urine Protein (Negative) Urine Blood (Negative) Urine RBC (0-5) /hpf Urine WBC (0-5) /hpf Amorphous Sediment (None) /hpf Urine Mucus (None) /hpf - Imaging and Cardiology Chest x-ray: report reviewed, image reviewed Assessment and Plan Assessment: Congenital bicuspid calcific aortic stenosis, status post bioprosthetic aortic valve replacement Ascending aortic aneurysm, status post replacement of ascending aorta Coronary artery disease, status post single-vessel CABG Hypertension Hyperlipidemia, treated, cholesterol 140, LDL 70 Congenital solitary kidney Previous bacteremia 3 years ago Previous tobacco dependence, quit 5 years ago, preoperative FEV1 88% of predicted Remote history of pneumonia Hirschsprung's disease with chronic constipation Hepatitis C, treated Anxiety/depression/bipolar/PTSD Previous heroin use, last use 10 years ago Family history of premature coronary artery disease Postoperative acute blood loss anemia and thrombocytopenia, expected Paroxysmal atrial fibrillation, status post ligation of the left atrial appendage, currently sinus ZHEN secondary to ATN secondary to NSAIDs/brief hypotension Hyponatremia, lactic acidosis, secondary to ZHEN, resolving Leukocytosis, resolved Significant gaseous distention of colon Plan: Continue to maximize medical therapy with low dose aspirin, statin, Plavix, beta-subhash. Will increase beta-subhash therapy as tolerated, increased to 50 mg BID today Continue amiodarone for A-fib prophylaxis, will taper weekly Encourage incentive spirometry use 10 times every hour while awake, bronchodilators per pulmonology Increase activity as tolerated, PT/OT/cardiac rehab consulted Will monitor daily labs and x-rays. Electrolyte replacement per protocol. Avoid nephrotoxins GI/DVT prophylaxis Pain control per current medication regimen, added IV fentanyl for better pain control Insulin management per internal medicine. Patient is not diabetic with A1c 5.4%, but does need tight blood sugar control to prevent infection and promote healing Continue to record strict accurate intake and output Daily weights Daily enemas Patient to go for colonic decompression today by GI, may need serial decompressions Encourage continued smoking and heroin cessation More recommendations to follow as patient progresses
[2023-10-03] MEDS: IV FLUID CONTINUATION 900 ML IV ONE (08:18)
[2023-10-03] MEDS ORDERED: PROPOFOL 10 MG/ML 20 ML VIAL IV ONE (08:19)
--- NOTE | 2023-10-03 08:44 | P.PN ---
Subjective Progress Note Date: 10/03/23 CHIEF COMPLAINT: Colonic distention, Hirschsprung's HISTORY OF PRESENT ILLNESS: The patient is a 58-year-old male status post valvular replacement. Incidentally, patient has pre-existing Hirschsprung di sease with colonic distention and ileus. Patient was taken by GI group for colonic decompression with findings of long segment Hirschsprung's with ischemic colitis involving the rectum to the anal verge. I was present for the colonoscopy assessment. PHYSICAL EXAM: VITAL SIGNS: Reviewed CONSTITUTIONAL: Well developed and in no acute distress. EYES: Conjuctivae without sclera icterus. Extraocular movements grossly intact. HEAD, EARS, NOSE, THROAT: Moist buccal mucosa. Head is atraumatic, normocephalic. Hears conversational speech. No nasal drainage. RESPIRATORY: Non-labored respirations and equal bilateral excursions. CARDIOVASCULAR: Palpable 2+ radial pulses. ABDOMEN: Distended despite decompression. MUSCULOSKELETAL: No gross deformity of the lower extremities noted. No clubb ing. No cyanosis. SKIN: Good skin turgor. Well perfused. NEUROLOGIC: Cranial nerves II through XII grossly intact. No focal or lateralizing signs. CLINICAL LABS: Reviewed. Persistent hyponatremia. ASSESSMENT: 1. Status post aortic valvular replacement 2. Status post colonic decompression with Hirschsprung's, ileus 3. Ischemic colitis involving descending colon to rectum PLAN: 1. Patient presents with complicated colorectal history including Hirschsprung disease involving descending colon to the rectum/anal verge. Recommend colorectal surgeon intervention/transfer to tertiary care center for surgical intervention. Care plan discussed with GI group regarding findings as well and surgical management. Objective - Vital Signs Vital signs: Vital Signs Temp 97.7 F 10/03/23 04:00 Pulse 89 10/03/23 08:00 Resp 24 10/03/23 08:00 BP 130/71 10/03/23 08:00 Pulse Ox 96 10/03/23 08:00 FiO2 40 09/28/23 09:09 Intake & Output 10/02/23 10/03/23 10/03/23 18:59 06:59 18:59 Intake Total 650 750 100 Output Total 620 1150 0 Balance 30 -400 100 Weight 94.5 kg Intake: IV 500 550 100 Sodium Chloride 0.9% 1, 500 550 100 000 ml @ 50 mls/hr IV . Q20H FATIMAH Rx#:[id number] Intake, IV Titration 150 Amount Sodium Chloride 0.9% 1, 150 000 ml @ 50 mls/hr IV . Q20H FATIMAH Rx#:[id number] Oral 200 Output: Urine 620 1150 0 Straight 575 Other: Voiding Method Indwelling Catheter # Bowel Movements 1 1 ABP, PAP, CO, CI - Last Documented Arterial Blood Pressure 78/53 Pulmonary Artery Pressure 22/11 Cardiac Output 5.2 Cardiac Index 2.4 - Labs CBC & Chem 7: 10/03/23 04:05 10/03/23 04:05 Labs: Abnormal Lab Results - Last 24 Hours (Table) 10/02/23 10/02/23 10/02/23 Range/Units 12:01 17:00 19:07 RBC (4.30-5.90) m/uL Hgb (13.0-17.5) gm/dL Hct (39.0-53.0) % Plt Count (150-450) k/uL Nucleated RBCs (0-0) /100 WBC Sodium (137-145) mmol/L Potassium 3.2 L (3.5-5.1) mmol/L Carbon Dioxide (22-30) mmol/L BUN (9-20) mg/dL POC Glucose (mg/dL) 116 H (70-110) mg/dL Calcium (8.4-10.2) mg/dL Total Bilirubin (0.2-1.3) mg/dL AST (17-59) U/L Total Protein (6.3-8.2) g/dL Albumin (3.5-5.0) g/dL Urine Protein 1+ H (Negative) Urine Blood Moderate H (Negative) Urine RBC 6 H (0-5) /hpf Urine WBC 8 H (0-5) /hpf Amorphous Sediment Rare H (None) /hpf Urine Mucus Rare H (None) /hpf 10/02/23 10/03/23 10/03/23 Range/Units 19:37 04:05 04:05 RBC 3.25 L (4.30-5.90) m/uL Hgb 10.7 L (13.0-17.5) gm/dL Hct 31.4 L (39.0-53.0) % Plt Count 139 L (150-450) k/uL Nucleated RBCs 1 H (0-0) /100 WBC Sodium 129 L (137-145) mmol/L Potassium 3.3 L (3.5-5.1) mmol/L Carbon Dioxide 17 L (22-30) mmol/L BUN 23 H (9-20) mg/dL POC Glucose (mg/dL) 128 H (70-110) mg/dL Calcium 7.7 L (8.4-10.2) mg/dL Total Bilirubin 1.7 H (0.2-1.3) mg/dL AST 70 H (17-59) U/L Total Protein 5.0 L (6.3-8.2) g/dL Albumin 2.3 L (3.5-5.0) g/dL Urine Protein (Negative) Urine Blood (Negative) Urine RBC (0-5) /hpf Urine WBC (0-5) /hpf Amorphous Sediment (None) /hpf Urine Mucus (None) /hpf
--- NOTE | 2023-10-03 08:50 | P.PCN ---
Date of Procedure: 10/03/23 Procedure(s) Performed: BRIEF HISTORY: Patient is a 58-year-old pleasant white male with recent history of colitis that replacement along with ascites.replacement and single-vessel bypass surgery a week ago. Postoperatively has been having chronic constipation despite being on laxatives. He has history of Hirschsprung's disease diagnosed as an infant and underwent surgery when he was 6 weeks. Usually has bowel movements every 3-4 days. In the postoperative. Has been having chronic constipation and had no bowel movements for the last 3 days. He was given lactulose, MiraLAX and several enemas with no help. CT of the abdomen done 3 years ago and abdominal x-rays a daily basis showed distended left colon more prominent in the left upper quadrant area. Patient has been having severe abdominal discomfort abdominal pain for the last 24 hours and is scheduled for sigmoidoscopy with decompression today. PROCEDURE PERFORMED: Colonoscopy PREOPERATIVE DIAGNOSIS: Extensive colonic distention involving the left colon with severe chronic constipation. IV sedation per Anesthesia. PROCEDURE: After informed consent was obtained, the patient, was brought into the endoscopy unit. IV sedation was administered by Anesthesia under continuous monitoring. Digital rectal examination was normal. Initially the Olympus CF-160 flexible video colonoscope was then inserted in the rectum, gradually advanced into the cecum. Careful examination was performed. There was small amount of liquid stool noted in the cecum that was thoroughly aspirated. Because of the cecum and ascending colon transverse colon and proximal, descending colon, normal. The left colon especially in the descending colon appeared slightly distended and decompression was performed. There was mucosal erythema with friability and edema involving the distal descending colon sigmoid colon, and rectum with thick adherent stool but no stool impaction noted. These changes were more predominant in the distal rectum. No biopsies were done The patient tolerated the procedure well. Following the decompression patient abdominal was still distended. IMPRESSION: 1. Mucosal erythema and friability with the adherent stool noted all the way from rectum to the distal descending colon extending up to 50 cm from the anal verge suspicious for ischemic colitis from stool retention 2. Mucosa of the cecum and ascending colon and transverse colon as well as proximal ascending colon appeared normal. 3. No stool in the right colon Recommendations: Findings of this examination were discussed with Dr. Scanlon. Given the endoscopic appearance of possible ischemic colitis, recommend transferring to a tertiary center. In the meantime keep him nothing by mouth.
[2023-10-03] MEDS: POTASSIUM BICARBONATE/CIT AC 20 MEQ TABLET.EFF PO ONE (09:25)
[2023-10-03] MEDS: fentaNYL (PF) 50 MCG/ML 2 ML AMP IVP STA (09:34)
[2023-10-03] MEDS: ACETAMINOPHEN IV (For NPO) 1,000 MG in EMPTY BAG 1 BAG IVPB STA (09:40)
[2023-10-03] MEDS: PIPERACILLIN-TAZOBACTAM 3.375 GM in SODIUM CHLORIDE 0.9% 100 ML IVPB SCH (09:56)
[2023-10-03] MEDS ORDERED: MD COMMUNICATION TO PHARMACY 1 EACH MISC PO PRN (09:56)
[2023-10-03] MEDS: METOPROLOL TARTRATE 50 MG TAB PO SCH (09:57)
--- NOTE | 2023-10-03 10:28 | P.PN ---
Subjective Patient is seen in follow-up for acute kidney injury. Renal function better. Sodium level stable at 129. Complaining of abdominal pain. Vital signs are stable. General: No acute distress. HEENT: Head exam is unremarkable. LUNGS: No audible rhonchi or wheezes. HEART: Rate and Rhythm are regular. ABDOMEN: Distention noted. Tender to touch. EXTREMITITES: Trace edema. Objective - Vital Signs Vital signs: Vital Signs Temp 97.5 F L 10/03/23 09:00 Pulse 92 10/03/23 10:00 Resp 32 H 10/03/23 10:00 BP 149/101 10/03/23 10:00 Pulse Ox 93 L 10/03/23 10:00 FiO2 40 09/28/23 09:09 Intake & Output 10/02/23 10/03/23 10/03/23 18:59 06:59 18:59 Intake Total 650 750 450 Output Total 620 1150 0 Balance 30 -400 450 Weight 94.5 kg Intake: IV 500 550 450 Sodium Chloride 0.9% 1, 500 550 250 000 ml @ 100 mls/hr IV . Q10H FATIMAH Rx#:[id number] Intake, IV Titration 150 Amount Sodium Chloride 0.9% 1, 150 000 ml @ 100 mls/hr IV . Q10H FATIMAH Rx#:[id number] Oral 200 Output: Urine 620 1150 0 Straight 575 Other: Voiding Method Indwelling Catheter # Bowel Movements 1 1 ABP, PAP, CO, CI - Last Documented Arterial Blood Pressure 78/53 Pulmonary Artery Pressure 22/11 Cardiac Output 5.2 Cardiac Index 2.4 - Labs CBC & Chem 7: 10/03/23 04:05 10/03/23 04:05 Labs: Abnormal Lab Results - Last 24 Hours (Table) 10/02/23 10/02/23 10/02/23 Range/Units 12:01 17:00 19:07 RBC (4.30-5.90) m/uL Hgb (13.0-17.5) gm/dL Hct (39.0-53.0) % Plt Count (150-450) k/uL Nucleated RBCs (0-0) /100 WBC Sodium (137-145) mmol/L Potassium 3.2 L (3.5-5.1) mmol/L Carbon Dioxide (22-30) mmol/L BUN (9-20) mg/dL POC Glucose (mg/dL) 116 H (70-110) mg/dL Calcium (8.4-10.2) mg/dL Total Bilirubin (0.2-1.3) mg/dL AST (17-59) U/L Total Protein (6.3-8.2) g/dL Albumin (3.5-5.0) g/dL Urine Protein 1+ H (Negative) Urine Blood Moderate H (Negative) Urine RBC 6 H (0-5) /hpf Urine WBC 8 H (0-5) /hpf Amorphous Sediment Rare H (None) /hpf Urine Mucus Rare H (None) /hpf 10/02/23 10/03/23 10/03/23 Range/Units 19:37 04:05 04:05 RBC 3.25 L (4.30-5.90) m/uL Hgb 10.7 L (13.0-17.5) gm/dL Hct 31.4 L (39.0-53.0) % Plt Count 139 L (150-450) k/uL Nucleated RBCs 1 H (0-0) /100 WBC Sodium 129 L (137-145) mmol/L Potassium 3.3 L (3.5-5.1) mmol/L Carbon Dioxide 17 L (22-30) mmol/L BUN 23 H (9-20) mg/dL POC Glucose (mg/dL) 128 H (70-110) mg/dL Calcium 7.7 L (8.4-10.2) mg/dL Total Bilirubin 1.7 H (0.2-1.3) mg/dL AST 70 H (17-59) U/L Total Protein 5.0 L (6.3-8.2) g/dL Albumin 2.3 L (3.5-5.0) g/dL Urine Protein (Negative) Urine Blood (Negative) Urine RBC (0-5) /hpf Urine WBC (0-5) /hpf Amorphous Sediment (None) /hpf Urine Mucus (None) /hpf Assessment and Plan Plan: Assessment: 1. Acute kidney injury secondary to ATN secondary to NSAIDs, hemodynamic instability. Creatinine peaked at 2.53 this admission and is 0.82 today. B aseline creatinine 0.8-0.9. No hydronephrosis noted on CT scan. Right kidney not seen. 2. Status post CABG and aortic valve replacement on September 27, 2023. 3. Hyponatremia secondary to acute kidney injury and hypotonic fluid infusion. Improved. 4. Metabolic acidosis secondary to acute kidney injury, lactic acidosis and IV fluids. 5. Hypermagnesemia secondary to magnesium supplementation. Improving. 6. Congenital solitary left kidney. 7. History of Hirschsprung's disease. 8. Ischemic colitis. Awaits transfer to tertiary center. GI and surgery following. 9. Hypokalemia from poor intake. Plan: Maintain IV fluids. Avoid nephrotoxins, including nonsteroidals. Continue to monitor renal function and urine output. Potassium being replaced.
--- NOTE | 2023-10-03 11:15 | XR ---
EXAMINATION TYPE: XR KUB portable DATE OF EXAM: 10/03/2023 COMPARISON: 10/03/2023 INDICATION: Large intestine post endoscopy TECHNIQUE: Abdomen is examined in supine and upright views FINDINGS: Prominent bowel gas is present which can be related to recent endoscopy dilated air-filled small judy l loops are present. No free air is identified. Mass effect is not evident. Large volume of air in th e left upper quadrant is present. This may be splenic flexure of the large colon or stomach. Appears to be present. Psoas margins are normal. No organomegaly is present. Note is made of infiltrate at the left lung base. Correlate for pneumonia. IMPRESSION: 1. Dilated air-filled small bowel loops which can be related to recent endoscopy. 2. Large volume of air left upper quadrant which may be within the splenic flexure or within the stom ach. 3. Clinical correlation recommended for left lower lobe pneumonia
[2023-10-03 11:31] LABS: Glucose,Whole Blood 117 mg/dL (70-110)
[2023-10-03] MEDS: metroNIDAZOLE-NS PMX 500 MG in SALINE 1 100ML.BAG IVPB SCH (11:34)
--- NOTE | 2023-10-03 13:28 | P.DS ---
Providers Date of admission: 09/27/23 05:44 Expected date of discharge: 10/03/23 Attending physician: Rodri Beach Consults: 09/27/23 13:57 Consult Physician Routine Consulting Provider: Holger Orozco Consult Reason/Comments: Attendance Officer Consult: post cardiac surgery Do you want consulting provider notified?: Yes Consult Physician Routine Consulting Provider: Aiden Ross Consult Reason/Comments: Tree Cutter Consult: post cardiac surgery Do you want consulting provider notified?: Yes Consult Physician Routine Consulting Provider: Jaime Oneil Consult Reason/Comments: med mgmt Do you want consulting provider notified?: Yes 09/30/23 09:50 Consult Physician Urgent Consulting Provider: Aixa Scanlon Consult Reason/Comments: hx hirschprungs w/ current possible bowel obstruction Do you want consulting provider notified?: Yes 10/01/23 06:54 Consult Physician Routine Consulting Provider: Deepak Dey Consult Reason/Comments: ZHEN, hyponatremia post open heart Do you want consulting provider notified?: Yes 10/02/23 09:23 Consult Physician Urgent Consulting Provider: Ritika Bush Consult Reason/Comments: Hirschsprung's disease, constipation Do you want consulting provider notified?: Already Contacted Primary care physician: Jaime Oneil Hospital Course: FINAL DIAGNOSIS: Congenital bicuspid calcific aortic stenosis, status post bioprosthetic aortic valve replacement Ascending aortic aneurysm, status post replacement of ascending aorta Coronary artery disease, status post single-vessel CABG Hypertension Hyperlipidemia, treated, cholesterol 140, LDL 70 Congenital solitary kidney Previous bacteremia 3 years ago Previous tobacco dependence, quit 5 years ago, preoperative FEV1 88% of predicted Remote history of pneumonia Hirschsprung's disease with chronic constipation Hepatitis C, treated Anxiety/depression/bipolar/PTSD Previous heroin use, last use 10 years ago Family history of premature coronary artery disease Postoperative acute blood loss anemia and thrombocytopenia, expected Paroxysmal atrial fibrillation, status post ligation of the left atrial appendage, currently sinus ZHEN secondary to ATN secondary to NSAIDs/brief hypotension Hyponatremia, lactic acidosis, secondary to ZHEN, resolving Leukocytosis, resolved Significant gaseous distention of colon, mucosal erythema and friability with the adherent stool noted all the way from rectum to the distal descending colon extending up to 50 cm from the anal verge suspicious for ischemic colitis from stool retention PRINCIPAL PROCEDURE: Aortic valve replacement with 27 mm Inspiris bovine pericardial prosthesis Replacement of ascending aorta with 32 mm tube graft CABG x 1 with saphenous vein graft to posterior descending coronary artery Endovascular vein harvest Ligation of the left atrial appendage with 40 mm AtriCure clip HISTORY OF PRESENT ILLNESS: This is a 58-year-old gentleman who follows outpatient with Dr. Oneil for internal medicine and Dr. Ham for cardiology. He has a known history of heart murmur and ascending aortic aneurysm, was recently incarcerated in [facility] and while incarcerated was evaluated for aortic stenosis. Echocardiogram demonstrated moderate aortic stenosis, however he had become increasingly symptomatic and transesophageal echocardiogram was performed demonstrating severe aortic stenosis with peak velocity 3.5, calculated aortic valve area 0.84 cm, peak/mean gradient 50/33 mmHg and indexed aortic valve area 0.41 cm/m with dimensionless index 0.23. He was also noted to have dilatation of the ascending aorta both on echo as well as CT scan. Heart catheterization revealed single-vessel coronary artery disease. The patient was referred to Dr. Beach from cardiothoracic surgery. He was recommended to undergo aortic valve replacement with replacement of his ascending aorta as well as single-vessel CABG. The usual perioperative course was discussed in detail with the patient, all risks and benefits were explained, all questions were answered, and consent was obtained to proceed with surgery. The patient scheduled for surgery at the earliest possible date after obtaining dental clearance. HOSPITAL COURSE: The patient was brought to the hospital on 09/27/23, taken to the preoperative area, prepared in the usual fashion, and subsequently taken to the operating room where Dr. Beach performed bioprosthetic aortic valve replacement, replacement of the ascending aorta, and single-vessel CABG. Upon completion of surgery the patient was transferred to the cardiovascular i ntensive care unit where he was recovered and monitored hemodynamically. He was extubated, all lines, tubes, and drips were discontinued when appropriate. The patient did experience brief paroxysmal atrial fibrillation which was successfully treated with amiodarone. He also experienced ZHEN as well as hyponatremia and leukocytosis, all of which were resolved or continue to resolve. Unfortunately this patient continued to have increased belly pain as well as changes in his abdominal x-ray. He was taken for lower endoscopy which revealed mucosal erythema and friability noted all the way from the rectum to the distal descending colon extending up to 50 cm from the anal verge suspicious for ischemic colitis. Discussion took place between gastroenterology, general surgery, and Dr. Ascencio and the patient was felt to be high risk for surgery at [facility] and therefore recommendations were made for transfer to her tertiary center for higher level of care. This was discussed with all consultants and all were in agreement. This was also discussed with the patient as well as his significant other and both were in agreement. Patient to be transferred to [address] with telemetry, admitted to Dr. Ascencio with consultation to general surgeon who Dr. Ascencio has already been in contact with. He was started on IV Zosyn as well as IV Flagyl, and has remained NPO except sips of water for medications. Patient Condition at Discharge: Serious Plan - Discharge Summary Discharge Rx Participant: Yes New Discharge Prescriptions: New Fondaparinux [Arixtra] 2.5 mg SQ DAILY each Aspirin 81 mg PO DAILY tab Amiodarone [Cordarone] 400 mg PO BID tab Ipratropium-Albuterol Nebulize [Duoneb 0.5 mg-3 mg/3 ml Soln] 3 ml INHALATION RT-QID each Metoprolol Tartrate [Lopressor] 50 mg PO BID tab polyethylene glycoL 3350 [Miralax] 17 gm PO BID packet Clopidogrel [Plavix] 75 mg PO DAILY tab Pantoprazole [Protonix] 40 mg PO AC-BRKFST tab Acetaminophen Tab [Tylenol] 650 mg PO Q4HR PRN tab PRN Reason: Fever And/ Or Pain bisacodyL [Dulcolax] 10 mg RECTAL DAILY suppositor Ipratropium-Albuterol Nebulize [Duoneb 0.5 mg-3 mg/3 ml Soln] 3 ml INHALATION RT-Q2H PRN each PRN Reason: Shortness Of Breath Or Wheezing INSULIN ASPART (NovoLOG) [NovoLOG (formulary)] 0 unit SQ ACHS each Sodium Bicarbonate Tab 650 mg PO BID tab Piperacillin-Tazobactam [Zosyn] 3.375 gm IVPB Q8HR each Continue traZODone HCL 100 mg PO HS Atorvastatin [Lipitor] 40 mg PO HS Cholecalciferol [Vitamin D3 (125 Mcg = 5000 Iu)] 50,000 units PO Q30D Discontinued Aspirin [Adult Low Dose Aspirin EC] 81 mg PO HS lisinopriL [Zestril] 5 mg PO HS Escitalopram [Lexapro] 10 mg PO HS Metoprolol Succinate (ER) [Toprol Xl] 25 mg PO HS Discharge Medication List Cholecalciferol [Vitamin D3 (125 Mcg = 5000 Iu)] 50,000 units PO Q30D 08/27/23 [History] traZODone HCL 100 mg PO HS 08/27/23 [History] Atorvastatin [Lipitor] 40 mg PO HS 09/20/23 [History] Acetaminophen Tab [Tylenol] 650 mg PO Q4HR PRN tab 10/03/23 [Rx] Amiodarone [Cordarone] 400 mg PO BID tab 10/03/23 [Rx] Aspirin 81 mg PO DAILY tab 10/03/23 [Rx] Clopidogrel [Plavix] 75 mg PO DAILY tab 10/03/23 [Rx] Fondaparinux [Arixtra] 2.5 mg SQ DAILY each 10/03/23 [Rx] INSULIN ASPART (NovoLOG) [NovoLOG (formulary)] 0 unit SQ ACHS each 10/03/23 [Rx] Ipratropium-Albuterol Nebulize [Duoneb 0.5 mg-3 mg/3 ml Soln] 3 ml INHALATION RT-Q2H PRN each 10/03/23 [Rx] Ipratropium-Albuterol Nebulize [Duoneb 0.5 mg-3 mg/3 ml Soln] 3 ml INHALATION RT-QID each 10/03/23 [Rx] Metoprolol Tartrate [Lopressor] 50 mg PO BID tab 10/03/23 [Rx] Pantoprazole [Protonix] 40 mg PO AC-BRKFST tab 10/03/23 [Rx] Piperacillin-Tazobactam [Zosyn] 3.375 gm IVPB Q8HR each 10/03/23 [Rx] Sodium Bicarbonate Tab 650 mg PO BID tab 10/03/23 [Rx] bisacodyL [Dulcolax] 10 mg RECTAL DAILY suppositor 10/03/23 [Rx] polyethylene glycoL 3350 [Miralax] 17 gm PO BID packet 10/03/23 [Rx] Follow up Appointment(s)/Referral(s): Jaime Oneil MD [Primary Care Provider] - 4 Weeks Kalpesh Ham DO [STAFF PHYSICIAN] - 2 Weeks Rodri Beach MD [STAFF PHYSICIAN] - 4 Weeks Holger Orozco DO [Doctor of Osteopathic Medicine] - 2 Weeks [facility], [NON-STAFF] - 1 Week ([facility] will call you to arrange a visit) Ambulatory/Diagnostic Orders: Complete Blood Count w/diff [LAB.AMB] Time Frame: 3 Days, Location: None Selected Comprehensive Metabolic Panel [LAB.AMB] Time Frame: 3 Days, Location: None Selected Activity/Diet/Wound Care/Special Instructions: DISCHARGE INSTRUCTIONS: 1. No driving for 4 weeks, or until physician gives their ok. 2. The patient should sleep in their own bed, no medical bed needed. 3. Stairs are not an issue. If the bedroom is upstairs, it is advised that the patient go up at night and down in the morning for the first week. Go slowly, using handrail and take 1 step at a time. 4. DEB hose are to be worn for 30 days post surgery or until physician discontinues. 5. Heart hugger is to be worn 100% of the time until physician discontinues.(except when showering) 6. No lifting, pushing, or pulling more than 10 pounds for 12 weeks. The physician will advise of any restriction changes. 7. The patient is expected to continue the prescribed walking program. 8. Continue pain control per as needed orders. 9. Continue with incentive spirometry and splinting/heart hugger until otherwise directed by the physician. 10. Must shower daily using liquid antibacterial soap 11. Routine sternal incision care. No powders, lotions, ointments on incisions. No dressings are necessary on incisions unless they are draining. Dermabond tape is to remain on sternal incision until surgeon follow-up. 12. Please call surgeon/RECONCILIATION MACHINE OPERATOR for temp greater than 101 F or purulent drainage from incisions. 13. You should weigh yourself daily, record and bring log with you to follow up appointments. 14. All prescriptions given by surgeon for 30 days. Refills need to be filled through registered dental hygienist/primary care physician. 15. A Red armband has been placed on the patient. It should be worn for 30 days post discharge from surgery and will be removed by the cardiac surgeons. If an ER visit is necessary, please make sure the number on the Red armband is called before going to ER. 16. You have been referred to and are expected to begin Cardiac Rehab in approximately 4-6 weeks. 17. Quitting smoking is the most important step you can take to improve your health. For additional information and assistance to quit smoking, please call the [place] tobacco quit line (4-855-TDOE-NOW/ ) or online: [email or web address] it-[email or web address] HOME HEALTH SERVICES TO PROVIDE: RN SKILLED HOME CARE SERVICES FOR POST-OP SURGICAL PATIENTS WITH THE FOLLOWING: Coronary Artery Bypass Surgery (CABG), Mitral Valve Replacement/Repair ( MVR), Aortic Valve Replacement/Repair (AVR) RN TO CONTINUE EDUCATION FROM ``ROAD TO A HEALTH HEART PATIENT EDUCATION MANUAL (GIVEN TO PATIENT IN THE HOSPITAL) MEDICATION RECONCILIATION WITH EDUCATION NEEDED ON FIRST HOME VISIT EMPHASIZE IMPORTANCE OF WEARING BREAST SUPPORT/HEART HUGGER ENCOURAGE USE OF INCENTIVE SPIROMETER 10 X EVERY HOUR WHILE AWAKE ENCOURAGE UTILIZATION OF LOWER EXTREMITY COMPRESSION STOCKINGS/DEB HOSE and ELEVATE LEGS ABOVE LEVEL OF HEART WHILE AT REST. ENCOURAGE AMBULATION 3-5x/day INCREASING TOLERATES, WHILE AVOIDING EXTREMES IN TEMPERATURE FREQUENCY: RN TO OPEN THE PATIENT WITHIN 24 HOURS OF DISCHARGE FROM THE HOSPITAL WITH TELEHEALTH [place]STALLED [place] [facility] [place] TO VISIT 2-3 X A WEEK FOR 4 WEEKS ESTABLISHED BY PATIENT NEEDS. LABORATORY: CBC, CMP TO BE DRAWN ON THE THIRD DAY HOME, (RAN STAT) FAX RESULTS TO [phone]. TELEHEALTH PARAMETERS: WEIGHT: NOTIFY MD OF WEIGHT GAIN OF 2 LBS IN 24 HOURS OR 5 LBS IN ONE WEEK HR: NOTIFY MD OF HR <55 BPM OR HR>100 BPM BP: NOTIFY MD IF BP <90/55 OR BP>140/100 O2 SAT: NOTIFY MD IF PO2<93% ON ROOM AIR SEND TELEHEALTH REPORT TO CAN SOLDERER AND CARDIOVASCULAR SURGEON THE FIRST WEEK OF CARE AND THEN BI-WEEKLY. PLEASE ADDITIONALLY COMMUNICATE ANY ABNORMALS AND NEW FINDINGS TO THE SURGEONS OFFICE. Discharge Disposition: DC/TRNS INTERMEDIATE CARE FAC
[2023-10-03 15:22] VITALS: BMI 29.0
--- NOTE | 2023-10-03 15:38 | P.PN ---
Subjective Progress Note Date: 10/03/23 58-year-old male seen in the ICU today, postop day #0,S/P aortic valve replacement with a bovine pericardial prosthesis, replacement of ascending aorta with 32 mm tube graft, bypass grafting x 1, with saphenous vein graft to the posterior descending coronary artery, and ligation of left atrial appendage. The surgeon was Dr. Beach. The patient is seen in the intensive care unit, room 263. Ventilator settings include volume assist-control, rate 12, tidal volume 550, FiO2 100%, PEEP of 5. Blood gases while in the operating room, show pO2 of 230, pCO2 of 35, pH is 7.42. That was on 60%. Blood gases in the ICU have not yet been done. The patient is currently on nitroglycerin at 5 mcg/min, and propofol at 30 mcg/kg/min. The patient is seen in the intensive care unit, having just got back from the operating room. The patient has a history of a congenital bicuspid calcific aortic valve, with aortic valve stenosis. No new laboratory data as yet. Chest x-ray is pending. ABGs, and hemodynamics are pending. In addition to the congenital bicuspid aortic valve, the patient has a history of hyperlipidemia, coronary disease, and hypertension. Outpatient medications include trazodone, Zestril, metoprolol, Lexapro, vitamin D3, Lipitor, and baby aspirin. Progress note dated September 28, 2023. The patient is seen today, room 263. The patient is switched over to pressure support and CPAP, at 5 cm of water each. His ventilator settings include volume assist-control, rate 16, tidal volume 550, 40%, PEEP of 10. Blood gases showed a pO2 154, pCO2 of 43, and pH of 7.37. The patient is on amiodarone at 0.5 mg/min, insulin at 1 unit an hour, lactated Ringer's at 50 cc an hour. Today is postoperative day #1. Labs today include a white count of 16.9, hemoglobin 11.1, hematocrit 32.5, and a platelet count of 93,000. Sodium 138, potassium 4.3, chlorides 109, CO2 23, BUN 19, creatinine 0.9. Calcium is 8.2. Albumin 3.2. Chest x-ray shows some postoperative changes. Left-sided chest tube without pneumothorax. Progress note dated September 29, 2023. The patient is postop day #1. He is doing well. He is seen today in room 263. He is on 2 L of oxygen by nasal cannula. He is getting insulin at 3 units an hour and lactated Ringer's at 30 cc an hour. He is also getting amiodarone at 0.5 mg/min. White count of 16.6, hemoglobin 10.2, hematocrit 28.9, platelet count was 68,000. Sodium 129, potassium 4.5, chlorides 103, CO2 23, BUN 20, creatinine 1.12. Albumin is 3. Chest x-ray shows slightly diminished lung volumes, with some basilar atelectasis. Progress note dated September 30, 2023. 58-year-old patient who is postop day #3, status post bypass surgery, and aortic valve replacement. Currently, the patient is doing relatively well. He is on 3 L. No IV fluids. Current labs include a white count 22.7, hemoglobin 10.4, hematocrit 31.4, and a platelet count of 141,000. Sodium 126, potassium 5, chloride 76, CO2 19, anion gap 11, BUN 39, creatinine 1.90. Calcium is 8.2. Magnesium 2.5. Glucose 173. Chest x-ray is consistent with mild pulmonary vascular congestion. On today's evaluation of 10/01/2023, the patient is postop day #4. The patient underwent a replacement of the ascending aorta with bypass x 1 and aortic valve replacement. He was successfully weaned off the mechanical ventilator and he was extubated. One of his chest tubes are currently out. He did however develop an acute kidney injury. His creatinine is currently up to 2.53 with a BUN of 57 and sodium levels of 124. Nephrology has been involved in his case. Potassium level is at 4.6. Most recent white cell count is at 22.5 with a hemoglobin of 9.9. Chest x-ray from today shows a left-sided chest tube which was not removed. There is also gastric distention and some bowel distention and the patient is known to have Hirschsprung's disease. The patient otherwise is awake and alert. Is currently on oxygen at 2 L with a pulse ox of 97%. He is using the incentive spirometer. Neurologically awake and alert and there is no focal neurological deficit at this point in time. In terms of his A-fib, the patient continues to be on amiodarone. He has been maintained in normal sinus rhythm. He is also on oral anticoagulation. He is also on beta-blockers and the patient is on metoprolol 25 mg twice a day and amiodarone 400 mg twice a day. He is also on Lipitor 40 mg p.o. daily. He remains on aspirin and Plavix. The nonsteroidal anti-inflammatory medications has been discontinued. His surgical wound is dry and clean and intact at this point On 10/02/2023, the patient is postop day #5. The patient underwent replacement of the ascending aorta and aortic valve replacement. The active issue for now is ongoing abdominal distention and pain. He states that his distention and pain is less compared to yesterday. He had several episodes of liquidy small bowel movements yesterday. However, he feels that there is still stool within his colon which is causing abdominal distention. His lactic acid level is dropped significantly and the lactic acid level is currently down to 1.4. At the same time, no nausea. No emesis. No leukocytosis with a white cell count of 8.7. He has no fever. Hemoglobin is at 9.6 with a BUN of 40 and a creatinine of 1.1 and a sodium levels at 129. His cardiac rhythm is sinus. He is awake and alert and is also ambulating. In terms of his bowel issue, the patient receiving lactulose 30 g 3 times a day and is also taking Senokot and Ducosate and he also received soapsuds enema yesterday. The enema did not help him much. Note that he has chronic Hirschsprung's disease and the patient has undergone multiple bowel surgeries in the past. He has scars of previous abdominal surgery over the anterior abdominal wall. He remains on amiodarone 400 mg p.o. twice a day. He remains on metoprolol 25 mg 3 times daily and is also anticoagulated with Arixtra. He is using incentive spirometer. He is ambulating. Blood sugars under adequate control. He remains on aspirin and Plavix. All of the chest tubes have been removed. The chest x-ray from today shows a large gastric bubble along with some atelectatic change in the left lung base. The flat film of the abdomen also shows gastric and colonic distention. On today's evaluation of 10/03/2023, the patient continues to have difficult abdominal pain and distention. He is unable to pass regular bowel movements. He is postop day #6. Undergone replacement of the aortic arch and aortic valve replacement. He does have history of Hirschsprung's disease. Note that, the patient was given several enemas yesterday without any improvement. He was also given MiraLAX and Dulcolax suppositories. Lactulose was discontinued as no major benefit with intake of lactulose. Subsequently, the patient was taken for an endoscopic colonic decompression. The patient was found to have mucosal erythema and friability with adherent stool noted all the way from the rectum to the distal descending colon extending up to 50 cm from the anal verge. There was changes suspicious for ischemic colitis and stool retention. The mucosa of the cecum and ascending colon and transverse colon appeared normal as well as the proximal ascending colon. No stool in the right colon. Based on discussion with GI team and general surgery, the patient was considered to be high risk and recommendations were made to transfer this patient to a tertiary care center. As such, the patient is being transferred out of our hospital today. He remains NPO. He is on IV fluids. He will be also started on broad-spectrum antibiotics with IV ZosynBased on presence of ischemic colitis on his endoscopic findings. White cell count at 9.1 with a hemoglobin 10.7 and a platelet count of 139 and the BUN is at 23 with a creatinine 0.82 and his sodium level is at 129. Cardiac rhythm is sinus. The patient is currently on room air oxygen. Objective - Vital Signs Vital signs: Vital Signs Temp 97.7 F 10/03/23 04:00 Pulse 89 10/03/23 08:00 Resp 24 10/03/23 08:00 BP 130/71 10/03/23 08:00 Pulse Ox 96 10/03/23 08:00 FiO2 40 09/28/23 09:09 Intake & Output 10/02/23 10/03/23 10/03/23 18:59 06:59 18:59 Intake Total 650 750 100 Output Total 620 1150 0 Balance 30 -400 100 Weight 94.5 kg Intake: IV 500 550 100 Sodium Chloride 0.9% 1, 500 550 100 000 ml @ 50 mls/hr IV . Q20H [facility] Rx#:[id number] Intake, IV Titration 150 Amount Sodium Chloride 0.9% 1, 150 000 ml @ 50 mls/hr IV . Q20H [facility] Rx#:[id number] Oral 200 Output: Urine 620 1150 0 Straight 575 Other: Voiding Method Indwelling Catheter # Bowel Movements 1 1 ABP, PAP, CO, CI - Last Documented Arterial Blood Pressure 78/53 Pulmonary Artery Pressure 22/11 Cardiac Output 5.2 Cardiac Index 2.4 - Exam CONSTITUTIONAL: Appears somewhat comfortable, cooperative, no acute distress, the patient is currently on room air oxygen RESPIRATORY: Lungs sounds diminished bilaterally. Respirations even, nonlabored. CARDIOVASCULAR: S1, S2 present. Regular rate and rhythm, sinus rhythm on telemetry. Sternum stable. Palpable peripheral pulses bilaterally. Trace jacinta ateral lower extremity edema present. No calf pain or tenderness noted. Heart hugger in place with patient demonstrating appropriate use. Antiembolism stockings, SCDs present. GASTROINTESTINAL: Abdomen soft, slightly tender to palpation, nondistended. Hypoactive bowel sounds present 4 quadrants. . Positive flatus, positive loose stool GENITOURINARY: Alvarado present draining clear, yellow urine. Output overnight 20-40 mL per hour, 955 mL in the last 24 hours INTEGUMENTARY: Skin is warm and dry with evidence of good perfusion. Anterior chest incision well approximated and covered with dry intact dressing. Left lower extremity EVH site well approximated without redness or drainage. NEUROLOGIC: Cranial nerves II through XII intact MUSKULOSKELETAL: Able to move all extremities, strength equal bilaterally, gait normal PSYCHIATRIC: Alert and oriented to person place and time, appropriate affect, intact judgment and insight INVASIVE LINES AND TUBES: Chest tubes have been removed and the Alvarado catheter remains in place. - Labs CBC & Chem 7: 10/03/23 04:05 10/03/23 04:05 Labs: Abnormal Lab Results - Last 24 Hours (Table) 10/02/23 10/02/23 10/02/23 Range/Units 12:01 17:00 19:07 RBC (4.30-5.90) m/uL Hgb (13.0-17.5) gm/dL Hct (39.0-53.0) % Plt Count (150-450) k/uL Nucleated RBCs (0-0) /100 WBC Sodium (137-145) mmol/L Potassium 3.2 L (3.5-5.1) mmol/L Carbon Dioxide (22-30) mmol/L BUN (9-20) mg/dL POC Glucose (mg/dL) 116 H (70-110) mg/dL Calcium (8.4-10.2) mg/dL Total Bilirubin (0.2-1.3) mg/dL AST (17-59) U/L Total Protein (6.3-8.2) g/dL Albumin (3.5-5.0) g/dL Urine Protein 1+ H (Negative) Urine Blood Moderate H (Negative) Urine RBC 6 H (0-5) /hpf Urine WBC 8 H (0-5) /hpf Amorphous Sediment Rare H (None) /hpf Urine Mucus Rare H (None) /hpf 10/02/23 10/03/23 10/03/23 Range/Units 19:37 04:05 04:05 RBC 3.25 L (4.30-5.90) m/uL Hgb 10.7 L (13.0-17.5) gm/dL Hct 31.4 L (39.0-53.0) % Plt Count 139 L (150-450) k/uL Nucleated RBCs 1 H (0-0) /100 WBC Sodium 129 L (137-145) mmol/L Potassium 3.3 L (3.5-5.1) mmol/L Carbon Dioxide 17 L (22-30) mmol/L BUN 23 H (9-20) mg/dL POC Glucose (mg/dL) 128 H (70-110) mg/dL Calcium 7.7 L (8.4-10.2) mg/dL Total Bilirubin 1.7 H (0.2-1.3) mg/dL AST 70 H (17-59) U/L Total Protein 5.0 L (6.3-8.2) g/dL Albumin 2.3 L (3.5-5.0) g/dL Urine Protein (Negative) Urine Blood (Negative) Urine RBC (0-5) /hpf Urine WBC (0-5) /hpf Amorphous Sediment (None) /hpf Urine Mucus (None) /hpf Assessment and Plan Plan: Postop day # 6, status post aortic valve replacement, single-vessel bypass grafting (SVG to PDA), left atrial appendage ligation, and replacement of ascending aorta with 32 mm tube graft. The patient is hemodynamically stable and all of the chest tubes have been removed and the patient is ambulating and using the incentive spirometer. Routine postoperative ventilator management, S/P extubation, September 28, 2023. Patient is currently on room air oxygen Postoperative atrial fibrillation, currently on amiodarone. The current rhythm is sinus and the patient is currently on oral amiodarone and beta-blockers. He is also on anticoagulation. He is currently on amiodarone 400 mg p.o. twice a day, metoprolol 25 mg twice a day and the patient is also on Arixtra 2.5 mg p.o. daily. He remains normal sinus rhythm Acute kidney injury, recovered Acute hyponatremia, stable with a sodium level of 129 Acute leukocytosis, improved Lactic acidosis, improving History of Hirschsprung's disease with ongoing issues with constipation and bowel dysfunction. Patient did not respond adequately to laxatives and enemas and the patient underwent a colonoscopy today for endoscopic decompression the patient was found to have changes consistent with ischemic colitis. Congenital calcific bicuspid aortic valve. Coronary artery disease. History of hypertension. History of hyperlipidemia. Postoperative anemia, expected outcome of surgery. Plan Overall pulmonary status is stable. The patient is currently on room air oxygen Chest tubes have been removed Cardiac rhythm is sinus and the patient will be kept on a combination of amiodarone 400 mg twice a day and metoprolol and the patient is also on Arixtra 2.5 mg p.o. daily Continue Plavix and aspirin Lactic acid level improved White cell count improved The patient underwent colonoscopy today the patient was found to have changes consistent with ischemic colitis. There was also stool retention all the way from the rectum to the distal descending colon in addition to changes consistent with ischemic colitis. Patient was started on IV Zosyn Ongoing issues with abdominal pain and distention The patient was transferred to a tertiary care center for further evaluation and possible surgical intervention regarding ongoing constipation, Hirschsprung's disease and ischemic colitis.
[2023-10-03 16:26] VITALS: TEMP 97.8
[2023-10-03 18:24] VITALS: BP 120/62; PULSE 80; RESP 26
[2023-10-03] MEDS ORDERED: traZODone HCL 100 MG TAB PO SCH (21:00)
--- NOTE | 2023-10-03 22:52 | PN ---
PROGRESS NOTE DATE OF SERVICE: 10/02/2023 CHIEF COMPLAINT: Aortic valve replacement and ascending aortic aneurysm resection. HISTORY OF PRESENT ILLNESS: This gentleman is having difficulty with apparent gastrointestinal problem. He is being seen by Gastroenterology. Apparently, he had an endoscopy, which suggests erythema of the colon, and possible ischemia. PHYSICAL EXAMINATION: CHEST: Breath sounds are heard bilaterally. CARDIAC: Normal. IMPRESSION: 1. Status post aortic valve replacement and ascending aortic aneurysm resection. 2. Possible ischemic colitis. PLAN: No change in program and await any further recommendations from Gastroenterology. MMODL / IJN: [id number] /
--- NOTE | 2023-10-03 23:14 | PN ---
PROGRESS NOTE DATE OF SERVICE: 10/03/2023 CHIEF COMPLAINT: Ongoing concern about colon pathology following colonoscopy. HISTORY OF PRESENT ILLNESS: This gentleman is doing fairly well and is doing particularly well with regard to his surgery. However, he may have developed an ischemic colitis and arrangements being made for him to be transferred to [facility]. PHYSICAL EXAMINATION: GENERAL: He is awake and alert. CHEST: Clear. CARDIAC: Sinus. IMPRESSION: 1. Possible ischemic colitis. 2. Recent aortic valve replacement and ascending aortic aneurysm resection. PLAN: Preparation for transfer to [facility]. MMODL / IJN: [id number] /
--- NOTE | 2023-10-04 12:09 | CDI ---
Documentation Clarification Form Date: 10/04/2023 11:56:25 AM From: Kimberli Lozano Phone: Admit Date: 09/27/2023 05:44:00 AM Patient Name: Dakota Roper Visit Number: [id number] Discharge Date: 10/03/2023 06:48:00 PM ATTENTION: The Clinical Documentation Specialists (CDI) and [facility] Coding Staff appreciate your assistance in clarifying documentation. Please respond to the clarification below the line at the bottom and electronically sign. The CDI & [facility] Coding staff will review the response and follow-up if needed. Please note: Queries are made part of the Legal Health Record. If you have any questions, please contact the author of this message via ITS. Dr. Deepak Dey Unspecified CKD is documented Progress Note 10/01 and subsequent Progress Notes. Additional clarification regarding the stage of CKD is requested. History/Risk Factors: 58yo M, Congenitalbicuspid calcificAS,status post bioprosthetic aortic valvereplacement, AAA, CAD, HTN, HLD, congenitalsolitary kidney, Hx smoker, Hirschsprung's diseasewith chronicconstipation, Hxheroin use, FHx CAD, AKIsecondary toATNsecondary to NSAIDs, hypotension Patients Historical: Baseline creatinine 0.8-0.9 Clinical Indicators: BUN: 09/27 18 09/29 20 CR: 09/27 0.88 09/29 1.10 AfAm GFR: 09/27 >90 09/29 85 NonAfAm GFR: 09/27 >90 09/29 73 Treatment: Consults: IV fluids changed from half-normal saline to normal saline. Maintain fluidrestriction. Encouraged oral intake. Avoid nephrotoxins, including nonsteroidals. Continue to monitor renal function and urine output. Add oral bicarb. Please clarify the stage of the CKD, if known: [ x ] CKD Stage 1 [ ] CKD ruled out [ ] Other, please specify [ ] Unable to determine Reference: [employer] Stage 1 eGFR = 90 and kidney damage for =3 months Stage 2 eGFR 60-89 and kidney damage for =3 months Stage 3a eGFR 45-59 and kidney damage for =3 months Stage 3b eGFR 30-44 and kidney damage for =3 months Stage 4 eGFR 15-29 r and kidney damage for =3 months Stage 5 eGFR <15 and kidney damage for =3 months (Template last revised: August 2023) [facility]
[2023-10-22] MEDS ORDERED: ERGOCALCIFEROL 1,250 MCG (50,000 IU) CAPSULE PO SCH (09:00)
== END 2023-10-03 18:48 | DRG 163 ==
LOC: 2ORMAIN 05:44 → 2SICU 14:54
PROVIDERS: ADMIT Thoracic Surgery (Cardiothoracic Vascular Surgery); ATTEND Thoracic Surgery (Cardiothoracic Vascular Surgery)
PROC: 0210093 Bypass Coronary Artery, One Artery from Coronary Artery with Autologous Venous Tissue, Open Approach (ICD-10-PCS; 2023-09-27)
PROC: 06BQ4ZZ Excision of Left Saphenous Vein, Percutaneous Endoscopic Approach (ICD-10-PCS; 2023-09-27)
PROC: B24BZZ4 Ultrasonography of Heart with Aorta, Transesophageal (ICD-10-PCS; 2023-09-27)
PROC: 02RX0JZ Replacement of Thoracic Aorta, Ascending/Arch with Synthetic Substitute, Open Approach (ICD-10-PCS; 2023-09-27)
PROC: 02RF08Z Replacement of Aortic Valve with Zooplastic Tissue, Open Approach (ICD-10-PCS; principal; 2023-09-27 08:00)
PROC: 5A1221Z Performance of Cardiac Output, Continuous (ICD-10-PCS; 2023-09-27 08:00)
PROC: 02L70CK Occlusion of Left Atrial Appendage with Extraluminal Device, Open Approach (ICD-10-PCS; 2023-09-27 08:00)
PROC: 0D9H8ZZ Drainage of Cecum, Via Natural or Artificial Opening Endoscopic (ICD-10-PCS; 2023-10-03)
DX: Q23.1 Congenital insufficiency of aortic valve (principal); N17.0 Acute kidney failure with tubular necrosis; K55.8 Other vascular disorders of intestine; Q43.1 Hirschsprung's disease; K56.7 Ileus, unspecified; I71.21 Aneurysm of the ascending aorta, without rupture; J44.9 Chronic obstructive pulmonary disease, unspecified; F31.9 Bipolar disorder, unspecified; I48.0 Paroxysmal atrial fibrillation; E87.20 Acidosis, unspecified; Q60.0 Renal agenesis, unilateral; E83.41 Hypermagnesemia; E87.1 Hypo-osmolality and hyponatremia; I95.9 Hypotension, unspecified; D69.59 Other secondary thrombocytopenia; D62 Acute posthemorrhagic anemia; I12.9 Hypertensive chronic kidney disease with stage 1 through stage 4 chronic kidney disease, or unspecified chronic kidney disease; T50.3X5A Adverse effect of electrolytic, caloric and water-balance agents, initial encounter; E87.6 Hypokalemia; F43.10 Post-traumatic stress disorder, unspecified; F41.9 Anxiety disorder, unspecified; F11.91 Opioid use, unspecified, in remission; N18.1 Chronic kidney disease, stage 1; K63.89 Other specified diseases of intestine; T39.8X5A Adverse effect of other nonopioid analgesics and antipyretics, not elsewhere classified, initial encounter; D72.828 Other elevated white blood cell count; K59.09 Other constipation; E78.5 Hyperlipidemia, unspecified; H91.91 Unspecified hearing loss, right ear; G62.9 Polyneuropathy, unspecified; R01.1 Cardiac murmur, unspecified; Z82.49 Family history of ischemic heart disease and other diseases of the circulatory system; Z87.891 Personal history of nicotine dependence; Z86.19 Personal history of other infectious and parasitic diseases; Z98.61 Coronary angioplasty status; Z79.82 Long term (current) use of aspirin; Z79.899 Other long term (current) drug therapy
CPT/HCPCS: 45378; 71045; 74018; 74176; 80048; 80053; 81001; 82330; 82805; 83605; 83735; 84132; 84145; 85025; 85027; 85610; 85730; 86022; 86850; 86891; 86900; 86901; 86920; 87324; 88305; 88311; 94002; 94003; 94640

== ENCOUNTER 2023-12-06 18:22 | Emergency (ER) | payer OTHER ==
[2023-12-06 19:12] VITALS: RESP 20
--- NOTE | 2023-12-06 19:42 | ED ---
Lower Extremity Injury HPI - General Chief Complaint: Extremity Injury, Lower Stated Complaint: Lower back pain Time Seen by Provider: 12/06/23 19:09 Source: patient Mode of arrival: ambulatory Limitations: no limitations - History of Present Illness Initial Comments: 58-year-old male presenting with chief complaint of hip and back pain. Patient states that he has had right hip pain for the last 2 years. However over the last week or 2 the pain has been sharper than normal. He denies any injury or trauma. Pain is increased with range of motion. Patient is also complaining of some right-sided back pain. Mainly along the paraspinal region. No loss of bowel or bladder control or saddle paresthesia. No radiation of pain down the leg. No dysuria, hematuria, fever, chills, nausea, vomiting, abdominal pain. - Related Data Home Medications Medication Instructions Recorded Confirmed Cholecalciferol [Vitamin D3 (125 50,000 units PO Q30D 08/27/23 09/27/23 Mcg = 5000 Iu)] traZODone HCL 100 mg PO HS 08/27/23 09/27/23 Atorvastatin [Lipitor] 40 mg PO HS 09/20/23 09/27/23 Previous Rx's Medication Instructions Recorded Acetaminophen Tab [Tylenol] 650 mg PO Q4HR PRN tab 10/03/23 Amiodarone [Cordarone] 400 mg PO BID tab 10/03/23 Aspirin 81 mg PO DAILY tab 10/03/23 Clopidogrel [Plavix] 75 mg PO DAILY tab 10/03/23 Fondaparinux [Arixtra] 2.5 mg SQ DAILY each 10/03/23 INSULIN ASPART (NovoLOG) [NovoLOG 0 unit SQ ACHS each 10/03/23 (formulary)] Ipratropium-Albuterol Nebulize 3 ml INHALATION RT-Q2H PRN each 10/03/23 [Duoneb 0.5 mg-3 mg/3 ml Soln] Ipratropium-Albuterol Nebulize 3 ml INHALATION RT-QID each 10/03/23 [Duoneb 0.5 mg-3 mg/3 ml Soln] Metoprolol Tartrate [Lopressor] 50 mg PO BID tab 10/03/23 Pantoprazole [Protonix] 40 mg PO AC-BRKFST tab 10/03/23 Piperacillin-Tazobactam [Zosyn] 3.375 gm IVPB Q8HR each 10/03/23 Sodium Bicarbonate Tab 650 mg PO BID tab 10/03/23 bisacodyL [Dulcolax] 10 mg RECTAL DAILY suppositor 10/03/23 polyethylene glycoL 3350 [Miralax] 17 gm PO BID packet 10/03/23 Cyclobenzaprine [Flexeril] 10 mg PO TID PRN #15 tab 12/06/23 Allergies Allergy/AdvReac Type Severity Reaction Status Date / Time No Known Allergies Allergy Verified 09/27/23 06:38 Review of Systems ROS Statement: Those systems with pertinent positive or pertinent negative responses have been documented in the HPI. ROS Other: All systems not noted in ROS Statement are negative. Past Medical History Past Medical History: Chest Pain / Angina, COPD, Hearing Disorder / Deafness, Hypertension Additional Past Medical History / Comment(s): Hirschsprung's disease, constipation, aortic valve stenosis, SOB, vertigo, ascending aortic aneurysm, bacteremia 3 yrs. ago, hepatitis C-successful treatment, born w/one kidney, deaf right ear, neck, shoulders & back pain, neuropathy feet, blood infection 2019 History of Any Multi-Drug Resistant Organisms: None Reported Past Surgical History: Bowel Resection, Ear Surgery, Heart Catheterization, Orthopedic Surgery Additional Past Surgical History / Comment(s): WM, right inner ear surg/graft,ORIF left ankle, multiple surgeries for Hirschsprung's as a baby Past Anesthesia/Blood Transfusion Reactions: No Reported Reaction Past Psychological History: Anxiety, Bipolar, Depression, PTSD Smoking Status: Former smoker - Past Family History Father Family Medical History: Coronary Artery Disease (CAD) Mother Family Medical History: Cancer General Exam Limitations: no limitations General appearance: alert, in no apparent distress Head exam: Present: atraumatic, normocephalic Eye exam: Present: normal appearance, EOMI Neck exam: Present: normal inspection. Absent: meningismus Respiratory exam: Absent: respiratory distress Cardiovascular Exam: Present: regular rate Extremities exam: Present: normal inspection. Absent: tenderness Back exam: Present: normal inspection, paraspinal tenderness. Absent: vertebral tenderness Neurological exam: Present: alert, oriented X3 Psychiatric exam: Present: normal affect, normal mood Skin exam: Present: warm, dry Course Vital Signs 12/06/23 12/06/23 18:47 21:53 Temperature 97.8 F 98 F Pulse Rate 70 61 Respiratory 20 20 Rate Blood Pressure 120/66 116/71 O2 Sat by Pulse 97 98 Oximetry Medical Decision Making - Medical Decision Making Was pt. sent in by a medical professional or institution ([facility] Ruelas, [employer], urgent care, hospital, or longterm...) When possible be specific @ -No Did you speak to anyone other than the patient for history (EMS, parent, family, police, friend...)? What history was obtained from this source @ -No Did you review nursing and triage notes (agree or disagree)? Why? @ -I reviewed and agree with nursing and triage notes Were old charts reviewed (outside hosp., previous admission, EMS record, old EKG, old radiological studies, urgent care reports/EKG's, longterm records)? Report findings @ -No old charts were reviewed Differential Diagnosis (chest pain, altered mental status, abdominal pain women, abdominal pain men, vaginal bleeding, weakness, fever, dyspnea, syncope, headache, dizziness, GI bleed, back pain, seizure, CVA, palpatations, mental health, musculoskeletal)? @ - MDM Differential Back Pain: Strain, zoster, cauda equina syndrome, epidural abscess, vertebral osteomyelitis, discitis, fracture, subluxation, disc herniation, DJD, spinal stenosis, dissection, AAA, pancreatitis, peptic ulcer disease, pyelonephritis, kidney stone this is not meant to be an all-inclusive list. EKG interpreted by me (3pts min.). @ -As above X-rays interpreted by me (1pt min.). @ -Hip x-ray shows no acute fracture or dislocation in the pelvis or right hip Lumbar spine x-ray shows no lumbar spine fracture or malalignment. Mild degenerative disease at L3-[address] interpreted by me (1pt min.). @ -None done U/S interpreted by me (1pt. min.). @ -None done What testing was considered but not performed or refused? (CT, X-rays, U/S, labs)? Why? @ -None What meds were considered but not given or refused? Why? @ -None Did you discuss the management of the patient with other professionals (professionals i.e. JEFF[facility] Ruelas, [employer] WORK[employer], lab, RT, psych nurse, social services coordinator, tdp displays analyst, teacher, chairman and chief executive officer, case monitor)? Give summary @ -No Was smoking cessation discussed for >3mins.? @ -No Was critical care preformed (if so, how long)? @ -No Were there social determinants of health that impacted care today? How? (Homelessness, low income, unemployed, alcoholism, drug addiction, transportation, low edu. Level, literacy, decrease access to med. care, fpc, rehab)? @ -No Was there de-escalation of care discussed even if they declined (Discuss DNR or withdrawal of care, Hospice)? DNR status @ -No What co-morbidities impacted this encounter? (DM, HTN, Smoking, COPD, CAD, Cancer, CVA, ARF, Chemo, Hep., AIDS, mental health diagnosis, sleep apnea, morbid obesity)? @ -None Was patient admitted / discharged? Hospital course, mention meds given and route, prescriptions, significant lab abnormalities, going to OR and other pertinent info. @ -58-year-old male presenting with chief complaint of lower back pain. No red flag symptoms. History and physical exam are conducted. X-rays show no acute osseous process. Urine is negative for infection or bleeding. Patient except lidocaine patch, refuses all other pain medication. Instructed to follow-up with PCP and orthopedics. Discharged home. Follow-up with PCP. Report back to ER with any new or worsening symptoms. Discussed return parameters and answered all questions. Patient conveyed verbal understanding and agreed to the plan. I discussed this case in detail with my attending Dr. Peters Undiagnosed new problem with uncertain prognosis? @ -No Drug Therapy requiring intensive monitoring for toxicity (Heparin, Nitro, Insulin, Cardizem)? @ -No Were any procedures done? @ -No Diagnosis/symptom? @ -Mechanical back pain Acute, or Chronic, or Acute on Chronic? @ -Acute Uncomplicated (without systemic symptoms) or Complicated (systemic symptoms)? @ -Uncomplicated Side effects of treatment? @ -No Exacerbation, Progression, or Severe Exacerbation? @ -No Poses a threat to life or bodily function? How? (Chest pain, USA, MD, pneumonia, PE, COPD, DKA, ARF, appy, cholecystitis, CVA, Diverticulitis, Homicidal, Suicidal, threat to staff... and all critical care pts) @ -Low likelihood - Lab Data Lab Results 12/06/23 Range/Units 20:14 Urine Color Colorless Urine Appearance Clear (Clear) Urine pH 7.0 (5.0-8.0) Ur Specific [place] 1.007 (1.001-1.035) Urine Protein Negative (Negative) Urine Glucose (UA) Negative (Negative) Urine Ketones Negative (Negative) Urine Blood Negative (Negative) Urine Nitrite Negative (Negative) Urine Bilirubin Negative (Negative) Urine Urobilinogen <2.0 (<2.0) mg/dL Ur Leukocyte Esterase Negative (Negative) Disposition Clinical Impression: Mechanical back pain Disposition: HOME SELF-CARE Condition: Good Instructions (If sedation given, give patient instructions): Back Pain (ED) Additional Instructions: Follow-up with PCP and orthopedics. Report back to ER with any new or worsening symptoms. Prescriptions: Cyclobenzaprine [Flexeril] 10 mg PO TID PRN #15 tab PRN Reason: Spasms Is patient prescribed a controlled substance at d/c from ED?: No Referrals: Jaime Oneil MD [Primary Care Provider] - 1-2 days Freddie Meek DO [Doctor of Osteopathic Medicine] - 1-2 days Mary Rodrigues DO [Doctor of Osteopathic Medicine] - 1-2 days Time of Disposition: 21:30
--- NOTE | 2023-12-06 20:23 | XR ---
EXAMINATION TYPE: XR Hip RT and AP Pelvis DATE OF EXAM: 12/06/2023 COMPARISON: NONE HISTORY: Pain TECHNIQUE: A single AP view of the pelvis is obtained. Two views of the right hip are obtained. FINDINGS: There is no acute fracture/dislocation evident in the pelvis. The hip and sacroiliac join ts appear symmetric and unremarkable. The overlying soft tissue appears unremarkable. Two views of right hip show no acute fracture or dislocation. No focal lytic or sclerotic lesion see n in the proximal right femur. The overlying soft tissue is unremarkable. IMPRESSION: There is no acute fracture or dislocation in the pelvis or right hip.
--- NOTE | 2023-12-06 20:25 | XR ---
Lumbar spine HISTORY: Pain COMPARISON: None. TECHNIQUE: 3 views of lumbar spine were obtained FINDINGS: The lumbar vertebral segments are normal in height and alignment. No fracture or subluxation. There is mild degenerative disc disease at the L3-4 level where there is mild disc space narrowing an d spondylosis. There is mild facet degeneration lower lumbar spine The sacrum and SI joints normal. IMPRESSION: 1. No lumbar spine fracture or malalignment. 2. Mild degenerative disease at the L3-4 level.
[2023-12-06 20:38] LABS: Appearance,Urine Clear (Clear); Bilirubin,Urine Negative (Negative); Blood,Urine Negative (Negative); Color,Urine Colorless; Glucose,Urine (UA) Negative (Negative); Ketones,Urine Negative (Negative); Leukocyte Esterase,Urine Negative (Negative); Nitrite,Urine Negative (Negative); Protein,Urine Negative (Negative); Specific Gravity,Urine 1.007 (1.001-1.035); Urobilinogen,Urine <2.0 mg/dL (<2.0)
[2023-12-06] MEDS: LIDOCAINE 4% PATCH TOPICAL ONE (21:49)
[2023-12-06 22:24] VITALS: BP 116/71; PULSE 61; TEMP 98
== END 2023-12-06 21:54 | disposition home or self-care (01) ==
LOC: EC 18:22
DX: M51.36 Other intervertebral disc degeneration, lumbar region (principal); Z87.891 Personal history of nicotine dependence
CPT/HCPCS: 72100; 73502; 81003; 99284

== ENCOUNTER 2024-02-02 12:19 | Emergency (ER) | payer OTHER ==
[2024-02-02 12:25] VITALS: RESP 18
--- NOTE | 2024-02-02 12:26 | ED ---
Abdominal Pain HPI - General Chief Complaint: Abdominal Pain Stated Complaint: poss colitis Time Seen by Provider: 02/02/24 12:26 Source: patient, RN notes reviewed Mode of arrival: ambulatory Limitations: no limitations - History of Present Illness Initial Comments: This is a 58-year-old male with a history of hirschsprung disease and chronic constipation presents emergency department chief complaint of abdominal pain over the past day and a half. Patient had a colostomy that was placed in October 2023 due to a complication of colitis and subsequent sepsis. States that he has been doing well after the procedure but states that over the past day and a half he has had worsening left lower quadrant abdominal pain and noticed a herniation of his stoma with pain at the stoma. He denies nausea, vomiting, chills, fevers, weakness. Patient is on clopidogrel due to TAVR in September 2023. States that he missed multiple appointments with his general surgeon that completed the ostomy, and was recommended that he undergo a colonoscopy which he has not done. denies recent antibiotic use. - Related Data Home Medications Medication Instructions Recorded Confirmed Atorvastatin [Lipitor] 40 mg PO HS 09/20/23 02/02/24 Albuterol Inhaler [Ventolin Hfa 1 - 2 puff INHALATION RT-QID PRN 02/02/24 02/02/24 Inhaler] Cholecalciferol (Vitamin D3) 1,250 mcg PO Q28D 02/02/24 02/02/24 [Vitamin D3 (1250 Mcg = 50,000 Iu)] Escitalopram [Lexapro] 20 mg PO DAILY 02/02/24 02/02/24 Furosemide [Lasix] 20 mg PO DAILY 02/02/24 02/02/24 Ibuprofen [Motrin] 800 mg PO Q6H PRN 02/02/24 02/02/24 Metoprolol Succinate (ER) [Toprol 25 mg PO DAILY 02/02/24 02/02/24 Xl] Potassium Chloride [Klor-Con 20 20 meq PO BID 02/02/24 02/02/24 Packets] lisinopriL [Zestril] 5 mg PO DAILY 02/02/24 02/02/24 traZODone HCL [Trazodone HCl] 300 mg PO HS 02/02/24 02/02/24 Previous Rx's Medication Instructions Recorded Aspirin 81 mg PO DAILY tab 10/03/23 Clopidogrel [Plavix] 75 mg PO DAILY tab 10/03/23 Amoxic-Pot Clav 875-125Mg 1 tab PO Q12HR #20 tab 02/02/24 [Augmentin 875-125] Allergies Allergy/AdvReac Type Severity Reaction Status Date / Time No Known Allergies Allergy Verified 02/02/24 17:29 Review of Systems ROS Statement: Those systems with pertinent positive or pertinent negative responses have been documented in the HPI. ROS Other: All systems not noted in ROS Statement are negative. Past Medical History Past Medical History: Chest Pain / Angina, COPD, Hearing Disorder / Deafness, Hypertension Additional Past Medical History / Comment(s): Hirschsprung's disease, constipation, aortic valve stenosis, SOB, vertigo, ascending aortic aneurysm, bacteremia 3 yrs. ago, hepatitis C-successful treatment, born w/one kidney, deaf right ear, neck, shoulders & back pain, neuropathy feet, blood infection 2019 History of Any Multi-Drug Resistant Organisms: None Reported Past Surgical History: Bowel Resection, Ear Surgery, Heart Catheterization, Orthopedic Surgery Additional Past Surgical History / Comment(s): WM, right inner ear surg/graft,ORIF left ankle, multiple surgeries for Hirschsprung's as a baby Past Anesthesia/Blood Transfusion Reactions: No Reported Reaction Past Psychological History: Anxiety, Bipolar, Depression, PTSD Smoking Status: Former smoker Past Alcohol Use History: None Reported Past Drug Use History: None Reported - Past Family History Father Family Medical History: Coronary Artery Disease (CAD) Mother Family Medical History: Cancer General Exam Limitations: no limitations General appearance: alert, in no apparent distress Head exam: Present: atraumatic, normocephalic, normal inspection Eye exam: Present: normal appearance, PERRL, EOMI. Absent: scleral icterus, conjunctival injection, periorbital swelling ENT exam: Present: normal exam, mucous membranes moist Neck exam: Present: normal inspection. Absent: tenderness, meningismus, lymphadenopathy Respiratory exam: Present: normal lung sounds bilaterally, wheezes (bilateral). Absent: respiratory distress, rales, rhonchi, stridor Cardiovascular Exam: Present: regular rate, normal rhythm, normal heart sounds. Absent: systolic murmur, diastolic murmur, rubs, gallop, clicks GI/Abdominal exam: Present: soft, distended (left mid abdomen), tenderness (LLQ), hyperactive bowel sounds, other (left osteomy with herniation and pain at site, post surgical incision of the mid abdomen). Absent: guarding, rebound, rigid Extremities exam: Present: normal inspection, full ROM, normal capillary refill. Absent: tenderness, pedal edema, joint swelling, calf tenderness Back exam: Present: normal inspection Neurological exam: Present: alert, oriented X3, CN II-XII intact Course Vital Signs 02/02/24 02/02/24 02/02/24 12:21 18:46 19:21 Temperature 98.0 F Pulse Rate 71 60 60 Respiratory 18 18 18 Rate Blood Pressure 127/67 139/90 129/83 O2 Sat by Pulse 96 95 97 Oximetry 02/02/24 02/02/24 20:20 21:16 Temperature 98.6 F Pulse Rate 62 64 Respiratory 18 18 Rate Blood Pressure 118/71 127/86 O2 Sat by Pulse 96 96 Oximetry Medical Decision Making - Medical Decision Making Was pt. sent in by a medical professional or institution (, PA, MISSION ASSESSMENT SPECIALIST, urgent care, hospital, or retirement...) When possible be specific @ -No Did you speak to anyone other than the patient for history (EMS, parent, family, police, friend...)? What history was obtained from this source @ -No Did you review nursing and triage notes (agree or disagree)? Why? @ -I reviewed and agree with nursing and triage notes Were old charts reviewed (outside hosp., previous admission, EMS record, old EKG, old radiological studies, urgent care reports/EKG's, retirement records)? Report findings @ -I reviewed the CT of the abdomen on 09/29/2023 that revealed scattered feces identified within the fluid in the left colon with a large stool burden of the right colon. Differential Diagnosis (chest pain, altered mental status, abdominal pain women, abdominal pain men, vaginal bleeding, weakness, fever, dyspnea, syncope, headache, dizziness, GI bleed, back pain, seizure, CVA, palpatations, mental health, musculoskeletal)? @ -Differential Abdominal Pain Men: Appendicitis, cholecystitis, diverticulosis, ischemic bowel, pancreatitis, hepatitis, UTI, gastroenteritis, AAA, incarcerated hernia, bowel obstruction, constipation, inflammatory bowel, hepatitis, peptic ulcer disease, splenic infarction, perforated viscus, testicular torsion, this is not meant to be an all-inclusive list EKG interpreted by me (3pts min.). @ -None X-rays interpreted by me (1pt min.). @ -None done CT interpreted by me (1pt min.). @ -CT of the abdomen and pelvis with contrast reveals left upper quadrant diverting colostomy with moderate colitis involving the ostomy and left side of the colon down to the rectum. No abscess or free air noted. U/S interpreted by me (1pt. min.). @ -None done What testing was considered but not performed or refused? (CT, X-rays, U/S, labs)? Why? @ -None What meds were considered but not given or refused? Why? @ -None Did you discuss the management of the patient with other professionals (professionals i.e. , PA, MISSION ASSESSMENT SPECIALIST, lab, RT, psych nurse, social security specialist, supervisor bottle machines, teacher, tax revenue officer, classification case manager)? Give summary @ -Attempted to consult the patient's surgeon, Dr. Cm, but was unsuccessful due to the surgeons office being closed on the weekends. I spoke with honing machine set up operator general surgeon, Dr. King, in regard to the patient;s case. He advised that if the patient's pain is tolerated, his labs are within normal limits, and he is well-appearing on examination he is stable for outpatient treatment with oral antibiotics and recommend that he follows up with his general surgeon next week for further evaluation. Was smoking cessation discussed for >3mins.? @ -No Was critical care preformed (if so, how long)? @ -No Were there social determinants of health that impacted care today? How? (Homelessness, low income, unemployed, alcoholism, drug addiction, transportation, low edu. Level, literacy, decrease access to med. care, intermediate, rehab)? @ -No Was there de-escalation of care discussed even if they declined (Discuss DNR or withdrawal of care, Hospice)? DNR status @ -No What co-morbidities impacted this encounter? (DM, HTN, Smoking, COPD, CAD, Cancer, CVA, ARF, Chemo, Hep., AIDS, mental health diagnosis, sleep apnea, morbid obesity)? @ -None Was patient admitted / discharged? Hospital course, mention meds given and route, prescriptions, significant lab abnormalities, going to OR and other pertinent info. @ -58-year-old male with abdominal pain. On examination patient was noted to have a ostomy with erythema and herniation at the site. Area is tender to palpation and left lower abdomen is tender as well. Patient vitals are stable upon arrival. At this time he will be symptomatically treated with Toradol and IV fluids in addition to labs and CT imaging of the abdomen. Patient is in agreement with this plan. CBC reveals mild thrombocytopenia at 119 similar compared to previous. Coagulation profile within normal limits, CMP no acute findings, lactic acid 0.9. Urinalysis no signs of infection. Dr. King, Recommends that patient be treated outpatient with oral Augmentin and he follows up with his general surgeon next week for further evaluation. Patient was provided with first dose of antibiotic in the emergency department and additional prescription will be sent to his pharmacy. All questions answered at bedside and strict return parameters discussed with the patient he is verbalized understanding. Case discussed with Dr. Espino. Undiagnosed new problem with uncertain prognosis? @ -No Drug Therapy requiring intensive monitoring for toxicity (Heparin, Nitro, Insulin, Cardizem)? @ -No Were any procedures done? @ -No Diagnosis/symptom? @ -Colitis Acute, or Chronic, or Acute on Chronic? @ -Acute Uncomplicated (without systemic symptoms) or Complicated (systemic symptoms)? @ -uncomplicated Side effects of treatment? @ -No Exacerbation, Progression, or Severe Exacerbation? @ -No Poses a threat to life or bodily function? How? (Chest pain, USA, MT, pneumonia, PE, COPD, DKA, ARF, appy, cholecystitis, CVA, Diverticulitis, Homicidal, Suicidal, threat to staff... and all critical care pts) @ -No - Lab Data Result diagrams: 02/02/24 12:41 02/02/24 12:41 Lab Results 02/02/24 02/02/24 02/02/24 Range/Units 12:41 12:41 12:41 WBC 8.5 (3.8-10.6) k/uL RBC 5.11 (4.30-5.90) m/uL Hgb 13.8 (13.0-17.5) gm/dL Hct 43.8 (39.0-53.0) % MCV 85.7 (80.0-100.0) fL MCH 26.9 (25.0-35.0) pg MCHC 31.4 (31.0-37.0) g/dL RDW 17.3 H (11.5-15.5) % Plt Count 119 L (150-450) k/uL MPV 8.0 Neutrophils % 45 % Lymphocytes % 44 % Monocytes % 6 % Eosinophils % 2 % Basophils % 1 % Neutrophils # 3.8 (1.3-7.7) k/uL Lymphocytes # 3.7 (1.0-4.8) k/uL Monocytes # 0.5 (0-1.0) k/uL Eosinophils # 0.2 (0-0.7) k/uL Basophils # 0.1 (0-0.2) k/uL Anisocytosis Slight PT 11.1 (10.0-12.5) sec INR 1.0 (<1.2) APTT 25.5 (22.0-30.0) sec Sodium (137-145) mmol/L Potassium (3.5-5.1) mmol/L Chloride (98-107) mmol/L Carbon Dioxide (22-30) mmol/L Anion Gap mmol/L BUN (9-20) mg/dL Creatinine (0.66-1.25) mg/dL Est GFR (CKD-EPI)AfAm (>60 ml/min/1.73 sqM) Est GFR (CKD-EPI)NonAf (>60 ml/min/1.73 sqM) Glucose (74-99) mg/dL Plasma Lactic Acid [place] (0.7-2.0) mmol/L Calcium (8.4-10.2) mg/dL Total Bilirubin (0.2-1.3) mg/dL AST (17-59) U/L ALT (4-49) U/L Alkaline Phosphatase (38-126) U/L Total Protein (6.3-8.2) g/dL Albumin (3.5-5.0) g/dL Amylase (30-110) U/L Lipase (23-300) U/L Urine Color Yellow Urine Appearance Clear (Clear) Urine pH 7.0 (5.0-8.0) Ur Specific [place] 1.016 (1.001-1.035) Urine Protein Trace H (Negative) Urine Glucose (UA) Negative (Negative) Urine Ketones Negative (Negative) Urine Blood Negative (Negative) Urine Nitrite Negative (Negative) Urine Bilirubin Negative (Negative) Urine Urobilinogen <2.0 (<2.0) mg/dL Ur Leukocyte Esterase Negative (Negative) 02/02/24 02/02/24 Range/Units 12:41 12:41 WBC (3.8-10.6) k/uL RBC (4.30-5.90) m/uL Hgb (13.0-17.5) gm/dL Hct (39.0-53.0) % MCV (80.0-100.0) fL MCH (25.0-35.0) pg MCHC (31.0-37.0) g/dL RDW (11.5-15.5) % Plt Count (150-450) k/uL MPV Neutrophils % % Lymphocytes % % Monocytes % % Eosinophils % % Basophils % % Neutrophils # (1.3-7.7) k/uL Lymphocytes # (1.0-4.8) k/uL Monocytes # (0-1.0) k/uL Eosinophils # (0-0.7) k/uL Basophils # (0-0.2) k/uL Anisocytosis PT (10.0-12.5) sec INR (<1.2) APTT (22.0-30.0) sec Sodium 135 L (137-145) mmol/L Potassium 4.3 (3.5-5.1) mmol/L Chloride 104 (98-107) mmol/L Carbon Dioxide 27 (22-30) mmol/L Anion Gap 4 mmol/L BUN 8 L (9-20) mg/dL Creatinine 0.89 (0.66-1.25) mg/dL Est GFR (CKD-EPI)AfAm >90 (>60 ml/min/1.73 sqM) Est GFR (CKD-EPI)NonAf >90 (>60 ml/min/1.73 sqM) Glucose 104 H (74-99) mg/dL Plasma Lactic Acid [place] 0.9 (0.7-2.0) mmol/L Calcium 9.0 (8.4-10.2) mg/dL Total Bilirubin 0.6 (0.2-1.3) mg/dL AST 35 (17-59) U/L ALT 26 (4-49) U/L Alkaline Phosphatase 90 (38-126) U/L Total Protein 7.0 (6.3-8.2) g/dL Albumin 3.9 (3.5-5.0) g/dL Amylase 72 (30-110) U/L Lipase 58 (23-300) U/L Urine Color Urine Appearance (Clear) Urine pH (5.0-8.0) Ur Specific [place] (1.001-1.035) Urine Protein (Negative) Urine Glucose (UA) (Negative) Urine Ketones (Negative) Urine Blood (Negative) Urine Nitrite (Negative) Urine Bilirubin (Negative) Urine Urobilinogen (<2.0) mg/dL Ur Leukocyte Esterase (Negative) Disposition Clinical Impression: Colitis Disposition: HOME SELF-CARE Condition: Good Instructions (If sedation given, give patient instructions): Colitis (ED) Additional Instructions: Return to the emergency department if your symptoms worsen or not improve. Complete full course of antibiotics as prescribed. Recommend that you follow-up with your general surgeon next week for further evaluation. Prescriptions: Amoxic-Pot Clav 875-125Mg [Augmentin 875-125] 1 tab PO Q12HR #20 tab Is patient prescribed a controlled substance at d/c from ED?: No Referrals: Jaime Oneil MD [Primary Care Provider] - 1-2 days Time of Disposition: 21:10
[2024-02-02] MEDS: SODIUM CHLORIDE 0.9% 1,000 ML IV STA (12:59)
[2024-02-02] MEDS: KETOROLAC 15 MG/ML 1 ML VIAL IVP STA (12:59)
[2024-02-02 13:15] LABS: Anisocytosis Slight; Basophils # (A) 0.1 k/uL (0-0.2); Basophils % (A) 1 %; Eosinophils # (A) 0.2 k/uL (0-0.7); Eosinophils % (A) 2 %; HCT 43.8 % (39.0-53.0); HGB 13.8 gm/dL (13.0-17.5); Lymphocytes # (A) 3.7 k/uL (1.0-4.8); Lymphocytes % (A) 44 %; MCH 26.9 pg (25.0-35.0); MCHC 31.4 g/dL (31.0-37.0); MCV 85.7 fL (80.0-100.0); Monocytes # (A) 0.5 k/uL (0-1.0); Monocytes % (A) 6 %; Neutrophils # (A) 3.8 k/uL (1.3-7.7); Neutrophils % (A) 45 %; Platelet Count 119 k/uL (150-450); RBC 5.11 m/uL (4.30-5.90); RDW 17.3 % (11.5-15.5); WBC 8.5 k/uL (3.8-10.6)
[2024-02-02 13:22] LABS: Appearance,Urine Clear (Clear); Bilirubin,Urine Negative (Negative); Blood,Urine Negative (Negative); Color,Urine Yellow; Glucose,Urine (UA) Negative (Negative); Ketones,Urine Negative (Negative); Leukocyte Esterase,Urine Negative (Negative); Nitrite,Urine Negative (Negative); Protein,Urine Trace (Negative); Specific Gravity,Urine 1.016 (1.001-1.035); Urobilinogen,Urine <2.0 mg/dL (<2.0)
[2024-02-02 13:24] LABS: Partial Thromboplastin Time 25.5 sec (22.0-30.0); Prothrombin Time 11.1 sec (10.0-12.5)
[2024-02-02 13:31] LABS: ALT 26 U/L (4-49); AST 35 U/L (17-59); African American GFR (CKD) >90 (>60 ml/min/1.73 sqM); Albumin 3.9 g/dL (3.5-5.0); Alkaline Phosphatase 90 U/L (38-126); Amylase 72 U/L (30-110); Anion Gap 4 mmol/L; Blood Urea Nitrogen 8 mg/dL (9-20); Carbon Dioxide 27 mmol/L (22-30); Chloride 104 mmol/L (98-107); Glucose 104 mg/dL (74-99); Lipase 58 U/L (23-300); Non-African American GFR(CKD) >90 (>60 ml/min/1.73 sqM); Potassium 4.3 mmol/L (3.5-5.1); Sodium 135 mmol/L (137-145); Total Bilirubin 0.6 mg/dL (0.2-1.3)
--- NOTE | 2024-02-02 15:06 | CT ---
EXAMINATION TYPE: CT abdomen pelvis w con DATE OF EXAM: 02/02/2024 COMPARISON: 09/30/2023 HISTORY: 58 year-old male left lower quadrant abdominal pain, abd pain at ostomy TECHNIQUE: Contiguous axial scanning of the abdomen and pelvis following administration of 100 ml Iso dariel 300 IV contrast. Delayed images through the kidneys and coronal/sagittal reconstructions perform ed. CT DLP: 909.8 mGycm Automated exposure control for dose reduction was used. FINDINGS: Trace anterior basilar pericardial fluid. Heart incompletely visualized. Some patchy opacit y probably atelectasis along the subpleural posterior left lung base. No pleural effusion. No focal liver lesion or biliary ductal dilatation. Portal venous system is patent. Gallbladder, adrenal glands, left kidney, and pancreas show no gross of neurology. Spleen borderline enlarged at 13.8 cm measured on coronal series with a couple benign calcified granu nicole. Slightly delayed excretion of contrast from the left kidney. Correlate with patient's kidney function to exclude acute kidney injury. Right kidney is absent. No dilated small bowel, free fluid, or free air. No mesenteric or retroperitoneal lymphadenopathy. 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 Normal appendix. There is a diverting left upper quadrant colostomy at the level of the splenic flexu re. There is circumferential inflammatory thickening at both the ostomy with fat stranding and additi onal circumferential thickening extending along the descending colon and especially the distal sigmoi d and rectum. Moderate perirectal fat stranding and edema noted. Bladder is collapsed but with moderate circumferential thickening. No additional abnormal fluid colle ction in the pelvis or pelvic lymphadenopathy. Bones: Mild multilevel disc disease. IMPRESSION: 1. LEFT UPPER QUADRANT DIVERTING COLOSTOMY NEAR THE LEVEL OF THE SPLENIC FLEXURE. THERE IS A MODERATE COLITIS INVOLVING THE OSTOMY AND ALSO THE LEFT-SIDE OF THE COLON down to the rectum. The rectum in p articular shows moderate surrounding inflammation. Correlate for nonspecific infectious or inflammato ry colitis. No abscess or free air. 2. The right kidney is absent. There is delayed excretion of contrast from the left kidney. Correlate with BUN/creatinine to exclude ZHEN. 3. Additional moderate circumferential bladder wall thickening. Correlate to exclude cystitis.
[2024-02-02] MEDS: AMOXIC-POT CLAV 875-125MG 1 EACH TAB PO STA (21:13)
[2024-02-02 21:17] VITALS: BP 127/86; PULSE 64; TEMP 98.6
== END 2024-02-02 21:16 | disposition home or self-care (01) ==
LOC: EC 12:19
DX: K52.9 Noninfective gastroenteritis and colitis, unspecified (principal); Z93.3 Colostomy status; Z87.891 Personal history of nicotine dependence
CPT/HCPCS: 36415; 80053; 82150; 83605; 83690; 85025; 85610; 85730; 81003; 74177; 99285; 96374; 96361 ×2; J1885; Q9967

== ENCOUNTER 2024-03-06 21:20 | Emergency (ER) | payer SELFPAY ==
--- NOTE | 2024-03-06 21:56 | ED ---
Eye Problem HPI - General Stated complaint: Irritation of left eye Time Seen by Provider: 03/06/24 21:55 Source: patient, RN notes reviewed Mode of arrival: ambulatory Limitations: no limitations - History of Present Illness Initial comments: 58-year-old male presented to the ER with a chief complaint of left eye irritation. Patient states he was working under a car earlier today and felt either a piece of metal or dirt fall into his eye. He has flushed his eye out multiple times but still has a foreign body sensation. He denies any double blurry vision. Tetanus is up-to-date. No other complaints. - Related Data Home Medications Medication Instructions Recorded Confirmed Atorvastatin [Lipitor] 40 mg PO HS 09/20/23 02/02/24 Albuterol Inhaler [Ventolin Hfa 1 - 2 puff INHALATION RT-QID PRN 02/02/24 02/02/24 Inhaler] Cholecalciferol (Vitamin D3) 1,250 mcg PO Q28D 02/02/24 02/02/24 [Vitamin D3 (1250 Mcg = 50,000 Iu)] Escitalopram [Lexapro] 20 mg PO DAILY 02/02/24 02/02/24 Furosemide [Lasix] 20 mg PO DAILY 02/02/24 02/02/24 Ibuprofen [Motrin] 800 mg PO Q6H PRN 02/02/24 02/02/24 Metoprolol Succinate (ER) [Toprol 25 mg PO DAILY 02/02/24 02/02/24 Xl] Potassium Chloride [Klor-Con 20 20 meq PO BID 02/02/24 02/02/24 Packets] lisinopriL [Zestril] 5 mg PO DAILY 02/02/24 02/02/24 traZODone HCL [Trazodone HCl] 300 mg PO HS 02/02/24 02/02/24 Previous Rx's Medication Instructions Recorded Aspirin 81 mg PO DAILY tab 10/03/23 Clopidogrel [Plavix] 75 mg PO DAILY tab 10/03/23 Amoxic-Pot Clav 875-125Mg 1 tab PO Q12HR #20 tab 02/02/24 [Augmentin 875-125] Allergies Allergy/AdvReac Type Severity Reaction Status Date / Time No Known Allergies Allergy Verified 03/06/24 22:19 Review of Systems ROS Statement: Those systems with pertinent positive or pertinent negative responses have been documented in the HPI. ROS Other: All systems not noted in ROS Statement are negative. Past Medical History Past Medical History: Chest Pain / Angina, COPD, Hearing Disorder / Deafness, Hypertension Additional Past Medical History / Comment(s): Hirschsprung's disease, constipation, aortic valve stenosis, SOB, vertigo, ascending aortic aneurysm, bacteremia 3 yrs. ago, hepatitis C-successful treatment, born w/one kidney, deaf right ear, neck, shoulders & back pain, neuropathy feet, blood infection 2019 History of Any Multi-Drug Resistant Organisms: None Reported Past Surgical History: Bowel Resection, Ear Surgery, Heart Catheterization, Orthopedic Surgery Additional Past Surgical History / Comment(s): WM, right inner ear surg/graft,ORIF left ankle, multiple surgeries for Hirschsprung's as a baby Past Anesthesia/Blood Transfusion Reactions: No Reported Reaction Past Psychological History: Anxiety, Bipolar, Depression, PTSD Smoking Status: Former smoker Past Alcohol Use History: None Reported Past Drug Use History: None Reported - Past Family History Father Family Medical History: Coronary Artery Disease (CAD) Mother Family Medical History: Cancer General Exam - General Exam Comments Initial Comments: Visual Physical Exam Vital signs reviewed General: Well-appearing, nontoxic, no acute distress. Head: Normocephalic, atraumatic Eyes: PERRLA, EOMI, erythema to left eye ENT: Airway patent Chest: Nonlabored breathing Skin: No visual rash, normal skin tone Neuro: Alert and oriented 3 Musculoskeletal: No gross abnormalities General appearance: alert, in no apparent distress Head exam: Present: atraumatic, normocephalic, normal inspection Eye exam: Present: normal appearance, PERRL, EOMI, conjunctival injection (left. Fluorescein stain negative for acute uptake. Upper and lower lid inversion negative for foreign body.). Absent: scleral icterus, periorbital swelling ENT exam: Present: normal exam, mucous membranes moist Respiratory exam: Present: normal lung sounds bilaterally. Absent: respiratory distress, wheezes, rales, rhonchi, stridor Cardiovascular Exam: Present: regular rate, normal rhythm, normal heart sounds. Absent: systolic murmur, diastolic murmur, rubs, gallop, clicks Skin exam: Present: warm, dry, intact, normal color. Absent: rash Course Vital Signs 03/06/24 03/07/24 22:20 00:03 Temperature 98.9 F 98.1 F Pulse Rate 64 71 Respiratory 20 16 Rate Blood Pressure 112/70 110/68 O2 Sat by Pulse 96 98 Oximetry Medical Decision Making - Medical Decision Making I performed the quick note portion of this chart. Electronically signed by Chava Wiseman PA-C Was pt. sent in by a medical professional or institution ([facility], [facility], urgent care, hospital, or care home...) When possible be specific @ -No Did you speak to anyone other than the patient for history (EMS, parent, family, police, friend...)? What history was obtained from this source @ -No Did you review nursing and triage notes (agree or disagree)? Why? @ -I reviewed and agree with nursing and triage notes Were old charts reviewed (outside hosp., previous admission, EMS record, old EKG, old radiological studies, urgent care reports/EKG's, care home records)? Report findings @ -No old charts were reviewed Differential Diagnosis (chest pain, altered mental status, abdominal pain women, abdominal pain men, vaginal bleeding, weakness, fever, dyspnea, syncope, headache, dizziness, GI bleed, back pain, seizure, CVA, palpatations, mental health, musculoskeletal)? @ -Corneal abrasion, ocular foreign body, hyphema, conjunctivitis, globe rupture, acute angle-closure glaucoma this list is not meant to be all-inclusive EKG interpreted by me (3pts min.). @ -None X-rays interpreted by me (1pt min.). @ -None done CT interpreted by me (1pt min.). @ -None done U/S interpreted by me (1pt. min.). @ -None done What testing was considered but not performed or refused? (CT, X-rays, U/S, labs)? Why? @ -None What meds were considered but not given or refused? Why? @ -None Did you discuss the management of the patient with other professionals (professionals i.e. [facility], [facility], lab, RT, psych nurse, oncology social work, stoner hand, teacher, freedom of information officer, telehealth case manager)? Give summary @ -No Was smoking cessation discussed for >3mins.? @ -No Was critical care preformed (if so, how long)? @ -No Were there social determinants of health that impacted care today? How? (Homelessness, low income, unemployed, alcoholism, drug addiction, transportation, low edu. Level, literacy, decrease access to med. care, halfway, rehab)? @ -No Was there de-escalation of care discussed even if they declined (Discuss DNR or withdrawal of care, Hospice)? DNR status @ -No What co-morbidities impacted this encounter? (DM, HTN, Smoking, COPD, CAD, Cancer, CVA, ARF, Chemo, Hep., AIDS, mental health diagnosis, sleep apnea, morbid obesity)? @ -None Was patient admitted / discharged? Hospital course, mention meds given and route, prescriptions, significant lab abnormalities, going to OR and other pertinent info. @ -Discharged. 58-year-old male presented to ER with a chief complaint of left eye irritation. History and physical exam completed. Vitals stable. Patient no signs of acute distress and nontoxic-appearing. Exam remarkable for conjunctival injection to the left eye. Pupils equal round and reactive. Intact extraocular motions. There is mild purulent drainage present. Cornea clear. Fluorescein stain negative for acute uptake. Lid inversion negative for foreign body. Patient's left eye was flushed with normal saline. Patient does reports improvement after saline. Patient's tetanus is up-to-date per patient. Patient will be started on Tobrex eyedrops. I advised close followup with PCP and ophthalmology, referral given. Strict return parameters discussed. Patient discharged in stable condition. Patient verbally expressed understanding and agreement with care plan. Case discussed with ED attending, Dr. Peters. Undiagnosed new problem with uncertain prognosis? @ -No Drug Therapy requiring intensive monitoring for toxicity (Heparin, Nitro, Insulin, Cardizem)? @ -No Were any procedures done? @ -No Diagnosis/symptom? @ -Eye irritation Acute, or Chronic, or Acute on Chronic? @ -Acute Uncomplicated (without systemic symptoms) or Complicated (systemic symptoms)? @ -Uncomplicated Side effects of treatment? @ -No Exacerbation, Progression, or Severe Exacerbation? @ -No Poses a threat to life or bodily function? How? (Chest pain, [place], MA, pneumonia, PE, COPD, DKA, ARF, appy, cholecystitis, CVA, Diverticulitis, Homicidal, Suicidal, threat to staff... and all critical care pts) @ -No Disposition Clinical Impression: Eye irritation, Conjunctival injection Disposition: HOME SELF-CARE Condition: Stable Instructions (If sedation given, give patient instructions): Eye Foreign Body (ED) Additional Instructions: Use tobramycin eyedrops every 6 hours for 5 days. Follow-up with PCP. Return to the ER for any new or worsening concerns. Is patient prescribed a controlled substance at d/c from ED?: No Referrals: Jaime Oneil MD [Primary Care Provider] - 1-2 days Romulo Fernando MD [STAFF PHYSICIAN] - 1-2 days Hernandez Aranda MD [STAFF PHYSICIAN] - 1-2 days Ward Shah DO [Doctor of Osteopathic Medicine] - 1-2 days Saud Aguila MD [STAFF PHYSICIAN] - 1-2 days Time of Disposition: 22:57
[2024-03-06] MEDS: PROPARACAINE 0.5% OPHTH DROPS 15 ML BTL LEFT EYE STA (22:23)
[2024-03-06] MEDS: FLUORESCEIN STRIPS 1 MG STRIP RIGHT EYE ONE (22:24)
[2024-03-06] MEDS: TOBRAMYCIN 0.3% OPHTH DROPS 5 ML BTL LEFT EYE STA (23:59)
[2024-03-07 00:04] VITALS: BP 110/68; PULSE 71; RESP 16; TEMP 98.1
== END 2024-03-07 00:03 | disposition home or self-care (01) ==
LOC: EC 21:20
DX: H57.89 Other specified disorders of eye and adnexa (principal); Z87.891 Personal history of nicotine dependence
CPT/HCPCS: 99283

== ENCOUNTER → 2024-06-24 | Outpatient (CLI) | payer OTHER ==
--- NOTE | 2024-06-24 14:01 | XR ---
EXAMINATION TYPE: XR shoulder complete BILAT DATE OF EXAM: 06/24/2024 CLINICAL HISTORY: pain TECHNIQUE: Three views of the lateral shoulders are obtained. COMPARISON: None FINDINGS: There is no acute fracture/dislocation evident. The acromioclavicular and glenohumeral milena int spaces appear within normal limits. The visualized ribs are intact and unremarkable. IMPRESSION: 1. There is no acute fracture or dislocation. ICD 10 NO FRACTURE, INITIAL EVALUATION [facility], , 06/24/2024 1:59 PM
--- NOTE | 2024-06-24 14:38 | XR ---
EXAMINATION TYPE: XR cervical spine comp DATE OF EXAM: 06/24/2024 1:48 PM COMPARISON: None. CLINICAL INDICATION: Male, 58 years old with history of M54.12 cervicalgia, TECHNIQUE: Frontal, lateral, oblique, swimmers, and open mouth view of the cervical spine are obtaine d. Flexion and extension views are also submitted. FINDINGS: The cervical spine is visualized in its entirety from C1 thru the top of T1 level. It is s atisfactory in alignment without evidence of acute fracture or dislocation. The pre-vertebral soft t issue appears within normal limits. Moderate to severe degenerative disc space narrowing extending fr om C4 through C7. Ventral and dorsal spondylosis. Neural foraminal encroachment bilaterally 6 7. Norm al alignment in neutral, flexion and extension. The C1-C2 articulation is unremarkable on the open mo uth view. The oblique images are within normal limits. IMPRESSION: Degenerative changes as discussed. [facility], , 06/24/2024 2:35 PM
--- NOTE | 2024-06-24 14:42 | XR ---
EXAMINATION TYPE: XR lumbar spine with bend/flex DATE OF EXAM: 06/24/2024 1:48 PM COMPARISON: None. CLINICAL INDICATION: Male, 58 years old with history of M54.16 Lumbar pain, TECHNIQUE: Frontal, lateral, and oblique images of the lumbar spine are obtained. Flexion and extensi on views are also obtained. FINDINGS: There are 5 lumbar type vertebral bodies identified. The lumbar spine shows satisfactory alignment without evidence of acute fracture or dislocation. Vertebral body heights are within normal limits. Mild degenerative disc space narrowing with ventral spondylosis. Normal alignment at neutr al, flexion and extension. The overlying soft tissue appears unremarkable. IMPRESSION: No acute fracture or dislocation is seen in the lumbar spine.ICD 10 NO FRACTURE, INITIAL EVALUATION [facility], , 06/24/2024 2:39 PM
== END | disposition home or self-care (01) ==
LOC: RADXRMAIN 13:03
PROVIDERS: ATTEND Psychiatry & Neurology Pain Medicine
DX: M48.061 Spinal stenosis, lumbar region without neurogenic claudication (principal); M47.22 Other spondylosis with radiculopathy, cervical region; M47.26 Other spondylosis with radiculopathy, lumbar region; M25.512 Pain in left shoulder; M25.511 Pain in right shoulder
CPT/HCPCS: 72050; 72114